=== PATIENT | female | born 1970 | race Caucasian/White ===

== ENCOUNTER → 2017-01-12 | Outpatient (CLI) | payer BC ==
--- NOTE | 2017-01-12 16:53 | US ---
EXAMINATION TYPE: US kidneys/renal and bladder DATE OF EXAM: 01/12/2017 4:23 PM COMPARISON: NONE CLINICAL HISTORY: R31.9 Hematuria. Hematuria EXAM MEASUREMENTS: Right Kidney: 10.4 x 4.3 x 4.9 cm Left Kidney: 9.3 x 4.4 x 4.4 cm Right Kidney: fullness of renal pelvis, 0.5cm echogenic shadowing focus inferior pole, inferior pole partially obscured by overlying bowel gas Left Kidney: 0.7cm echogenic focus superior pole, inferior pole partially obscured by overlying bowel gas Bladder: wnl Bilateral Jets seen: yes There is no evidence for hydronephrosis at this point in time. No nephrolithiasis is seen. No zayda s are identified. The urinary bladder is anechoic. Bilateral ureteral jets are seen. IMPRESSION: There is evidence for nonobstructing bilateral renal calculi. No evidence of a renal mass. No renal a trophy seen.
== END | disposition home or self-care (01) ==
LOC: RADUSMAIN 15:58
PROVIDERS: ATTEND Pediatrics
DX: R31.9 Hematuria, unspecified (principal)
CPT/HCPCS: 76770

== ENCOUNTER → 2017-05-01 | Outpatient (CLI) | payer BC ==
--- NOTE | 2017-05-03 09:42 | MM ---
Reason for exam: screening (asymptomatic). Last mammogram was performed 4 years and 4 months ago. History: Patient is postmenopausal and is nulliparous. Took progesterone for 3 years 6 months beginning at age 34. Taking other hormone for 3 months beginning at age 42. Physical Findings: A clinical breast exam by your physician is recommended on an annual basis and results should be correlated with mammographic findings. MG 3D Screening Mammo W/Cad Bilateral CC and MLO view(s) were taken. Prior study comparison: January 09, 2013, bilateral digital screening mammo w/CAD. September 05, 2011, bilateral digital screening mammo w/CAD. November 22, 2007, bilateral diagnostic digital mammog. The breast tissue is extremely dense which could obscure a lesion on mammography. Finding: There are typically benign round, diffuse/scattered, regional calcifications in both breasts. There is no discrete abnormality. ASSESSMENT: Benign, BI-RAD 2 RECOMMENDATION: Routine screening mammogram of both breasts in 1 year.
== END | disposition home or self-care (01) ==
LOC: RADMAMWWP 15:49
PROVIDERS: ATTEND Pediatrics
DX: Z12.31 Encounter for screening mammogram for malignant neoplasm of breast (principal)
CPT/HCPCS: 77063; G0202

== ENCOUNTER → 2017-06-18 | Outpatient (CLI) | payer BC ==
[2017-06-18 16:17] LABS: Non-African American GFR(MDRD) >60 (>60 ml/min/1.73 sqM)
--- NOTE | 2017-06-18 23:12 | MR ---
EXAMINATION TYPE: MR brain/cspine wo/w DATE OF EXAM: 06/18/2017 COMPARISON: MRI brain and cervical spine April 25, 2016 HISTORY: MS follow up. Symptoms of dizziness and bilateral extremity numbness with headaches per bryson ent. TECHNIQUE: Multiplanar, multisequence images of the cervical spine, brain and brainstem are all performed withou t and with IV contrast, utilizing 5 mL intravenous Gadavist gadolinium contrast is administered intra venously. Demyelinating disease protocol with additional Sagittal Flair sequence performed. FINDINGS: T2 Lesions Present : Yes Approximate Number of Lesions: Approximately 10 large lesions redemonstrated Locations Identified : Scattered deep and periventricular Size of Reference Lesion(s): 1. 1.3 cm x 1.0 cm x 0.9 cm on axial image 18 and sagittal image 7 left frontal periventricular lesi on stable 2 1.1 cm x 0.6 cm x 1 cm on axial image 20 and sagittal image 19 right frontal lesion stable Enhancing Lesion(s) Present: No T1 Hypointense Lesion(s) Present: Yes Change from Prior: Stable Diffusion weighted images demonstrate no evidence of a recent infarct or other diffusion abnormality. There is no worrisome extra-axial fluid collection. The ventricular system and cisternal spaces ar e normal in size and appearance. The brain volume is age appropriate. Midline structures demonstrate normal morphology. The craniocervical junction appears within normal limits. There is dominant left vertebral artery redemonstrated. Post contrast images demonstrate no a bnormal enhancement. The dural venous sinuses appear patent. The visualized sinuses are clear and th e globes are intact. IMPRESSION: Fairly moderate stable nonspecific white matter changes likely on basis of patient's know n multiple sclerosis redemonstrated. No new or enhancing lesions are seen. C-SPINE: FINDINGS: Coronal images redemonstrates slight dextroconvex scoliotic curvature centered in the lower cervical spine. Sagittal images of the cervical spine show the craniocervical junction to appear wit hin normal limits. The cervical and upper thoracic spinal cord remains normal in course, caliber, an d signal. Vertebral alignment is anatomic on sagittal images. The vertebral body and intravertebral disk heights are normal. Posterior disc herniations are redemonstrated C4-C5 through C6-C7 levels on sagittal images. The bone marrow signal intensity is within normal limits. No abnormal postcontrast enhancement is seen. No significant spurring is noted. Axial images show the C2-C3 level to show tiny left paracentral disc protrusion minimally effacing an terolateral thecal sac, bilateral neural foramina are patent on axial image 45. Axial images at C3-C4 level show more prominent left paracentral/foraminal disc protrusion effacing a nterolateral thecal sac and causing asymmetric mild to moderate left-sided neural foraminal narrowing . Right-sided neural foramen is patent. Axial images at C4-C5 level show broad-based posterior disc protrusion effacing anterior thecal sac a nd causing mild bilateral neural foraminal narrowing. Axial images at C5-C6 level show most prominent broad-based posterior disc protrusion effacing anteri or thecal sac and causing mild bilateral neural foraminal narrowing. Axial images at C6-C7 level shows central disc protrusion mildly effacing anterior thecal sac, bilate ral neural foramina are patent. Axial images at C7-T1 level are felt within normal limits. IMPRESSION: No MRI evidence for demyelinating disease involvement in cervical spinal cord. Multilevel degenerative changes are redemonstrated C3-C4 through C6-C7 level as detailed above. Slight progress ion may be present from prior.
== END | disposition home or self-care (01) ==
LOC: RADMRIMAIN 15:40
PROVIDERS: ATTEND Psychiatry & Neurology Neurology
DX: M47.812 Spondylosis without myelopathy or radiculopathy, cervical region (principal); G35 Multiple sclerosis
CPT/HCPCS: 82565; 70553; 72156; 36415; A9581

== ENCOUNTER → 2017-06-19 | Outpatient (CLI) | payer BC ==
--- NOTE | 2017-06-19 19:00 | MR ---
Thoracic spine MRI HISTORY: Multiple sclerosis Multiplanar multisequence imaging through the thoracic spine following 5.5 cc Gadavist IV and correla susie to previous exam 04/26/2016 Thoracic vertebral bodies show stable height, alignment, and bone marrow signal. Disc spaces are stab le. Thoracic cord signal is stable. No significant spinal stenosis, foraminal encroachment, or disc h erniation. Thoracic cord signal is stable. Facet arthropathy change present at the lower thoracic spi ne. No abnormal enhancement following contrast administration. IMPRESSION: Stable exam. No significant abnormalities evident within the thoracic cord. Facet arthrop athy as described.
== END | disposition home or self-care (01) ==
LOC: RADMRIMAIN 16:26
PROVIDERS: ATTEND Psychiatry & Neurology Neurology
DX: M53.84 Other specified dorsopathies, thoracic region (principal); G35 Multiple sclerosis
CPT/HCPCS: 72157; A9581

== ENCOUNTER → 2017-10-18 | Outpatient (CLI) | payer BC ==
--- NOTE | 2017-10-18 22:50 | BD ---
EXAMINATION TYPE: MG DEXA axial skeleton. DATE OF EXAM: 10/18/2017 COMPARISON: NONE CLINICAL HISTORY: 47-year-old female screening for osteoporosis Height: 5 FT 5 1/2 IN Weight: 115 FRAX RISK QUESTIONS: Alcohol (3 or more units per day): NO Family History (Parent hip fracture): NO Glucocorticoids (More than 3mos): NO (Ex: prednisone, prednisolone, methylprednisolone, dexamethasone, and hydrocortisone). History of Fracture in Adulthood: YES Secondary Osteoporosis: 1. Type 1 Diabetes: NO 2. Hyperthyroidism: NO 3. Menopause before 45: NO 4. Malnutrition: NO 5. Chronic liver disease: NO Rheumatoid Arthritis: NO Current Tobacco Use: NO RISK FACTORS HISTORY OF: Family History of Osteoporosis: YES Active: NO Postmenopausal woman: PART HYST AGE 41 Frequent falls: YES MEDICATIONS: Additional Medications: SYMATREL, NORVASC, KOZAAR, BACLIFEN, EFFEXOR, ALEVE, AMBIEN,DETROL, XANAX, T E, VIT B , FISH OIL, MULTI, BIOTIN, Additional History: PT HAS MS EXAM MEASUREMENTS: Bone mineral densitometry was performed using the Streak System. Bone mineral density as measured about the Lumbar spine is: ----- L1-L4(G/cm2): 1.369 T Score Values are as follows: ----- L2: 1.9 ----- L3: 1.5 ----- L4: 0.9 ----- L1-L4: 1.6 Bone mineral density has: DECREASED -2.1 % since study of: 2008 Bone mineral density about the R hip (g/cm2): 0.907 Bone mineral density about the L hip (g/cm2): 0.874 T Score values are as follows: -----R Neck: -0.9 -----L Neck: -1.2 -----R Total: -1.1 -----L Total: -1.2 Bone mineral density has: DECREASED -1.3 % since study of: 2008 IMPRESSION: Note that Z score values are utilized as the patient is less than 50 years of age. When utilizing Z s core values, there is normal bone mineral density. Consider rescreening when the patient is 50. NOTE: T-SCORE=SD OF THE YOUNG ADULT MEAN.
== END | disposition home or self-care (01) ==
LOC: RADBDWWP 16:08
PROVIDERS: ATTEND Pediatrics
DX: Z13.820 Encounter for screening for osteoporosis (principal)
CPT/HCPCS: 77080

== ENCOUNTER → 2018-02-12 | Outpatient (CLI) | payer BC ==
[2018-02-12 17:27] LABS: ALT 48 U/L (9-52); AST 31 U/L (14-36); Albumin 4.4 g/dL (3.5-5.0); Alkaline Phosphatase 74 U/L (38-126); Anion Gap 13 mmol/L; Blood Urea Nitrogen 24 mg/dL (7-17); Calcium 10.2 mg/dL (8.4-10.2); Carbon Dioxide 30 mmol/L (22-30); Chloride 100 mmol/L (98-107); Glucose 112 mg/dL (74-99); Sodium 143 mmol/L (137-145); Total Bilirubin 0.3 mg/dL (0.2-1.3)
[2018-02-12 17:43] LABS: T4, Free (Free Thyroxine) 1.32 ng/dL (0.78-2.19)
[2018-02-13 01:27] LABS: Vitamin D 25 Hydroxy 60.9 ng/mL (30.0-100.0)
[2018-02-13 04:54] LABS: Parathyroid Hormone Intact 26.7 pg/mL (14.0-72.0)
== END | disposition home or self-care (01) ==
LOC: LABWHC1 16:44
PROVIDERS: ATTEND Internal Medicine Endocrinology, Diabetes & Metabolism
DX: E20.8 Other hypoparathyroidism (principal)
CPT/HCPCS: 36415; 80053; 82306; 83970; 84439; 84443

== ENCOUNTER 2022-02-21 17:06 | Inpatient (IN) | payer BC, MEDICARE ==
[2022-02-21 20:34] LABS: HCT 37.5 % (34.0-46.0); HGB 12.5 gm/dL (11.4-16.0); MCH 31.8 pg (25.0-35.0); MCHC 33.3 g/dL (31.0-37.0); MCV 95.7 fL (80.0-100.0); Mean Platelet Volume 8.5; Platelet Count 205 k/uL (150-450); RBC 3.92 m/uL (3.80-5.40); RDW 13.5 % (11.5-15.5); WBC 2.9 k/uL (3.8-10.6)
[2022-02-21 20:48] LABS: ALT 59 U/L (4-34); AST 42 U/L (14-36); African American GFR (CKD) >90 (>60 ml/min/1.73 sqM); Albumin 4.2 g/dL (3.5-5.0); Alkaline Phosphatase 104 U/L (38-126); Anion Gap 7 mmol/L; Blood Urea Nitrogen 19 mg/dL (7-17); Calcium 9.1 mg/dL (8.4-10.2); Carbon Dioxide 28 mmol/L (22-30); Chloride 97 mmol/L (98-107); Glucose 127 mg/dL (74-99); Non-African American GFR(CKD) >90 (>60 ml/min/1.73 sqM); Potassium 3.8 mmol/L (3.5-5.1); Sodium 132 mmol/L (137-145); Total Bilirubin 0.7 mg/dL (0.2-1.3); Total Protein 6.8 g/dL (6.3-8.2)
[2022-02-21 20:59] LABS: Appearance,Urine Clear (Clear); Bilirubin,Urine Negative (Negative); Blood,Urine Trace (Negative); Color,Urine Yellow; Glucose,Urine (UA) Trace (Negative); Ketones,Urine 1+ (Negative); Leukocyte Esterase,Urine Negative (Negative); Mucus,Urine Rare /hpf; Nitrite,Urine Negative (Negative); PH, Urine 6.5 (5.0-8.0); Protein,Urine 1+ (Negative); RBC,Urine 10 /hpf (0-5); Specific Gravity,Urine 1.018 (1.001-1.035); Squamous Epithelial Cell,Urine <1 /hpf (0-4); Urobilinogen,Urine <2.0 mg/dL (<2.0); WBC,Urine 1 /hpf (0-5)
[2022-02-21] MEDS ORDERED: AMPICILLIN-SULBACTAM 3 GM in SODIUM CHLORIDE 0.9% 100 ML IVPB STA (22:01)
[2022-02-21] MEDS ORDERED: VANCOMYCIN IV PER PHARMACY 1 EACH MISC MISCELLANE PRN (22:02)
[2022-02-21] MEDS ORDERED: SODIUM CHLORIDE 0.9% 500 ML IV STA (22:03)
[2022-02-21] MEDS ORDERED: SODIUM CHLORIDE 0.9% 1,000 ML IV STA (22:03)
--- NOTE | 2022-02-21 22:13 | ED ---
General Adult HPI - General Chief complaint: Recheck/Abnormal Lab/Rx Stated complaint: Blood in Urine Time Seen by Provider: 02/21/22 21:11 Source: patient Mode of arrival: wheelchair Limitations: no limitations - History of Present Illness Initial comments: this 52-year-old female resents with mother with a complaint of weakness. She states that this started in the past several days. She describes having significant cramping type sensation in her upper back and neck region. Her mother took her temperature at one point and it was 101. She has had some chills as well. She has generalized weakness. She also relates that she has a significant history of severe multiple sclerosis. She takes Ocrivus infusions every 6 months. Her last one was approximately 6 weeks ago. She states that the skin significantly affect her white blood cell count. She states that she normally has significant weakness of her lower extremities but this is much worse in the last 1 week. She also relates having decubitus ulcers in her sacral region which have just recently became much worse. She has a small skin infection in her left axilla as well which is minimal but knew. She denies any cough or difficulty in breathing. She was seen at an urgent care center yesterday and had a chest x-ray which was negative. She also had a urinalysis completed which showed some hematuria. They recommended that she come to the emergency department for further evaluation. She states that she is visiting from [place] and her neurologist is down in [place]. She has not seen any providers in this region. She also relates that she has a history of kidney stones but she does not feel as though she is passing a kidney stone currently. There is no flank pain. No other modifying factors. - Related Data Home Medications Medication Instructions Recorded Confirmed ALPRAZolam [Xanax] 0.25 mg PO BID 12/19/16 04/19/18 Baclofen 10 mg PO TID 12/19/16 04/19/18 Ergocalciferol [Vitamin D2 50,000 units PO WEEKLY 12/19/16 04/19/18 (DRISDOL)] Losartan Potassium [Cozaar] 100 mg PO DAILY 12/19/16 04/19/18 Loteprednol Etabonate [Lotemax] 1 drop BOTH EYES HS 12/19/16 04/19/18 Tolterodine Tartrate [Detrol] 2 mg PO HS 12/19/16 04/19/18 Venlafaxine HCl [Effexor] 75 mg PO DAILY 12/19/16 04/19/18 Zolpidem Tartrate [Ambien Cr] 6.25 mg PO HS 12/19/16 04/19/18 amLODIPine BESYLATE [Norvasc] 5 mg PO DAILY 12/19/16 04/19/18 amantadine HCL [Symmetrel] 100 mg PO BID 12/19/16 04/19/18 Allergies Allergy/AdvReac Type Severity Reaction Status Date / Time gadobenate dimeglumine Allergy Mild Rash/Hives Unverified 04/19/18 14:12 [From AGLOGIC] Review of Systems ROS Statement: Those systems with pertinent positive or pertinent negative responses have been documented in the HPI. ROS Other: All systems not noted in ROS Statement are negative. Past Medical History Past Medical History: Eye Disorder, Hypertension, Neurologic Disorder Additional Past Medical History / Comment(s): MS. LESIONS ON CORNEA FROM MS. History of Any Multi-Drug Resistant Organisms: None Reported Past Surgical History: Hysterectomy Additional Past Surgical History / Comment(s): PARTIAL HYSTERECTOMY. Past Anesthesia/Blood Transfusion Reactions: No Reported Reaction Past Psychological History: Anxiety, Depression Past Alcohol Use History: None Reported Past Drug Use History: None Reported - Past Family History Mother Family Medical History: Osteoarthritis (OA) Father Family Medical History: Cancer, Hyperlipidemia Additional Family Medical History / Comment(s): PROSTATE CANCER. General Exam - General Exam Comments Initial Comments: GENERAL: The patient is well nourished and well hydrated. VITAL SIGNS: Heart rate, blood pressure, respiratory rate reviewed as recorded in nurse's notes. EYES: Pupils are round and reactive. Extraocular movements are intact. No conjunctival / lid redness or swelling. ENT: No external evidence of injury, swelling, or ecchymosis. Airway is patent. Throat is clear. NECK: Mild tenderness and and spasm to her bilateral paracervical musculature. No meningeal signs noted. No swelling or evidence of injury. No subcutaneous emphysema. Trachea is midline. No thyroid mass. HEART: Regular rate and rhythm. Good peripheral pulses. LUNGS/CHEST: Breath sounds clear and equal bilaterally. No rales, rhonchi, or wheezes. No ecchymosis, subcutaneous emphysema, or tenderness. ABDOMEN: Abdomen soft without tenderness. No palpable masses or organomegaly. No peritoneal signs. No abdominal wall swelling or ecchymosis. EXTREMITIES: No extremity tenderness. There is bilateral lower extremity weakness which is chronic for her. There is some mild tenderness and muscle spasm to her parathoracic musculature superiorly. NEUROLOGIC: Sensation is grossly intact. Cranial nerve exam reveals face is symmetrical, tongue is midline, speech is clear. Lower extremity weakness noted which is chronic. SKIN: No abrasions or ecchymosis is noted. No induration or masses noted. There is a small erythematous minimally raised nonfluctuant lesion noted in her left axilla measuring 1 cm x 1 cm. there is a moderately significant left buttock cellulitis noted. There is no associated fluctuance identified. There is a mild sacral decubitus ulceration which would be a grade 1. PSYCHIATRIC: Alert and oriented. Appropriate behavior and judgment. Limitations: no limitations Course Vital Signs 02/21/22 18:25 Temperature 97.3 F L Pulse Rate 101 H Respiratory 18 Rate Blood Pressure 163/84 O2 Sat by Pulse 99 Oximetry Medical Decision Making - Medical Decision Making The patient was seen and examined. All diagnostics are reviewed. A KUB x-ray was done and there is fluid was noted in multiple likely renal stones. Final radiologic review pending. The patient also had a low white blood cell count at 2.9. The laboratory calls me and relates that they are unable to see any neutrophils at all and there is increased monocytes as well as lymphocytes. The urinalysis shows evidence of some mild hematuria but no definite infection. IV is established and she is hydrated. Skin and vancomycin is started. It is felt as though the patient is significantly immune deficient. Her source of infection may potentially be her decubitus ulcer. She relates that her MS symptoms and generalized weakness are fairly severe. It is felt as though she would benefit from evaluation by neurology and hematology. Her neutropenia likely is due to her medication infusion for her MS. She is agreeable with admission. Case will be discussed with internal medicine in the near future. - Lab Data Result diagrams: 02/21/22 20:05 02/21/22 20:05 Lab Results 02/21/22 02/21/22 02/21/22 Range/Units 20:05 20:05 20:44 WBC 2.9 L (3.8-10.6) k/uL RBC 3.92 (3.80-5.40) m/uL Hgb 12.5 (11.4-16.0) gm/dL Hct 37.5 (34.0-46.0) % MCV 95.7 (80.0-100.0) fL MCH 31.8 (25.0-35.0) pg MCHC 33.3 (31.0-37.0) g/dL RDW 13.5 (11.5-15.5) % Plt Count 205 (150-450) k/uL MPV 8.5 Sodium 132 L (137-145) mmol/L Potassium 3.8 (3.5-5.1) mmol/L Chloride 97 L (98-107) mmol/L Carbon Dioxide 28 (22-30) mmol/L Anion Gap 7 mmol/L BUN 19 H (7-17) mg/dL Creatinine 0.59 (0.52-1.04) mg/dL Est GFR (CKD-EPI)AfAm >90 (>60 ml/min/1.73 sqM) Est GFR (CKD-EPI)NonAf >90 (>60 ml/min/1.73 sqM) Glucose 127 H (74-99) mg/dL Calcium 9.1 (8.4-10.2) mg/dL Total Bilirubin 0.7 (0.2-1.3) mg/dL AST 42 H (14-36) U/L ALT 59 H (4-34) U/L Alkaline Phosphatase 104 (38-126) U/L Total Protein 6.8 (6.3-8.2) g/dL Albumin 4.2 (3.5-5.0) g/dL Urine Color Yellow Urine Appearance Clear (Clear) Urine pH 6.5 (5.0-8.0) Ur Specific Hewitt 1.018 (1.001-1.035) Urine Protein 1+ H (Negative) Urine Glucose (UA) Trace H (Negative) Urine Ketones 1+ H (Negative) Urine Blood Trace H (Negative) Urine Nitrite Negative (Negative) Urine Bilirubin Negative (Negative) Urine Urobilinogen <2.0 (<2.0) mg/dL Ur Leukocyte Esterase Negative (Negative) Urine RBC 10 H (0-5) /hpf Urine WBC 1 (0-5) /hpf Ur Squamous Epith Cells <1 (0-4) /hpf Urine Mucus Rare H (None) /hpf Disposition Clinical Impression: Weakness, Exacerbation of multiple sclerosis, Neutropenia, Leukopenia, Hyponatremia, Hypochloremia, Hypertension, Decubitus ulcer, Immunocompromised, Cellulitis of buttock, left Disposition: ADMITTED IP TO THIS HOSP Condition: Fair Is patient prescribed a controlled substance at d/c from ED?: No Referrals: None,Stated [Primary Care Provider] - 1-2 days Time of Disposition: 22:15 Decision Date: 02/21/22 Decision Time: 22:59
[2022-02-21] MEDS ORDERED: VANCOMYCIN 1,000 MG in SODIUM CHLORIDE 0.9% 250 ML IVPB ONE (23:00)
[2022-02-22 00:01] LABS: Eosinophils # (M) 0.03 k/uL (0-0.7); Metamyelocytes # (M) 0.03 k/uL (0)
[2022-02-22] MEDS ORDERED: ACETAMINOPHEN TAB 325 MG TAB PO PRN (00:05)
[2022-02-22] MEDS ORDERED: NALOXONE 0.4 MG/ML 1 ML VIAL IV PRN (00:06)
[2022-02-22] MEDS ORDERED: ONDANSETRON 4 MG/2 ML VIAL IVP PRN (00:06)
--- NOTE | 2022-02-22 01:26 | XR ---
EXAM: XR Chest, 2 Views CLINICAL HISTORY: ITS.REASON XR Reason: possible infiltrate TECHNIQUE: Frontal and lateral views of the chest. COMPARISON: No relevant prior studies available. FINDINGS: Lungs: Unremarkable. No infiltration, atelectasis or mass density. Pleural space: Unremarkable. No pneumothorax. No pleural fluid. Heart: Unremarkable. No cardiomegaly. Mediastinum: Unremarkable. Bones/joints: Unremarkable. No acute abnormalities. IMPRESSION: Negative chest x-rays.
--- NOTE | 2022-02-22 02:22 | P.HPIM ---
History of Present Illness H&P Date: 02/22/22 The patient is a 52-year-old female with a PMH of multiple sclerosis and hypertension who presents to the emergency room with complaints of muscle spasms, weakness, and a rash. The patient reports a long-standing history of multiple sclerosis for which she has been taking Ocrevus, twice a year IV in fusion. She reports that over the years her mobility has gradually deteriorated where she now ambulates with a walker and a mobility scooter. She reports however that this past Sunday, she suddenly developed back spasms and worsening pain at the site of an ulcer on her left buttock. She also reports that her legs became increasingly weaker. She reports a long-standing history of intermittent urinary incontinence which has also worsened since the onset of her symptoms. She did have a temperature of 101 at home but denies subjective chills. She denied experiencing chest discomfort, shortness of breath, cough, nausea, vomiting, abdominal pain, diarrhea. Chest x-ray in the emergency room was unremarkable. Laboratory evaluation revealed a WBC count of 2.9 with 0 neutrophils. Sodium was 132, chloride 97, AST 42, ALT 59, unremarkable UA, negative coronavirus and influenza testing. The patient was given broad- spectrum IV antibiotics for neutropenic sepsis and was admitted for medical management. Review of systems: Pertinent positives and negatives as discussed in HPI, a complete review of systems was performed and all other systems are negative. Physical examination: General: non toxic, no distress, appears at stated age, normal weight Derm: 5 cm left sided buttock unstageable ulcer overlying ischial tuberosity with surrounding erythema and a black base, 2 cm right ischial tuberosity ulcer without surrounding erythema, 3 cm ulcer overlying the coccyx without surrounding erythema, warm Head: atraumatic, normocephalic, symmetric Eyes: EOMI, no lid lag, anicteric sclera, pupils equal round reactive to light ENT: Nose and ears atraumatic Neck: No cervical lymphadenopathy, trachea midline, supple Mouth: no lip lesion, mucus membranes moist Cardiovascular: S1S2 reg, no murmur, positive dorsalis pedis pulse bilateral, no edema Lungs: CTA bilateral, no rhonchi, no rales, no accessory muscle use Abdominal: soft, nontender to palpation, no guarding Ext: Strength 4 out of 5 in bilateral upper extremities with strength 1 out of 5 in bilateral lower extremities, no gross muscle atrophy, no contractures, Neuro: CN II-XI grossly intact, no gross focal neuro deficits Psych: Alert, oriented, appropriate affect Assessment/plan Neutropenic sepsis in setting of immunosuppressant use -Neutropenia is a common side effect of Ocrevus -Hematology consulted for severe neutropenia -Continue with broad-spectrum IV antibiotics with Unasyn and vancomycin -Follow up blood cultures -Wound care for buttock and coccyx ulcers Hypochloremic hyponatremia -Continue gentle IV fluids and monitor for now Abnormal LFTs -May be due to ongoing sepsis -Monitor for now DVT prophylaxis -Lovenox The patient is admitted with an anticipated greater than 2 midnight stay for evaluation of neutropenic sepsis. CODE STATUS: Full Code Discussed with: Patient Anticipated discharge date: 02/[address]: Home Past Medical History Past Medical History: Eye Disorder, Hypertension, Neurologic Disorder Additional Past Medical History / Comment(s): MS. LESIONS ON CORNEA FROM MS. History of Any Multi-Drug Resistant Organisms: None Reported Past Surgical History: Hysterectomy Additional Past Surgical History / Comment(s): PARTIAL HYSTERECTOMY. Past Anesthesia/Blood Transfusion Reactions: No Reported Reaction Past Psychological History: Anxiety, Depression Past Alcohol Use History: None Reported Past Drug Use History: None Reported - Past Family History Mother Family Medical History: Osteoarthritis (OA) Father Family Medical History: Cancer, Hyperlipidemia Additional Family Medical History / Comment(s): PROSTATE CANCER. Medications and Allergies Home Medications Medication Instructions Recorded Confirmed Type Losartan Potassium [Cozaar] 100 mg PO DAILY 12/19/16 02/21/22 History amLODIPine BESYLATE [Norvasc] 5 mg PO DAILY 12/19/16 02/21/22 History Acetaminophen [Tylenol 8 Hour] 650 mg PO Q8H PRN 02/21/22 02/21/22 History Cephalexin [Keflex] 500 mg PO Q8HR 02/21/22 02/21/22 History Dalfampridine [Dalfampridine ER] 10 mg PO BID 02/21/22 02/21/22 History Doxycycline Monohydrate 50 mg PO DAILY 02/21/22 02/21/22 History Escitalopram [Lexapro] 10 mg PO DAILY 02/21/22 02/21/22 History Meloxicam [Mobic] 15 mg PO DAILY PRN 02/21/22 02/21/22 History Ocrevus 1 dose IV Q180D 02/21/22 02/21/22 History Omeprazole [PriLOSEC] 20 mg PO DAILY 02/21/22 02/21/22 History amantadine HCL [Amantadine] 100 mg PO W/LUNCH 02/21/22 02/21/22 History amantadine HCL [Amantadine] 200 mg PO W/BRKFST 02/21/22 02/21/22 History Allergies Allergy/AdvReac Type Severity Reaction Status Date / Time gadobenate dimeglumine Allergy Mild Rash/Hives Verified 02/21/22 23:00 [From [facility]] Physical Exam Vitals: Vital Signs Temp Pulse Resp BP Pulse Ox 02/21/22 18:25 97.3 F L 101 H 18 163/84 99 Intake and Output 02/21/22 02/21/22 02/22/22 14:59 22:59 06:59 Other: Weight 56.245 kg Results CBC & Chem 7: 02/21/22 20:05 02/21/22 20:05 Labs: Abnormal Lab Results - Last 24 Hours (Table) 02/21/22 02/21/22 02/21/22 Range/Units 20:05 20:05 20:44 WBC 2.9 L (3.8-10.6) k/uL Sodium 132 L (137-145) mmol/L Chloride 97 L (98-107) mmol/L BUN 19 H (7-17) mg/dL Glucose 127 H (74-99) mg/dL AST 42 H (14-36) U/L ALT 59 H (4-34) U/L Urine Protein 1+ H (Negative) Urine Glucose (UA) Trace H (Negative) Urine Ketones 1+ H (Negative) Urine Blood Trace H (Negative) Urine RBC 10 H (0-5) /hpf Urine Mucus Rare H (None) /hpf
[2022-02-22 08:13] LABS: Basophils # (M) 0.03 k/uL (0-0.2); Lymphocytes # (M) 1.13 k/uL (1.0-4.8); Neutrophils # (M) 0.15 k/uL (1.3-7.7); Neutrophils % (M) 5 %; Nucleated Red Blood Cells 0 /100 WBC (0-0); Total Cells Counted 200
[2022-02-22] MEDS ORDERED: NON FORMULARY DRUG (Dalfampridine [Dalfampridine Er] 10 MG Tab.Er.12h) PO SCH (09:00)
[2022-02-22] MEDS: AMPICILLIN-SULBACTAM 3 GM in SODIUM CHLORIDE 0.9% 100 ML IVPB SCH ×2 (09:11→15:31)
[2022-02-22 10:03] LABS: African American GFR (CKD) 129.9 (60.0-200.0); Albumin 3.9 g/dL (3.8-4.9); Albumin/Globulin Ratio 1.95 (1.60-3.17); Anion Gap 13.2 mmol/L (10.00-18.00); BUN/Creat Ratio 21.4 Ratio (12.00-20.00); Blood Urea Nitrogen 10.7 mg/dL (9.0-27.0); Calcium 9.4 mg/dL (8.7-10.3); Carbon Dioxide 25.8 mmol/L (20.0-27.5); Non-African American GFR(CKD) 112.1 (60.0-200.0); Potassium 3.9 mmol/L (3.5-5.5); Total Bilirubin 0.4 mg/dL (0.30-1.20); Total Protein 5.9 g/dL (6.2-8.2)
[2022-02-22] MEDS: ESCITALOPRAM 10 MG TAB PO SCH (10:14)
[2022-02-22] MEDS: LOSARTAN 50 MG TAB PO SCH (10:14)
[2022-02-22] MEDS: PANTOPRAZOLE 40 MG TABLET PO SCH (10:14)
[2022-02-22] MEDS: ENOXAPARIN 40 MG/0.4 ML SYRINGE SQ SCH (10:16)
[2022-02-22] MEDS: amLODIPine 5 MG TAB PO SCH (10:16)
--- NOTE | 2022-02-22 10:24 | P.CONS ---
History of Present Illness - Reason for Consult Consult date: 02/22/22 Wound care - History of Present Illness This is a 52-year-old patient with past medical history significant for multiple sclerosis and hypertension. Presenting to the emergency room for weakness, incontinence. Patient does have ulcerations to the left buttocks right buttocks and midline sacrum. Patient states that the ulceration has been there for at least a week. She does have tenderness to the left buttocks ulceration. Ulceration has minimal granulation seen within the wound beds and significant amount of slough. No tunneling or undermining noted. Wound edges are attached to the wound base. The wound does not show any excoriation or maceration at this time. However the patient is incontinent. Review Of Systems: Constitutional: No fever, no chills, no night sweats. No weight change. No weakness, fatigue or lethargy. No daytime sleepiness. Integumentary:reports wounds, no lesions. No rash or pruritus. No unusual bruising. No change in hair or nails. Physical exam: General Appearance: Alert, cooperative, no distress, appears stated age. Skin: See HPI all other Skin color, texture, tugor normal, no rashes or lesions. Neurologic: Alert oriented x3 Assessment: 1. Stage II pressure ulcer right buttocks 2. Stage II pressure ulcer left buttocks 3. Stage II pressure ulcer sacrum Plan: 1. Apply Santyl, saline moistened gauze, and border foam. Change daily. Utilize zinc barrier cream to the periwound to protect due to the incontinence. Turn patient every 2 hours. Utilize the surface algorithm for appropriate surface. Utilize a air-filled cushion while sitting. Patient would benefit from outpatient wound care. Patient states that she does not think she would be able to come to wound care requesting something that is home base. Thank you for the consultation any questions to contact the wound care center DNP note has been reviewed and discussed with Dr. Downing and the impression and plan of care has been directed as dictated. Past Medical History Past Medical History: Eye Disorder, Hypertension, Neurologic Disorder Additional Past Medical History / Comment(s): MS. LESIONS ON CORNEA FROM MS. History of Any Multi-Drug Resistant Organisms: None Reported Past Surgical History: Hysterectomy Additional Past Surgical History / Comment(s): PARTIAL HYSTERECTOMY. Past Anesthesia/Blood Transfusion Reactions: No Reported Reaction Past Psychological History: Anxiety, Depression Past Alcohol Use History: None Reported Past Drug Use History: None Reported - Past Family History Mother Family Medical History: Osteoarthritis (OA) Father Family Medical History: Cancer, Hyperlipidemia Additional Family Medical History / Comment(s): PROSTATE CANCER. Medications and Allergies Home Medications Medication Instructions Recorded Confirmed Type Losartan Potassium [Cozaar] 100 mg PO DAILY 12/19/16 02/21/22 History amLODIPine BESYLATE [Norvasc] 5 mg PO DAILY 12/19/16 02/21/22 History Acetaminophen [Tylenol 8 Hour] 650 mg PO Q8H PRN 02/21/22 02/21/22 History Cephalexin [Keflex] 500 mg PO Q8HR 02/21/22 02/21/22 History Dalfampridine [Dalfampridine ER] 10 mg PO BID 02/21/22 02/21/22 History Doxycycline Monohydrate 50 mg PO DAILY 02/21/22 02/21/22 History Escitalopram [Lexapro] 10 mg PO DAILY 02/21/22 02/21/22 History Meloxicam [Mobic] 15 mg PO DAILY PRN 02/21/22 02/21/22 History Ocrevus 1 dose IV Q180D 02/21/22 02/21/22 History Omeprazole [PriLOSEC] 20 mg PO DAILY 02/21/22 02/21/22 History amantadine HCL [Amantadine] 100 mg PO W/LUNCH 02/21/22 02/21/22 History amantadine HCL [Amantadine] 200 mg PO W/BRKFST 02/21/22 02/21/22 History Allergies Allergy/AdvReac Type Severity Reaction Status Date / Time gadobenate dimeglumine Allergy Mild Rash/Hives Verified 02/21/22 23:00 [[facility] Physical Exam Vitals: Vital Signs Temp Pulse Resp BP Pulse Ox 02/22/22 07:47 99.6 F 109 H 19 157/94 98 02/21/22 18:25 97.3 F L 101 H 18 163/84 99 Intake and Output 02/21/22 02/22/22 02/22/22 22:59 06:59 14:59 Other: Weight 56.245 kg Results CBC & Chem 7: 02/21/22 20:05 02/22/22 06:01 Labs: Abnormal Lab Results - Last 24 Hours (Table) 02/21/22 02/21/22 02/21/22 Range/Units 20:05 20:05 20:44 WBC 2.9 L (3.8-10.6) k/uL Neutrophils # (Manual) 0.15 L* (1.3-7.7) k/uL Monocytes # (Manual) 1.60 H (0-1.0) k/uL Metamyelocytes # (Man) 0.03 H (0) k/uL Sodium 132 L (137-145) mmol/L Chloride 97 L (98-107) mmol/L BUN 19 H (7-17) mg/dL Creatinine (0.6-1.5) mg/dL BUN/Creatinine Ratio (12.00-20.00) Ratio Glucose 127 H (74-99) mg/dL AST 42 H (14-36) U/L ALT 59 H (4-34) U/L Total Protein (6.2-8.2) g/dL Urine Protein 1+ H (Negative) Urine Glucose (UA) Trace H (Negative) Urine Ketones 1+ H (Negative) Urine Blood Trace H (Negative) Urine RBC 10 H (0-5) /hpf Urine Mucus Rare H (None) /hpf 02/22/22 Range/Units 06:01 WBC (3.8-10.6) k/uL Neutrophils # (Manual) (1.3-7.7) k/uL Monocytes # (Manual) (0-1.0) k/uL Metamyelocytes # (Man) (0) k/uL Sodium (137-145) mmol/L Chloride (98-107) mmol/L BUN (7-17) mg/dL Creatinine 0.5 L (0.6-1.5) mg/dL BUN/Creatinine Ratio 21.40 H (12.00-20.00) Ratio Glucose (74-99) mg/dL AST (14-36) U/L ALT 52 H (4-34) U/L Total Protein 5.9 L (6.2-8.2) g/dL Urine Protein (Negative) Urine Glucose (UA) (Negative) Urine Ketones (Negative) Urine Blood (Negative) Urine RBC (0-5) /hpf Urine Mucus (None) /hpf Assessment and Plan (1) Stage II pressure ulcer of left buttock Current Visit: Yes Status: Acute Code(s): L89.322 - PRESSURE ULCER OF LEFT BUTTOCK, STAGE 2 SNOMED Code(s): 97389278668797008 (2) Stage II pressure ulcer of sacral region Current Visit: Yes Status: Acute Code(s): L89.152 - PRESSURE ULCER OF SACRAL REGION, STAGE 2 SNOMED Code(s): 72261081021671041
[2022-02-22] MEDS: MELOXICAM 7.5 MG TAB PO PRN (10:42)
--- NOTE | 2022-02-22 13:21 | XR ---
EXAMINATION TYPE: XR KUB DATE OF EXAM: 02/21/2022 COMPARISON: NONE HISTORY: Pain TECHNIQUE: Single supine KUB image of the abdomen is obtained FINDINGS: Small bowel demonstrates no evidence for dilatation or air fluid levels. Gas and fecal material is seen in non-distended colon. No convincing evidence for pneumoperitoneum. bilateral renal calculi seen measuring up to 4.5 mm on the right and 4.2 mm on the left. Multiple ph leboliths are seen within the pelvic basin. Distal ureteral calculus is not excluded in the appropria te clinical setting. The lung bases are clear. The osseous structures are intact. IMPRESSION: 1. bilateral renal calculi seen measuring up to 4.5 mm on the right and 4.2 mm on the left. Multipl e phleboliths are seen within the pelvic basin. Distal ureteral calculus is not excluded in the appro priate clinical setting.
[2022-02-22] MEDS: DALFAMPRIDINE 10 MG PO SCH ×2 (15:36→20:31)
--- NOTE | 2022-02-22 16:06 | P.CNNES ---
History of Present Illness Consult date: 02/22/22 Requesting physician: Siena Narayanan Reason for Consult: MS flair History of Present Illness: This is a 52-year-old woman with history of multiple sclerosis since age of 19 years-old, hypertension who presented to the emergency department on 02/21/2022 for complaint of muscle spasm, weakness. Neurology is consulted for MS flare. Patient stated that she has history of multiple sclerosis since the age of 19 recently she has noticed that she's having difficulty getting into and out of her scooter, she's having posterior neck pain and has sharp waves that goes down her neck when she turns her neck to the right or left but mostly right as well as shoulder pain. Also noticed that she's having got double vision as well blurry vision recently. She said prior to that she's able to use her scooter and able to get in and out of it and was using a cane to walk a few steps. She said her multiple sclerosis condition is progressively getting worse and which led her to use a scooter. She she has ulcers in her buttock region but has progressively worsened and had them for 9 month. Patient is on or Ocrevus IV infusion every 6 month and last infusion was in 12/20/2021. Patient resides in [place] but during the summertime her and her sister and family come to [place]. She follows up with a neurologist over in [place], [place]. She was tried on different disease modifying therapy in the past but has been on Ocrevus for the past 6 years. She has been using the scooter for the last 15-20 years. She got her initial diagnosis of multiple sclerosis from [facility] team. She has worsening pain in the left buttock region and noticed her legs are weaker than normal. Looks like she has an ulcer in the left buttocks region and felt she had a fever at home but denies any chills. Patient is on also amantadine 200 mg daily, as well as as another 100 mg at lunch. Is on Dalfampridine 10mg bid. In the past was on vitamin D but was stopped because it seems that she was on a very high dose of vitamin D. Some of the workup during this hospitalization consisted of: Patient is afebrile so far. But she slightly tachycardic. White blood cell is 2.9 thousand and the neutrophils is low Sodium is 132, AST of 42 ALT of 59. Urinalysis is negative for urinary tract infection. Eddy virus PCR was not detected. Influenza A and B are not detected. Review of Systems Review of system: The 12 point system was reviewed and apparent positive and negative per HPI. Past Medical History Past Medical History: Eye Disorder, Hypertension, Neurologic Disorder Additional Past Medical History / Comment(s): MS. LESIONS ON CORNEA FROM MS. History of Any Multi-Drug Resistant Organisms: None Reported Past Surgical History: Hysterectomy Additional Past Surgical History / Comment(s): PARTIAL HYSTERECTOMY. Past Anesthesia/Blood Transfusion Reactions: No Reported Reaction Past Psychological History: Anxiety, Depression Past Alcohol Use History: None Reported Past Drug Use History: None Reported - Past Family History Mother Family Medical History: Osteoarthritis (OA) Father Family Medical History: Cancer, Hyperlipidemia Additional Family Medical History / Comment(s): PROSTATE CANCER. Medications and Allergies Home Medications Medication Instructions Recorded Confirmed Type Losartan Potassium [Cozaar] 100 mg PO DAILY 12/19/16 02/21/22 History amLODIPine BESYLATE [Norvasc] 5 mg PO DAILY 12/19/16 02/21/22 History Acetaminophen [Tylenol 8 Hour] 650 mg PO Q8H PRN 02/21/22 02/21/22 History Cephalexin [Keflex] 500 mg PO Q8HR 02/21/22 02/21/22 History Dalfampridine [Dalfampridine ER] 10 mg PO BID 02/21/22 02/21/22 History Doxycycline Monohydrate 50 mg PO DAILY 02/21/22 02/21/22 History Escitalopram [Lexapro] 10 mg PO DAILY 02/21/22 02/21/22 History Meloxicam [Mobic] 15 mg PO DAILY PRN 02/21/22 02/21/22 History Ocrevus 1 dose IV Q180D 02/21/22 02/21/22 History Omeprazole [PriLOSEC] 20 mg PO DAILY 02/21/22 02/21/22 History amantadine HCL [Amantadine] 100 mg PO W/LUNCH 02/21/22 02/21/22 History amantadine HCL [Amantadine] 200 mg PO W/BRKFST 02/21/22 02/21/22 History Allergies Allergy/AdvReac Type Severity Reaction Status Date / Time gadobenate dimeglumine Allergy Mild Rash/Hives Verified 02/21/22 23:00 [From [facility]] Physical Examination - Vital Signs Vital Signs: Vital Signs Temp Pulse Resp BP Pulse Ox 02/22/22 07:47 99.6 F 109 H 19 157/94 98 02/21/22 18:25 97.3 F L 101 H 18 163/84 99 Intake and Output 02/21/22 02/22/22 02/22/22 22:59 06:59 14:59 Output Total 1200 Balance -1200 Output: Urine 1200 Other: Weight 56.245 kg GENERAL: The patient is lying in bed and is not in acute distress. CHEST: The heart rate is regular rate rhythm. No murmurs to auscultation. LUNG: Clear to auscultation bilaterally no wheezing noted throughout. Not labored breathing. ABDOMEN/GI: Bowel sounds present in all 4 quadrants. No tenderness to palpation throughout. NEUROLOGICAL: Higher mental function: The patient is awake, alert, oriented to self, place and time. Patient is following commands. No aphasia and no neglect. Cranial nerves: The pupils are round, equal and reactive to light and accommodation. Visual jones are full to confrontation throughout. Extraocular movement is intact no nystagmus is noted. Facial sensation is normal to touch throughout. The facial strength is normal throughout. Hearing is normal bilaterally to hand rub. Tongue is midline and moved [id number] without any difficulty. No dysarthria is noted. Shoulder shrug is normal bilaterally. Motor: The strength is 5 over 5 throughout uppers. While lowers: Proximal is 2 bilaterally. Right ankle is 3 while left is 4-. Decrease tone in lowers. Decrease bulk in bilateral lowers and right proximal upper. Cerebellum: Normal finger to nose bilaterally. Sensation: Sensation is normal to touch throughout. Reflexes (right/left): 3+ over left cerebellar otherwise 2+ in uppers. Lowers are 0-1 throughout. Plantars are mute bilaterally. Clonus of bilateral ankles. Results - Laboratory Findings CBC and BMP: 02/21/22 20:05 02/22/22 06:01 Abnormal Lab Findings: Abnormal Labs 02/21/22 02/21/22 02/21/22 20:05 20:05 20:44 WBC 2.9 L Neutrophils # (Manual) 0.15 L* Monocytes # (Manual) 1.60 H Metamyelocytes # (Man) 0.03 H Sodium 132 L Chloride 97 L BUN 19 H Creatinine BUN/Creatinine Ratio Glucose 127 H AST 42 H ALT 59 H Total Protein Urine Protein 1+ H Urine Glucose (UA) Trace H Urine Ketones 1+ H Urine Blood Trace H Urine RBC 10 H Urine Mucus Rare H 02/22/22 06:01 WBC Neutrophils # (Manual) Monocytes # (Manual) Metamyelocytes # (Man) Sodium Chloride BUN Creatinine 0.5 L BUN/Creatinine Ratio 21.40 H Glucose AST ALT 52 H Total Protein 5.9 L Urine Protein Urine Glucose (UA) Urine Ketones Urine Blood Urine RBC Urine Mucus Assessment and Plan Assessment: Likely MS exacerbation History of Multiple Sclerosis on Ocrevus Buttock and coccyx ulcers Hypertension Plan: I spoke with the primary team and I recommend MRI of the brain cervical spine as well as thoracic with and without. Also recommend starting IV steroids 500 mg every 12 hours for 3-5 days Ordered vitamin B12, folate, hemoglobin A1c We'll defer that sugar control to the primary team Every 4 hours neuro checks Consulted physical therapy and occupation therapy for gait training We'll defer the rest of the medical management to primary team Hematology is consulted by primary team because her neutropenic sepsis Wound care is consulted. Upon discharge the patient needs to follow-up with her neurologist as an outpatient within 1-2 weeks Thank you for the consultation. Alex Frazier M.D. Neuro-hospitalist Time with Patient: Greater than 30
--- NOTE | 2022-02-22 16:24 | P.PN ---
Subjective Progress Note Date: 02/22/22 (delayed charting seen at 1430) Principal diagnosis: weakness Patient is a 52-year-old female with a history of multiple sclerosis maintained on Octrevus, hypertension, and vision difficulties from prior MS who presented to the hospital secondary to wounds on her buttock and progressive weakness. On arrival to the ER she was tachycardic with a pulse of 101. Initial laboratory analysis showed white blood cell count of 2.9, neutrophils 0.15, sodium 132, AST 42, ALT 59, urinalysis is negative, COVID-19 testing negative, influenza A/B-. Chest x-ray was negative. KUB showed bilateral renal calculi and multiple phleboliths. Patient seen and examined in the emergency department. She denies any nausea, vomiting. She tells me that over the last 2 weeks she has had progressive lower extremity weakness. She then developed headaches with radiation down her neck and into her upper shoulders facility did tightness or squeeze. She also reports that when she is moving her neck she is getting some kind of scotoma type feelings. She also notes, worsening lower extremity tingling. She reports that she developed these pressure ulcers and was seen by a physician who is not very concerned about him. She hasn't taking antibiotics and offloading. She came here due to her significant weakness. General: non toxic, no distress, appears at stated age, thin Derm: warm, dry Head: atraumatic, normocephalic, symmetric Eyes: EOMI, no lid lag, anicteric sclera Mouth: no lip lesion, mucus membranes moist Cardiovascular: S1S2 reg, no murmur, positive posterior tibial pulse bilateral, Lungs: CTA bilateral, no rhonchi, no rales , no accessory muscle use Abdominal: soft, nontender to palpation, no guarding, no appreciable organomegaly Ext: no gross muscle atrophy, no edema, no contractures Neuro: CN II-XI grossly intact, muscle stregth 2/4 b/l LE, + clonous b/l LE, moving uppeer extremities against gravitiy independently. Psych: Alert, oriented, appropriate affect Assessment/plan: Acute MS flare with history of relapsing remitting multiple sclerosis -Consult neuro -Case discussed with Dr. Frazier. Stat MRI brain and cervical spine ordered with urgent thoracic spine -He will order steroids -PT/OT - amantadine Stage II pressure ulcer right buttocks Stage II presure ulcer left buttocks Stage II pressure ulcre scarum - on unasyn and vanco, await ID recs to determine if appears infected. - wound care bed - wound care recs - off load wound - will need urine collection system to keep wound clean and dry. HTN - controlled - norvasc, cozaar - follow BP Neutropenia without sepsis - await oncology recs - likely due to ocrevus - follow CBC Transaminitis, imrpoved - outpatient follow-up Social stressors - from [facility] does not have neruology here. DVT prophylaxis: Lovenox Discussed with: patient, nursing, Dr. Frazier Anticipated discharge: pending clinical course Anticipated discharge place: home A total of 35 minutes was spent on the care of this complex patient more than 50% of the time was spent in counseling and care coordination. Objective - Vital Signs Vital signs: Vital Signs Temp 99.6 F 02/22/22 07:47 Pulse 109 H 02/22/22 07:47 Resp 19 02/22/22 07:47 BP 157/94 02/22/22 07:47 Pulse Ox 98 02/22/22 07:47 FiO2 Intake & Output 02/21/22 02/22/22 02/22/22 18:59 06:59 18:59 Output Total 1200 Balance -1200 Weight 56.245 kg Output: Urine 1200 - Labs CBC & Chem 7: 02/21/22 20:05 02/22/22 06:01 Labs: Abnormal Lab Results - Last 24 Hours (Table) 02/21/22 02/21/22 02/21/22 Range/Units 20:05 20:05 20:44 WBC 2.9 L (3.8-10.6) k/uL Neutrophils # (Manual) 0.15 L* (1.3-7.7) k/uL Monocytes # (Manual) 1.60 H (0-1.0) k/uL Metamyelocytes # (Man) 0.03 H (0) k/uL Sodium 132 L (137-145) mmol/L Chloride 97 L (98-107) mmol/L BUN 19 H (7-17) mg/dL Creatinine (0.6-1.5) mg/dL BUN/Creatinine Ratio (12.00-20.00) Ratio Glucose 127 H (74-99) mg/dL AST 42 H (14-36) U/L ALT 59 H (4-34) U/L Total Protein (6.2-8.2) g/dL Urine Protein 1+ H (Negative) Urine Glucose (UA) Trace H (Negative) Urine Ketones 1+ H (Negative) Urine Blood Trace H (Negative) Urine RBC 10 H (0-5) /hpf Urine Mucus Rare H (None) /hpf 02/22/22 Range/Units 06:01 WBC (3.8-10.6) k/uL Neutrophils # (Manual) (1.3-7.7) k/uL Monocytes # (Manual) (0-1.0) k/uL Metamyelocytes # (Man) (0) k/uL Sodium (137-145) mmol/L Chloride (98-107) mmol/L BUN (7-17) mg/dL Creatinine 0.5 L (0.6-1.5) mg/dL BUN/Creatinine Ratio 21.40 H (12.00-20.00) Ratio Glucose (74-99) mg/dL AST (14-36) U/L ALT 52 H (4-34) U/L Total Protein 5.9 L (6.2-8.2) g/dL Urine Protein (Negative) Urine Glucose (UA) (Negative) Urine Ketones (Negative) Urine Blood (Negative) Urine RBC (0-5) /hpf Urine Mucus (None) /hpf
--- NOTE | 2022-02-22 19:18 | P.CONS ---
History of Present Illness - Reason for Consult Consult date: 02/22/22 Neutropenia Sepsis Requesting physician: Lexii Vazquez - History of Present Illness Patient has been admitted with neutropenia fever. She has a known history of MS and reveing Octreva. We have been asked to further evaluate secondary to neutropenia with infectious picture. She was seen in ER, she did recently have COVID infection and now presented with neutropenia and fever. Treatment for cellulitis and ID following. As well as Neurology Review of Systems All systems: negative Constitutional: Reports as per HPI Past Medical History Past Medical History: Eye Disorder, Hypertension, Neurologic Disorder Additional Past Medical History / Comment(s): MS. LESIONS ON CORNEA FROM MS. History of Any Multi-Drug Resistant Organisms: None Reported Past Surgical History: Hysterectomy Additional Past Surgical History / Comment(s): PARTIAL HYSTERECTOMY. Past Anesthesia/Blood Transfusion Reactions: No Reported Reaction Past Psychological History: Anxiety, Depression Past Alcohol Use History: None Reported Past Drug Use History: None Reported - Past Family History Mother Family Medical History: Osteoarthritis (OA) Father Family Medical History: Cancer, Hyperlipidemia Additional Family Medical History / Comment(s): PROSTATE CANCER. Medications and Allergies Home Medications Medication Instructions Recorded Confirmed Type Losartan Potassium [Cozaar] 100 mg PO DAILY 12/19/16 02/21/22 History amLODIPine BESYLATE [Norvasc] 5 mg PO DAILY 12/19/16 02/21/22 History Acetaminophen [Tylenol 8 Hour] 650 mg PO Q8H PRN 02/21/22 02/21/22 History Cephalexin [Keflex] 500 mg PO Q8HR 02/21/22 02/21/22 History Dalfampridine [Dalfampridine ER] 10 mg PO BID 02/21/22 02/21/22 History Doxycycline Monohydrate 50 mg PO DAILY 02/21/22 02/21/22 History Escitalopram [Lexapro] 10 mg PO DAILY 02/21/22 02/21/22 History Meloxicam [Mobic] 15 mg PO DAILY PRN 02/21/22 02/21/22 History Ocrevus 1 dose IV Q180D 02/21/22 02/21/22 History Omeprazole [PriLOSEC] 20 mg PO DAILY 02/21/22 02/21/22 History amantadine HCL [Amantadine] 100 mg PO W/LUNCH 02/21/22 02/21/22 History amantadine HCL [Amantadine] 200 mg PO W/BRKFST 02/21/22 02/21/22 History Allergies Allergy/AdvReac Type Severity Reaction Status Date / Time gadobenate dimeglumine Allergy Mild Rash/Hives Verified 02/21/22 23:00 [From Multihance] Physical Exam Vitals: Vital Signs Temp Pulse Resp BP Pulse Ox 02/22/22 07:47 99.6 F 109 H 19 157/94 98 02/21/22 18:25 97.3 F L 101 H 18 163/84 99 Intake and Output 02/21/22 02/22/22 02/22/22 22:59 06:59 14:59 Other: Weight 56.245 kg - Constitutional General appearance: cooperative, no acute distress - EENT Eyes: EOMI ENT: NA/AT - Neck Neck: normal ROM - Respiratory Respiratory: bilateral: CTA - Cardiovascular Rhythm: regularly irregular - Gastrointestinal General gastrointestinal: soft - Integumentary Integumentary: pale - Musculoskeletal Musculoskeletal: generalized weakness - Psychiatric Psychiatric: A&O x's 3 Results CBC & Chem 7: 02/21/22 20:05 02/22/22 06:01 Labs: Abnormal Lab Results - Last 24 Hours (Table) 02/21/22 02/21/22 02/21/22 Range/Units 20:05 20:05 20:44 WBC 2.9 L (3.8-10.6) k/uL Neutrophils # (Manual) 0.15 L* (1.3-7.7) k/uL Monocytes # (Manual) 1.60 H (0-1.0) k/uL Metamyelocytes # (Man) 0.03 H (0) k/uL Sodium 132 L (137-145) mmol/L Chloride 97 L (98-107) mmol/L BUN 19 H (7-17) mg/dL Creatinine (0.6-1.5) mg/dL BUN/Creatinine Ratio (12.00-20.00) Ratio Glucose 127 H (74-99) mg/dL AST 42 H (14-36) U/L ALT 59 H (4-34) U/L Total Protein (6.2-8.2) g/dL Urine Protein 1+ H (Negative) Urine Glucose (UA) Trace H (Negative) Urine Ketones 1+ H (Negative) Urine Blood Trace H (Negative) Urine RBC 10 H (0-5) /hpf Urine Mucus Rare H (None) /hpf 02/22/22 Range/Units 06:01 WBC (3.8-10.6) k/uL Neutrophils # (Manual) (1.3-7.7) k/uL Monocytes # (Manual) (0-1.0) k/uL Metamyelocytes # (Man) (0) k/uL Sodium (137-145) mmol/L Chloride (98-107) mmol/L BUN (7-17) mg/dL Creatinine 0.5 L (0.6-1.5) mg/dL BUN/Creatinine Ratio 21.40 H (12.00-20.00) Ratio Glucose (74-99) mg/dL AST (14-36) U/L ALT 52 H (4-34) U/L Total Protein 5.9 L (6.2-8.2) g/dL Urine Protein (Negative) Urine Glucose (UA) (Negative) Urine Ketones (Negative) Urine Blood (Negative) Urine RBC (0-5) /hpf Urine Mucus (None) /hpf Assessment and Plan (1) Cellulitis of buttock, left Current Visit: Yes Status: Acute Code(s): L03.317 - CELLULITIS OF BUTTOCK SNOMED Code(s): 41284049 (2) Immunocompromised Current Visit: Yes Status: Acute Code(s): D84.9 - IMMUNODEFICIENCY, UNSPECIFIED SNOMED Code(s): 076658102 (3) Leukopenia Current Visit: Yes Status: Acute Code(s): D72.819 - DECREASED WHITE BLOOD CELL COUNT, UNSPECIFIED SNOMED Code(s): 20663913 Plan: With known immunosuppressant medications and Multiple Sclerosis aggressive supportive care required. IV abx initiated WIll check IgG and if less 500 order IVIG for immune support Will await CBC in am, WBC is 2.9, if continues to fall and neutropenia prolonged may consider additional support with growth factor DIscussed in detail with patient
[2022-02-22] MEDS: INSULIN ASPART (NovoLOG) 100 UNIT/ML VIAL SQ SCH ×2 (19:24→22:05)
--- NOTE | 2022-02-22 19:29 | MR ---
EXAMINATION TYPE: MR brain/cspine wo/w DATE OF EXAM: 02/22/2022 COMPARISON: 06/18/2017 HISTORY: Weakness, MS flare-up. CONTRAST: Standard multiplanar, multisequence MRI departmental protocol images were obtained without contrast a nd with 5.5 mL intravenous Gadavist gadolinium contrast. Brain Diffusion images show no definite acute cortical infarct. There are coalescent areas of increased sig nal in the periventricular white matter. Approximately 20 Total number. The largest lesions have tota l lumbar proximally 10. These measure up to 1.5 cm. Largest lesions are in the white matter around t he frontal horns of the lateral ventricles. The brainstem is intact. The cerebellum is intact. Sella turcica appears normal. No evidence of orbital mass. Contrast images show no pathologic enhancement. There is normal enhancement of the venous sinuses. IMPRESSION: Periventricular white matter irregular foci of increased signal consistent with demyelinating disease and not significantly different than old exam. No evidence of any significant new lesion. There is s paring of the brainstem and the cerebellum. Cervical spine. The cervical vertebrae have normal alignment. There is mild disc space narrowing at C4-5 and C5-6. Th ere are small posterior disc herniations at C4-5 and C5-6. Spinal canal measures 8 mm at the narrowes t point. No significant spinal stenosis. Contrast images show no pathologic enhancement. No evidence of any significant focal increased signal on the T2 images in the cervical spinal cord. There is no p athologic enhancement. IMPRESSION: Degenerative disc changes in the cervical spine. Small posterior disc herniations and disc bulging at C4-5 and C5-6. No significant stenosis. No adverse change compared to old exam. No evidence of demye linating disease of the cervical spinal cord.
[2022-02-22] MEDS: HYDROcodone/APAP 5-325MG 1 EACH TAB PO PRN (19:51)
[2022-02-22] MEDS: methylPREDNISolone SOD SUCCIN 500 MG in SODIUM CHLORIDE 0.9% 100 ML IVPB SCH (20:30)
[2022-02-22 21:51] LABS: Glucose,Whole Blood 130 mg/dL (70-110)
[2022-02-22] MEDS: VANCOMYCIN 1,000 MG in SODIUM CHLORIDE 0.9% 250 ML IVPB SCH (22:07)
[2022-02-23] MEDS: AMPICILLIN-SULBACTAM 3 GM in SODIUM CHLORIDE 0.9% 100 ML IVPB SCH ×6 (00:37→23:11)
[2022-02-23] MEDS: methylPREDNISolone SOD SUCCIN 500 MG in SODIUM CHLORIDE 0.9% 100 ML IVPB SCH ×2 (07:44→20:49)
[2022-02-23 07:49] LABS: Glucose,Whole Blood 176 mg/dL (70-110)
[2022-02-23] MEDS: VANCOMYCIN 1,000 MG in SODIUM CHLORIDE 0.9% 250 ML IVPB SCH (08:37)
[2022-02-23] MEDS: ENOXAPARIN 40 MG/0.4 ML SYRINGE SQ SCH (08:51)
[2022-02-23] MEDS: INSULIN ASPART (NovoLOG) 100 UNIT/ML VIAL SQ SCH ×4 (08:52→21:00)
[2022-02-23] MEDS: amLODIPine 5 MG TAB PO SCH (08:53)
[2022-02-23] MEDS: DALFAMPRIDINE 10 MG PO SCH ×2 (08:53→20:49)
[2022-02-23] MEDS: PANTOPRAZOLE 40 MG TABLET PO SCH (08:54)
[2022-02-23] MEDS: LOSARTAN 50 MG TAB PO SCH (08:54)
[2022-02-23] MEDS: ESCITALOPRAM 10 MG TAB PO SCH (08:54)
[2022-02-23] MEDS ORDERED: VANCOMYCIN 1,000 MG in SODIUM CHLORIDE 0.9% 250 ML IVPB SCH (09:00)
[2022-02-23 10:54] LABS: HGB 11.8 g/dL (12.0-15.0); MCH 30.5 pg (27.0-32.0); MCHC 32.8 g/dL (32.0-37.0); Mean Platelet Volume 9.9 fL (9.5-12.2); NRBC Per 100 WBC 0 /100 WBCS (0.0-0.0); Platelet Count 252 X 10*3/uL (140-440); RBC 3.87 X 10*6/uL (4.10-5.20); RDW 13.1 % (11.5-14.5); WBC 0.74 X 10*3/uL (4.50-10.00)
[2022-02-23 10:55] LABS: Basophils # (M) 0.01 X 10*3/uL (0.00-0.10); Eosinophils # (M) 0 X 10*3/uL (0.04-0.35); Lymphocytes # (M) 0.29 X 10*3/uL (0.90-5.00); Monocytes # (M) 0.23 X 10*3/uL (0.20-1.00); Myelocytes % 9 % (0-0); Neutrophils # (M) 0.12 X 10*3/uL (2.00-8.90); Neutrophils % (M) 16 %; Promyelocytes % 3 % (0-0)
[2022-02-23] MEDS: COLLAGENASE 250 UNIT/GM OINTMENT 30 GM TUBE TOPICAL SCH (11:19)
[2022-02-23 11:47] LABS: Glucose,Whole Blood 179 mg/dL (70-110)
--- NOTE | 2022-02-23 12:06 | P.PN ---
Subjective Progress Note Date: 02/23/22 WBC decreased growth factor added Objective - Vital Signs Vital signs: Vital Signs Temp 98.4 F 02/23/22 08:29 Pulse 99 02/23/22 08:29 Resp 18 02/23/22 08:29 BP 135/80 02/23/22 08:29 Pulse Ox 96 02/23/22 08:29 FiO2 Intake & Output 02/22/22 02/23/22 02/23/22 18:59 06:59 18:59 Output Total 1200 1200 Balance -1200 -1200 Weight 56.245 kg Output: Urine 1200 1200 Other: Voiding Method External Catheter # Voids 4 - Exam - Constitutional General appearance: cooperative, no acute distress - EENT Eyes: EOMI ENT: NA/AT - Neck Neck: normal ROM - Respiratory Respiratory: bilateral: CTA - Cardiovascular Rhythm: regularly irregular - Gastrointestinal General gastrointestinal: soft - Integumentary Integumentary: pale - Musculoskeletal Musculoskeletal: generalized weakness - Psychiatric Psychiatric: A&O x's - Labs CBC & Chem 7: 02/23/22 05:34 02/22/22 06:01 Labs: Abnormal Lab Results - Last 24 Hours (Table) 02/22/22 02/22/22 02/22/22 Range/Units 15:01 15:01 21:48 WBC (4.50-10.00) X 10*3/uL RBC (4.10-5.20) X 10*6/uL Hgb (12.0-15.0) g/dL Hct (37.2-46.3) % Myelocytes % (0-0) % Promyelocytes % (0-0) % Neutrophils # (Manual) (2.00-8.90) X 10*3/uL Lymphocytes # (Manual) (0.90-5.00) X 10*3/uL Eosinophils # (Manual) (0.04-0.35) X 10*3/uL POC Glucose (mg/dL) 130 H (70-110) mg/dL Vitamin B12 1913.0 H (200.0-944.0) pg/mL IgG 625.0 L (700.0-1600.0) mg/dL 02/23/22 02/23/22 02/23/22 Range/Units 05:34 07:47 11:46 WBC 0.74 L* (4.50-10.00) X 10*3/uL RBC 3.87 L (4.10-5.20) X 10*6/uL Hgb 11.8 L (12.0-15.0) g/dL Hct 36.0 L (37.2-46.3) % Myelocytes % 9 H (0-0) % Promyelocytes % 3 H (0-0) % Neutrophils # (Manual) 0.12 L* (2.00-8.90) X 10*3/uL Lymphocytes # (Manual) 0.29 L (0.90-5.00) X 10*3/uL Eosinophils # (Manual) 0 L (0.04-0.35) X 10*3/uL POC Glucose (mg/dL) 176 H 179 H (70-110) mg/dL Vitamin B12 (200.0-944.0) pg/mL IgG (700.0-1600.0) mg/dL Microbiology - Last 24 Hours (Table) 02/22/22 00:25 Blood Culture - Preliminary Blood No Growth after 24 hours Assessment and Plan (1) Cellulitis of buttock, left Current Visit: Yes Status: Acute Code(s): L03.317 - CELLULITIS OF BUTTOCK SNOMED Code(s): 93209562 (2) Immunocompromised Current Visit: Yes Status: Acute Code(s): D84.9 - IMMUNODEFICIENCY, UNSPECIFIED SNOMED Code(s): 321377522 (3) Leukopenia Narrative/Plan: neutropenia, granix added Current Visit: Yes Status: Acute Code(s): D72.819 - DECREASED WHITE BLOOD CELL COUNT, UNSPECIFIED SNOMED Code(s): 42007811 Plan: With known immunosuppressant medications and Multiple Sclerosis aggressive supportive care required. IV abx initiated IgG is over 600, no definitive benfit from addeing IVIG at this time, although with decrease WBC and neutrophils with active infection will add growth factor and antihistamine and check Vitamin D DIscussed in detail with patient
--- NOTE | 2022-02-23 15:16 | P.PN ---
Subjective Progress Note Date: 02/23/22 (delayed charting seen at 1015) Principal diagnosis: weakness Patient is a 52-year-old female with a history of multiple sclerosis maintained on Octrevus, hypertension, and vision difficulties from prior MS who presented to the hospital secondary to wounds on her buttock and progressive weakness. On arrival to the ER she was tachycardic with a pulse of 101. Initial laboratory analysis showed white blood cell count of 2.9, neutrophils 0.15, sodium 132, AST 42, ALT 59, urinalysis is negative, COVID-19 testing negative, influenza A/B-. Chest x-ray was negative. KUB showed bilateral renal calculi and multiple phleboliths. She was fund to have decubitus ulcers with infection and was started on unasyn and vanco. She was seen by neurology and was found to have cl inical exacerbation of MS. She was started on high dose steroids. MRI Brain and cervical spine did not demonstrate any new white matter lesions. Patient seen and examined in the emergency department. She complains of constipation. She states she is moving her legs and feels as though her energy has returned with steroids. We discussed the results of her MRI. General: non toxic, no distress, appears at stated age, thin Derm: warm, dry Head: atraumatic, normocephalic, symmetric Eyes: EOMI, no lid lag, anicteric sclera Mouth: no lip lesion, mucus membranes moist Cardiovascular: S1S2 reg, no murmur, positive posterior tibial pulse bilateral, Lungs: Decreased bs bilateral, no rhonchi, no rales , no accessory muscle use Abdominal: soft, nontender to palpation, no guarding, no appreciable organomegaly Ext: no gross muscle atrophy, no edema, no contractures Neuro: CN II-XI grossly intact, muscle strength 2/4 b/l LE, + clonous b/l LE, moving upper extremities against gravity independently. Psych: Alert, oriented, appropriate affect Assessment/plan: Acute MS flare with history of relapsing remitting multiple sclerosis - neurology recs - Solumedrol - MRI Brain and cervical spine without new white matter lesions. - He will order steroids - PT/OT - amantadine Stage II pressure ulcer right buttocks Stage II presure ulcer left buttocks Stage II pressure ulcre scarum - on unasyn and vanco, await ID recs to determine if appears infected. - wound care bed - wound care recs - off load wound - urine collection system to keep wound clean and dry. HTN - controlled - norvasc, cozaar - follow BP Neutropenia without sepsis -oncology recs - likely due to ocrevus - follow CBC Transaminitis, improved - outpatient follow-up Social stressors - from [facility] does not have neruology here. DVT prophylaxis: Lovenox Discussed with: patient, nursing Anticipated discharge: pending clinical course Anticipated discharge place: home A total of 35 minutes was spent on the care of this complex patient more than 50% of the time was spent in counseling and care coordination. Objective - Vital Signs Vital signs: Vital Signs Temp 98.4 F 02/23/22 08:29 Pulse 99 02/23/22 08:29 Resp 18 02/23/22 08:29 BP 135/80 02/23/22 08:29 Pulse Ox 96 02/23/22 08:29 FiO2 Intake & Output 02/22/22 02/23/22 02/23/22 18:59 06:59 18:59 Intake Total 450 Output Total 1200 1200 Balance -1200 -1200 450 Weight 56.245 kg Intake: Intake, IV Titration 450 Amount Ampicillin-Sulbactam 3 gm 100 In Sodium Chloride 0.9% 100 ml @ 200 mls/hr IVPB Q6H FLIP Rx#:[id number] Vancomycin 1,000 mg In 250 Sodium Chloride 0.9% 250 ml @ 125 mls/hr IVPB Q8H FLIP Rx#:[id number] methylPREDNISolone SOD 100 SUCCIN 500 mg In Sodium Chloride 0.9% 100 ml @ 100 mls/hr IVPB Q12HR FLIP Rx#:[id number] Output: Urine 1200 1200 Other: Voiding Method External Catheter # Voids 4 - Labs CBC & Chem 7: 02/23/22 05:34 02/22/22 06:01 Labs: Abnormal Lab Results - Last 24 Hours (Table) 02/22/22 02/22/22 02/22/22 Range/Units 15:01 15:01 21:48 WBC (4.50-10.00) X 10*3/uL RBC (4.10-5.20) X 10*6/uL Hgb (12.0-15.0) g/dL Hct (37.2-46.3) % Myelocytes % (0-0) % Promyelocytes % (0-0) % Neutrophils # (Manual) (2.00-8.90) X 10*3/uL Lymphocytes # (Manual) (0.90-5.00) X 10*3/uL Eosinophils # (Manual) (0.04-0.35) X 10*3/uL POC Glucose (mg/dL) 130 H (70-110) mg/dL Vitamin B12 1913.0 H (200.0-944.0) pg/mL IgG 625.0 L (700.0-1600.0) mg/dL 02/23/22 02/23/22 02/23/22 Range/Units 05:34 07:47 11:46 WBC 0.74 L* (4.50-10.00) X 10*3/uL RBC 3.87 L (4.10-5.20) X 10*6/uL Hgb 11.8 L (12.0-15.0) g/dL Hct 36.0 L (37.2-46.3) % Myelocytes % 9 H (0-0) % Promyelocytes % 3 H (0-0) % Neutrophils # (Manual) 0.12 L* (2.00-8.90) X 10*3/uL Lymphocytes # (Manual) 0.29 L (0.90-5.00) X 10*3/uL Eosinophils # (Manual) 0 L (0.04-0.35) X 10*3/uL POC Glucose (mg/dL) 176 H 179 H (70-110) mg/dL Vitamin B12 (200.0-944.0) pg/mL IgG (700.0-1600.0) mg/dL Microbiology - Last 24 Hours (Table) 02/22/22 00:25 Blood Culture - Preliminary Blood No Growth after 24 hours
--- NOTE | 2022-02-23 15:23 | P.PN ---
Subjective Progress Note Date: 02/23/22 The patient received her first dose of IV steroids 500mg bid yesterday at 2100 on 02/22/2022 and feels better compared to her initial presentation. She denies of any new neurological deficits. Objective - Vital Signs Vital signs: Vital Signs Temp 98.4 F 02/23/22 08:29 Pulse 99 02/23/22 08:29 Resp 18 02/23/22 08:29 BP 135/80 02/23/22 08:29 Pulse Ox 96 02/23/22 08:29 FiO2 Intake & Output 02/22/22 02/23/22 02/23/22 18:59 06:59 18:59 Intake Total 450 Output Total 1200 1200 Balance -1200 -1200 450 Weight 56.245 kg Intake: Intake, IV Titration 450 Amount Ampicillin-Sulbactam 3 gm 100 In Sodium Chloride 0.9% 100 ml @ 200 mls/hr IVPB Q6H FLIP Rx#:[id number] Vancomycin 1,000 mg In 250 Sodium Chloride 0.9% 250 ml @ 125 mls/hr IVPB Q8H FLIP Rx#:[id number] methylPREDNISolone SOD 100 SUCCIN 500 mg In Sodium Chloride 0.9% 100 ml @ 100 mls/hr IVPB Q12HR FLIP Rx#:[id number] Output: Urine 1200 1200 Other: Voiding Method External Catheter # Voids 4 - Exam GENERAL: The patient is lying in bed and is not in acute distress. NEUROLOGICAL: Higher mental function: The patient is awake, alert, oriented to self, place and time. Patient is following commands. No aphasia and no neglect. Cranial nerves: The pupils are round, equal and reactive to light and accommodation. Visual jones are full to confrontation throughout. Extraocular movement is intact no nystagmus is noted. Facial sensation is normal to touch throughout. The facial strength is normal throughout. Hearing is normal bilaterally to hand rub. Tongue is midline and moved [id number] without any difficulty. No dysarthria is noted. Shoulder shrug is normal bilaterally. Motor: The strength is 5 over 5 throughout uppers. While lowers: Proximal is 2 bilaterally has slight improvement in hips regions compared to yesterday. Right ankle is 3 while left is 4-. Decrease tone in lowers. Decrease bulk in bilateral lowers and right proximal upper. Cerebellum: Normal finger to nose bilaterally. Sensation: Sensation is normal to touch throughout. Reflexes (right/left): 3+ over left cerebellar otherwise 2+ in uppers. Lowers are 0-1 throughout. Plantars are mute bilaterally. Clonus of bilateral ankles. Some of the workup during this hospitalization consisted of: White blood cell is 2.9 thousand and the neutrophils is low Sodium is 132, AST of 42 ALT of 59. Vitamin B12 is 1913 Serum folate is more than 20 Vitamin D 25-hydroxy is 43.2 Hemoglobin A1c is 5.4. Urinalysis is negative for urinary tract infection. Eddy virus PCR was not detected. Influenza A and B are not detected. MRI of the brain is reported as periventricular white matter irregular foci of increased signal consistent with demyelinating disease and not significantly different than old exam. There is sparing of the brainstem and cerebellum. 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 MRI of the cervical spine is reported as degenerative disc disease in the cervical spine. Small posterior disc herniation and disc bulging at C4-C5 and C5-C6. No significant stenosis. No adverse changes compared to old exam. No evidence demyelinating disease of the cervical spinal cord. I personally reviewed and agree there is no enhancing lesion. - Labs CBC & Chem 7: 02/23/22 05:34 02/22/22 06:01 Labs: Abnormal Lab Results - Last 24 Hours (Table) 02/22/22 02/22/22 02/22/22 Range/Units 15:01 15:01 21:48 WBC (4.50-10.00) X 10*3/uL RBC (4.10-5.20) X 10*6/uL Hgb (12.0-15.0) g/dL Hct (37.2-46.3) % Myelocytes % (0-0) % Promyelocytes % (0-0) % Neutrophils # (Manual) (2.00-8.90) X 10*3/uL Lymphocytes # (Manual) (0.90-5.00) X 10*3/uL Eosinophils # (Manual) (0.04-0.35) X 10*3/uL POC Glucose (mg/dL) 130 H (70-110) mg/dL Vitamin B12 1913.0 H (200.0-944.0) pg/mL IgG 625.0 L (700.0-1600.0) mg/dL 02/23/22 02/23/22 02/23/22 Range/Units 05:34 07:47 11:46 WBC 0.74 L* (4.50-10.00) X 10*3/uL RBC 3.87 L (4.10-5.20) X 10*6/uL Hgb 11.8 L (12.0-15.0) g/dL Hct 36.0 L (37.2-46.3) % Myelocytes % 9 H (0-0) % Promyelocytes % 3 H (0-0) % Neutrophils # (Manual) 0.12 L* (2.00-8.90) X 10*3/uL Lymphocytes # (Manual) 0.29 L (0.90-5.00) X 10*3/uL Eosinophils # (Manual) 0 L (0.04-0.35) X 10*3/uL POC Glucose (mg/dL) 176 H 179 H (70-110) mg/dL Vitamin B12 (200.0-944.0) pg/mL IgG (700.0-1600.0) mg/dL Microbiology - Last 24 Hours (Table) 02/22/22 00:25 Blood Culture - Preliminary Blood No Growth after 24 hours Assessment and Plan Assessment: Likely MS exacerbation History of Multiple Sclerosis on Ocrevus Buttock and coccyx ulcers Hypertension Plan: Pending MRI thoracic with and without. Also recommend starting IV Solu-Medrol 500 mg every 12 hours for 3-5 days (received first dose at 2100 on 02/22/2022). We'll defer that sugar control to the primary team Every 4 hours neuro checks Physical therapy and occupation therapy are consulted for gait training We'll defer the rest of the medical management to primary team Hematology is consulted by primary team because her neutropenic sepsis Wound care is consulted. Upon discharge the patient needs to follow-up with her neurologist as an outpati ent within 1-2 weeks The plan is discussed with patient and primary team. Alex Frazier M.D. Neuro-hospitalist Time with Patient: Less than 30
--- NOTE | 2022-02-23 16:37 | P.CONS ---
History of Present Illness - Reason for Consult Consult date: 02/22/22 neutropenic sepsis Requesting physician: Lexii Vazquez - Chief Complaint weakness and painful gluteal ulcers x few days - History of Present Illness History of Present Illness : Patient is a 52-year female with a past medical history significant for multiple sclerosis hypertension presenting to the ER last evening for evaluation of muscle spasms weakness and the patient did have a pressure ulcer to the gluteal area apparently started having a problem with the ulcer about 2 weeks ago patient been developing worsening pain especially to the left gluteal area more of a sharp and hurts with any movement or irritation about 5-6 or 10 no radiation patient also complaining of feeling weak no energy and unable to move her extremities patient on presentation to the hospital was afebrile he did have low-grade fever subsequently of 99.6 F patient was noticed to be leukopenic patient kidney function was normal liver enzymes mildly elevated urine has been negative roman and influenza PCR was negative patient did have a chest x-ray that was negative patient was started on Unasyn and vancomycin infectious he was consulted for possible infected pressure ulcer and antibiotic therapy Review of system: CONSTITUTIONAL: Positive for weakness, denies high-grade fever. EYES: No complaint. ENT: No complaint. RESPIRATORY: No complaint. CARDIOVASCULAR: No complaint. GENITOURINARY: No complaint. GASTROINTESTINAL: No complaint. MUSCULOSKELETAL: No complaint. INTEGUMENTARY : As per history of present illness. PSYCHOLOGIC: No complaint. ENDOCRINE: No complaint. NEUROLOGIC: As per history of present illness. Past medical history : Reviewed, documented below Past surgical history : Reviewed, documented below Social history: Reviewed, documented below Medications: Reviewed, as documented below EXAMINATION: Vital sigans= Reviewed and documented below GENERAL DESCRIPTION: Middle-aged female lying in bed, no distress. No tachypnea or accessory muscle of respiration use. HEENT: Shows Pallor , no scleral icterus. Oral mucous membrane is dry. NECK: Trachea central, no thyromegaly. LUNGS: Unlabored breathing. Clear to auscultation anteriorly. No wheeze or crackle. HEART: S1, S2, regular rate and rhythm. ABDOMEN: Soft, no tenderness , guarding or rigidity EXTREMITIES: No edema feet SKIN: No rash, no masses palpable. Patient did have a bilateral gluteal stage II pressure ulcer with minimal slough tissue no significant surrounding redness or any foul-smelling drainage NEUROLOGICAL: The patient is awake, alert, oriented x3, mood and affect normal. LABS AND RADIOLOGY: Reviewed results see below Assessment : Patient presented to hospital with generalized weakness in this patient with underlying MS possible MS exacerbation patient, did have a low- grade fever patient did have a stage II pressure ulcer to bilateral gluteal area in the sacrum with some slough tissue however no evidence of any induration or abscess formation and currently no other obvious focus of infection and urine was negative chest x-ray reported negative abdominal soft ankle examination Plan: 1-local wound care with Santyl followed by moist dressing discussed with the wound care nurse 2-continue the current empiric antibiotic form of Unasyn and vancomycin while waiting for the culture to finalize We will follow on clinical condition and cultures to further adjust medication if needed Thank you for this consultation we will follow the patient along with you Past Medical History Past Medical History: Eye Disorder, Hypertension, Neurologic Disorder Additional Past Medical History / Comment(s): MS. LESIONS ON CORNEA FROM MS. History of Any Multi-Drug Resistant Organisms: None Reported Past Surgical History: Hysterectomy Additional Past Surgical History / Comment(s): PARTIAL HYSTERECTOMY. Past Anesthesia/Blood Transfusion Reactions: No Reported Reaction Past Psychological History: Anxiety, Depression Past Alcohol Use History: None Reported Past Drug Use History: None Reported - Past Family History Mother Family Medical History: Osteoarthritis (OA) Father Family Medical History: Cancer, Hyperlipidemia Additional Family Medical History / Comment(s): PROSTATE CANCER. Medications and Allergies Home Medications Medication Instructions Recorded Confirmed Type Losartan Potassium [Cozaar] 100 mg PO DAILY 12/19/16 02/21/22 History amLODIPine BESYLATE [Norvasc] 5 mg PO DAILY 12/19/16 02/21/22 History Acetaminophen [Tylenol 8 Hour] 650 mg PO Q8H PRN 02/21/22 02/21/22 History Cephalexin [Keflex] 500 mg PO Q8HR 02/21/22 02/21/22 History Dalfampridine [Dalfampridine ER] 10 mg PO BID 02/21/22 02/21/22 History Doxycycline Monohydrate 50 mg PO DAILY 02/21/22 02/21/22 History Escitalopram [Lexapro] 10 mg PO DAILY 02/21/22 02/21/22 History Meloxicam [Mobic] 15 mg PO DAILY PRN 02/21/22 02/21/22 History Ocrevus 1 dose IV Q180D 02/21/22 02/21/22 History Omeprazole [PriLOSEC] 20 mg PO DAILY 02/21/22 02/21/22 History amantadine HCL [Amantadine] 100 mg PO W/LUNCH 02/21/22 02/21/22 History amantadine HCL [Amantadine] 200 mg PO W/BRKFST 02/21/22 02/21/22 History Allergies Allergy/AdvReac Type Severity Reaction Status Date / Time gadobenate dimeglumine Allergy Mild Rash/Hives Verified 02/21/22 23:00 [[facility] Physical Exam Vitals: Vital Signs Temp Pulse Resp BP Pulse Ox 02/22/22 07:47 99.6 F 109 H 19 157/94 98 02/21/22 18:25 97.3 F L 101 H 18 163/84 99 Intake and Output 02/21/22 02/22/22 02/22/22 22:59 06:59 14:59 Other: Weight 56.245 kg Results CBC & Chem 7: 02/23/22 05:34 02/22/22 06:01 Labs: Abnormal Lab Results - Last 24 Hours (Table) 02/21/22 02/21/22 02/21/22 Range/Units 20:05 20:05 20:44 WBC 2.9 L (3.8-10.6) k/uL Sodium 132 L (137-145) mmol/L Chloride 97 L (98-107) mmol/L BUN 19 H (7-17) mg/dL Glucose 127 H (74-99) mg/dL AST 42 H (14-36) U/L ALT 59 H (4-34) U/L Urine Protein 1+ H (Negative) Urine Glucose (UA) Trace H (Negative) Urine Ketones 1+ H (Negative) Urine Blood Trace H (Negative) Urine RBC 10 H (0-5) /hpf Urine Mucus Rare H (None) /hpf
[2022-02-23 17:28] LABS: Glucose,Whole Blood 174 mg/dL (70-110)
[2022-02-23] MEDS ORDERED: FILGRASTIM-SNDZ 300 MCG/0.5 ML SYRINGE SQ SCH (18:00)
[2022-02-23] MEDS: polyethylene glycoL 3350 17 GM POWD.PACK PO PRN (18:02)
[2022-02-23 21:18] LABS: Glucose,Whole Blood 172 mg/dL (70-110)
[2022-02-23] MEDS: HYDROcodone/APAP 5-325MG 1 EACH TAB PO PRN (22:29)
--- NOTE | 2022-02-23 23:24 | P.PN ---
Subjective Progress Note Date: 02/23/22 Principal diagnosis: Bilateral gluteal pressure ulcer and cellulitis Patient is a 52-year-old female with a past medical history significant for MS hypertension presented to hospital with weakness and painful also to the gluteal area and there was concern for possible secondary cellulitis. On today's evaluation that is 02/23/2022, the patient denies having any fever or any chills, patient is feeling better she is able to move her extremities better than yesterday accompanying of pain to the gluteal area but no worsening Objective - Vital Signs Vital signs: Vital Signs Temp 98.4 F 02/23/22 14:00 Pulse 106 H 02/23/22 14:00 Resp 16 02/23/22 14:00 BP 146/78 02/23/22 14:00 Pulse Ox 97 02/23/22 14:00 FiO2 Intake & Output 02/22/22 02/23/22 02/23/22 18:59 06:59 18:59 Intake Total 450 Output Total 1200 1200 500 Balance -1200 -1200 -50 Weight 56.245 kg Intake: Intake, IV Titration 450 Amount Ampicillin-Sulbactam 3 gm 100 In Sodium Chloride 0.9% 100 ml @ 200 mls/hr IVPB Q6H FLIP Rx#:[id number] Vancomycin 1,000 mg In 250 Sodium Chloride 0.9% 250 ml @ 125 mls/hr IVPB Q8H FLIP Rx#:[id number] methylPREDNISolone SOD 100 SUCCIN 500 mg In Sodium Chloride 0.9% 100 ml @ 100 mls/hr IVPB Q12HR FLIP Rx#:[id number] Output: Urine 1200 1200 500 Other: Voiding Method External Catheter # Voids 4 - Exam GENERAL DESCRIPTION: Middle-aged female lying in bed in no distress RESPIRATORY SYSTEM: Unlabored breathing , decreased breath sounds at bases HEART: S1 S2 regular rate and rhythm , ABDOMEN: Soft , no tenderness EXTREMITIES: No edema feet - Labs CBC & Chem 7: 02/23/22 05:34 02/22/22 06:01 Labs: Abnormal Lab Results - Last 24 Hours (Table) 02/22/22 02/22/22 02/22/22 Range/Units 15:01 15:01 21:48 WBC (4.50-10.00) X 10*3/uL RBC (4.10-5.20) X 10*6/uL Hgb (12.0-15.0) g/dL Hct (37.2-46.3) % Myelocytes % (0-0) % Promyelocytes % (0-0) % Neutrophils # (Manual) (2.00-8.90) X 10*3/uL Lymphocytes # (Manual) (0.90-5.00) X 10*3/uL Eosinophils # (Manual) (0.04-0.35) X 10*3/uL POC Glucose (mg/dL) 130 H (70-110) mg/dL Vitamin B12 1913.0 H (200.0-944.0) pg/mL IgG 625.0 L (700.0-1600.0) mg/dL 02/23/22 02/23/22 02/23/22 Range/Units 05:34 07:47 11:46 WBC 0.74 L* (4.50-10.00) X 10*3/uL RBC 3.87 L (4.10-5.20) X 10*6/uL Hgb 11.8 L (12.0-15.0) g/dL Hct 36.0 L (37.2-46.3) % Myelocytes % 9 H (0-0) % Promyelocytes % 3 H (0-0) % Neutrophils # (Manual) 0.12 L* (2.00-8.90) X 10*3/uL Lymphocytes # (Manual) 0.29 L (0.90-5.00) X 10*3/uL Eosinophils # (Manual) 0 L (0.04-0.35) X 10*3/uL POC Glucose (mg/dL) 176 H 179 H (70-110) mg/dL Vitamin B12 (200.0-944.0) pg/mL IgG (700.0-1600.0) mg/dL Microbiology - Last 24 Hours (Table) 02/22/22 00:25 Blood Culture - Preliminary Blood No Growth after 24 hours Assessment and Plan (1) Cellulitis of buttock, left Current Visit: Yes Status: Acute Code(s): L03.317 - CELLULITIS OF BUTTOCK SNOMED Code(s): 25580631 (2) Decubitus ulcer Current Visit: Yes Status: Acute Code(s): L89.90 - PRESSURE ULCER OF UNSPECIFIED SITE, UNSPECIFIED STAGE SNOMED Code(s): 2089384561 Plan: 1patient with bilateral gluteal stage II pressure ulcer and concern for possible cellulitis clinic suspicious low for MRSA infection hence we'll discontinue the vancomycin continue with Unasyn for now local wound care with the Santyl and keep the area off the pressure Time with Patient: Less than 30
[2022-02-24] MEDS: AMPICILLIN-SULBACTAM 3 GM in SODIUM CHLORIDE 0.9% 100 ML IVPB SCH ×4 (05:42→23:49)
[2022-02-24 07:36] LABS: Glucose,Whole Blood 155 mg/dL (70-110)
[2022-02-24] MEDS: ENOXAPARIN 40 MG/0.4 ML SYRINGE SQ SCH (07:55)
[2022-02-24] MEDS: DALFAMPRIDINE 10 MG PO SCH ×2 (07:56→21:22)
[2022-02-24] MEDS: INSULIN ASPART (NovoLOG) 100 UNIT/ML VIAL SQ SCH ×4 (07:56→21:22)
[2022-02-24] MEDS: methylPREDNISolone SOD SUCCIN 500 MG in SODIUM CHLORIDE 0.9% 100 ML IVPB SCH ×2 (07:56→21:47)
[2022-02-24] MEDS: LOSARTAN 50 MG TAB PO SCH (07:57)
[2022-02-24] MEDS: PANTOPRAZOLE 40 MG TABLET PO SCH (07:57)
[2022-02-24] MEDS: ESCITALOPRAM 10 MG TAB PO SCH (07:57)
[2022-02-24] MEDS: amLODIPine 5 MG TAB PO SCH (07:57)
[2022-02-24] MEDS: LORATADINE 10 MG TAB PO SCH (07:58)
[2022-02-24] MEDS ORDERED: VANCOMYCIN TROUGH DUE 1 EACH MISC MISCELLANE ONE (08:00)
[2022-02-24] MEDS: polyethylene glycoL 3350 17 GM POWD.PACK PO PRN (08:03)
[2022-02-24] MEDS: MELOXICAM 7.5 MG TAB PO PRN (08:03)
--- NOTE | 2022-02-24 09:45 | MR ---
EXAMINATION TYPE: MR thoracic spine wo/w con DATE OF EXAM: 02/23/2022 COMPARISON: MRI thoracic spine June 19, 2017 HISTORY: MS FLAIR TECHNIQUE: Multiplanar, multisequence imaging of thoracic spine is performed without and with IV cont rast. Patient injected with 5.5 cc of gadolinium for the study. Demyelinating disease protocol. FINDINGS: Spinal cord shows normal course, caliber, and signal as it courses the thoracic spine. Tru tebral body heights and alignment are stable and satisfactory. Small posterior disc herniation redemo nstrated at T7-T8 level sagittal image 8 mildly effaces the anterior thecal sac. Bone marrow signal i ntensity is maintained. No abnormal enhancement is seen. Review of the axial images shows no significant spinal canal stenosis or neural foraminal narrowing at any thoracic level. Visualized thorax and upper abdomen are unremarkable. IMPRESSION: No MRI evidence for demyelinating disease involvement in the thoracic spinal cord. No si gnificant change from 2017 MRI.
[2022-02-24 10:05] LABS: ALT 32 U/L (4-34); AST 22 U/L (14-36); African American GFR (CKD) >90 (>60 ml/min/1.73 sqM); Albumin 3.5 g/dL (3.5-5.0); Albumin/Globulin Ratio 1.4; Alkaline Phosphatase 92 U/L (38-126); Anion Gap 8 mmol/L; Blood Urea Nitrogen 26 mg/dL (7-17); Calcium 9.2 mg/dL (8.4-10.2); Carbon Dioxide 30 mmol/L (22-30); Chloride 100 mmol/L (98-107); Globulin 2.5 g/dL; Glucose 210 mg/dL (74-99); Non-African American GFR(CKD) >90 (>60 ml/min/1.73 sqM); Potassium 3.9 mmol/L (3.5-5.1); Sodium 138 mmol/L (137-145); Total Bilirubin 0.3 mg/dL (0.2-1.3)
[2022-02-24 10:21] LABS: HCT 37.2 % (34.0-46.0); HGB 12.1 gm/dL (11.4-16.0); MCH 31.2 pg (25.0-35.0); MCHC 32.6 g/dL (31.0-37.0); MCV 95.8 fL (80.0-100.0); Mean Platelet Volume 7.7; Platelet Count 304 k/uL (150-450); RBC 3.88 m/uL (3.80-5.40); RDW 13.3 % (11.5-15.5); WBC 25.1 k/uL (3.8-10.6)
[2022-02-24 11:21] LABS: Glucose,Whole Blood 180 mg/dL (70-110)
--- NOTE | 2022-02-24 11:53 | P.PN ---
Subjective Progress Note Date: 02/24/22 The patient stated she feel much better compared to her initial presentation after steroids. Objective - Vital Signs Vital signs: Vital Signs Temp 98.5 F 02/24/22 08:00 Pulse 92 02/24/22 08:00 Resp 18 02/24/22 08:00 BP 143/83 02/24/22 08:00 Pulse Ox 97 02/24/22 08:00 FiO2 Intake & Output 02/23/22 02/24/22 02/24/22 18:59 06:59 18:59 Intake Total 450 200 Output Total 500 Balance -50 200 Intake: Intake, IV Titration 450 200 Amount Ampicillin-Sulbactam 3 gm 100 200 In Sodium Chloride 0.9% 100 ml @ 200 mls/hr IVPB Q6H FLIP Rx#:[id number] Vancomycin 1,000 mg In 250 Sodium Chloride 0.9% 250 ml @ 125 mls/hr IVPB Q8H FLIP Rx#:[id number] methylPREDNISolone SOD 100 SUCCIN 500 mg In Sodium Chloride 0.9% 100 ml @ 100 mls/hr IVPB Q12HR FLIP Rx#:[id number] Output: Urine 500 Other: Voiding Method External Catheter External Catheter # Voids 3 - Exam GENERAL: The patient is lying in bed and is not in acute distress. NEUROLOGICAL: Higher mental function: The patient is awake, alert, oriented to self, place and time. Patient is following commands. No aphasia and no neglect. Cranial nerves: The pupils are round, equal and reactive to light and accommodation. Visual jones are full to confrontation throughout. Extraocular movement is intact no nystagmus is noted. Facial sensation is normal to touch throughout. The facial strength is normal throughout. Hearing is normal bilaterally to hand rub. Tongue is midline and moved [id number] without any difficulty. No dysarthria is noted. Shoulder shrug is normal bilaterally. Motor: The strength is 5 over 5 throughout uppers. While lowers: Proximal is 2- 3 on right while left is 3. slight improvement in hips regions compared to yesterday (. Right ankle is 3 while left is 4-. Decrease tone in lowers. Decrease bulk in bilateral lowers and right proximal upper. Cerebellum: Normal finger to nose bilaterally. Sensation: Sensation is normal to touch throughout. Reflexes (right/left): 3+ over left cerebellar otherwise 2+ in uppers. Lowers are 0-1 throughout. Plantars are mute bilaterally. Clonus of bilateral ankles. Some of the workup during this hospitalization consisted of: White blood cell is 2.9 thousand and the neutrophils is low Sodium is 132, AST of 42 ALT of 59. Vitamin B12 is 1913 Serum folate is more than 20 Vitamin D 25-hydroxy is 43.2 Hemoglobin A1c is 5.4. Urinalysis is negative for urinary tract infection. Eddy virus PCR was not detected. Influenza A and B are not detected. MRI of the brain is reported as periventricular white matter irregular foci of increased signal consistent with demyelinating disease and not significantly different than old exam. There is sparing of the brainstem and cerebellum. 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 MRI of the cervical spine is reported as degenerative disc disease in the cervical spine. Small posterior disc herniation and disc bulging at C4-C5 and C5-C6. No significant stenosis. No adverse changes compared to old exam. No evidence demyelinating disease of the cervical spinal cord. I personally reviewed and agree there is no enhancing lesion. MRI Thoracic w/ and w/o: It is reported as no MRI evidence for demyelinating disease involvement in the thoracic spinal cord. No significant change from 2017 MRI. - Labs CBC & Chem 7: 02/24/22 08:43 02/24/22 08:43 Labs: Abnormal Lab Results - Last 24 Hours (Table) 02/23/22 02/23/22 02/23/22 Range/Units 11:46 17:27 20:57 WBC (3.8-10.6) k/uL BUN (7-17) mg/dL Glucose (74-99) mg/dL POC Glucose (mg/dL) 179 H 174 H 172 H (70-110) mg/dL Total Protein (6.3-8.2) g/dL 02/24/22 02/24/22 02/24/22 Range/Units 07:35 08:43 08:43 WBC 25.1 H (3.8-10.6) k/uL BUN 26 H (7-17) mg/dL Glucose 210 H (74-99) mg/dL POC Glucose (mg/dL) 155 H (70-110) mg/dL Total Protein 6.0 L (6.3-8.2) g/dL 02/24/22 Range/Units 11:19 WBC (3.8-10.6) k/uL BUN (7-17) mg/dL Glucose (74-99) mg/dL POC Glucose (mg/dL) 180 H (70-110) mg/dL Total Protein (6.3-8.2) g/dL Microbiology - Last 24 Hours (Table) 02/22/22 00:25 Blood Culture - Preliminary Blood No Growth after 48 hours Assessment and Plan Assessment: Likely MS exacerbation History of Multiple Sclerosis on Ocrevus Buttock and coccyx ulcers Hypertension Plan: Continue IV Solu-Medrol 500 mg every 12 hours for total of 5 days (received first dose at 2100 on 02/22/2022). We'll defer that sugar control to the primary team Every 4 hours neuro checks Physical therapy and occupation therapy are consulted for gait training We'll defer the rest of the medical management to primary team Hematology is consulted by primary team because her neutropenic sepsis Wound care is consulted. Upon discharge the patient needs to follow-up with her neurologist as an outpatient within 1-2 weeks The plan is discussed with patient. Alex Frazier M.D. Neuro-hospitalist Time with Patient: Less than 30
[2022-02-24] MEDS: INSULIN DETEMIR (LEVEMIR) 100 UNIT/ML SYR SQ SCH (13:42)
[2022-02-24 13:54] VITALS: BMI 20.6
--- NOTE | 2022-02-24 15:51 | P.PN ---
Subjective Progress Note Date: 02/24/22 (delayed charting seen at 1215) Principal diagnosis: weakness Patient is a 52-year-old female with a history of multiple sclerosis maintained on Octrevus, hypertension, and vision difficulties from prior MS who presented to the hospital secondary to wounds on her buttock and progressive weakness. On arrival to the ER she was tachycardic with a pulse of 101. Initial laboratory analysis showed white blood cell count of 2.9, neutrophils 0.15, sodium 132, AST 42, ALT 59, urinalysis is negative, COVID-19 testing negative, influenza A/B-. Chest x-ray was negative. KUB showed bilateral renal calculi and multiple phleboliths. She was fund to have decubitus ulcers with infection and was started on unasyn and vanco. She was seen by neurology and was found to have cl inical exacerbation of MS. She was started on high dose steroids. MRI Brain and cervical spine did not demonstrate any new white matter lesions. Patient seen and examined in the emergency department. She complains of constipation. She states she is moving her legs and feels as though her energy has returned with steroids. We discussed the results of her MRI. General: non toxic, no distress, appears at stated age, thin Derm: warm, dry Head: atraumatic, normocephalic, symmetric Eyes: EOMI, no lid lag, anicteric sclera Mouth: no lip lesion, mucus membranes moist Cardiovascular: S1S2 reg, no murmur, positive posterior tibial pulse bilateral, Lungs: Decreased bs bilateral, no rhonchi, no rales , no accessory muscle use Abdominal: soft, nontender to palpation, no guarding, no appreciable organomegaly Ext: no gross muscle atrophy, no edema, no contractures Neuro: CN II-XI grossly intact, muscle strength3/4 b/l LE, + clonous b/l LE, moving upper extremities against gravity independently. Psych: Alert, oriented, appropriate affect Assessment/plan: Acute MS flare with history of relapsing remitting multiple sclerosis - neurology recs - Solumedrol - MRI Brain and cervical spine without new white matter lesions. - Continue with steroids - PT/OT - amantadine Hyperglycemia - due to steroids. - SSI - A1C normal Stage II pressure ulcer right buttocks Stage II presure ulcer left buttocks Stage II pressure ulcer scarum - on unasyn and vanco - ID recs appreciated - wound care bed - wound care recs - off load wound - urine collection system to keep wound clean and dry. 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 DVT prophylaxis: Lovenox Discussed with: patient, nursing Anticipated discharge: pending clinical course Anticipated discharge place: home A total of 35 minutes was spent on the care of this complex patient more than 50% of the time was spent in counseling and care coordination. Objective - Vital Signs Vital signs: Vital Signs Temp 98.5 F 02/24/22 08:00 Pulse 92 02/24/22 08:00 Resp 18 02/24/22 08:00 BP 143/83 02/24/22 08:00 Pulse Ox 97 02/24/22 08:00 FiO2 Intake & Output 02/23/22 02/24/22 02/24/22 18:59 06:59 18:59 Intake Total 450 200 Output Total 500 Balance -50 200 Weight 56.245 kg Intake: Intake, IV Titration 450 200 Amount Ampicillin-Sulbactam 3 gm 100 200 In Sodium Chloride 0.9% 100 ml @ 200 mls/hr IVPB Q6H FLIP Rx#:[id number] Vancomycin 1,000 mg In 250 Sodium Chloride 0.9% 250 ml @ 125 mls/hr IVPB Q8H FLIP Rx#:[id number] methylPREDNISolone SOD 100 SUCCIN 500 mg In Sodium Chloride 0.9% 100 ml @ 100 mls/hr IVPB Q12HR FLIP Rx#:[id number] Output: Urine 500 Other: Voiding Method External Catheter External Catheter # Voids 3 - Labs CBC & Chem 7: 02/24/22 08:43 02/24/22 08:43 Labs: Abnormal Lab Results - Last 24 Hours (Table) 02/23/22 02/23/22 02/24/22 Range/Units 17:27 20:57 07:35 WBC (3.8-10.6) k/uL BUN (7-17) mg/dL Glucose (74-99) mg/dL POC Glucose (mg/dL) 174 H 172 H 155 H (70-110) mg/dL Total Protein (6.3-8.2) g/dL 02/24/22 02/24/22 02/24/22 Range/Units 08:43 08:43 11:19 WBC 25.1 H (3.8-10.6) k/uL BUN 26 H (7-17) mg/dL Glucose 210 H (74-99) mg/dL POC Glucose (mg/dL) 180 H (70-110) mg/dL Total Protein 6.0 L (6.3-8.2) g/dL Microbiology - Last 24 Hours (Table) 02/22/22 00:25 Blood Culture - Preliminary Blood No Growth after 48 hours
[2022-02-24] MEDS: COLLAGENASE 250 UNIT/GM OINTMENT 30 GM TUBE TOPICAL SCH (16:00)
--- NOTE | 2022-02-24 20:51 | P.PN ---
Subjective Progress Note Date: 02/24/22 WBC recovered and now increased higher, therefore GCSF stopped per primary agree MRI thorax is without worsening demyelination from 2017, she feels better on steroids at this time Objective - Vital Signs Vital signs: Vital Signs Temp 98.5 F 02/24/22 08:00 Pulse 92 02/24/22 08:00 Resp 18 02/24/22 08:00 BP 143/83 02/24/22 08:00 Pulse Ox 97 02/24/22 08:00 FiO2 Intake & Output 02/23/22 02/24/22 02/24/22 18:59 06:59 18:59 Intake Total 450 200 Output Total 500 Balance -50 200 Intake: Intake, IV Titration 450 200 Amount Ampicillin-Sulbactam 3 gm 100 200 In Sodium Chloride 0.9% 100 ml @ 200 mls/hr IVPB Q6H FLIP Rx#:[id number] Vancomycin 1,000 mg In 250 Sodium Chloride 0.9% 250 ml @ 125 mls/hr IVPB Q8H FLIP Rx#:[id number] methylPREDNISolone SOD 100 SUCCIN 500 mg In Sodium Chloride 0.9% 100 ml @ 100 mls/hr IVPB Q12HR FLIP Rx#:[id number] Output: Urine 500 Other: Voiding Method External Catheter External Catheter # Voids 3 - Exam - Constitutional General appearance: cooperative, no acute distress - EENT Eyes: EOMI ENT: NA/AT - Neck Neck: normal ROM - Respiratory Respiratory: bilateral: CTA - Cardiovascular Rhythm: regularly irregular - Gastrointestinal General gastrointestinal: soft - Integumentary Integumentary: pale - Musculoskeletal Musculoskeletal: generalized weakness - Psychiatric Psychiatric: A&O x's - Labs CBC & Chem 7: 02/24/22 08:43 02/24/22 08:43 Labs: Abnormal Lab Results - Last 24 Hours (Table) 02/23/22 02/23/22 02/24/22 Range/Units 17:27 20:57 07:35 WBC (3.8-10.6) k/uL BUN (7-17) mg/dL Glucose (74-99) mg/dL POC Glucose (mg/dL) 174 H 172 H 155 H (70-110) mg/dL Total Protein (6.3-8.2) g/dL 02/24/22 02/24/22 02/24/22 Range/Units 08:43 08:43 11:19 WBC 25.1 H (3.8-10.6) k/uL BUN 26 H (7-17) mg/dL Glucose 210 H (74-99) mg/dL POC Glucose (mg/dL) 180 H (70-110) mg/dL Total Protein 6.0 L (6.3-8.2) g/dL Microbiology - Last 24 Hours (Table) 02/22/22 00:25 Blood Culture - Preliminary Blood No Growth after 48 hours Assessment and Plan (1) Cellulitis of buttock, left Current Visit: Yes Status: Acute Code(s): L03.317 - CELLULITIS OF BUTTOCK SNOMED Code(s): 66779181 (2) Immunocompromised Current Visit: Yes Status: Acute Code(s): D84.9 - IMMUNODEFICIENCY, UNSPECIFIED SNOMED Code(s): 498549548 (3) Leukopenia Narrative/Plan: Recovered Discontinue Granix Discussed with primary team Current Visit: Yes Status: Acute Code(s): D72.819 - DECREASED WHITE BLOOD CELL COUNT, UNSPECIFIED SNOMED Code(s): 03728696 Plan: With known immunosuppressant medications and Multiple Sclerosis aggressive supportive care required. IV abx and hospital acute issues per primary team DIscussed in detail with primary team and lyle [id number]
[2022-02-24 21:08] LABS: Glucose,Whole Blood 191 mg/dL (70-110)
[2022-02-24] MEDS: HYDROcodone/APAP 5-325MG 1 EACH TAB PO PRN (21:28)
[2022-02-25] MEDS: AMPICILLIN-SULBACTAM 3 GM in SODIUM CHLORIDE 0.9% 100 ML IVPB SCH ×4 (05:40→23:43)
[2022-02-25 06:22] LABS: HCT 35.6 % (34.0-46.0); HGB 11.6 gm/dL (11.4-16.0); MCH 31.3 pg (25.0-35.0); MCHC 32.6 g/dL (31.0-37.0); MCV 95.8 fL (80.0-100.0); Mean Platelet Volume 7.8; Platelet Count 303 k/uL (150-450); RBC 3.72 m/uL (3.80-5.40); RDW 13.5 % (11.5-15.5); WBC 30.9 k/uL (3.8-10.6)
[2022-02-25 06:34] LABS: African American GFR (CKD) >90 (>60 ml/min/1.73 sqM); Anion Gap 6 mmol/L; Blood Urea Nitrogen 38 mg/dL (7-17); Carbon Dioxide 27 mmol/L (22-30); Chloride 103 mmol/L (98-107); Glucose 188 mg/dL (74-99); Non-African American GFR(CKD) 85 (>60 ml/min/1.73 sqM); Potassium 3.9 mmol/L (3.5-5.1); Sodium 136 mmol/L (137-145)
[2022-02-25 07:24] LABS: Glucose,Whole Blood 179 mg/dL (70-110)
[2022-02-25] MEDS: DALFAMPRIDINE 10 MG PO SCH ×2 (08:42→21:06)
[2022-02-25] MEDS: ENOXAPARIN 40 MG/0.4 ML SYRINGE SQ SCH (08:43)
[2022-02-25] MEDS: INSULIN DETEMIR (LEVEMIR) 100 UNIT/ML SYR SQ SCH (08:43)
[2022-02-25] MEDS: INSULIN ASPART (NovoLOG) 100 UNIT/ML VIAL SQ SCH ×4 (08:43→21:07)
[2022-02-25] MEDS: PANTOPRAZOLE 40 MG TABLET PO SCH (08:44)
[2022-02-25] MEDS: LORATADINE 10 MG TAB PO SCH (08:44)
[2022-02-25] MEDS: LOSARTAN 50 MG TAB PO SCH (08:44)
[2022-02-25] MEDS: amLODIPine 5 MG TAB PO SCH (08:44)
[2022-02-25] MEDS: polyethylene glycoL 3350 17 GM POWD.PACK PO PRN (08:45)
[2022-02-25] MEDS: MELOXICAM 7.5 MG TAB PO PRN (08:45)
[2022-02-25] MEDS: ESCITALOPRAM 10 MG TAB PO SCH (08:52)
[2022-02-25] MEDS: methylPREDNISolone SOD SUCCIN 500 MG in SODIUM CHLORIDE 0.9% 100 ML IVPB SCH ×2 (09:19→21:06)
[2022-02-25 09:23] LABS: African American GFR (CKD) 98.9 (60.0-200.0); Non-African American GFR(CKD) 85.4 (60.0-200.0)
[2022-02-25 11:17] LABS: Glucose,Whole Blood 245 mg/dL (70-110)
[2022-02-25] MEDS: COLLAGENASE 250 UNIT/GM OINTMENT 30 GM TUBE TOPICAL SCH (12:10)
--- NOTE | 2022-02-25 12:35 | P.PN ---
Subjective Progress Note Date: 02/25/22 The patient continues to be feeling and doing better since on IV steroids. She completed so far 3 days out of 5 days of IV steroids. Denies of any new neurological issues. Objective - Vital Signs Vital signs: Vital Signs Temp 98.1 F 02/25/22 08:10 Pulse 89 02/25/22 08:10 Resp 18 02/25/22 08:10 BP 152/87 02/25/22 08:10 Pulse Ox 98 02/25/22 08:10 FiO2 Intake & Output 02/24/22 02/25/22 02/25/22 18:59 06:59 18:59 Intake Total 590 Output Total 500 500 Balance 90 -500 Weight 56.245 kg Intake: Oral 590 Output: Urine 500 500 Other: Voiding Method External Catheter External Catheter # Voids 3 1 # Bowel Movements 1 - Exam GENERAL: The patient is lying in bed and is not in acute distress. NEUROLOGICAL: Higher mental function: The patient is awake, alert, oriented to self, place and time. Patient is following commands. No aphasia and no neglect. Cranial nerves: The pupils are round, equal and reactive to light and accommodation. Visual jones are full to confrontation throughout. Extraocular movement is intact no nystagmus is noted. Facial sensation is normal to touch throughout. The facial strength is normal throughout. Hearing is normal bilaterally to hand rub. Tongue is midline and moved [id number] without any difficulty. No dysarthria is noted. Shoulder shrug is normal bilaterally. Motor: The strength is 5 over 5 throughout uppers. While lowers: Proximal is 2-3 on right while left is 3. slight improvement in hips regions compared to yesterday. Knee extension are 4- (better on left compared to right). Ankles are 4+ on left while right is 4-. Decrease tone in lowers. Decrease bulk in bilateral lowers and right proximal upper. Cerebellum: Normal finger to nose bilaterally. Sensation: Sensation is normal to touch throughout. Reflexes (right/left): 3+ over left cerebellar otherwise 2+ in uppers. Lowers are 0-1 throughout. Plantars are mute bilaterally. Clonus of bilateral ankles. Some of the workup during this hospitalization consisted of: White blood cell is 2.9 thousand and the neutrophils is low Sodium is 132, AST of 42 ALT of 59. Vitamin B12 is 1913 Serum folate is more than 20 Vitamin D 25-hydroxy is 43.2 Hemoglobin A1c is 5.4. Urinalysis is negative for urinary tract infection. Eddy virus PCR was not detected. Influenza A and B are not detected. MRI of the brain is reported as periventricular white matter irregular foci of increased signal consistent with demyelinating disease and not significantly different than old exam. There is sparing of the brainstem and cerebellum. 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 MRI of the cervical spine is reported as degenerative disc disease in the cervical spine. Small posterior disc herniation and disc bulging at C4-C5 and C5-C6. No significant stenosis. No adverse changes compared to old exam. No evidence demyelinating disease of the cervical spinal cord. I personally reviewed and agree there is no enhancing lesion. MRI Thoracic w/ and w/o: It is reported as no MRI evidence for demyelinating disease involvement in the thoracic spinal cord. No significant change from 2017 MRI. - Labs CBC & Chem 7: 02/25/22 05:38 02/25/22 05:38 Labs: Abnormal Lab Results - Last 24 Hours (Table) 02/24/22 02/25/22 02/25/22 Range/Units 21:07 05:38 05:38 WBC 30.9 H (3.8-10.6) k/uL RBC 3.72 L (3.80-5.40) m/uL Sodium 136 L (137-145) mmol/L BUN 38 H (7-17) mg/dL Glucose 188 H (74-99) mg/dL POC Glucose (mg/dL) 191 H (70-110) mg/dL 02/25/22 02/25/22 Range/Units 07:22 11:13 WBC (3.8-10.6) k/uL RBC (3.80-5.40) m/uL Sodium (137-145) mmol/L BUN (7-17) mg/dL Glucose (74-99) mg/dL POC Glucose (mg/dL) 179 H 245 H (70-110) mg/dL Microbiology - Last 24 Hours (Table) 02/22/22 00:25 Blood Culture - Preliminary Blood No Growth after 72 hours Assessment and Plan Assessment: Likely MS exacerbation ---improving in her lower strength with IV steroids History of Multiple Sclerosis on Ocrevus Buttock and coccyx ulcers Hypertension Plan: Continue IV Solu-Medrol 500 mg every 12 hours for total of 5 days (received first dose at 2100 on 02/22/2022). We'll defer that sugar control to the primary team Every 4 hours neuro checks Physical therapy and occupation therapy are consulted for gait training We'll defer the rest of the medical management to primary team Hematology is consulted by primary team because her neutropenic sepsis Wound care is consulted. Upon discharge the patient needs to follow-up with her neurologist as an outpatient within 1-2 weeks The plan is discussed with patient and primary team. Alex Frazier M.D. Neuro-hospitalist Time with Patient: Less than 30
--- NOTE | 2022-02-25 15:31 | P.PN ---
Subjective Progress Note Date: 02/25/22 (delayed charting seen at 1030) Principal diagnosis: weakness Patient is a 52-year-old female with a history of multiple sclerosis maintained on Octrevus, hypertension, and vision difficulties from prior MS who presented to the hospital secondary to wounds on her buttock and progressive weakness. On arrival to the ER she was tachycardic with a pulse of 101. Initial laboratory analysis showed white blood cell count of 2.9, neutrophils 0.15, sodium 132, AST 42, ALT 59, urinalysis is negative, COVID-19 testing negative, influenza A/B-. Chest x-ray was negative. KUB showed bilateral renal calculi and multiple phleboliths. She was fund to have decubitus ulcers with infection and was started on unasyn and vanco. She was seen by neurology and was found to have cl inical exacerbation of MS. She was started on high dose steroids. MRI Brain and cervical spine did not demonstrate any new white matter lesions. She improved quickly on high dose steroids. Patient seen and examined in the emergency department. Constipation resolved. Still with some difficulty sleeping, strengths better than at admission but on continued improvement in 24 hours. General: non toxic, no distress, appears at stated age, thin Derm: warm, dry Head: atraumatic, normocephalic, symmetric Eyes: EOMI, no lid lag, anicteric sclera Mouth: no lip lesion, mucus membranes moist Cardiovascular: S1S2 reg, no murmur, positive posterior tibial pulse bilateral, Lungs: Decreased bs bilateral, no rhonchi, no rales , no accessory muscle use Abdominal: soft, nontender to palpation, no guarding, no appreciable organomegaly Ext: no gross muscle atrophy, no edema, no contractures Neuro: CN II-XI grossly intact, able to lift b/l LE off the bed, moving upper extremities against gravity independently. Psych: Alert, oriented, appropriate affect Assessment/plan: Acute MS flare with history of relapsing remitting multiple sclerosis - neurology recs - Solumedrol-- will complete 5 days with PM dose on 02/26 anticipate d/c AM on 02/27. - MRI Brain and cervical spine without new white matter lesions. MRI thorasic spine without any lesions. - Continue with steroids - PT/OT - amantadine Hyperglycemia - due to steroids. - SSI - A1C normal Insomnia - melatonin Stage II pressure ulcer right buttocks Stage II presure ulcer left buttocks Stage II pressure ulcer scarum - on unasyn - ID recs appreciated - wound care bed - wound care recs - off load wound - urine collection system to keep wound clean and dry. HTN - controlled - norvasc, cozaar - follow BP Neutropenia without sepsis, resolved - oncology recs - likely due to ocrevus - follow CBC - hematology recs - stop GMCSF Transaminitis, improved - outpatient follow-up Social stressors - from [place] does not have neruology here. DVT prophylaxis: Lovenox Discussed with: patient, nursing Anticipated discharge: pending clinical course Anticipated discharge place: home A total of 35 minutes was spent on the care of this complex patient more than 50% of the time was spent in counseling and care coordination. Objective - Vital Signs Vital signs: Vital Signs Temp 97.5 F L 02/25/22 14:00 Pulse 101 H 02/25/22 14:00 Resp 17 02/25/22 14:00 BP 150/83 02/25/22 14:00 Pulse Ox 96 02/25/22 14:00 FiO2 Intake & Output 02/24/22 02/25/22 02/25/22 18:59 06:59 18:59 Intake Total 590 Output Total 500 500 Balance 90 -500 Weight 56.245 kg Intake: Oral 590 Output: Urine 500 500 Other: Voiding Method External Catheter External Catheter # Voids 3 1 # Bowel Movements 1 - Labs CBC & Chem 7: 02/25/22 05:38 02/25/22 05:38 Labs: Abnormal Lab Results - Last 24 Hours (Table) 02/24/22 02/25/22 02/25/22 Range/Units 21:07 05:38 05:38 WBC 30.9 H (3.8-10.6) k/uL RBC 3.72 L (3.80-5.40) m/uL Sodium 136 L (137-145) mmol/L BUN 38 H (7-17) mg/dL Glucose 188 H (74-99) mg/dL POC Glucose (mg/dL) 191 H (70-110) mg/dL 02/25/22 02/25/22 Range/Units 07:22 11:13 WBC (3.8-10.6) k/uL RBC (3.80-5.40) m/uL Sodium (137-145) mmol/L BUN (7-17) mg/dL Glucose (74-99) mg/dL POC Glucose (mg/dL) 179 H 245 H (70-110) mg/dL Microbiology - Last 24 Hours (Table) 02/22/22 00:25 Blood Culture - Preliminary Blood No Growth after 72 hours
[2022-02-25 16:39] LABS: Glucose,Whole Blood 297 mg/dL (70-110)
[2022-02-25 20:45] LABS: Glucose,Whole Blood 287 mg/dL (70-110)
[2022-02-25] MEDS: MELATONIN 5 MG TABLET PO SCH (21:06)
--- NOTE | 2022-02-26 00:07 | P.PN ---
Subjective Progress Note Date: 02/24/22 Principal diagnosis: Bilateral gluteal pressure ulcer and cellulitis Patient is a 52-year-old female with a past medical history significant for MS hypertension presented to hospital with weakness and painful also to the gluteal area and there was concern for possible secondary cellulitis. On today's evaluation that is 02/24/2022, the patient remains to be afebrile, p atient is feeling better and is is able to move her extremities: The patient denies pain to the gluteal area, no chest pain shortness of breath or cough no abdominal Objective - Vital Signs Vital signs: Vital Signs Temp 98.5 F 02/24/22 08:00 Pulse 92 02/24/22 08:00 Resp 18 02/24/22 08:00 BP 143/83 02/24/22 08:00 Pulse Ox 97 02/24/22 08:00 FiO2 Intake & Output 02/23/22 02/24/22 02/24/22 18:59 06:59 18:59 Intake Total 450 200 Output Total 500 Balance -50 200 Intake: Intake, IV Titration 450 200 Amount Ampicillin-Sulbactam 3 gm 100 200 In Sodium Chloride 0.9% 100 ml @ 200 mls/hr IVPB Q6H FLIP Rx#:[id number] Vancomycin 1,000 mg In 250 Sodium Chloride 0.9% 250 ml @ 125 mls/hr IVPB Q8H FLIP Rx#:[id number] methylPREDNISolone SOD 100 SUCCIN 500 mg In Sodium Chloride 0.9% 100 ml @ 100 mls/hr IVPB Q12HR FLIP Rx#:[id number] Output: Urine 500 Other: Voiding Method External Catheter External Catheter # Voids 3 - Exam GENERAL DESCRIPTION: Middle-aged female lying in bed in no distress RESPIRATORY SYSTEM: Unlabored breathing , decreased breath sounds at bases HEART: S1 S2 regular rate and rhythm , ABDOMEN: Soft , no tenderness EXTREMITIES: No edema feet - Labs CBC & Chem 7: 02/25/22 05:38 02/25/22 05:38 Labs: Abnormal Lab Results - Last 24 Hours (Table) 02/23/22 02/23/22 02/24/22 Range/Units 17:27 20:57 07:35 WBC (3.8-10.6) k/uL BUN (7-17) mg/dL Glucose (74-99) mg/dL POC Glucose (mg/dL) 174 H 172 H 155 H (70-110) mg/dL Total Protein (6.3-8.2) g/dL 02/24/22 02/24/22 02/24/22 Range/Units 08:43 08:43 11:19 WBC 25.1 H (3.8-10.6) k/uL BUN 26 H (7-17) mg/dL Glucose 210 H (74-99) mg/dL POC Glucose (mg/dL) 180 H (70-110) mg/dL Total Protein 6.0 L (6.3-8.2) g/dL Microbiology - Last 24 Hours (Table) 02/22/22 00:25 Blood Culture - Preliminary Blood No Growth after 48 hours Assessment and Plan (1) Cellulitis of buttock, left Current Visit: Yes Status: Acute Code(s): L03.317 - CELLULITIS OF BUTTOCK SNOMED Code(s): 71936874 (2) Decubitus ulcer Current Visit: Yes Status: Acute Code(s): L89.90 - PRESSURE ULCER OF UNSPECIFIED SITE, UNSPECIFIED STAGE SNOMED Code(s): 3126630931 Plan: 1patient with bilateral gluteal stage II pressure ulcer and concern for possible cellulitis clinic suspicious low for MRSA infection, patient to continue with Unasyn for now local wound care with the Santyl and keep the area off the pressure Time with Patient: Less than 30
--- NOTE | 2022-02-26 00:08 | P.PN ---
Subjective Progress Note Date: 02/25/22 Principal diagnosis: Bilateral gluteal pressure ulcer and cellulitis Patient is a 52-year-old female with a past medical history significant for MS hypertension presented to hospital with weakness and painful also to the gluteal area and there was concern for possible secondary cellulitis. On today's evaluation that is 02/25/2022, the patient denies any fever or chill s, patient is breathing comfortably on room air and the patient denies chest pain, denies pain to the gluteal area, no abdominal pain and no diarrhea Objective - Vital Signs Vital signs: Vital Signs Temp 98.6 F 02/25/22 19:54 Pulse 98 02/25/22 19:54 Resp 20 02/25/22 19:54 BP 149/87 02/25/22 19:54 Pulse Ox 95 02/25/22 19:54 FiO2 Intake & Output 02/25/22 02/25/22 02/26/22 06:59 18:59 06:59 Intake Total 590 650 Output Total 500 1250 Balance 90 -600 Intake: Intake, IV Titration 200 Amount Ampicillin-Sulbactam 3 gm 100 In Sodium Chloride 0.9% 100 ml @ 200 mls/hr IVPB Q6H FLIP Rx#:[id number] methylPREDNISolone SOD 100 SUCCIN 500 mg In Sodium Chloride 0.9% 100 ml @ 100 mls/hr IVPB Q12HR FLIP Rx#:[id number] Oral 590 450 Output: Urine 500 1250 Other: Voiding Method External Catheter # Voids 2 # Bowel Movements 1 - Exam GENERAL DESCRIPTION: Middle-aged female lying in bed in no distress RESPIRATORY SYSTEM: Unlabored breathing , decreased breath sounds at bases HEART: S1 S2 regular rate and rhythm , ABDOMEN: Soft , no tenderness EXTREMITIES: No edema feet - Labs CBC & Chem 7: 02/25/22 05:38 02/25/22 05:38 Labs: Abnormal Lab Results - Last 24 Hours (Table) 02/25/22 02/25/22 02/25/22 Range/Units 05:38 05:38 07:22 WBC 30.9 H (3.8-10.6) k/uL RBC 3.72 L (3.80-5.40) m/uL Sodium 136 L (137-145) mmol/L BUN 38 H (7-17) mg/dL Glucose 188 H (74-99) mg/dL POC Glucose (mg/dL) 179 H (70-110) mg/dL 02/25/22 02/25/22 02/25/22 Range/Units 11:13 16:37 20:43 WBC (3.8-10.6) k/uL RBC (3.80-5.40) m/uL Sodium (137-145) mmol/L BUN (7-17) mg/dL Glucose (74-99) mg/dL POC Glucose (mg/dL) 245 H 297 H 287 H (70-110) mg/dL Microbiology - Last 24 Hours (Table) 02/22/22 00:25 Blood Culture - Preliminary Blood No Growth after 72 hours Assessment and Plan (1) Cellulitis of buttock, left Current Visit: Yes Status: Acute Code(s): L03.317 - CELLULITIS OF BUTTOCK SNOMED Code(s): 14156765 (2) Decubitus ulcer Current Visit: Yes Status: Acute Code(s): L89.90 - PRESSURE ULCER OF UNSPECIFIED SITE, UNSPECIFIED STAGE SNOMED Code(s): 0945158150 Plan: 1patient with bilateral gluteal stage II pressure ulcer and concern for possible cellulitis clinic suspicious low for MRSA infection, patient to continue with Unasyn for now local wound care with the Santyl and keep the area off the pressure was some 2leukocytosis more likely steroid effect and will be monitored closely Time with Patient: Less than 30
[2022-02-26 05:53] LABS: African American GFR (CKD) >90 (>60 ml/min/1.73 sqM); Anion Gap 6 mmol/L; Blood Urea Nitrogen 43 mg/dL (7-17); Calcium 8.4 mg/dL (8.4-10.2); Carbon Dioxide 29 mmol/L (22-30); Chloride 101 mmol/L (98-107); Glucose 153 mg/dL (74-99); Non-African American GFR(CKD) >90 (>60 ml/min/1.73 sqM); Potassium 3.9 mmol/L (3.5-5.1); Sodium 136 mmol/L (137-145)
[2022-02-26 05:59] LABS: HCT 34.5 % (34.0-46.0); HGB 11.3 gm/dL (11.4-16.0); MCH 30.8 pg (25.0-35.0); MCHC 32.9 g/dL (31.0-37.0); MCV 93.7 fL (80.0-100.0); Mean Platelet Volume 7.7; Platelet Count 310 k/uL (150-450); RBC 3.68 m/uL (3.80-5.40); RDW 13.6 % (11.5-15.5)
[2022-02-26] MEDS: AMPICILLIN-SULBACTAM 3 GM in SODIUM CHLORIDE 0.9% 100 ML IVPB SCH ×4 (06:09→23:36)
[2022-02-26 06:54] LABS: Band Neutrophils % 23 %; Lymphocytes # (M) 1.76 k/uL (1.0-4.8); Metamyelocytes % 2 %; Monocytes # (M) 1.05 k/uL (0-1.0); Neutrophils % (M) 68 %; Nucleated Red Blood Cells 1 /100 WBC (0-0); Total Cells Counted 200; WBC 35.1 k/uL (3.8-10.6)
[2022-02-26 06:58] LABS: Glucose,Whole Blood 158 mg/dL (70-110)
[2022-02-26 06:59] LABS: Anisocytosis (M) Present; Large Platelets Present; Poikilocytosis (M) Present
[2022-02-26] MEDS: ENOXAPARIN 40 MG/0.4 ML SYRINGE SQ SCH (07:43)
[2022-02-26] MEDS: polyethylene glycoL 3350 17 GM POWD.PACK PO PRN (07:43)
[2022-02-26] MEDS: INSULIN ASPART (NovoLOG) 100 UNIT/ML VIAL SQ SCH ×4 (07:43→21:28)
[2022-02-26] MEDS: LORATADINE 10 MG TAB PO SCH (07:44)
[2022-02-26] MEDS: amLODIPine 5 MG TAB PO SCH (07:44)
[2022-02-26] MEDS: MELOXICAM 7.5 MG TAB PO PRN (07:44)
[2022-02-26] MEDS: ESCITALOPRAM 10 MG TAB PO SCH (07:44)
[2022-02-26] MEDS: PANTOPRAZOLE 40 MG TABLET PO SCH (07:44)
[2022-02-26] MEDS: DALFAMPRIDINE 10 MG PO SCH ×2 (07:44→20:47)
[2022-02-26] MEDS: LOSARTAN 50 MG TAB PO SCH (07:44)
[2022-02-26] MEDS: INSULIN DETEMIR (LEVEMIR) 100 UNIT/ML SYR SQ SCH (07:44)
[2022-02-26] MEDS: methylPREDNISolone SOD SUCCIN 500 MG in SODIUM CHLORIDE 0.9% 100 ML IVPB SCH ×2 (08:18→20:57)
[2022-02-26 11:49] LABS: Glucose,Whole Blood 143 mg/dL (70-110)
--- NOTE | 2022-02-26 11:49 | P.PN ---
Subjective Progress Note Date: 02/26/22 The patient is seen at bedside and feels she is having edema in lowers. Today is day #4 for IV steroids. She does feel better compared to initial presentation but feels from yesterday to today no drastic improvement. Denies of any new neurological issues. Objective - Vital Signs Vital signs: Vital Signs Temp 98.3 F 02/26/22 07:18 Pulse 88 02/26/22 07:18 Resp 18 02/26/22 07:18 BP 151/85 02/26/22 07:18 Pulse Ox 94 L 02/26/22 07:18 FiO2 Intake & Output 02/25/22 02/26/22 02/26/22 18:59 06:59 18:59 Intake Total 650 Output Total 1250 700 Balance -600 -700 Intake: Intake, IV Titration 200 Amount Ampicillin-Sulbactam 3 gm 100 In Sodium Chloride 0.9% 100 ml @ 200 mls/hr IVPB Q6H FLIP Rx#:[id number] methylPREDNISolone SOD 100 SUCCIN 500 mg In Sodium Chloride 0.9% 100 ml @ 100 mls/hr IVPB Q12HR FLIP Rx#:[id number] Oral 450 Output: Urine 1250 700 Other: Voiding Method External Catheter # Voids 2 1 # Bowel Movements 1 1 - Exam GENERAL: The patient is lying in bed and is not in acute distress. NEUROLOGICAL: Higher mental function: The patient is awake, alert, oriented to self, place and time. Patient is following commands. No aphasia and no neglect. Cranial nerves: The pupils are round, equal and reactive to light and accommodation. Visual jones are full to confrontation throughout. Extraocular movement is intact no nystagmus is noted. Facial sensation is normal to touch throughout. The facial strength is normal throughout. Hearing is normal bilaterally to hand rub. Tongue is midline and moved [id number] without any difficulty. No dysarthria is noted. Shoulder shrug is normal bilaterally. Motor: The strength is 5 over 5 throughout uppers. While lowers: Proximal is 2 on right while left is 2- 3. Knee extension are 3-4- (better on left compared to right). Ankles are 4+ on left while right is 4-. Decrease tone in lowers. Decrease bulk in bilateral lowers and right proximal upper. Cerebellum: Normal finger to nose bilaterally. Sensation: Sensation is normal to touch throughout. Reflexes (right/left): 3+ over left cerebellar otherwise 2+ in uppers. Lowers are 0-1 throughout. Plantars are mute bilaterally. Clonus of bilateral ankles. Some of the workup during this hospitalization consisted of: White blood cell is 2.9 thousand and the neutrophils is low Sodium is 132, AST of 42 ALT of 59. Vitamin B12 is 1913 Serum folate is more than 20 Vitamin D 25-hydroxy is 43.2 Hemoglobin A1c is 5.4. Urinalysis is negative for urinary tract infection. Eddy virus PCR was not detected. Influenza A and B are not detected. MRI of the brain is reported as periventricular white matter irregular foci of increased signal consistent with demyelinating disease and not significantly different than old exam. There is sparing of the brainstem and cerebellum. 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 MRI of the cervical spine is reported as degenerative disc disease in the cervi yeuhda spine. Small posterior disc herniation and disc bulging at C4-C5 and C5-C6. No significant stenosis. No adverse changes compared to old exam. No evidence demyelinating disease of the cervical spinal cord. I personally reviewed and agree there is no enhancing lesion. MRI Thoracic w/ and w/o: It is reported as no MRI evidence for demyelinating disease involvement in the thoracic spinal cord. No significant change from 2017 MRI. - Labs CBC & Chem 7: 02/26/22 04:19 02/26/22 04:19 Labs: Abnormal Lab Results - Last 24 Hours (Table) 02/25/22 02/25/22 02/26/22 Range/Units 16:37 20:43 04:19 WBC 35.1 H (3.8-10.6) k/uL RBC 3.68 L (3.80-5.40) m/uL Hgb 11.3 L (11.4-16.0) gm/dL Neutrophils # (Manual) 31.90 H (1.3-7.7) k/uL Monocytes # (Manual) 1.05 H (0-1.0) k/uL Metamyelocytes # (Man) 0.70 H (0) k/uL Nucleated RBCs 1 H (0-0) /100 WBC Sodium (137-145) mmol/L BUN (7-17) mg/dL Glucose (74-99) mg/dL POC Glucose (mg/dL) 297 H 287 H (70-110) mg/dL 02/26/22 02/26/22 Range/Units 04:19 06:57 WBC (3.8-10.6) k/uL RBC (3.80-5.40) m/uL Hgb (11.4-16.0) gm/dL Neutrophils # (Manual) (1.3-7.7) k/uL Monocytes # (Manual) (0-1.0) k/uL Metamyelocytes # (Man) (0) k/uL Nucleated RBCs (0-0) /100 WBC Sodium 136 L (137-145) mmol/L BUN 43 H (7-17) mg/dL Glucose 153 H (74-99) mg/dL POC Glucose (mg/dL) 158 H (70-110) mg/dL Microbiology - Last 24 Hours (Table) 02/22/22 00:25 Blood Culture - Preliminary Blood No Growth after 96 hours Assessment and Plan Assessment: Likely MS exacerbation ---improving in her lower strength with IV steroids History of Multiple Sclerosis on Ocrevus Buttock and coccyx ulcers Hypertension Plan: Continue IV Solu-Medrol 500 mg every 12 hours for total of 5 days (received first dose at 2100 on 02/22/2022). Tomorrow AM is last dose We'll defer that sugar control to the primary team Every 4 hours neuro checks Physical therapy and occupation therapy are consulted for gait training We'll defer the rest of the medical management to primary team Hematology is consulted by primary team because her neutropenic sepsis Wound care is consulted. Upon discharge the patient needs to follow-up with her neurologist as an outpatient within 1-2 weeks Upon completion of steroids patient can be discharge to rehab (if possible inpatient rehab. I consulted Dr. Mauro). The plan is discussed with patient. Dr. Encarnacion will start neurology service tomorrow AM. Alex Frazier M.D. Neuro-hospitalist Time with Patient: Less than 30
[2022-02-26] MEDS: COLLAGENASE 250 UNIT/GM OINTMENT 30 GM TUBE TOPICAL SCH (16:00)
--- NOTE | 2022-02-26 16:28 | P.PN ---
Subjective Progress Note Date: 02/26/22 Principal diagnosis: Multiple sclerosis The patient is a 52-year-old female with history of multiple sclerosis maintained in [place], hypertension, presented with tachycardia secondary to wounds on her bottom talks and increasing weakness. The patient had a workup that showed a white count of 2.9, sodium 132, AST 42, pO2 59. Patient was started on Unasyn and vancomycin for her decubitus ulcers on high-dose steroids or clinical exacerbation of her multiple sclerosis. Objective - Vital Signs Vital signs: Vital Signs Temp 98.5 F 02/26/22 14:00 Pulse 94 02/26/22 14:00 Resp 17 02/26/22 14:00 BP 155/83 02/26/22 14:00 Pulse Ox 98 02/26/22 14:00 FiO2 Intake & Output 02/25/22 02/26/22 02/26/22 18:59 06:59 18:59 Intake Total 650 Output Total 1250 700 Balance -600 -700 Intake: Intake, IV Titration 200 Amount Ampicillin-Sulbactam 3 gm 100 In Sodium Chloride 0.9% 100 ml @ 200 mls/hr IVPB Q6H [facility] Rx#:[id number] methylPREDNISolone SOD 100 SUCCIN 500 mg In Sodium Chloride 0.9% 100 ml @ 100 mls/hr IVPB Q12HR [facility] Rx#:[id number] Oral 450 Output: Urine 1250 700 Other: Voiding Method External Catheter # Voids 2 3 # Bowel Movements 1 1 - Constitutional General appearance: Present: thin - Respiratory Respiratory: bilateral: CTA - Cardiovascular Rhythm: regular - Gastrointestinal General gastrointestinal: Present: normal bowel sounds - Musculoskeletal Musculoskeletal Comment(s): Generalized edema Musculoskeletal: Present: generalized weakness - Psychiatric Psychiatric: Present: appropriate affect - Labs CBC & Chem 7: 02/26/22 04:19 02/26/22 04:19 Labs: Abnormal Lab Results - Last 24 Hours (Table) 02/25/22 02/25/22 02/26/22 Range/Units 16:37 20:43 04:19 WBC 35.1 H (3.8-10.6) k/uL RBC 3.68 L (3.80-5.40) m/uL Hgb 11.3 L (11.4-16.0) gm/dL Neutrophils # (Manual) 31.90 H (1.3-7.7) k/uL Monocytes # (Manual) 1.05 H (0-1.0) k/uL Metamyelocytes # (Man) 0.70 H (0) k/uL Nucleated RBCs 1 H (0-0) /100 WBC Sodium (137-145) mmol/L BUN (7-17) mg/dL Glucose (74-99) mg/dL POC Glucose (mg/dL) 297 H 287 H (70-110) mg/dL 02/26/22 02/26/22 02/26/22 Range/Units 04:19 06:57 11:48 WBC (3.8-10.6) k/uL RBC (3.80-5.40) m/uL Hgb (11.4-16.0) gm/dL Neutrophils # (Manual) (1.3-7.7) k/uL Monocytes # (Manual) (0-1.0) k/uL Metamyelocytes # (Man) (0) k/uL Nucleated RBCs (0-0) /100 WBC Sodium 136 L (137-145) mmol/L BUN 43 H (7-17) mg/dL Glucose 153 H (74-99) mg/dL POC Glucose (mg/dL) 158 H 143 H (70-110) mg/dL Microbiology - Last 24 Hours (Table) 02/22/22 00:25 Blood Culture - Preliminary Blood No Growth after 96 hours Assessment and Plan (1) Exacerbation of multiple sclerosis Narrative/Plan: Appreciate neurology's input, patient completed 5 days of IV steroids, tomorrow morning as her last dose. She is improving but still continues to be weak. Continue PT OT, plan for possible inpatient rehab if patient meets criteria. Follow-up outpatient post discharge Current Visit: Yes Status: Acute Code(s): G35 - MULTIPLE SCLEROSIS SNOMED Code(s): 899964623 (2) Decubitus ulcer Narrative/Plan: Patient stable to pressure ulcers right buttocks, stage III pressure ulcer left buttocks, station pressure ulcers sacrum continue Unasyn wound care recommendations,, continue to offload wounds Current Visit: Yes Status: Acute Code(s): L89.90 - PRESSURE ULCER OF UNSPECIFIED SITE, UNSPECIFIED STAGE SNOMED Code(s): 4766338501 (3) Hyperglycemia Narrative/Plan: Secondary to steroids, continue sliding scale patient has a normal A1c Current Visit: Yes Status: Acute Code(s): R73.9 - HYPERGLYCEMIA, UNSPECIFIED SNOMED Code(s): 65784505 (4) Hypertension Narrative/Plan: Continue outpatient regimen and titrate as needed Current Visit: Yes Status: Acute Code(s): I10 - ESSENTIAL (PRIMARY) HYPERTENSION SNOMED Code(s): 39863507 Plan: Continue IV steroids until tomorrow a.m., continue IV antibiotics continue physical and occupational therapy may need inpatient rehab
[2022-02-26 16:29] LABS: Glucose,Whole Blood 199 mg/dL (70-110)
[2022-02-26] MEDS: MELATONIN 5 MG TABLET PO SCH (20:47)
[2022-02-26 21:24] LABS: Glucose,Whole Blood 209 mg/dL (70-110)
--- NOTE | 2022-02-27 05:44 | P.CONS ---
History of Present Illness - Chief Complaint Gait disturbance, MS exacerbation - History of Present Illness I had the opportunity to see patient for inpatient rehab consultation with regard to gait disturbance. Patient admitted to Dr. Zaragoza February 21 with history of weakness, cramping, fever, of several days' duration. Found to have neutropenia and cellulitis on her butt. Seen by Dr. Bruno and Dr. Ayala.for sacral decubitus. Seen by Dr. Holloway for hematology/oncology. Symmetric neurology, Dr. Jan Frazier who notes MS treatment. Laboratories chest x-ray negative. Brain MRI with periventricular white matter change. C-spine MRI with herniations C4, 5. Thoracic spine MRI negative. Dr. Frazier reports no signs of demyelination but note the brain MRI report. His started therapy. PT reports m inimal assistance for bed mobility, moderate assistance for transfer. Two- person assistance for gait 4 feet. Fatigues. OT reports independent with feeding, grooming, but dressing and minimal assist for lower dressing, bathing, toileting and functional mobility and transfers. Previous functional history as elicited from patient: 52-year-old right-handed white female who is . Patient on disability related MS. She liang in [place] and a 2 floor home with her sister. Sr. generally does the cooking and laundry. She guzman in [place] with her parents who do the cooking and laun dry. Patient dependent with mobility using scooter which has a ramp into her van. He is waiting electric wheelchair but will be unable to get it until July, 5 years. Reports independent with sitdown shower or sponge bath depending on energy level. She has appointment for Dr. Cesar Taylor. Denies tobacco or alcohol. Review of Systems Review of systems: ENT: Denies sneezes or discharge. Eyes: Denies discharge or photophobia. Cardiac: Denies chest pain or palpitation. Pulmonary: Denies cough or shortness of breath. Breast: Denies discharge or lumps. Gastrointestinal: Denies nausea, emesis, constipation, diarrhea. Genitourinary: Denies discharge or frequency. Musculoskeletal: Denies muscle or bone aches. Neurologic: General weakness, severe and legs. Decreased sensation, more so in legs. Endocrine: Denies shakes or sweats. Oncology: Denies cancers. Dermatologic: Denies rash, itching, pruritus. ALLERGY/immunology: Denies sneezes, rashes. Past Medical History Past Medical History: Eye Disorder, Hypertension, Neurologic Disorder Additional Past Medical History / Comment(s): MS. LESIONS ON CORNEA FROM MS. History of Any Multi-Drug Resistant Organisms: None Reported Past Surgical History: Hysterectomy Additional Past Surgical History / Comment(s): PARTIAL HYSTERECTOMY. Past Anesthesia/Blood Transfusion Reactions: No Reported Reaction Past Psychological History: Anxiety, Depression Past Alcohol Use History: None Reported Past Drug Use History: None Reported - Past Family History Mother Family Medical History: Osteoarthritis (OA) Father Family Medical History: Cancer, Hyperlipidemia Additional Family Medical History / Comment(s): PROSTATE CANCER. Medications and Allergies Home Medications Medication Instructions Recorded Confirmed Type Losartan Potassium [Cozaar] 100 mg PO DAILY 12/19/16 02/21/22 History amLODIPine BESYLATE [Norvasc] 5 mg PO DAILY 12/19/16 02/21/22 History Acetaminophen [Tylenol 8 Hour] 650 mg PO Q8H PRN 02/21/22 02/21/22 History Cephalexin [Keflex] 500 mg PO Q8HR 02/21/22 02/21/22 History Dalfampridine [Dalfampridine ER] 10 mg PO BID 02/21/22 02/21/22 History Doxycycline Monohydrate 50 mg PO DAILY 02/21/22 02/21/22 History Escitalopram [Lexapro] 10 mg PO DAILY 02/21/22 02/21/22 History Meloxicam [Mobic] 15 mg PO DAILY PRN 02/21/22 02/21/22 History Ocrevus 1 dose IV Q180D 02/21/22 02/21/22 History Omeprazole [PriLOSEC] 20 mg PO DAILY 02/21/22 02/21/22 History amantadine HCL [Amantadine] 100 mg PO W/LUNCH 02/21/22 02/21/22 History amantadine HCL [Amantadine] 200 mg PO W/BRKFST 02/21/22 02/21/22 History Allergies Allergy/AdvReac Type Severity Reaction Status Date / Time gadobenate dimeglumine Allergy Mild Rash/Hives Verified 02/21/22 23:00 [From Multihance] Physical Exam Vitals: Vital Signs Temp Pulse Resp BP Pulse Ox 02/27/22 02:24 98.4 F 85 20 150/83 97 02/26/22 20:00 98.7 F 91 14 167/55 94 L 02/26/22 14:00 98.5 F 94 17 155/83 98 02/26/22 07:18 98.3 F 88 18 151/85 94 L Intake and Output 02/26/22 02/26/22 02/27/22 14:59 22:59 06:59 Other: Voiding Method External Catheter # Voids 1 775 # Bowel Movements 1 Skin: Good color, texture, turgor. General: Medium build and comfortable appearance. Head: Normocephalic, atraumatic. Eyes: Symmetric. Pupils equal round. Ears: Symmetric. Hearing within normal limits. Mouth: Clear. Neck: Supple. Carotid without bruit. Cardiac: Regular rate and rhythm. Lungs: Clear anteriorly and posteriorly. Abdomen: Soft active nontender. Extremities: Normal tone. Neurological: Mental status: Alert, cooperative, pleasant. Cranial nerves: Symmetric facial tone and trapezius. Motor: Active movement both arms. Legs poor. Sensation: Intact but diminished in legs. DTRs: Symmetric and equal throughout. Mobility: Requires physical assist for bed mobility. Results CBC & Chem 7: 02/26/22 04:19 02/26/22 04:19 Labs: Abnormal Lab Results - Last 24 Hours (Table) 02/26/22 02/26/22 02/26/22 Range/Units 04:19 04:19 06:57 WBC 35.1 H (3.8-10.6) k/uL RBC 3.68 L (3.80-5.40) m/uL Hgb 11.3 L (11.4-16.0) gm/dL Neutrophils # (Manual) 31.90 H (1.3-7.7) k/uL Monocytes # (Manual) 1.05 H (0-1.0) k/uL Metamyelocytes # (Man) 0.70 H (0) k/uL Nucleated RBCs 1 H (0-0) /100 WBC Sodium 136 L (137-145) mmol/L BUN 43 H (7-17) mg/dL Glucose 153 H (74-99) mg/dL POC Glucose (mg/dL) 158 H (70-110) mg/dL 02/26/22 02/26/22 02/26/22 Range/Units 11:48 16:27 21:23 WBC (3.8-10.6) k/uL RBC (3.80-5.40) m/uL Hgb (11.4-16.0) gm/dL Neutrophils # (Manual) (1.3-7.7) k/uL Monocytes # (Manual) (0-1.0) k/uL Metamyelocytes # (Man) (0) k/uL Nucleated RBCs (0-0) /100 WBC Sodium (137-145) mmol/L BUN (7-17) mg/dL Glucose (74-99) mg/dL POC Glucose (mg/dL) 143 H 199 H 209 H (70-110) mg/dL Microbiology - Last 24 Hours (Table) 02/22/22 00:25 Blood Culture - Preliminary Blood No Growth after 120 hours Assessment and Plan (1) Cellulitis of buttock, left Current Visit: Yes Status: Acute Code(s): L03.317 - CELLULITIS OF BUTTOCK SNOMED Code(s): 91574319 (2) Exacerbation of multiple sclerosis Current Visit: Yes Status: Acute Code(s): G35 - MULTIPLE SCLEROSIS SNOMED Code(s): 965363487 (3) Hyperglycemia Current Visit: Yes Status: Acute Code(s): R73.9 - HYPERGLYCEMIA, UNSPECIFIED SNOMED Code(s): 39116603 (4) Hypertension Current Visit: Yes Status: Acute Code(s): I10 - ESSENTIAL (PRIMARY) HYPERTENSION SNOMED Code(s): 61032726 (5) Hyponatremia Current Visit: Yes Status: Acute Code(s): E87.1 - HYPO-OSMOLALITY AND HY PONATREMIA SNOMED Code(s): 80436178 (6) Immunocompromised Current Visit: Yes Status: Acute Code(s): D84.9 - IMMUNODEFICIENCY, UNSPECIFIED SNOMED Code(s): 436062076 Plan: Comments and plan: At this time safety concerns noted. Has demonstrated ability tolerate and benefit from therapies. Have discussed inpatient rehab with patient and she seems agreeable. Goal at this time would be return to parents home locally. She is looking for a little bit of help to which may be afforded to home health aide and services.
[2022-02-27] MEDS: AMPICILLIN-SULBACTAM 3 GM in SODIUM CHLORIDE 0.9% 100 ML IVPB SCH (05:51)
[2022-02-27 06:38] LABS: Glucose,Whole Blood 150 mg/dL (70-110)
[2022-02-27] MEDS: INSULIN ASPART (NovoLOG) 100 UNIT/ML VIAL SQ SCH ×4 (07:34→22:24)
[2022-02-27] MEDS: INSULIN DETEMIR (LEVEMIR) 100 UNIT/ML SYR SQ SCH (07:34)
[2022-02-27] MEDS: amLODIPine 5 MG TAB PO SCH (07:34)
[2022-02-27] MEDS: PANTOPRAZOLE 40 MG TABLET PO SCH (07:34)
[2022-02-27] MEDS: ESCITALOPRAM 10 MG TAB PO SCH (07:34)
[2022-02-27] MEDS: ENOXAPARIN 40 MG/0.4 ML SYRINGE SQ SCH (07:35)
[2022-02-27] MEDS: LORATADINE 10 MG TAB PO SCH (07:35)
[2022-02-27] MEDS: LOSARTAN 50 MG TAB PO SCH (07:35)
[2022-02-27] MEDS: DALFAMPRIDINE 10 MG PO SCH ×2 (07:36→22:24)
[2022-02-27 08:05] LABS: HCT 34.4 % (34.0-46.0); HGB 11.6 gm/dL (11.4-16.0); MCH 31.9 pg (25.0-35.0); MCHC 33.8 g/dL (31.0-37.0); MCV 94.3 fL (80.0-100.0); Platelet Count 274 k/uL (150-450); RBC 3.65 m/uL (3.80-5.40); RDW 13.2 % (11.5-15.5); WBC 21.7 k/uL (3.8-10.6)
[2022-02-27] MEDS: COLLAGENASE 250 UNIT/GM OINTMENT 30 GM TUBE TOPICAL SCH (08:41)
[2022-02-27] MEDS: methylPREDNISolone SOD SUCCIN 500 MG in SODIUM CHLORIDE 0.9% 100 ML IVPB SCH (08:41)
[2022-02-27] MEDS: polyethylene glycoL 3350 17 GM POWD.PACK PO PRN (08:51)
[2022-02-27 09:28] LABS: African American GFR (CKD) 116.3 (60.0-200.0); Non-African American GFR(CKD) 100.3 (60.0-200.0)
[2022-02-27 11:24] LABS: Glucose,Whole Blood 300 mg/dL (70-110)
--- NOTE | 2022-02-27 12:00 | P.PN ---
Subjective Progress Note Date: 02/27/22 (delayed charting seen at 1015) Principal diagnosis: weakness Patient is a 52-year-old female with a history of multiple sclerosis maintained on [place], hypertension, and vision difficulties from prior MS who presented to the hospital secondary to wounds on her buttock and progressive weakness. On arrival to the ER she was tachycardic with a pulse of 101. Initial laboratory analysis showed white blood cell count of 2.9, neutrophils 0.15, sodium 132, AST 42, ALT 59, urinalysis is negative, COVID-19 testing negative, influenza A/B-. Chest x-ray was negative. KUB showed bilateral renal calculi and multiple phleboliths. She was fund to have decubitus ulcers with infection and was started on unasyn and vanco. She was seen by neurology and was found to have cl inical exacerbation of MS. She was started on high dose steroids. MRI Brain and cervical spine did not demonstrate any new white matter lesions. She improved quickly on high dose steroids. She was seen by Dr Mauro who accepted the patient to inpatient rehab. Patient seen and examined. Feeling good wants to go to inpatient rehab, last BM yesterday, No chest pain, no shortness of breath, eating and drinking well. General: non toxic, no distress, appears at stated age, thin Derm: warm, dry Head: atraumatic, normocephalic, symmetric Eyes: EOMI, no lid lag, anicteric sclera Mouth: no lip lesion, mucus membranes moist Cardiovascular: S1S2 reg, no murmur, positive posterior tibial pulse bilateral, Lungs: Decreased bs bilateral, no rhonchi, no rales , no accessory muscle use Abdominal: soft, nontender to palpation, no guarding, no appreciable organomegaly Ext: no gross muscle atrophy, trace edema, no contractures Neuro: CN II-XI grossly intact, moving all 4 extremities Psych: Alert, oriented, appropriate affect Assessment/plan: Acute MS flare with history of relapsing remitting multiple sclerosis - neurology recs - Solumedrol completed - Per PMR patient would benefit from IPR - MRI Brain and cervical spine without new white matter lesions. MRI thorasic s pine without any lesions. - Continue with steroids - PT/OT - amantadine Hyperglycemia - due to steroids. - SSI - A1C normal Insomnia - melatonin Stage II pressure ulcer right buttocks Stage II presure ulcer left buttocks Stage II pressure ulcer scarum - on unasyn, completed 5 days of treatment and will stop - ID recs appreciated - wound care bed - wound care recs: ask to re-eval patient for continued need for santyl. - off load wound - urine collection system to keep wound clean and dry. HTN - controlled - norvasc, cozaar - follow BP Transaminitis, improved - outpatient follow-up Social stressors - from [place] does not have neurology here. Neutropenia without sepsis, resolved Accepted to [facility] inpatient rehab, awaiting auth. DVT prophylaxis: Lovenox Discussed with: patient, nursing Anticipated discharge in AM Anticipated discharge place: IPR A total of 35 minutes was spent on the care of this complex patient more than 50% of the time was spent in counseling and care coordination. Objective - Vital Signs Vital signs: Vital Signs Temp 97.3 F L 02/27/22 07:41 Pulse 81 02/27/22 07:41 Resp 16 02/27/22 07:41 BP 173/94 02/27/22 07:41 Pulse Ox 97 02/27/22 07:41 FiO2 Intake & Output 02/26/22 02/27/22 02/27/22 18:59 06:59 18:59 Output Total 600 Balance -600 Output: Urine 600 Other: Voiding Method External Catheter External Catheter # Voids 775 2 # Bowel Movements 1 - Labs CBC & Chem 7: 02/27/22 04:03 02/27/22 04:03 Labs: Abnormal Lab Results - Last 24 Hours (Table) 02/26/22 02/26/22 02/27/22 Range/Units 16:27 21:23 04:03 WBC 21.7 H (3.8-10.6) k/uL RBC 3.65 L (3.80-5.40) m/uL POC Glucose (mg/dL) 199 H 209 H (70-110) mg/dL 02/27/22 02/27/22 Range/Units 06:37 11:21 WBC (3.8-10.6) k/uL RBC (3.80-5.40) m/uL POC Glucose (mg/dL) 150 H 300 H (70-110) mg/dL Microbiology - Last 24 Hours (Table) 02/22/22 00:25 Blood Culture - Preliminary Blood No Growth after 120 hours
--- NOTE | 2022-02-27 16:08 | P.PN ---
Subjective Progress Note Date: 02/27/22 Principal diagnosis: Neutropenia In f/u today pt is feeling better, she denies recent fever, tolerating oral intake. Objective - Vital Signs Vital signs: Vital Signs Temp 97.3 F L 02/27/22 07:41 Pulse 81 02/27/22 07:41 Resp 16 02/27/22 07:41 BP 173/94 02/27/22 07:41 Pulse Ox 97 02/27/22 07:41 FiO2 Intake & Output 02/26/22 02/27/22 02/27/22 18:59 06:59 18:59 Output Total 600 Balance -600 Output: Urine 600 Other: Voiding Method External Catheter External Catheter # Voids 775 2 # Bowel Movements 1 - Constitutional General appearance: Present: cooperative, no acute distress, thin - EENT Eyes: Present: anicteric sclerae, EOMI ENT: Present: hearing grossly normal - Respiratory Details: resp even and unlabored - Integumentary Integumentary: Present: normal - Neurologic Neurologic Comment(s): BLE weakness - Psychiatric Psychiatric: Present: A&O x's 3, appropriate affect, intact judgment & insight - Labs CBC & Chem 7: 02/27/22 04:03 02/27/22 04:03 Labs: Abnormal Lab Results - Last 24 Hours (Table) 02/26/22 02/26/22 02/27/22 Range/Units 16:27 21:23 04:03 WBC 21.7 H (3.8-10.6) k/uL RBC 3.65 L (3.80-5.40) m/uL POC Glucose (mg/dL) 199 H 209 H (70-110) mg/dL 02/27/22 02/27/22 Range/Units 06:37 11:21 WBC (3.8-10.6) k/uL RBC (3.80-5.40) m/uL POC Glucose (mg/dL) 150 H 300 H (70-110) mg/dL Microbiology - Last 24 Hours (Table) 02/22/22 00:25 Blood Culture - Preliminary Blood No Growth after 120 hours Assessment and Plan (1) Neutropenia Current Visit: Yes Status: Acute Priority: High Code(s): D70.9 - NEUTROPENIA, UNSPECIFIED SNOMED Code(s): 556053930 Plan: Admitted with neutropenic fever. She receives CD20 mAb Q6mo for MS which has a 13% chance of causing neutropenia. With acute infections or additional stress the likelyhood of decreased ANC, as a result of stress on bone marrow, increases . She received GCSF with a significant increase in WBC/ANC, this has been stopped, her WBC will trend down with time (all neutrophiles). Pt needs to cont to follow with wound care for decubitus ulcer care. Nothing further from Hem/Onc at this time.
[2022-02-27 16:40] LABS: Glucose,Whole Blood 191 mg/dL (70-110)
[2022-02-27 20:14] LABS: Glucose,Whole Blood 238 mg/dL (70-110)
[2022-02-27] MEDS: MELATONIN 5 MG TABLET PO SCH (22:24)
--- NOTE | 2022-02-28 07:02 | P.PN ---
Subjective Progress Note Date: 02/26/22 Principal diagnosis: Bilateral gluteal pressure ulcer and cellulitis Patient is a 52-year-old female with a past medical history significant for MS hypertension presented to hospital with weakness and painful also to the gluteal area and there was concern for possible secondary cellulitis. On today's evaluation that is 02/26/2022, the patient remains to be afebrile, p atient is breathing comfortably on room air and the patient denies chest pain shortness of breath or cough, the patient pain to the gluteal area has decreased in intensity, no abdominal pain and no diarrhea Objective - Vital Signs Vital signs: Vital Signs Temp 98.5 F 02/26/22 14:00 Pulse 94 02/26/22 14:00 Resp 17 02/26/22 14:00 BP 155/83 02/26/22 14:00 Pulse Ox 98 02/26/22 14:00 FiO2 Intake & Output 02/25/22 02/26/22 02/26/22 18:59 06:59 18:59 Intake Total 650 Output Total 1250 700 Balance -600 -700 Intake: Intake, IV Titration 200 Amount Ampicillin-Sulbactam 3 gm 100 In Sodium Chloride 0.9% 100 ml @ 200 mls/hr IVPB Q6H [facility] Rx#:[id number] methylPREDNISolone SOD 100 SUCCIN 500 mg In Sodium Chloride 0.9% 100 ml @ 100 mls/hr IVPB Q12HR [facility] Rx#:[id number] Oral 450 Output: Urine 1250 700 Other: Voiding Method External Catheter # Voids 2 3 # Bowel Movements 1 1 - Exam GENERAL DESCRIPTION: Middle-aged female lying in bed in no distress RESPIRATORY SYSTEM: Unlabored breathing , decreased breath sounds at bases HEART: S1 S2 regular rate and rhythm , ABDOMEN: Soft , no tenderness EXTREMITIES: No edema feet - Labs CBC & Chem 7: 02/27/22 04:03 02/27/22 04:03 Labs: Abnormal Lab Results - Last 24 Hours (Table) 02/25/22 02/26/22 02/26/22 Range/Units 20:43 04:19 04:19 WBC 35.1 H (3.8-10.6) k/uL RBC 3.68 L (3.80-5.40) m/uL Hgb 11.3 L (11.4-16.0) gm/dL Neutrophils # (Manual) 31.90 H (1.3-7.7) k/uL Monocytes # (Manual) 1.05 H (0-1.0) k/uL Metamyelocytes # (Man) 0.70 H (0) k/uL Nucleated RBCs 1 H (0-0) /100 WBC Sodium 136 L (137-145) mmol/L BUN 43 H (7-17) mg/dL Glucose 153 H (74-99) mg/dL POC Glucose (mg/dL) 287 H (70-110) mg/dL 02/26/22 02/26/22 02/26/22 Range/Units 06:57 11:48 16:27 WBC (3.8-10.6) k/uL RBC (3.80-5.40) m/uL Hgb (11.4-16.0) gm/dL Neutrophils # (Manual) (1.3-7.7) k/uL Monocytes # (Manual) (0-1.0) k/uL Metamyelocytes # (Man) (0) k/uL Nucleated RBCs (0-0) /100 WBC Sodium (137-145) mmol/L BUN (7-17) mg/dL Glucose (74-99) mg/dL POC Glucose (mg/dL) 158 H 143 H 199 H (70-110) mg/dL Microbiology - Last 24 Hours (Table) 02/22/22 00:25 Blood Culture - Preliminary Blood No Growth after 96 hours Assessment and Plan (1) Cellulitis of buttock, left Current Visit: Yes Status: Acute Code(s): L03.317 - CELLULITIS OF BUTTOCK SNOMED Code(s): 67654460 (2) Decubitus ulcer Current Visit: Yes Status: Acute Code(s): L89.90 - PRESSURE ULCER OF UNSPECIFIED SITE, UNSPECIFIED STAGE SNOMED Code(s): 3573154603 Plan: 1patient with bilateral gluteal stage II pressure ulcer and concern for possible cellulitis clinic suspicious low for MRSA infection, patient currently being treated with Unasyn and local wound care with the Santyl and keep the area off the pressure was some 2leukocytosis more likely steroid effect and will be monitored closely Time with Patient: Less than 30
--- NOTE | 2022-02-28 07:04 | P.PN ---
Subjective Progress Note Date: 02/27/22 Principal diagnosis: Bilateral gluteal pressure ulcer and cellulitis Patient is a 52-year-old female with a past medical history significant for MS hypertension presented to hospital with weakness and painful also to the gluteal area and there was concern for possible secondary cellulitis. On today's evaluation that is 02/27/2022, the patient denies any fever or chill s, patient is breathing comfortably on room air and the patient denies chest pain shortness of breath or cough, the patient denies pain to the gluteal area and mentioned left-sided wound is healed up, the patient denies abdominal pain and no diarrhea Objective - Vital Signs Vital signs: Vital Signs Temp 98.4 F 02/27/22 14:00 Pulse 96 02/27/22 14:00 Resp 17 02/27/22 14:00 BP 163/91 02/27/22 14:00 Pulse Ox 98 02/27/22 14:00 FiO2 Intake & Output 02/26/22 02/27/22 02/27/22 18:59 06:59 18:59 Output Total 600 Balance -600 Weight 56.245 kg Output: Urine 600 Other: Voiding Method External Catheter External Catheter # Voids 775 2 # Bowel Movements 1 - Exam GENERAL DESCRIPTION: Middle-aged female lying in bed in no distress RESPIRATORY SYSTEM: Unlabored breathing , decreased breath sounds at bases HEART: S1 S2 regular rate and rhythm , ABDOMEN: Soft , no tenderness EXTREMITIES: No edema feet - Labs CBC & Chem 7: 02/27/22 04:03 02/27/22 04:03 Labs: Abnormal Lab Results - Last 24 Hours (Table) 02/26/22 02/26/22 02/27/22 Range/Units 16:27 21:23 04:03 WBC 21.7 H (3.8-10.6) k/uL RBC 3.65 L (3.80-5.40) m/uL POC Glucose (mg/dL) 199 H 209 H (70-110) mg/dL 02/27/22 02/27/22 Range/Units 06:37 11:21 WBC (3.8-10.6) k/uL RBC (3.80-5.40) m/uL POC Glucose (mg/dL) 150 H 300 H (70-110) mg/dL Microbiology - Last 24 Hours (Table) 02/22/22 00:25 Blood Culture - Preliminary Blood No Growth after 120 hours Assessment and Plan (1) Cellulitis of buttock, left Current Visit: Yes Status: Acute Code(s): L03.317 - CELLULITIS OF BUTTOCK SNOMED Code(s): 48055520 (2) Decubitus ulcer Current Visit: Yes Status: Acute Code(s): L89.90 - PRESSURE ULCER OF UNSPECIFIED SITE, UNSPECIFIED STAGE SNOMED Code(s): 5761121102 Plan: 1patient with bilateral gluteal stage II pressure ulcer and concern for possible cellulitis clinic suspicious low for MRSA infection, patient has co mpleted the course of Unasyn which has been discontinued this morning by medical team and local wound care with the Santyl and keep the area off the pressure was some 2leukocytosis more likely steroid effect and is trending down was down to 21,000 and continue supportive care Time with Patient: Less than 30
[2022-02-28 07:06] LABS: Glucose,Whole Blood 97 mg/dL (70-110)
[2022-02-28] MEDS: amLODIPine 5 MG TAB PO SCH (10:02)
[2022-02-28] MEDS: ENOXAPARIN 40 MG/0.4 ML SYRINGE SQ SCH (10:03)
[2022-02-28] MEDS: COLLAGENASE 250 UNIT/GM OINTMENT 30 GM TUBE TOPICAL SCH (10:03)
[2022-02-28] MEDS: DALFAMPRIDINE 10 MG PO SCH (10:03)
[2022-02-28] MEDS: PANTOPRAZOLE 40 MG TABLET PO SCH (10:04)
[2022-02-28] MEDS: ESCITALOPRAM 10 MG TAB PO SCH (10:04)
[2022-02-28] MEDS: LOSARTAN 50 MG TAB PO SCH (10:05)
[2022-02-28] MEDS: LORATADINE 10 MG TAB PO SCH (10:05)
[2022-02-28] MEDS: INSULIN ASPART (NovoLOG) 100 UNIT/ML VIAL SQ SCH ×2 (10:06→12:24)
[2022-02-28 11:02] LABS: Glucose,Whole Blood 94 mg/dL (70-110)
--- NOTE | 2022-02-28 12:32 | P.DS ---
Providers Date of admission: 02/22/22 00:06 Expected date of discharge: 02/28/22 Attending physician: Lexii Vazquez MD Consults: 02/22/22 02:17 Consult Physician Urgent Consulting Provider: Beto Bruce Consult Reason/Comments: Neutropenic sepsis Do you want consulting provider notified?: Yes Consult Physician Urgent Consulting Provider: Paul Bruno Consult Reason/Comments: Neutropenic sepsis Do you want consulting provider notified?: Yes 02/22/22 14:20 Consult Physician Urgent Consulting Provider: Alex Frazier Consult Reason/Comments: MS flair Do you want consulting provider notified?: Yes 02/26/22 11:54 Consult Physician Routine Consulting Provider: David Mauro Consult Reason/Comments: inpatient rehab. Muscle weakness with MS exacerbation Do you want consulting provider notified?: Yes Primary care physician: Stated None Hospital Course: Acute MS flare with history of relapsing remitting multiple sclerosis Hyperglycemia Insomnia Stage II pressure ulcer right buttocks Stage II presure ulcer left buttocks Stage II pressure ulcer scarum HTN Transaminitis, improved Social stressors Neutropenia without sepsis, resolved Patient is a 52-year-old female with a history of multiple sclerosis maintained on Octrevus, hypertension, and vision difficulties from prior MS who presented to the hospital secondary to wounds on her buttock and progressive weakness. On arrival to the ER she was tachycardic with a pulse of 101. Initial laboratory analysis showed white blood cell count of 2.9, neutrophils 0.15, sodium 132, AST 42, ALT 59, urinalysis is negative, COVID-19 testing negative, influenza A/B-. Chest x-ray was negative. KUB showed bilateral renal calculi and multiple phleboliths. She was fund to have decubitus ulcers with infection and was started on unasyn and vanco. She was seen by neurology and was found to have clinical exacerbation of MS. She was started on high dose steroids. MRI Brain and cervical spine did not demonstrate any new white matter lesions. She improved quickly on high dose steroids. She was seen by Dr Mauro who accepted the patient to inpatient rehab, pending insurance authorization which was obtained today 02/28. Pt discharged to rehab with no further need of steroids or abx. D/c'd on santyl for wound management. I spent 34 minutes coordinating this complex discharge Gen: awake, alert HEENT: normocephalic, atraumatic, good hearing acuity, moist mucous membranes Resp: good air exchange, breathing comfortably with no accessory muscle use CVS: good distal perfusion x 4, GI: soft, NTTP, ND : no SPT, no CVAT, avendano catheter not present MSK: no pitting edema, no clubbing Neuro: non-focal, moving all extremities Psych: cooperative, euthymic mood Patient Condition at Discharge: Good Plan - Discharge Summary New Discharge Prescriptions: New Loratadine [Claritin] 10 mg PO DAILY tab Melatonin 5 mg PO HS tab polyethylene glycoL 3350 [Miralax] 17 gm PO DAILY PRN packet PRN Reason: Constipation Collagenase [Santyl Ointment] 1 applic TOPICAL DAILY each Continue amLODIPine BESYLATE [Norvasc] 5 mg PO DAILY Losartan Potassium [Cozaar] 100 mg PO DAILY Ocrevus 1 dose IV Q180D Omeprazole [PriLOSEC] 20 mg PO DAILY Acetaminophen [Tylenol 8 Hour] 650 mg PO Q8H PRN PRN Reason: Pain Meloxicam [Mobic] 15 mg PO DAILY PRN PRN Reason: Pain amantadine HCL [Amantadine] 100 mg PO W/LUNCH Escitalopram [Lexapro] 10 mg PO DAILY Dalfampridine [Dalfampridine ER] 10 mg PO BID amantadine HCL [Amantadine] 200 mg PO W/BRKFST Discontinued Cephalexin [Keflex] 500 mg PO Q8HR Doxycycline Monohydrate 50 mg PO DAILY Discharge Medication List Losartan Potassium [Cozaar] 100 mg PO DAILY 12/19/16 [History] amLODIPine BESYLATE [Norvasc] 5 mg PO DAILY 12/19/16 [History] Acetaminophen [Tylenol 8 Hour] 650 mg PO Q8H PRN 02/21/22 [History] Dalfampridine [Dalfampridine ER] 10 mg PO BID 02/21/22 [History] Escitalopram [Lexapro] 10 mg PO DAILY 02/21/22 [History] Meloxicam [Mobic] 15 mg PO DAILY PRN 02/21/22 [History] Ocrevus 1 dose IV Q180D 02/21/22 [History] Omeprazole [PriLOSEC] 20 mg PO DAILY 02/21/22 [History] amantadine HCL [Amantadine] 100 mg PO W/LUNCH 02/21/22 [History] amantadine HCL [Amantadine] 200 mg PO W/BRKFST 02/21/22 [History] Collagenase [Santyl Ointment] 1 applic TOPICAL DAILY each 02/28/22 [Rx] Loratadine [Claritin] 10 mg PO DAILY tab 02/28/22 [Rx] Melatonin 5 mg PO HS tab 02/28/22 [Rx] polyethylene glycoL 3350 [Miralax] 17 gm PO DAILY PRN packet 02/28/22 [Rx] Follow up Appointment(s)/Referral(s): Francisco Taylor MD [STAFF PHYSICIAN] - 03/02/22 2:00 pm (you can parts picker paperwork at office after discharge. as long as before 4 pm. ) [facility] [NON-STAFF] - 1 Week (office Will with call with appointment time) Activity/Diet/Wound Care/Special Instructions: [facility] for inpatient rehab on d/c. Wound Center will arrange home care after first wound appointment. Discharge Disposition: TRANSFER TO SNF/ECF
[2022-02-28 14:23] VITALS: BP 137/79; PULSE 83; RESP 23; TEMP 98.3
== END 2022-02-28 15:25 | DRG 59 ==
LOC: EC 17:06 → 4SSUR 02-22 00:06
PROVIDERS: ADMIT Internal Medicine; ATTEND Internal Medicine
DX: G35 Multiple sclerosis (principal); D84.9 Immunodeficiency, unspecified; E87.1 Hypo-osmolality and hyponatremia; L03.317 Cellulitis of buttock; L89.152 Pressure ulcer of sacral region, stage 2; L89.312 Pressure ulcer of right buttock, stage 2; L89.322 Pressure ulcer of left buttock, stage 2; D70.9 Neutropenia, unspecified; E87.8 Other disorders of electrolyte and fluid balance, not elsewhere classified; Z20.822 Contact with and (suspected) exposure to COVID-19; Z28.310 Unvaccinated for COVID-19; M50.21 Other cervical disc displacement, high cervical region; M50.30 Other cervical disc degeneration, unspecified cervical region; N20.0 Calculus of kidney; I10 Essential (primary) hypertension; R73.9 Hyperglycemia, unspecified; T38.0X5A Adverse effect of glucocorticoids and synthetic analogues, initial encounter; F32.A Depression, unspecified; F41.9 Anxiety disorder, unspecified; G47.00 Insomnia, unspecified; K59.00 Constipation, unspecified; M62.81 Muscle weakness (generalized); M62.830 Muscle spasm of back; R32 Unspecified urinary incontinence; R21 Rash and other nonspecific skin eruption; R51.9 Headache, unspecified; H53.2 Diplopia; H53.459 Other localized visual field defect, unspecified eye; R74.01 Elevation of levels of liver transaminase levels; Z79.899 Other long term (current) drug therapy; Z86.16 Personal history of COVID-19; Z87.442 Personal history of urinary calculi; Z91.041 Radiographic dye allergy status
CPT/HCPCS: 36415; 70553; 71046; 72156; 72157; 74018; 80048; 80053; 81001; 82306; 82565; 82607; 82746; 82784; 83036; 83605; 85025; 85027; 87040; 87502; 87635; 96365; 96366; 96368; 96372; 99285

== ENCOUNTER 2025-02-07 10:14 | Inpatient (IN) | payer MEDICARE ==
--- NOTE | 2025-02-07 10:39 | ED ---
General Adult HPI - General Chief complaint: Nausea/Vomiting/Diarrhea Stated complaint: abd pain, L shoulder pain Time Seen by Provider: 02/07/25 10:16 Source: patient, family, EMS, RN notes reviewed Mode of arrival: EMS Limitations: no limitations - History of Present Illness Initial comments: Patient is a 54-year-old female presenting to the emergency department with concern for pain and nausea and vomiting. Patient does have history of severe MS and mother is child's nurse. Onset of symptoms was around 12 or 1 AM. Patient has discomfort in her chest and abdomen and left shoulder as well as upper back. Patient had nausea and vomited couple of times. Symptoms have improved with Zofran and fentanyl by EMS. - Related Data Home Medications Medication Instructions Recorded Confirmed Losartan Potassium [Cozaar] 100 mg PO DAILY 12/19/16 02/21/22 amLODIPine BESYLATE [Norvasc] 5 mg PO DAILY 12/19/16 02/21/22 Acetaminophen [Tylenol 8 Hour] 650 mg PO Q8H PRN 02/21/22 02/21/22 Dalfampridine [Dalfampridine ER] 10 mg PO BID 02/21/22 02/21/22 Escitalopram [Lexapro] 10 mg PO DAILY 02/21/22 02/21/22 Meloxicam [Mobic] 15 mg PO DAILY PRN 02/21/22 02/21/22 Ocrevus 1 dose IV Q180D 02/21/22 02/21/22 Omeprazole [PriLOSEC] 20 mg PO DAILY 02/21/22 02/21/22 amantadine HCL [Amantadine] 100 mg PO W/LUNCH 02/21/22 02/21/22 amantadine HCL [Amantadine] 200 mg PO W/BRKFST 02/21/22 02/21/22 Previous Rx's Medication Instructions Recorded Collagenase [Santyl Ointment] 1 applic TOPICAL DAILY each 02/28/22 Loratadine [Claritin] 10 mg PO DAILY tab 02/28/22 Melatonin 5 mg PO HS tab 02/28/22 polyethylene glycoL 3350 [Miralax] 17 gm PO DAILY PRN packet 02/28/22 Allergies Allergy/AdvReac Type Severity Reaction Status Date / Time gadobenate dimeglumine Allergy Mild Rash/Hives Verified 02/21/22 23:00 [From Multihance] diazepam [From Valium] Allergy Unknown Verified 02/07/25 10:30 Review of Systems ROS Statement: Those systems with pertinent positive or pertinent negative responses have been documented in the HPI. ROS Other: All systems not noted in ROS Statement are negative. Constitutional: Denies: fever Eyes: Denies: eye pain ENT: Denies: ear pain Respiratory: Denies: dyspnea Cardiovascular: Reports: as per HPI, chest pain Gastrointestinal: Reports: as per HPI, abdominal pain, nausea, vomiting Musculoskeletal: Reports: as per HPI, back pain Skin: Denies: lesions Neurological: Denies: headache Past Medical History Past Medical History: Eye Disorder, Hypertension, Neurologic Disorder Additional Past Medical History / Comment(s): MS. LESIONS ON CORNEA FROM MS. History of Any Multi-Drug Resistant Organisms: None Reported Past Surgical History: Hysterectomy Additional Past Surgical History / Comment(s): PARTIAL HYSTERECTOMY. Past Anesthesia/Blood Transfusion Reactions: No Reported Reaction Past Psychological History: Anxiety, Depression Past Alcohol Use History: None Reported Past Drug Use History: None Reported - Past Family History Mother Family Medical History: Osteoarthritis (OA) Father Family Medical History: Cancer, Hyperlipidemia Additional Family Medical History / Comment(s): PROSTATE CANCER. General Exam Limitations: no limitations General appearance: alert, in no apparent distress Head exam: Present: atraumatic Eye exam: Present: normal appearance ENT exam: Present: normal oropharynx Neck exam: Present: normal inspection Respiratory exam: Present: normal lung sounds bilaterally. Absent: chest wall tenderness Cardiovascular Exam: Present: regular rate, normal rhythm, normal heart sounds Expanded Peripheral pulses: 2+: Radial (R), Radial (L), Dorsalis Pedis (R), Dorsalis Pedis (L) GI/Abdominal exam: Present: soft, tenderness (Moderate diffuse tenderness, mostly epigastric), normal bowel sounds. Absent: distended, guarding, rebound, rigid, pulsatile mass Extremities exam: Present: pedal edema, other (Appearance of muscle wasting of the legs) Neurological exam: Present: alert Psychiatric exam: Present: normal affect, normal mood Skin exam: Present: normal color Course Vital Signs 02/07/25 02/07/25 10:21 11:00 Temperature 97.4 F L Pulse Rate 98 87 Respiratory 18 16 Rate Blood Pressure 142/75 139/74 O2 Sat by Pulse 99 98 Oximetry EKG Findings - EKG Results: EKG: interpreted by ERMD (Q V1 V2), sinus rhythm, normal axis, normal ST/T Medical Decision Making - Medical Decision Making Was pt. sent in by a medical professional or institution (PANCHITO Polanco, DISTRICT ADVISER, urgent care, hospital, or half-way...) When possible be specific @ -[No] Did you speak to anyone other than the patient for history (EMS, parent, family, police, friend...)? What history was obtained from this source @ -Family is present helps provide history as patient is somewhat a poor historian Did you review nursing and triage notes (agree or disagree)? Why? @ -[I reviewed and agree with nursing and triage notes] Were old charts reviewed (outside hosp., previous admission, EMS record, old EK G, old radiological studies, urgent care reports/EKG's, half-way records)? Report findings @ -[No old charts were reviewed] Differential Diagnosis (chest pain, altered mental status, abdominal pain women, abdominal pain men, vaginal bleeding, weakness, fever, dyspnea, syncope, headache, dizziness, GI bleed, back pain, seizure, CVA, palpatations, mental health, musculoskeletal)? @ -Differential Abdominal Pain Women: Appendicitis, Cholecystitis, diverticulosis, ischemic bowel, pancreatitis, hepatitis, UTI, gastroenteritis, AAA, incarcerated hernia, bowel obstruction, constipation, inflammatory bowel, hepatitis, peptic ulcer disease, splenic infarction, perforated viscus, vulvitis, ovarian torsion, PID, kidney stone, placenta abruption, this is not meant to be an all-inclusive list EKG interpreted by me (3pts min.). @ -[As above] X-rays interpreted by me (1pt min.). @ -[None done] CT interpreted by me (1pt min.). @ -CT abdomen pelvis does show some pneumoperitoneum U/S interpreted by me (1pt. min.). @ -[None done] What testing was considered but not performed or refused? (CT, X-rays, U/S, labs)? Why? @ -[None] What meds were considered but not given or refused? Why? @ -[None] Did you discuss the management of the patient with other professionals (professionals i.e. PANCHITO Polanco, DISTRICT ADVISER, lab, RT, psych nurse, social welfare research worker, landscape architect and planner, teacher, international first officer, director of casework)? Give summary @ -Case was discussed with Dr. Grove with plans to take patient to the operating room. He agrees with Ramses. Request lactic acid. Was smoking cessation discussed for >3mins.? @ -[No] Was critical care preformed (if so, how long)? @ -[No] Were there social determinants of health that impacted care today? How? (Homelessness, low income, unemployed, alcoholism, drug addiction, transport ation, low edu. Level, literacy, decrease access to med. care, [place] [facility], rehab)? @ -[No] Was there de-escalation of care discussed even if they declined (Discuss DNR or withdrawal of care, Hospice)? DNR status @ -[No] What co-morbidities impacted this encounter? (DM, HTN, Smoking, COPD, CAD, Cancer, CVA, ARF, Chemo, Hep., AIDS, mental health diagnosis, sleep apnea, morbid obesity)? @ -History of MS Was patient admitted / discharged? Hospital course, mention meds given and route, prescriptions, significant lab abnormalities, going to OR and other pertinent info. @ -Patient presents with abdominal discomfort and some chest discomfort. CT scan concerning for pneumoperitoneum. IV antibiotics ordered. Patient will be admitted with probable surgery today. Patient reevaluated. Patient and family updated. Undiagnosed new problem with uncertain prognosis? @ -[No] Drug Therapy requiring intensive monitoring for toxicity (Heparin, Nitro, Insulin, Cardizem)? @ -[No] Were any procedures done? @ -[No] Diagnosis/symptom? @ -Pneumoperitoneum Acute, or Chronic, or Acute on Chronic? @ -Acute Uncomplicated (without systemic symptoms) or Complicated (systemic symptoms)? @ -[default] Side effects of treatment? @ -[No] Exacerbation, Progression, or Severe Exacerbation? @ -[No] Poses a threat to life or bodily function? How? (Chest pain, [place], AL, pneumonia, PE, COPD, DKA, ARF, appy, cholecystitis, CVA, Diverticulitis, Homicidal, Suicidal, threat to staff... and all critical care pts) @ -Threat to severe illness through abdominal contamination and infection - Lab Data Result diagrams: 02/07/25 10:50 02/07/25 10:50 Lab Results 02/07/25 02/07/2525 Range/Units 10:50 10:50 10:50 WBC 10.03 H (4.50-10.00) 10*3/uL RBC 3.79 L (4.10-5.20) 10*6/uL Hgb 12.3 (12.0-15.0) g/dL Hct 35.7 L (37.2-46.3) % MCV 94.2 (80.0-97.0) fL MCH 32.5 H (27.0-32.0) pg MCHC 34.5 (32.0-37.0) g/dL Plt Count 193 (140-440) 10*3/uL MPV 9.2 L (9.5-12.2) fL Immature Gran % (Auto) 0.3 % Neutrophils % (Manual) 93 % Lymphocytes % (Manual) 3 % Monocytes % (Manual) 4 % Immature Gran # 0.03 (0.00-0.04) 10*3/uL Neutrophils # (Manual) 9.33 H (1.3-7.7) k/uL Lymphocytes # (Manual) 0.30 L (1.0-4.8) k/uL Monocytes # (Manual) 0.40 (0-1.0) k/uL Nucleated RBCs 0 (0-0) /100 WBC Manual Slide Review Performed Anisocytosis (manual) Present PT 10.4 (10.0-12.5) sec INR 0.9 (<1.2) APTT 25.9 (22.0-30.0) sec Sodium 142 (137-145) mmol/L Potassium 4.2 (3.5-5.1) mmol/L Chloride 108 H (98-107) mmol/L Carbon Dioxide 26 (22-30) mmol/L Anion Gap 8 mmol/L BUN 28 H (7-17) mg/dL Creatinine 0.69 (0.52-1.04) mg/dL Est GFR (CKD-EPI)AfAm >90 (>60 ml/min/1.73 sqM) Est GFR (CKD-EPI)NonAf >90 (>60 ml/min/1.73 sqM) Glucose 130 H (74-99) mg/dL Calcium 10.1 (8.4-10.2) mg/dL Total Bilirubin 0.4 (0.2-1.3) mg/dL AST 29 (14-36) U/L ALT 73 H (4-34) U/L Alkaline Phosphatase 162 H (38-126) U/L Total Protein 6.4 (6.3-8.2) g/dL Albumin 4.1 (3.5-5.0) g/dL Amylase 197 H (30-110) U/L Lipase 570 H (23-300) U/L Disposition Clinical Impression: Pneumoperitoneum Disposition: ADMITTED IP TO THIS HOSP Condition: Serious Is patient prescribed a controlled substance at d/c from ED?: No Referrals: Josesito Taylor MD [Primary Care Provider] - 1-2 days Time of Disposition: 13:21
[2025-02-07] MEDS: FAMOTIDINE 20 MG/2 ML VIAL IV STA (10:59)
[2025-02-07] MEDS: SODIUM CHLORIDE 0.9% 1,000 ML IV SCH ×2 (11:00→20:48)
[2025-02-07 11:06] LABS: HCT 35.7 % (37.2-46.3); HGB 12.3 g/dL (12.0-15.0); MCH 32.5 pg (27.0-32.0); MCHC 34.5 g/dL (32.0-37.0); MCV 94.2 fL (80.0-97.0); Mean Platelet Volume 9.2 fL (9.5-12.2); Platelet Count 193 10*3/uL (140-440); RBC 3.79 10*6/uL (4.10-5.20); RDW 13.6 % (11.5-14.5); WBC 10.03 10*3/uL (4.50-10.00)
[2025-02-07 11:12] LABS: ALT 73 U/L (4-34); AST 29 U/L (14-36); African American GFR (CKD) >90 (>60 ml/min/1.73 sqM); Albumin 4.1 g/dL (3.5-5.0); Alkaline Phosphatase 162 U/L (38-126); Amylase 197 U/L (30-110); Anion Gap 8 mmol/L; Blood Urea Nitrogen 28 mg/dL (7-17); Calcium 10.1 mg/dL (8.4-10.2); Carbon Dioxide 26 mmol/L (22-30); Chloride 108 mmol/L (98-107); Glucose 130 mg/dL (74-99); Lipase 570 U/L (23-300); Non-African American GFR(CKD) >90 (>60 ml/min/1.73 sqM); Potassium 4.2 mmol/L (3.5-5.1); Sodium 142 mmol/L (137-145); Total Bilirubin 0.4 mg/dL (0.2-1.3); Total Protein 6.4 g/dL (6.3-8.2)
[2025-02-07 11:17] LABS: INR 0.9 (<1.2); Partial Thromboplastin Time 25.9 sec (22.0-30.0); Prothrombin Time 10.4 sec (10.0-12.5)
[2025-02-07 11:22] LABS: Neutrophils # (M) 9.33 k/uL (1.3-7.7); Neutrophils % (M) 93 %; Nucleated Red Blood Cells 0 /100 WBC (0-0); Total Cells Counted 100
[2025-02-07 11:23] LABS: Anisocytosis (M) Present
[2025-02-07] MEDS: MORPHINE SULFATE 4 MG/ML SYRINGE IVP STA (12:09)
--- NOTE | 2025-02-07 12:21 | CT ---
EXAMINATION TYPE: CT angio chest DATE OF EXAM: 02/07/2025 11:43 AM COMPARISON: None. CLINICAL INDICATION: Female, 54 years old with history of cp, abp, Chest and abdominal pain, history of MS, TECHNIQUE: CT of the chest is performed on a spiral scan at 2 mm thick sections. Study is performed with intravenous contrast timed for evaluation for pulmonary embolism. This will limit additional po rtions of the evaluation. 10mm MIP images reconstructed by the technologist are reviewed on the comp uter in the coronal and sagittal planes. Contrast used:100 ml mL of Isovue 370 without and with IV Contrast, (none if empty) Oral contrast used: (none if empty) CT DLP: 738.9 mGycm, Automated exposure control for dose reduction was used. FINDINGS: No persistent filling defects are evident to suggest an acute pulmonary embolism. No suspicious dissection or aneurysm of the aorta. No mediastinal or hilar adenopathy enlarged by CT criteria is evident. The ascending aorta diameter at the level of the main pulmonary artery is 2.8 cm. The main pulmonary artery diameter at the bifurcation is 2.3 cm. No significant coronary artery calcification evident. Lung windows are clear. No significant coronary artery calcifications. Limited CT sections were through the upper abdomen. Pneumoperitoneum is evident. Please see CT abdom en and pelvis report of same date. IMPRESSION: 1. Pneumoperitoneum. 2. No acute pulmonary embolism. 3. No acute pulmonary process [facility], , 02/07/2025 12:18 PM
--- NOTE | 2025-02-07 12:27 | CT ---
EXAMINATION TYPE: CT abdomen pelvis w con DATE OF EXAM: 02/07/2025 11:41 AM COMPARISON: None. CLINICAL INDICATION: Female, 54 years old with history of cp, abp, Chest and abdominal pain, history of MS TECHNIQUE: Axial images were obtained from above the diaphragm to the pubic rami in the axial plane a t 5 mm thick sections. Reconstructed images are reviewed on the computer in the coronal plane. CONTRAST: 100 ml mL of Isovue 370. Study performed without Oral Contrast DLP: 738.9 mGycm, Automated exposure control for dose reduction was used. FINDINGS: Limited CT sections are obtained the lung bases. The lung bases are clear. CT ABDOMEN: There is no pneumoperitoneum. Free air is nondependent upper abdomen and scattered within the mid abdomen. Source is not identified. Liver: There is a small cyst in the lateral right lobe liver. Spleen: Normal Pancreas: Normal Adrenal glands: The adrenal glands are normal. Gallbladder: Normal Kidneys: No masses are evident. No hydronephrosis is present. No cysts are present. There is a 0.6 cm nonobstructing renal stone mid left kidney. Aorta: Vascular calcification is within the aorta. Inferior vena cava: Normal. CT PELVIS: There are multiple fluid-filled dilated small bowel loops within the pelvis. The liver is within the ascending colon region. Studies is without oral contrast limiting bowel evaluation Appendix: Not identified. No dilated tubular structure or inflammatory change is evident` Urinary bladder: Normal. Genitourinary structures: Uterus and ovaries are not identified Osseous structures: No suspicious lytic or sclerotic lesions. IMPRESSION: 1. Pneumoperitoneum. Report was called to the emergency room physician by Dr. Wesley by telephone 1 222 hours 02/07/2025. 2. Dilated small bowel loops may be ileus. No obstruction is identified. 3. Nonobstructing left renal stone [facility], , 02/07/2025 12:25 PM
[2025-02-07] MEDS ORDERED: LIDOCAINE 1% (10MG/ML) FOR IV START INTRADERMA PRN (13:02)
[2025-02-07] MEDS: PIPERACILLIN-TAZOBACTAM 3.375 GM in SODIUM CHLORIDE 0.9% 100 ML IVPB STA (13:10)
[2025-02-07] MEDS ORDERED: NALOXONE 0.4 MG/ML 1 ML VIAL IV PRN ×2 (13:22→15:01)
[2025-02-07] MEDS: IV FLUID CONTINUATION 1,000 ML IV ONE (13:48)
--- NOTE | 2025-02-07 14:12 | P.GSHP ---
History of Present Illness H&P Date: 02/07/25 54-year-old female presents to the emergency department with severe upper abdominal pain and pain to her shoulder and back and chest. She has severe MS and is not ambulatory. Her optometrist owner is her mother and family. She also complains of nausea and vomiting. On workup, she is found to have mild l eukocytosis and CT of the abdomen and pelvis is concerning for pneumoperitoneum. Site of bowel perforation is unknown based on imaging. Patient has also complained of recent constipation and history of meloxicam use. - Review of Systems All systems: negative Past Medical History Past Medical History: Eye Disorder, Hypertension, Neurologic Disorder Additional Past Medical History / Comment(s): MS. LESIONS ON CORNEA FROM MS. History of Any Multi-Drug Resistant Organisms: None Reported Past Surgical History: Hysterectomy Additional Past Surgical History / Comment(s): PARTIAL HYSTERECTOMY. Past Anesthesia/Blood Transfusion Reactions: No Reported Reaction Past Psychological History: Anxiety, Depression Past Alcohol Use History: None Reported Past Drug Use History: None Reported - Past Family History Mother Family Medical History: Osteoarthritis (OA) Father Family Medical History: Cancer, Hyperlipidemia Additional Family Medical History / Comment(s): PROSTATE CANCER. Medications and Allergies Home Medications Medication Instructions Recorded Confirmed Type Losartan Potassium [Cozaar] 100 mg PO DAILY 12/19/16 02/21/22 History amLODIPine BESYLATE [Norvasc] 5 mg PO DAILY 12/19/16 02/21/22 History Acetaminophen [Tylenol 8 Hour] 650 mg PO Q8H PRN 02/21/22 02/21/22 History Dalfampridine [Dalfampridine ER] 10 mg PO BID 02/21/22 02/21/22 History Escitalopram [Lexapro] 10 mg PO DAILY 02/21/22 02/21/22 History Meloxicam [Mobic] 15 mg PO DAILY PRN 02/21/22 02/21/22 History Ocrevus 1 dose IV Q180D 02/21/22 02/21/22 History Omeprazole [PriLOSEC] 20 mg PO DAILY 02/21/22 02/21/22 History amantadine HCL [Amantadine] 100 mg PO W/LUNCH 02/21/22 02/21/22 History amantadine HCL [Amantadine] 200 mg PO W/BRKFST 02/21/22 02/21/22 History Collagenase [Santyl Ointment] 1 applic TOPICAL DAILY each 02/28/22 Rx Loratadine [Claritin] 10 mg PO DAILY tab 02/28/22 Rx Melatonin 5 mg PO HS tab 02/28/22 Rx polyethylene glycoL 3350 [Miralax] 17 gm PO DAILY PRN packet 02/28/22 Rx Allergies Allergy/AdvReac Type Severity Reaction Status Date / Time gadobenate dimeglumine Allergy Mild Rash/Hives Verified 02/21/22 23:00 [From Multihance] diazepam [From Valium] Allergy Unknown Verified 02/07/25 10:30 Surgical - Exam Osteopathic Statement: *. No significant issues noted on an osteopathic structural exam other than those noted in the History and Physical/Consult. Vital Signs Temp Pulse Resp BP Pulse Ox 97.4 F L 98 18 142/75 99 02/07/25 10:21 02/07/25 10:21 02/07/25 10:21 02/07/25 10:21 02/07/25 10:21 - General no distress - Eyes normal ocular movement - ENT no hearing loss - Neck trachea midline - Abdomen Soft, tender to palpation, mild distention - Psychiatric oriented to time, oriented to person, oriented to place Results - Labs 02/07/25 10:50 02/07/25 10:50 Abnormal Lab Results - Last 24 Hours (Table) 02/07/25 02/07/25 Range/Units 10:50 10:50 WBC 10.03 H (4.50-10.00) 10*3/uL RBC 3.79 L (4.10-5.20) 10*6/uL Hct 35.7 L (37.2-46.3) % MCH 32.5 H (27.0-32.0) pg MPV 9.2 L (9.5-12.2) fL Neutrophils # (Manual) 9.33 H (1.3-7.7) k/uL Lymphocytes # (Manual) 0.30 L (1.0-4.8) k/uL Chloride 108 H (98-107) mmol/L BUN 28 H (7-17) mg/dL Glucose 130 H (74-99) mg/dL ALT 73 H (4-34) U/L Alkaline Phosphatase 162 H (38-126) U/L Amylase 197 H (30-110) U/L Lipase 570 H (23-300) U/L Diabetes panel 02/07/25 Range/Units 10:50 Sodium 142 (137-145) mmol/L Potassium 4.2 (3.5-5.1) mmol/L Chloride 108 H (98-107) mmol/L Carbon Dioxide 26 (22-30) mmol/L BUN 28 H (7-17) mg/dL Creatinine 0.69 (0.52-1.04) mg/dL Glucose 130 H (74-99) mg/dL Calcium 10.1 (8.4-10.2) mg/dL AST 29 (14-36) U/L ALT 73 H (4-34) U/L Alkaline Phosphatase 162 H (38-126) U/L Total Protein 6.4 (6.3-8.2) g/dL Albumin 4.1 (3.5-5.0) g/dL Calcium panel 02/07/25 Range/Units 10:50 Calcium 10.1 (8.4-10.2) mg/dL Albumin 4.1 (3.5-5.0) g/dL Pituitary panel 02/07/25 Range/Units 10:50 Sodium 142 (137-145) mmol/L Potassium 4.2 (3.5-5.1) mmol/L Chloride 108 H (98-107) mmol/L Carbon Dioxide 26 (22-30) mmol/L BUN 28 H (7-17) mg/dL Creatinine 0.69 (0.52-1.04) mg/dL Glucose 130 H (74-99) mg/dL Calcium 10.1 (8.4-10.2) mg/dL Adrenal panel 02/07/25 Range/Units 10:50 Sodium 142 (137-145) mmol/L Potassium 4.2 (3.5-5.1) mmol/L Chloride 108 H (98-107) mmol/L Carbon Dioxide 26 (22-30) mmol/L BUN 28 H (7-17) mg/dL Creatinine 0.69 (0.52-1.04) mg/dL Glucose 130 H (74-99) mg/dL Calcium 10.1 (8.4-10.2) mg/dL Total Bilirubin 0.4 (0.2-1.3) mg/dL AST 29 (14-36) U/L ALT 73 H (4-34) U/L Alkaline Phosphatase 162 H (38-126) U/L Total Protein 6.4 (6.3-8.2) g/dL Albumin 4.1 (3.5-5.0) g/dL Assessment and Plan Plan: 54-year-old female with pneumoperitoneum. Case discussed in depth with patient and patient's family at bedside. Based on finding of pneumoperitoneum, will recommend exploratory laparotomy. Based on symptomatology and CT findings, I am suspicious of upper GI perforation, however site is unclear. Patient started on IV antibiotics. Further recommendations after surgery is completed.
[2025-02-07] MEDS ORDERED: MIDAZOLAM 2 MG/2 ML VIAL ONE (14:38)
[2025-02-07] MEDS ORDERED: fentaNYL (PF) 50 MCG/ML 2 ML AMP ONE (14:38)
[2025-02-07] MEDS ORDERED: PROPOFOL 10 MG/ML 20 ML VIAL IV ONE (14:38)
[2025-02-07] MEDS ORDERED: PHENYLEPHRINE 10 MG/ML VIAL ONE (14:38)
[2025-02-07] MEDS ORDERED: ROCURONIUM 10 MG/ML (5 ML VIAL) IV ONE (14:38)
[2025-02-07] MEDS ORDERED: SUGAMMADEX SODIUM 100 MG/ML SYR IV ONE (14:38)
[2025-02-07] MEDS ORDERED: ONDANSETRON 4 MG/2 ML VIAL ONE (14:38)
[2025-02-07] MEDS ORDERED: ACETAMINOPHEN IV (For NPO) 1,000 MG/100 ML VIAL ONE (14:38)
[2025-02-07] MEDS ORDERED: DEXAMETHASONE SOD PHOSPHATE 4 MG/ML 1 ML VIAL ONE (14:38)
[2025-02-07] MEDS: LACTATED RINGERS 1,000 ML IV ONE (15:58)
[2025-02-07] MEDS: droPERidol 2.5 MG/ML VIAL IVP ONE (17:59)
[2025-02-07] MEDS: DEXAMETHASONE SOD PHOSPHATE 4 MG/ML 1 ML VIAL IV ONE (17:59)
[2025-02-07] MEDS: PANTOPRAZOLE 40 MG/10 ML VIAL IV SCH (17:59)
[2025-02-07] MEDS: ACETAMINOPHEN IV (For NPO) 1,000 MG in EMPTY BAG 1 BAG IVPB ONE (18:55)
[2025-02-07] MEDS: PIPERACILLIN-TAZOBACTAM 3.375 GM in SODIUM CHLORIDE 0.9% 100 ML IVPB SCH (18:55)
[2025-02-07] MEDS: metroNIDAZOLE-NS PMX 500 MG in SALINE 1 100ML.BAG IVPB ONE (19:01)
[2025-02-07] MEDS: FLUCONAZOLE IN NACL,ISO-OSM 200 MG in SALINE 1 100ML.BAG IVPB SCH ×2 (20:46→22:21)
[2025-02-08] MEDS ORDERED: HYDROmorphone 0.5 MG/0.5 ML SYRINGE IVP PRN (07:00)
--- NOTE | 2025-02-08 07:45 | P.PN ---
Progress Note - Text Progress Note Date: 02/08/25 Patient doing well. BP stable. Pain /. Epidural @ 6 ml/hr. Nonambulatory at baseline. Epidural site clean and dry A/P POD#1 s/p Exlap, Bilroth - Epidural bolus of 4 ml - Increase epidural to 8 ml/hr - continue multimodal analgesia - avoid elevated temperature -> exacerbation MS utilize acetaminophen and NSAIDS as able
[2025-02-08] MEDS: ROPIVACAINE 400 MG, HYDROMORPHONE (PF) 5 MG in SODIUM CHLORIDE 0.9% 170 ML EPIDURAL PRN (08:26)
[2025-02-08 08:58] LABS: Basophils # (A) 0.02 10*3/uL (0.00-0.10); Basophils % (A) 0.2 %; HCT 29.8 % (37.2-46.3); Lymphocytes # (A) 0.38 10*3/uL (0.90-5.00); Lymphocytes % (A) 4.3 %; MCH 32.4 pg (27.0-32.0); MCHC 33.6 g/dL (32.0-37.0); MCV 96.4 fL (80.0-97.0); Mean Platelet Volume 9.4 fL (9.5-12.2); Monocytes # (A) 0.48 10*3/uL (0.20-1.00); Monocytes % (A) 5.4 %; Neutrophils # (A) 8.01 10*3/uL (1.80-7.70); Platelet Count 150 10*3/uL (140-440); RBC 3.09 10*6/uL (4.10-5.20)
[2025-02-08 09:06] LABS: ALT 59 U/L (4-34); AST 37 U/L (14-36); African American GFR (CKD) 87 (>60 ml/min/1.73 sqM); Albumin/Globulin Ratio 1.4; Alkaline Phosphatase 119 U/L (38-126); Amylase 237 U/L (30-110); Anion Gap 6 mmol/L; Blood Urea Nitrogen 25 mg/dL (7-17); Calcium 9.2 mg/dL (8.4-10.2); Carbon Dioxide 26 mmol/L (22-30); Chloride 111 mmol/L (98-107); Globulin 2.1 g/dL; Glucose 60 mg/dL (74-99); Lipase 146 U/L (23-300); Non-African American GFR(CKD) 75 (>60 ml/min/1.73 sqM); Potassium 4.1 mmol/L (3.5-5.1); Sodium 143 mmol/L (137-145); Total Bilirubin 0.5 mg/dL (0.2-1.3); Total Protein 5.1 g/dL (6.3-8.2)
--- NOTE | 2025-02-08 11:07 | P.PN ---
Subjective Progress Note Date: 02/08/25 Patient seen and examined at bedside. States abdominal pain is well-controlled. Nasogastric tube in place. Objective - Vital Signs Vital signs: Vital Signs Temp 100.2 F H 02/08/25 10:05 Pulse 120 H 02/08/25 08:35 Resp 18 02/08/25 08:35 BP 141/70 02/08/25 08:35 Pulse Ox 98 02/08/25 08:35 FiO2 Intake & Output 02/07/25 02/08/25 02/08/25 18:59 06:59 18:59 Intake Total 1200 Output Total 1571 1270 110 Balance -371 -1270 -110 Weight 56.699 kg Intake: IV 1200 Output: Drainage 70 110 Abdomen 70 110 Urine 1550 1200 Estimated Blood Loss 21 Other: Voiding Method Indwelling Catheter # Voids 0 - Constitutional General appearance: Present: cooperative - Respiratory Details: No difficulty with respiration - Gastrointestinal Gastrointestinal Comment(s): Soft, appropriate tenderness, surgical dressing in place - Psychiatric Psychiatric: Present: A&O x's 3 - Labs CBC & Chem 7: 02/08/25 08:29 02/08/25 08:29 Labs: Abnormal Lab Results - Last 24 Hours (Table) 02/07/25 02/07/25 02/08/25 Range/Units 10:50 10:50 08:29 WBC 10.03 H (4.50-10.00) 10*3/uL RBC 3.79 L 3.09 L (4.10-5.20) 10*6/uL Hgb 10.0 L D (12.0-15.0) g/dL Hct 35.7 L 29.8 L (37.2-46.3) % MCH 32.5 H 32.4 H (27.0-32.0) pg MPV 9.2 L 9.4 L (9.5-12.2) fL Neutrophils # 8.01 H (1.80-7.70) 10*3/uL Neutrophils # (Manual) 9.33 H (1.3-7.7) k/uL Lymphocytes # 0.38 L (0.90-5.00) 10*3/uL Lymphocytes # (Manual) 0.30 L (1.0-4.8) k/uL Eosinophils # 0.00 L (0.04-0.35) 10*3/uL Chloride 108 H (98-107) mmol/L BUN 28 H (7-17) mg/dL Glucose 130 H (74-99) mg/dL AST (14-36) U/L ALT 73 H (4-34) U/L Alkaline Phosphatase 162 H (38-126) U/L Total Protein (6.3-8.2) g/dL Albumin (3.5-5.0) g/dL Amylase 197 H (30-110) U/L Lipase 570 H (23-300) U/L 02/08/25 Range/Units 08:29 WBC (4.50-10.00) 10*3/uL RBC (4.10-5.20) 10*6/uL Hgb (12.0-15.0) g/dL Hct (37.2-46.3) % MCH (27.0-32.0) pg MPV (9.5-12.2) fL Neutrophils # (1.80-7.70) 10*3/uL Neutrophils # (Manual) (1.3-7.7) k/uL Lymphocytes # (0.90-5.00) 10*3/uL Lymphocytes # (Manual) (1.0-4.8) k/uL Eosinophils # (0.04-0.35) 10*3/uL Chloride 111 H (98-107) mmol/L BUN 25 H (7-17) mg/dL Glucose 60 L (74-99) mg/dL AST 37 H (14-36) U/L ALT 59 H (4-34) U/L Alkaline Phosphatase (38-126) U/L Total Protein 5.1 L (6.3-8.2) g/dL Albumin 3.0 L (3.5-5.0) g/dL Amylase 237 H (30-110) U/L Lipase (23-300) U/L Microbiology - Last 24 Hours (Table) 02/07/25 16:16 Gram Stain - Preliminary Abdomen Assessment and Plan Plan: Postoperative day #1, exploratory laparotomy secondary to gastric perforation with Billroth II reconstruction. Patient is doing well. Continue nasogastric tube. Okay for oral meds. Keep n.p.o. otherwise and will evaluate with upper GI in a few days for any leak. Continue epidural and Salgado catheter. Appreciate medical recommendations. Case discussed with patient's mother at bedside.
[2025-02-08] MEDS: ONDANSETRON 4 MG/2 ML VIAL IVP PRN (11:27)
--- NOTE | 2025-02-08 13:06 | P.OP ---
Date of Procedure: 02/07/25 Preoperative Diagnosis: Pneumoperitoneum Postoperative Diagnosis: Gastric perforation Procedure(s) Performed: Exploratory laparotomy Antrectomy Billroth II reconstruction Anesthesia: BAILEY Surgeon: Anaya Grove Pathology: other (Gastric ulcer, cultures of intra-abdominal fluid) Condition: stable Disposition: floor Indications for Procedure: 54-year-old female presented to the emergency department with complaint of severe abdominal and chest pain that began suddenly. On workup she is found to have pneumoperitoneum. Suspicion for ulcer perforation. Patient with history of meloxicam use. Risks, benefits and alternatives were provided to the patient. All questions answered prior to attending the operating suite. Operative Findings: Large gastric perforation in distal gastric, proximal duodenal area, likely measuring approximately 2.5 centimeters. Description of Procedure: Patient was brought to the operating suite and placed in supine position on the operating table. Sedation provided by anesthesia and patient underwent endotracheal intubation. Prior to entering the operating room an epidural catheter was placed by anesthesia. Patient was then prepped and draped in regular sterile fashion. Vertical midline incision was made from xiphoid to just below the umbilicus. This was deepened through the subcutaneous tissues and hemostasis was achieved with electrocautery. The linea alba was identified and incised and the peritoneal cavity entered. Immediate purulent material was noted and cultures were obtained. The distal stomach was examined and at the junction of the distal stomach and first portion of the duodenum, a large perforated ulcer was noted. This ulcer did appear to extend from anterior superior towards the posterior aspect. Based on the extreme size of this ulcer approximating 2.5 cm, decision was made for Billroth II anastomosis and reconstruction. The greater omentum was elevated and mobilized from the transverse colon using cautery. The lesser sac was entered. The posterior aspect of the duodenum was freed and was noted to be significantly adhered to surrounding structures. On dissection, it was clear that the perforation had extended posteriorly against the pancreatic tissue. Once dissection was to a point of healthy appearing duodenum, a linear cutting stapler was then passed taking care not to injure the underlying gastroduodenal artery and biliary tree. This was fired to transect this portion of the duodenum. The stomach was then elevated. Filmy attachments of the pancreas were divided sharply and the antrum was freed. Lesser curvature of the stomach was also freed and points of division were identified both from the lesser and greater curvature. Stapler device was then fired and the specimen was removed. The ligament of Treitz was palpated and mobile loop of jejunum as close as possible to the ligament of Treitz was identified. It was passed antecolic and brought to the light comfortably adjacent to the gastric remnant. The jejunum was approximated to the posterior wall of the stomach. Both a gastrotomy and a jejunotomy were made and a linear cutting stapler was inserted and fired. The staple line was inspected for hemostasis. The resulting enterotomy was closed with a TA 60 blue load stapler. The anastomosis was checked for integrity and patency of both the afferent and E ferret limbs. It was noted to lie comfortably without tension or torsion in the left upper quadrant. Hemostasis was maintained. Nasogastric tube was positioned appropriately. Omentum was brought up and made to lie over the duodenal stump and gastrojejunostomy site. JOHNNIE drain was then placed over this area and secured using a 3-0 nylon suture. The fascia was closed with a running looped PDS suture. Skin was closed with skin wellington. Patient tolerated the procedure well was awakened in the operating suite and taken to postanesthesia care unit in stable condition.
--- NOTE | 2025-02-08 17:37 | P.CONS ---
History of Present Illness - Reason for Consult Consult date: 02/08/25 Postop medical management - Chief Complaint Pneumoperitoneum - History of Present Illness 54-year-old female, history of hypertension, MS, presenting to the emergency department with concern for pain and nausea and vomiting. Patient does have history of severe MS and mother is lawn caretaker. Onset of symptoms was around 12 or 1 AM. Patient has discomfort in her chest and abdomen and left shoulder as well as upper back. Patient had nausea and vomited couple of times. Symptoms have improved with Zofran and fentanyl by EMS. Workup completed in ED reveals WBC of 10.03, hemoglobin of 12.3 and platelet count of 193, sodium 142, potassium 4.2, BUN/creatinine of 28/0.69 and blood glucose of 130 CT of the abdomen and pelvis revealed pneumoperitoneum with unknown site of bowel perforation; patient was seen by general surgery and was taken to the OR for exploratory laparotomy with possible suspicion of upper GI perforation - Exploratory laparotomy revealed gastric perforation and patient underwent antrectomy with Billroth II reconstruction; patient is POD #1 Review of Systems REVIEW OF SYSTEMS: CONSTITUTIONAL: No fever, no malaise, no fatigue. HEENT: No recent visual problems or hearing problems. Denied any sore throat. CARDIOVASCULAR: No chest pain, orthopnea, PND, no palpitations, no syncope. PULMONARY: No shortness of breath, no cough, no hemoptysis. GASTROINTESTINAL: No diarrhea, no nausea, no vomiting, no abdominal pain. NEUROLOGICAL: No headaches, no weakness, no numbness. HEMATOLOGICAL: Denies any bleeding or petechiae. GENITOURINARY: Denies any burning micturition, frequency, or urgency. MUSCULOSKELETAL/RHEUMATOLOGICAL: Denies any joint pain, swelling, or any muscle pain. ENDOCRINE: Denies any polyuria or polydipsia. The rest of the 14-point review of systems is negative. Past Medical History Past Medical History: Eye Disorder, Hypertension, Neurologic Disorder Additional Past Medical History / Comment(s): MS. LESIONS ON CORNEA FROM MS. History of Any Multi-Drug Resistant Organisms: None Reported Past Surgical History: Hysterectomy Additional Past Surgical History / Comment(s): PARTIAL HYSTERECTOMY. Past Anesthesia/Blood Transfusion Reactions: No Reported Reaction Past Psychological History: Anxiety, Depression Smoking Status: Never smoker Past Alcohol Use History: None Reported Past Drug Use History: None Reported - Past Family History Mother Family Medical History: Osteoarthritis (OA) Father Family Medical History: Cancer, Hyperlipidemia Additional Family Medical History / Comment(s): PROSTATE CANCER. Medications and Allergies Home Medications Medication Instructions Recorded Confirmed Type Losartan Potassium [Cozaar] 100 mg PO DAILY 12/19/16 02/07/25 History Escitalopram [Lexapro] 10 mg PO DAILY 02/21/22 02/07/25 History amantadine HCL [Amantadine] 100 mg PO QID 02/21/22 02/07/25 History Baclofen 5 mg PO DAILY 02/07/25 02/07/25 History Baclofen 10 mg PO HS 02/07/25 02/07/25 History Calcium Citrate/Vitamin D3 2 tab PO BID 02/07/25 02/07/25 History [Citracal + D Maximum Caplet] Cholecalciferol (Vitamin D3) 50 mcg PO DAILY 02/07/25 02/07/25 History [Vitamin D3 (50 Mcg = 2000 Iu)] Docusate [Colace] 100 mg PO BID PRN 02/07/25 02/07/25 History Hydroxychloroquine Sulfate 300 mg PO DAILY 02/07/25 02/07/25 History [Plaquenil] Mirabegron [Myrbetriq] 50 mg PO DAILY 02/07/25 02/07/25 History Super B Complex Vitamin 1 cap PO DAILY 02/07/25 02/07/25 History Super K Vitamin 1 tab PO DAILY 02/07/25 02/07/25 History amLODIPine [Norvasc] 10 mg PO DAILY 02/07/25 02/07/25 History methocarbamoL [Robaxin] 125 mg PO TID PRN 02/07/25 02/07/25 History valACYclovir HCL [Valtrex] 2,000 mg PO BID PRN 02/07/25 02/07/25 History Allergies Allergy/AdvReac Type Severity Reaction Status Date / Time gadobenate dimeglumine Allergy Mild Rash/Hives Verified 02/07/25 18:45 [From Multihance] diazepam [From Valium] Allergy Unknown Verified 02/07/25 18:45 Physical Exam Vitals: Vital Signs Temp Pulse Pulse Resp BP BP Pulse Ox 02/08/25 10:05 100.2 F H 02/08/25 08:35 100.9 F H 120 H 18 141/70 98 02/08/25 01:40 98.9 F 120 H 17 124/72 98 02/07/25 19:30 97.5 F L 02/07/25 19:27 76 122/73 100 02/07/25 19:12 81 127/76 100 02/07/25 18:57 82 129/76 100 02/07/25 18:42 73 121/73 100 02/07/25 18:27 78 126/76 100 02/07/25 18:12 74 119/72 100 02/07/25 17:57 72 118/72 100 02/07/25 17:42 76 120/75 100 02/07/25 17:27 71 16 109/68 100 02/07/25 17:15 74 15 108/66 100 02/07/25 17:00 72 18 103/61 100 02/07/25 16:45 75 18 96/55 100 02/07/25 16:32 97.4 F L 81 20 99/58 99 02/07/25 14:01 109 H 18 96 02/07/25 13:45 74 15 108/66 100 02/07/25 13:31 85 16 131/79 98 Intake and Output 02/07/25 02/08/25 02/08/25 22:59 06:59 14:59 Intake Total 200 Output Total 1641 1200 460 Balance -1441 -1200 -460 Intake: IV 200 Output: Gastric Drainage 350 Drainage 70 110 Abdomen 70 110 Urine 1550 1200 Estimated Blood Loss 21 Other: Voiding Method Indwelling Catheter # Voids 0 General appearance: alert, in no apparent distress Head exam: Present: atraumatic Eye exam: Present: normal appearance ENT exam: Present: normal oropharynx Neck exam: Present: normal inspection Respiratory exam: Present: normal lung sounds bilaterally. Absent: chest wall tenderness Cardiovascular Exam: Present: regular rate, normal rhythm, normal heart sounds Expanded Peripheral pulses: 2+: Radial (R), Radial (L), Dorsalis Pedis (R), Dorsalis Pedis (L) GI/Abdominal exam: Present: soft, tenderness (Moderate diffuse tenderness, mostly epigastric), normal bowel sounds. Absent: distended, guarding, rebound, rigid, pulsatile mass Extremities exam: Present: pedal edema, other (Appearance of muscle wasting of the legs) Neurological exam: Present: alert Psychiatric exam: Present: normal affect, normal mood Skin exam: Present: normal color Results CBC & Chem 7: 02/08/25 08:29 02/08/25 08:29 Labs: Abnormal Lab Results - Last 24 Hours (Table) 02/08/25 02/08/25 Range/Units 08:29 08:29 RBC 3.09 L (4.10-5.20) 10*6/uL Hgb 10.0 L D (12.0-15.0) g/dL Hct 29.8 L (37.2-46.3) % MCH 32.4 H (27.0-32.0) pg MPV 9.4 L (9.5-12.2) fL Neutrophils # 8.01 H (1.80-7.70) 10*3/uL Lymphocytes # 0.38 L (0.90-5.00) 10*3/uL Eosinophils # 0.00 L (0.04-0.35) 10*3/uL Chloride 111 H (98-107) mmol/L BUN 25 H (7-17) mg/dL Glucose 60 L (74-99) mg/dL AST 37 H (14-36) U/L ALT 59 H (4-34) U/L Total Protein 5.1 L (6.3-8.2) g/dL Albumin 3.0 L (3.5-5.0) g/dL Amylase 237 H (30-110) U/L Microbiology - Last 24 Hours (Table) 02/07/25 16:16 Gram Stain - Preliminary Abdomen Assessment and Plan Assessment: Pneumoperitoneum; patient is status post exploratory laparotomy which revealed gastric perforation; patient is status post Billroth II reconstruction, POD # 1 - Patient is currently on IV Zosyn and Flagyl - Protonix 40 mg IV daily Mild MELL; BUN elevated at 28 with creatinine within normal limit; patient remains on IV fluid; monitor HAO's, daily weights, renal function electrolytes; avoid nephrotoxins and hypotension Acute anemia, postop.; Hemoglobin down to 10 from 12.3 yesterday; will monitor CBC; transfuse if hemoglobin is less than 7 Mild transaminitis; likely postsurgical; will monitor liver enzyme Hypertension; patient takes amlodipine 10 mg daily with losartan 100 mg daily; patient has pulled out NG tube and is recommended to be strictly n.p.o. by surgery - We will hold off on oral antihypertensive therapy and add hydralazine 10 mg IV every 4 hours for systolic blood pressure greater than 160 Depression; Lexapro 10 mg daily resume once oral intake is established; History of MS; patient takes amantadine 100 mg 4 times daily, Plaquenil 300 mg daily, mirabegron 50 mg daily; resume home medications once oral intake is established DVT prophylaxis; SCDs only CODE STATUS; code
[2025-02-08] MEDS ORDERED: hydrALAZINE HCL 20 MG/ML 1 ML VIAL IVP PRN (17:38)
--- NOTE | 2025-02-08 23:08 | P.CONS ---
History of Present Illness - Reason for Consult Consult date: 02/08/25 Gastric perforation, culture pending Requesting physician: Anaya Grove - Chief Complaint Abdominal pain vomiting x 1 day - History of Present Illness Patient is a 55-year-old female with a past medical history taken for hypertension MS was brought into the hospital yesterday morning concerning for abdominal pain nausea and vomiting apparently the patient did have problem with abdominal pain off and on however noticed to have more severe abdominal pain ar ound midnight/1 AM patient pain was severe with associated pain to the left shoulder and upper back area and did have multiple episode of nausea and vomiting with the symptoms the patient was brought to the hospital on arrival to the patient was afebrile however he did have a fever of 100.19 followed by this morning patient was tachycardic but not hypotensive mildly hypoxic currently on 2 L nasal cannula oxygen and did have a white count 10.03 with a left shift creatinine has been normal amylase lipase mildly elevated patient did have a CT angiogram of the chest lung windows were clear pneumoperitoneum no acute pulmonary embolism process subsequently has CT abdominal pelvis June the patient was taken to the OR and noticed to have a perforated gastric ulcer patient is status post laparotomy antrectomy and Billroth II resection along with abdominal culture patient was started on Zosyn and Diflucan infectious he was consulted for further management of antibiotic therapy Review of Systems Positive point and negatives has been mentioned in the HPI, complete review of systems was performed and all other systems are negative Past Medical History Past Medical History: Eye Disorder, Hypertension, Neurologic Disorder Additional Past Medical History / Comment(s): MS. LESIONS ON CORNEA FROM MS. History of Any Multi-Drug Resistant Organisms: None Reported Past Surgical History: Hysterectomy Additional Past Surgical History / Comment(s): PARTIAL HYSTERECTOMY. Past Anesthesia/Blood Transfusion Reactions: No Reported Reaction Past Psychological History: Anxiety, Depression Smoking Status: Never smoker Past Alcohol Use History: None Reported Past Drug Use History: None Reported - Past Family History Mother Family Medical History: Osteoarthritis (OA) Father Family Medical History: Cancer, Hyperlipidemia Additional Family Medical History / Comment(s): PROSTATE CANCER. Medications and Allergies Home Medications Medication Instructions Recorded Confirmed Type Losartan Potassium [Cozaar] 100 mg PO DAILY 12/19/16 02/07/25 History Escitalopram [Lexapro] 10 mg PO DAILY 02/21/22 02/07/25 History amantadine HCL [Amantadine] 100 mg PO QID 02/21/22 02/07/25 History Baclofen 5 mg PO DAILY 02/07/25 02/07/25 History Baclofen 10 mg PO HS 02/07/25 02/07/25 History Calcium Citrate/Vitamin D3 2 tab PO BID 02/07/25 02/07/25 History [Citracal + D Maximum Caplet] Cholecalciferol (Vitamin D3) 50 mcg PO DAILY 02/07/25 02/07/25 History [Vitamin D3 (50 Mcg = 2000 Iu)] Docusate [Colace] 100 mg PO BID PRN 02/07/25 02/07/25 History Hydroxychloroquine Sulfate 300 mg PO DAILY 02/07/25 02/07/25 History [Plaquenil] Mirabegron [Myrbetriq] 50 mg PO DAILY 02/07/25 02/07/25 History Super B Complex Vitamin 1 cap PO DAILY 02/07/25 02/07/25 History Super K Vitamin 1 tab PO DAILY 02/07/25 02/07/25 History amLODIPine [Norvasc] 10 mg PO DAILY 02/07/25 02/07/25 History methocarbamoL [Robaxin] 125 mg PO TID PRN 02/07/25 02/07/25 History valACYclovir HCL [Valtrex] 2,000 mg PO BID PRN 02/07/25 02/07/25 History Allergies Allergy/AdvReac Type Severity Reaction Status Date / Time gadobenate dimeglumine Allergy Mild Rash/Hives Verified 02/07/25 18:45 [From Multihance] diazepam [From Valium] Allergy Unknown Verified 02/07/25 18:45 Physical Exam Vitals: Vital Signs Temp Pulse Resp BP Pulse Ox 02/08/25 14:05 98.9 F 70 16 138/73 96 02/08/25 10:05 100.2 F H 02/08/25 08:35 100.9 F H 120 H 18 141/70 98 02/08/25 01:40 98.9 F 120 H 17 124/72 98 02/07/25 19:30 97.5 F L 02/07/25 19:27 76 122/73 100 02/07/25 19:12 81 127/76 100 02/07/25 18:57 82 129/76 100 02/07/25 18:42 73 121/73 100 02/07/25 18:27 78 126/76 100 02/07/25 18:12 74 119/72 100 02/07/25 17:57 72 118/72 100 02/07/25 17:42 76 120/75 100 02/07/25 17:27 71 16 109/68 100 02/07/25 17:15 74 15 108/66 100 02/07/25 17:00 72 18 103/61 100 02/07/25 16:45 75 18 96/55 02/07/25 16:32 97.4 F L 81 20 99/58 99 Intake and Output 02/07/25 02/08/25 02/08/25 22:59 06:59 14:59 Intake Total 200 Output Total 1641 1200 460 Balance -1441 -1200 -460 Intake: IV 200 Output: Gastric Drainage 350 Drainage 70 110 Abdomen 70 110 Urine 1550 1200 Estimated Blood Loss 21 Other: Voiding Method Indwelling Catheter # Voids 0 GENERAL DESCRIPTION: Middle-age female lying in bed, no distress. No tachypnea or accessory muscle of respiration use. HEENT: Shows Pallor , no scleral icterus. Oral mucous membrane is dry. NECK: Trachea central, no thyromegaly. LUNGS: Unlabored breathing. Clear to auscultation anteriorly. No wheeze or crackle. HEART: S1, S2, regular rate and rhythm. No loud murmur ABDOMEN: Soft, mild distention and tenderness EXTREMITIES: No edema of feet. SKIN: No rash, no masses palpable. NEUROLOGICAL: The patient is sleepy though arousable , mood and affect normal. Results CBC & Chem 7: 02/08/25 08:29 02/08/25 08:29 Labs: Abnormal Lab Results - Last 24 Hours (Table) 02/08/25 02/08/25 Range/Units 08:29 08:29 RBC 3.09 L (4.10-5.20) 10*6/uL Hgb 10.0 L D (12.0-15.0) g/dL Hct 29.8 L (37.2-46.3) % MCH 32.4 H (27.0-32.0) pg MPV 9.4 L (9.5-12.2) fL Neutrophils # 8.01 H (1.80-7.70) 10*3/uL Lymphocytes # 0.38 L (0.90-5.00) 10*3/uL Eosinophils # 0.00 L (0.04-0.35) 10*3/uL Chloride 111 H (98-107) mmol/L BUN 25 H (7-17) mg/dL Glucose 60 L (74-99) mg/dL AST 37 H (14-36) U/L ALT 59 H (4-34) U/L Total Protein 5.1 L (6.3-8.2) g/dL Albumin 3.0 L (3.5-5.0) g/dL Amylase 237 H (30-110) U/L Microbiology - Last 24 Hours (Table) 02/07/25 16:16 Gram Stain - Preliminary Abdomen Assessment and Plan (1) Sepsis Current Visit: Yes Status: Acute Code(s): A41.9 - SEPSIS, UNSPECIFIED ORGANISM SNOMED Code(s): 71278619 (2) Perforated gastric ulcer Current Visit: Yes Status: Acute Code(s): K25.5 - CHRONIC OR UNSPECIFIED GASTRIC ULCER WITH PERFORATION SNOMED Code(s): 8965405 (3) Peritonitis Current Visit: Yes Status: Acute Code(s): K65.9 - PERITONITIS, UNSPECIFIED SNOMED Code(s): 88059121 Plan: 1patient presented hospital with sepsis in this patient who did have fever tachycardia elevated white count medically for SIRS/sepsis source is perforated gastric ulcer and concerning for peritonitis likely organism need to cover will be enteric gram-negative and Terri 2-patient has been appropriately started on Zosyn and Diflucan to continue while waiting for the culture to finalize, blood cultures are pending Question concern answered We will follow on clinical condition and cultures to further adjust medication if needed Thank you for this consultation we will follow the patient along with you Dictation was produced using [employer] dictation software. please excuse any grammatical, word or spelling errors. Time with Patient: Greater than 30
--- NOTE | 2025-02-09 06:04 | P.PN ---
Progress Note - Text Progress Note Date: 02/09/25 Patient states she is comfortable. BP stable. Pain 3/10 mostly in the lower abdomen. Epidural @ 8 ml/hr. Nonambulatory at baseline. Epidural site w/ small amount of dry serosang at insertion A/P POD#2 s/p Exlap, Bilroth - Maintain epidural at 8 ml/hr - May increase to 10 ml/hr if pain level changes - continue multimodal analgesia - avoid elevated temperature -> exacerbation MS utilize acetaminophen and NSAIDS as able
[2025-02-09 07:57] LABS: HCT 32.7 % (37.2-46.3); HGB 10.4 g/dL (12.0-15.0); MCH 31.9 pg (27.0-32.0); MCHC 31.8 g/dL (32.0-37.0); MCV 100.3 FL (80.0-97.0); Mean Platelet Volume 9.6 FL (9.5-12.2); NRBC Per 100 WBC 0 X 10*3/uL (0.00-0.01); Platelet Count 166 X 10*3/uL (140-440); RBC 3.26 X 10*6/uL (4.10-5.20); RDW 14.1 % (11.5-14.5); WBC 9.47 X 10*3/uL (4.50-10.00)
[2025-02-09] MEDS: LOSARTAN 50 MG TAB PO SCH (08:09)
[2025-02-09] MEDS: HYDROXYCHLOROQUINE SULFATE 200 MG TAB PO SCH (08:09)
[2025-02-09] MEDS: amLODIPine 10 MG TAB PO SCH (08:09)
[2025-02-09] MEDS: NON FORMULARY DRUG (Mirabegron [Myrbetriq] 50 MG Tab.Er.24h) PO SCH (08:09)
[2025-02-09] MEDS: ESCITALOPRAM 10 MG TAB PO SCH (08:09)
[2025-02-09 08:15] LABS: Albumin 3.4 g/dL (3.8-4.9); Blood Urea Nitrogen 23.8 mg/dL (9.0-27.0); Calcium 9.1 mg/dL (8.7-10.3); Carbon Dioxide 22.9 mmol/L (21.6-31.8); Chloride 113 mmol/L (96-109); Globulin 1.9 g/dL (1.6-3.3); Glucose 70 mg/dL (70-110); Sodium 150 mmol/L (135-145); Total Protein 5.3 g/dL (6.2-8.2)
[2025-02-09 08:16] LABS: ALT 59 U/L (8-44); AST 37 U/L (13-35); Albumin/Globulin Ratio 1.79 Ratio (1.60-3.17); Alkaline Phosphatase 129 U/L (41-126); Total Bilirubin 0.4 mg/dL (0.3-1.2)
[2025-02-09 09:37] LABS: Basophils # (A) 0.04 X 10*3/uL (0.00-0.10); Basophils % (A) 0.4 %; Eosinophils # (A) 0.03 X 10*3/uL (0.04-0.35); Eosinophils % (A) 0.3 %; Lymphocytes # (A) 0.45 X 10*3/uL (0.90-5.00); Lymphocytes % (A) 4.8 %; Monocytes # (A) 0.63 X 10*3/uL (0.20-1.00); Monocytes % (A) 6.7 %; Neutrophils # (A) 8.29 X 10*3/uL (1.80-7.70); Neutrophils % (A) 87.5 %
[2025-02-09] MEDS: DEXTROSE 5% IN WATER 1,000 ML IV SCH (10:21)
[2025-02-09] MEDS: ACETAMINOPHEN IV (For NPO) 1,000 MG in EMPTY BAG 1 BAG IVPB SCH (11:31)
--- NOTE | 2025-02-09 11:47 | P.PN ---
Subjective Progress Note Date: 02/09/25 SURGICAL PROGRESS NOTE CHIEF COMPLAINT: Gastric perforation HISTORY OF PRESENT ILLNESS: Postop day #2 status post exploratory laparotomy, antrectomy, Billroth II reconstruction. Patient does report abdominal pain. She she reports her pain is a little worse today. Currently rating her pain about a 5 and yesterday the pain had been about a 3. She does have epidural in place. She denies any flatus. She did pull out her NG tube accidentally during the night. Surgeon has given the okay to leave NG tube out with strict n.p.o. orders. She denies any nausea or vomiting. Mildly tachycardic improved. WBC 9.47 Hgb 10.4 sodium is 150. JOHNNIE drain 240 mL output through the night and 20 mL output this morning. PHYSICAL EXAM: VITAL SIGNS: Reviewed. GENERAL: Well-developed in no acute distress. HEENT: No sclera icterus. Extraocular movements grossly intact. Moist buccal mucosa. Head is atraumatic, normocephalic. ABDOMEN: Soft. Mildly distended. Prevena wound VAC intact. JOHNNIE drain serosang uineous NEUROLOGIC: Alert and oriented. Cranial nerves II through XII grossly intact. ASSESSMENT: 1. Gastric perforation with history of meloxicam use 2. History of MS and bedbound PLAN: - Keep patient strict NPO - Continue IV fluids. Fluids adjusted per medicine service for hypernatremia - Continue epidural and Salgado catheter - Epidural and Salgado catheter to be discontinued tomorrow - IV Tylenol added for pain management - Ice packs as needed for pain - Plan for upper GI to be completed on Sunday - Continue antibiotics - Continue IV Protonix - Incentive spirometer ordered - GI prophylaxis subcu heparin Physician Projection Printer note has been reviewed by physician. Signing provider agrees with the documented findings, assessment, and plan of care. Objective - Vital Signs Vital signs: Vital Signs Temp 96.1 F L 02/09/25 07:15 Pulse 94 02/09/25 07:15 Resp 20 02/09/25 07:15 BP 145/79 02/09/25 07:15 Pulse Ox 99 02/09/25 07:15 FiO2 Intake & Output 02/08/25 02/09/25 02/09/25 18:59 06:59 18:59 Intake Total 127.867 Output Total 1060 1680 20 Balance -1060 -1552.133 -20 Intake: Intake, IV Titration 127.867 Amount Ropivacaine 400 mg 127.867 Hydromorphone (Pf) 5 mg In Sodium Chloride 0.9% 170 ml @ Per Protocol EPIDURAL .Q0M PRN Rx#: [id number] Output: Gastric Drainage 350 Drainage 110 330 20 Abdomen 110 330 20 Urine 600 1350 Other: Voiding Method Indwelling Catheter Indwelling Catheter Indwelling Catheter # Voids 1 - Labs CBC & Chem 7: 02/09/25 02:38 02/09/25 02:38 Labs: Abnormal Lab Results - Last 24 Hours (Table) 02/09/25 02/09/25 Range/Units 02:38 02:38 RBC 3.26 L (4.10-5.20) X 10*6/uL Hgb 10.4 L (12.0-15.0) g/dL Hct 32.7 L (37.2-46.3) % MCV 100.3 H (80.0-97.0) FL MCHC 31.8 L (32.0-37.0) g/dL Neutrophils # 8.29 H (1.80-7.70) X 10*3/uL Lymphocytes # 0.45 L (0.90-5.00) X 10*3/uL Eosinophils # 0.03 L (0.04-0.35) X 10*3/uL Sodium 150 H (135-145) mmol/L Chloride 113 H (96-109) mmol/L Anion Gap 14.10 H (4.00-12.00) mmol/L BUN/Creatinine Ratio 34.00 H (12.00-20.00) Ratio AST 37 H (13-35) U/L ALT 59 H (8-44) U/L Alkaline Phosphatase 129 H (41-126) U/L Total Protein 5.3 L (6.2-8.2) g/dL Albumin 3.4 L (3.8-4.9) g/dL Microbiology - Last 24 Hours (Table) 02/07/25 12:58 Blood Culture - Preliminary Blood 02/07/25 16:16 Gram Stain - Preliminary Abdomen Wound Culture - Preliminary Terri albicans Streptococcus mitis oralis Strep salivarius/vestibularis
--- NOTE | 2025-02-09 12:35 | XR ---
EXAMINATION TYPE: XR chest 1V portable DATE OF EXAM: 02/09/2025 12:30 PM COMPARISON: Chest radiographs from 02/22/2022, CTA chest 02/07/2025 TECHNIQUE: XR chest 1V portable Portable AP radiograph of the chest. CLINICAL INDICATION:Female, 55 years old with history of atelectasis; FINDINGS: Patient is rotated which limits evaluation. Lungs/Pleura: There is no evidence of pleural effusion, focal consolidation, or pneumothorax. Pulmonary vascularity: Unremarkable. Heart/mediastinum: Cardiomediastinal silhouette is unremarkable. Musculoskeletal: No acute osseous pathology. IMPRESSION: No acute cardiopulmonary disease/process. [facility], , 02/09/2025 12:33 PM
--- NOTE | 2025-02-09 13:47 | PN ---
PROGRESS NOTE DATE OF SERVICE: 02/09/2025 SUBJECTIVE: This is a 55-year-old woman, was admitted after possible gastric perfusion and Billroth II surgery. The patient also had an MS and other multiple medical issues prior to admission. The patient is on broad-spectrum IV antibiotics. White count is normal at this time. Hemoglobin is 10.4, sodium is 150. IV fluid drip changed to D5 water. PAST MEDICAL HISTORY: Reviewed. REVIEW OF SYSTEMS: A 14-point review of systems is negative except as mentioned earlier. CURRENT MEDICATIONS: Reviewed. PHYSICAL EXAMINATION: VITAL SIGNS: Pulse is 94, blood pressure 145/70, and respirations 20. CHEST: Few scattered rhonchi. ABDOMEN: Soft status post surgery. Mildly tender. NERVOUS SYSTEM: Nonfocal. CARDIOVASCULAR: S1, S2 normal. LABORATORY DATA: Reviewed. ASSESSMENT: 1. Gastric perforations status post exploratory laparotomy, antrectomy and Billroth II reconstruction. 2. Hypernatremia. 3. Multiple sclerosis. 4. Hypertension. 5. Anemia. 6. Elevated amylase and lipase, present on admission. RECOMMENDATIONS: Recommend to continue current management and continue symptomatic treatment. Otherwise incentive spirometry. I would recommend a chest x-ray to rule out the possibility of an atelectasis. Continue to monitor. Change the fluids to D5 water. Monitor lytes closely. DVT prophylaxis. We will follow the patient closely. Further recommendations to follow. MMODL / IJN: [id number] /
[2025-02-09] MEDS: HEPARIN SODIUM,PORCINE 5,000 UNIT/ML 1 ML VIAL SQ SCH (21:30)
[2025-02-10 08:10] LABS: Basophils # (A) 0.05 X 10*3/uL (0.00-0.10); Basophils % (A) 0.4 %; Eosinophils # (A) 0.19 X 10*3/uL (0.04-0.35); Eosinophils % (A) 1.5 %; HCT 30.6 % (37.2-46.3); HGB 9.9 g/dL (12.0-15.0); Lymphocytes # (A) 0.49 X 10*3/uL (0.90-5.00); Lymphocytes % (A) 3.9 %; MCH 31.9 pg (27.0-32.0); MCHC 32.4 g/dL (32.0-37.0); MCV 98.7 FL (80.0-97.0); Mean Platelet Volume 9.4 FL (9.5-12.2); Monocytes # (A) 0.81 X 10*3/uL (0.20-1.00); Monocytes % (A) 6.5 %; NRBC Per 100 WBC 0 X 10*3/uL (0.00-0.01); Neutrophils # (A) 10.87 X 10*3/uL (1.80-7.70); Neutrophils % (A) 87.2 %; Platelet Count 179 X 10*3/uL (140-440); RDW 13.9 % (11.5-14.5); WBC 12.47 X 10*3/uL (4.50-10.00)
[2025-02-10 09:05] LABS: Blood Urea Nitrogen 13.7 mg/dL (9.0-27.0); Carbon Dioxide 24.6 mmol/L (21.6-31.8); Chloride 111 mmol/L (96-109); Glucose 140 mg/dL (70-110); Potassium 3.2 mmol/L (3.5-5.5); Sodium 148 mmol/L (135-145)
[2025-02-10 09:06] LABS: ALT 58 U/L (8-44); AST 31 U/L (13-35); Albumin 3.1 g/dL (3.8-4.9); Albumin/Globulin Ratio 1.63 Ratio (1.60-3.17); Alkaline Phosphatase 124 U/L (41-126); Calcium 8.8 mg/dL (8.7-10.3); Globulin 1.9 g/dL (1.6-3.3); Total Bilirubin 0.4 mg/dL (0.3-1.2)
[2025-02-10] MEDS ORDERED: Potassium Replacement Protocol 1 EACH MISC MISCELLANE PRN (09:19)
[2025-02-10] MEDS: POTASSIUM CHLORIDE 10 MEQ in WATER FOR INJECTION 1 100ML.BAG IVPB SCH (10:12)
[2025-02-10] MEDS: ACETAMINOPHEN IV (For NPO) 1,000 MG in EMPTY BAG 1 BAG IVPB SCH (10:16)
--- NOTE | 2025-02-10 11:24 | P.PN ---
Progress Note - Text 02/10/25 645 55-year-old female status post explore lap she has an epidural for postop pain control with a solution has been paused as she is confused. Plan is to DC the epidural
[2025-02-10] MEDS: HYDROmorphone 1 MG/ML 1 ML SYRINGE IVP PRN (12:09)
--- NOTE | 2025-02-10 12:44 | CDI ---
Documentation Clarification Form Date: 02/10/2025 12:18:30 PM From: Kita Lui RN CCDS Phone: [phone] Admit Date: 02/07/2025 01:22:00 PM Patient Name: Saima Swann Visit Number: [id number] Discharge Date: ATTENTION: The Clinical Documentation Specialists (CDI) and [facility] Coding Staff appreciate your assistance in clarifying documentation. Please respond to the clarification below the line at the bottom and electronically sign. The CDI & [facility] Coding staff will review the response and follow-up if needed. Please note: Queries are made part of the Legal Health Record. If you have any questions, please contact the author of this message via ITS. Doctor: Anaya Grove Sepsis is documented 02/08, ID Consult, which may lack sufficient clinical evidence/support in the medical record. Additional clarification is requested. History/Risk Factors: 54 year old female presents to the ED for severe upper abdominal pain and pain to her shoulder, back and chest. Medical history: MS, HTN. Clinical Indicators: 02/07, VSS: B/P 142/75, HR 98, Temp 97.4 F Oral, RR 18, SpO2 99% ra 02/07, Labs: Wbc 10.3, Neutrophils 9.33 02/07, Procedure: Exploratory laparotomy, Antrectomy, Biliroth II reconstruction, Post-operative diagnosis Gastric perforation. 02/08, ID Consult: Patient presented hospital with sepsis in this patient who did have fever tachycardia elevated white count medically for SIRS/sepsis source perforated gastric ulcer and concerning for peritonitis likely organism need to cover will be enteric gram negative and carlos. Treatment: 02/07 Acetaminophen IVPB X 1; 02/07 Fluconazole IVPB X 1; 02/07 Fluconazole IVPB Daily; 02/09 Acetaminophen IVPB Q6H x 4 bags Fluids: 02/07 02/08 0.9NS 75cc/hr; Antibiotics: 02/07 Piperacillin IVPB X 1; 02/07 Metronidazole IVPB X 1; 02/07 - Piperacillin Sod/Tazobactam IVPB Q8H; ID Consult 02/08 above After work up and study, please clarify which diagnosis is most appropriate? [ ] Sepsis ruled out [ X ] Sepsis treated prophylactically [ ] Sepsis is a valid diagnosis as evidence by the following: (Please add rationale): [ ] Other, please specify [ ] Unable to determine SIRS Criteria: 2 or more of the following may indicate SIRS Temperature < 96.8F (36C) or > 101.0F (38.3C) Heart Rate > 90 bpm Respiratory Rate > 20 breaths/min or PaCO2 < 32 mmHg White Blood Cell Count > 12,000 or < 4,000 cells/mm3 or > 10% bands (Template Last Reviewed: September 2023) LORETOD
--- NOTE | 2025-02-10 13:42 | P.PN ---
Subjective Progress Note Date: 02/10/25 SURGICAL PROGRESS NOTE CHIEF COMPLAINT: Gastric perforation HISTORY OF PRESENT ILLNESS: Postop day #3 status post exploratory laparotomy, antrectomy, Billroth II reconstruction. Patient sitting at bedside chair. She is also having some confusion and hallucinations. Epidural was placed on pause. Patient does report abdominal pain. Denies any flatus. Denies any nausea or vomiting. JOHNNIE drain 30 mL serosanguineous output. Epidural and Salgado catheter to be discontinued today. Afebrile. WBC is up 12.47 Hgb 9.9 sodium 148 potassium is 3.2 PHYSICAL EXAM: VITAL SIGNS: Reviewed. GENERAL: Well-developed in no acute distress. HEENT: No sclera icterus. Extraocular movements grossly intact. Moist buccal mucosa. Head is atraumatic, normocephalic. ABDOMEN: Soft. Mildly distended. Prevena wound VAC intact. JOHNNIE drain serosanguineous NEUROLOGIC: Alert and oriented. Cranial nerves II through XII grossly intact. ASSESSMENT: 1. Gastric perforation with history of meloxicam use 2. History of MS and bedbound PLAN: -Keep patient strict NPO -Continue IV fluids -Continue antibiotics per ID -resume IV Tylenol for pain management -Continue IV Dilaudid for breakthrough pain -Discontinue epidural and Salgado catheter today -Plan for upper GI tomorrow -Continue IV Protonix -Incentive spirometer ordered -Potassium being replaced -GI prophylaxis subcu heparin Physician Research Agricultural Engineer note has been reviewed by physician. Signing provider agrees with the documented findings, assessment, and plan of care. Objective - Vital Signs Vital signs: Vital Signs Temp 98.3 F 02/10/25 08:00 Pulse 84 02/10/25 08:00 Resp 18 02/10/25 08:00 BP 142/68 02/10/25 08:00 Pulse Ox 94 L 02/10/25 08:00 FiO2 Intake & Output 02/09/25 02/10/25 02/10/25 18:59 06:59 18:59 Intake Total 1000 229.6 Output Total 1050 730 275 Balance -50 -500.4 -275 Intake: Intake, IV Titration 1000 229.6 Amount ACETAMINOPHEN IV (For NPO 200 ) 1,000 mg In Empty Bag 1 bag @ 400 mls/hr IVPB Q6HR [facility] Rx#:[id number] Dextrose 5% in Water 1, 600 000 ml @ 75 mls/hr IV . [id number] [facility] Rx#:[id number] Piperacillin-Tazobactam 3 200 .375 gm In Sodium Chloride 0.9% 100 ml @ 25 mls/hr IVPB Q8HR [facility] Rx# :[id number] Ropivacaine 400 mg 229.6 Hydromorphone (Pf) 5 mg In Sodium Chloride 0.9% 170 ml @ Per Protocol EPIDURAL .Q0M PRN Rx#: [id number] Output: Drainage 50 30 Abdomen 50 30 Urine 1000 700 275 Other: Voiding Method Indwelling Catheter Indwelling Catheter Indwelling Catheter - Labs CBC & Chem 7: 02/10/25 02:46 02/10/25 02:46 Labs: Abnormal Lab Results - Last 24 Hours (Table) 02/10/25 02/10/25 Range/Units 02:46 02:46 WBC 12.47 H (4.50-10.00) X 10*3/uL RBC 3.10 L (4.10-5.20) X 10*6/uL Hgb 9.9 L (12.0-15.0) g/dL Hct 30.6 L (37.2-46.3) % MCV 98.7 H (80.0-97.0) FL MPV 9.4 L (9.5-12.2) FL Immature Gran # 0.06 H (0.00-0.04) X 10*3/uL Neutrophils # 10.87 H (1.80-7.70) X 10*3/uL Lymphocytes # 0.49 L (0.90-5.00) X 10*3/uL Sodium 148 H (135-145) mmol/L Potassium 3.2 L (3.5-5.5) mmol/L Chloride 111 H (96-109) mmol/L Anion Gap 12.40 H (4.00-12.00) mmol/L Creatinine 0.5 L (0.6-1.5) mg/dL BUN/Creatinine Ratio 27.40 H (12.00-20.00) Ratio Glucose 140 H (70-110) mg/dL ALT 58 H (8-44) U/L Total Protein 5.0 L (6.2-8.2) g/dL Albumin 3.1 L (3.8-4.9) g/dL Microbiology - Last 24 Hours (Table) 02/07/25 12:58 Blood Culture - Preliminary Blood 02/07/25 16:16 Anaerobic Culture - Preliminary Abdominal Fluid Assessment and Plan Assessment: swallow study on sunday Time with Patient: Less than 30
--- NOTE | 2025-02-10 13:42 | PN ---
PROGRESS NOTE DATE OF SERVICE: 02/10/2025 SUBJECTIVE: This is a 55-year-old woman who was admitted with a gastric perforation, had Billroth II surgery. The patient is confused yesterday. The pain medication has been adjusted. Chest x-ray done yesterday, which I reviewed personally did not show acute abnormality. The patient is also complaining of anxiety. PAST MEDICAL HISTORY: Reviewed. REVIEW OF SYSTEMS: A 14-point review of systems negative except as mentioned earlier. CURRENT MEDICATIONS: Reviewed. PHYSICAL EXAMINATION: VITAL SIGNS: Pulse is 84, blood pressure 120/60, and respirations 18. HEENT: Conjunctivae normal. NECK: No jugular venous distention. CARDIOVASCULAR: S1, S2. RESPIRATIONS: Breath sounds diminished at the bases. ABDOMEN: Soft status post surgery. Mild diffuse distention present. LEGS: No edema. NERVOUS SYSTEM: No focal deficit. LABORATORY DATA: WBC 12.47, hemoglobin 9.9, rest of the labs are noted. ASSESSMENT: 1. Gastric perforations status post exploratory laparotomy, antrectomy and Billroth II reconstruction. 2. Hypernatremia. 3. Possible acute delirium. 4. Multiple sclerosis. 5. Hypertension. 6. Anemia. 7. Elevated amylase, lipase, present on admission. 8. Elevated WBC. RECOMMENDATIONS: Recommend to continue current management and continue symptomatic treatment. Otherwise, chest x-ray showed no acute abnormality. I would recommend to continue with incentive spirometry and also monitor sodium closely. Continue with D5 water for now. Ativan IV for anxiety. Closely follow with Surgery. Pain management. Prognosis guarded, because of multiple complex medical issues and further recommendations to follow. Pulse ox 94% on room air. MMODL / IJN: [id number] /
[2025-02-10] MEDS: LORazepam 1 MG/0.5 ML VIAL IV PRN (14:27)
--- NOTE | 2025-02-10 15:41 | P.PN ---
Subjective Progress Note Date: 02/09/25 Principal diagnosis: Reason for follow-up is perforated peptic ulcer disease and peritonitis Patient is a 55-year-old female with a past medical history taken for hypertension MS was brought into the hospital for abdominal pain nausea vomiting has been diagnosed with perforated peptic ulcer disease status post laparotomy antrectomy and Billroth II resection. On today's evaluation that is 02/09/2025, patient did have resolution of her fever and has been afebrile this morning, patient is breathing comfortably and is currently on 2 L nasal cannula oxygen, patient denies having any chest pain and cough, patient did have some nausea and abdominal pain but no vomiting. Patient white count is 9.47 creatinine 0.7 Objective - Vital Signs Vital signs: Vital Signs Temp 96.1 F L 02/09/25 07:15 Pulse 94 02/09/25 07:15 Resp 20 02/09/25 07:15 BP 145/79 02/09/25 07:15 Pulse Ox 99 02/09/25 07:15 FiO2 Intake & Output 02/08/25 02/09/25 02/09/25 18:59 06:59 18:59 Intake Total 127.867 Output Total 1060 1680 20 Balance -1060 -1552.133 -20 Intake: Intake, IV Titration 127.867 Amount Ropivacaine 400 mg 127.867 Hydromorphone (Pf) 5 mg In Sodium Chloride 0.9% 170 ml @ Per Protocol EPIDURAL .Q0M PRN Rx#: [id number] Output: Gastric Drainage 350 Drainage 110 330 20 Abdomen 110 330 20 Urine 600 1350 Other: Voiding Method Indwelling Catheter Indwelling Catheter Indwelling Catheter # Voids 1 - Exam GENERAL DESCRIPTION: Middle-age female lying in bed in no distress RESPIRATORY SYSTEM: Unlabored breathing , decreased breath sounds at bases HEART: S1 S2 regular rate and rhythm , ABDOMEN: Soft , mild tenderness EXTREMITIES: No edema feet - Labs CBC & Chem 7: 02/10/25 02:46 02/10/25 02:46 Labs: Abnormal Lab Results - Last 24 Hours (Table) 02/09/25 02/09/25 Range/Units 02:38 02:38 RBC 3.26 L (4.10-5.20) X 10*6/uL Hgb 10.4 L (12.0-15.0) g/dL Hct 32.7 L (37.2-46.3) % MCV 100.3 H (80.0-97.0) FL MCHC 31.8 L (32.0-37.0) g/dL Neutrophils # 8.29 H (1.80-7.70) X 10*3/uL Lymphocytes # 0.45 L (0.90-5.00) X 10*3/uL Eosinophils # 0.03 L (0.04-0.35) X 10*3/uL Sodium 150 H (135-145) mmol/L Chloride 113 H (96-109) mmol/L Anion Gap 14.10 H (4.00-12.00) mmol/L BUN/Creatinine Ratio 34.00 H (12.00-20.00) Ratio AST 37 H (13-35) U/L ALT 59 H (8-44) U/L Alkaline Phosphatase 129 H (41-126) U/L Total Protein 5.3 L (6.2-8.2) g/dL Albumin 3.4 L (3.8-4.9) g/dL Microbiology - Last 24 Hours (Table) 02/07/25 12:58 Blood Culture - Preliminary Blood 02/07/25 16:16 Gram Stain - Preliminary Abdomen Wound Culture - Preliminary Terri albicans Streptococcus mitis oralis Strep salivarius/vestibularis Assessment and Plan (1) Sepsis Current Visit: Yes Status: Acute Code(s): A41.9 - SEPSIS, UNSPECIFIED ORGANISM SNOMED Code(s): 36754404 (2) Perforated gastric ulcer Current Visit: Yes Status: Acute Code(s): K25.5 - CHRONIC OR UNSPECIFIED GASTRIC ULCER WITH PERFORATION SNOMED Code(s): 2191547 (3) Peritonitis Current Visit: Yes Status: Acute Code(s): K65.9 - PERITONITIS, UNSPECIFIED SNOMED Code(s): 62362816 Plan: 1patient presented hospital with sepsis in this patient who did have fever tachycardia elevated white count medically for SIRS/sepsis source is perforated gastric ulcer and concerning for peritonitis likely organism need to cover will be enteric gram-negative and Terri 2-patient is afebrile white count has been normal, patient will be treated Zosyn and Diflucan to continue while waiting for the culture to finalize, Sister at the bedside question concern answered Dictation was produced using dragon dictation software. please excuse any grammatical, word or spelling errors. Time with Patient: Less than 30
--- NOTE | 2025-02-10 15:42 | P.PN ---
Subjective Progress Note Date: 02/10/25 Principal diagnosis: Reason for follow-up is perforated peptic ulcer disease and peritonitis Patient is a 55-year-old female with a past medical history taken for hypertension MS was brought into the hospital for abdominal pain nausea vomiting has been diagnosed with perforated peptic ulcer disease status post laparotomy antrectomy and Billroth II resection. On today's evaluation that is 02/10/2025, Patient is afebrile this morning patient denies having any chest pain shortness of breath or cough, the patient is currently on room air, patient still complaining of abdominal discomfort and nausea but no vomiting. Patient white count is slightly up to 12.47 creatinine 0.5, abdominal culture with Terri and Streptococcus Objective - Vital Signs Vital signs: Vital Signs Temp 97.4 F L 02/10/25 14:00 Pulse 74 02/10/25 14:00 Resp 18 02/10/25 14:00 BP 158/75 02/10/25 14:00 Pulse Ox 97 02/10/25 14:00 FiO2 Intake & Output 02/09/25 02/10/25 02/10/25 18:59 06:59 18:59 Intake Total 1000 229.6 27.067 Output Total 1050 730 875 Balance -50 -500.4 -847.933 Intake: Intake, IV Titration 1000 229.6 27.067 Amount ACETAMINOPHEN IV (For NPO 200 ) 1,000 mg In Empty Bag 1 bag @ 400 mls/hr IVPB Q6HR [facility] Rx#:[id number] Dextrose 5% in Water 1, 600 000 ml @ 75 mls/hr IV . [id number] [facility] Rx#:[id number] Piperacillin-Tazobactam 3 200 .375 gm In Sodium Chloride 0.9% 100 ml @ 25 mls/hr IVPB Q8HR [facility] Rx# :[id number] Ropivacaine 400 mg 229.6 27.067 Hydromorphone (Pf) 5 mg In Sodium Chloride 0.9% 170 ml @ Per Protocol EPIDURAL .Q0M [facility] Rx#: [id number] Output: Drainage 50 30 Abdomen 50 30 Urine 1000 700 875 Uretheral (Salg[place]) 600 Other: Voiding Method Indwelling Catheter Indwelling Catheter Indwelling Catheter - Exam GENERAL DESCRIPTION: Middle-age female lying in bed in no distress RESPIRATORY SYSTEM: Unlabored breathing , decreased breath sounds at bases HEART: S1 S2 regular rate and rhythm , ABDOMEN: Soft , mild tenderness EXTREMITIES: No edema feet - Labs CBC & Chem 7: 02/10/25 02:46 02/10/25 02:46 Labs: Abnormal Lab Results - Last 24 Hours (Table) 02/10/25 02/10/25 Range/Units 02:46 02:46 WBC 12.47 H (4.50-10.00) X 10*3/uL RBC 3.10 L (4.10-5.20) X 10*6/uL Hgb 9.9 L (12.0-15.0) g/dL Hct 30.6 L (37.2-46.3) % MCV 98.7 H (80.0-97.0) FL MPV 9.4 L (9.5-12.2) FL Immature Gran # 0.06 H (0.00-0.04) X 10*3/uL Neutrophils # 10.87 H (1.80-7.70) X 10*3/uL Lymphocytes # 0.49 L (0.90-5.00) X 10*3/uL Sodium 148 H (135-145) mmol/L Potassium 3.2 L (3.5-5.5) mmol/L Chloride 111 H (96-109) mmol/L Anion Gap 12.40 H (4.00-12.00) mmol/L Creatinine 0.5 L (0.6-1.5) mg/dL BUN/Creatinine Ratio 27.40 H (12.00-20.00) Ratio Glucose 140 H (70-110) mg/dL ALT 58 H (8-44) U/L Total Protein 5.0 L (6.2-8.2) g/dL Albumin 3.1 L (3.8-4.9) g/dL Microbiology - Last 24 Hours (Table) 02/07/25 12:58 Blood Culture - Preliminary Blood 02/07/25 16:16 Anaerobic Culture - Preliminary Abdominal Fluid Assessment and Plan (1) Sepsis Current Visit: Yes Status: Acute Code(s): A41.9 - SEPSIS, UNSPECIFIED ORGANISM SNOMED Code(s): 63080158 (2) Perforated gastric ulcer Current Visit: Yes Status: Acute Code(s): K25.5 - CHRONIC OR UNSPECIFIED GASTRIC ULCER WITH PERFORATION SNOMED Code(s): 7478895 (3) Peritonitis Current Visit: Yes Status: Acute Code(s): K65.9 - PERITONITIS, UNSPECIFIED SNOMED Code(s): 24555249 Plan: 1patient presented hospital with sepsis in this patient who did have fever tachycardia elevated white count medically for SIRS/sepsis source is perforated gastric ulcer and concerning for peritonitis likely organism need to cover will be enteric gram-negative and Terri 2-patient is afebrile white count slightly up today abdominal culture with Terri and mostly Streptococcus oralis I will discontinue Zosyn start the patient on Unasyn continue with the Diflucan Sister at the bedside question concern answered Dictation was produced using [employer] dictation software. please excuse any gramm atical, word or spelling errors. Time with Patient: Less than 30
[2025-02-11] MEDS: AMPICILLIN-SULBACTAM 3 GM in SODIUM CHLORIDE 0.9% 100 ML IVPB SCH (00:13)
[2025-02-11 04:10] LABS: Basophils # (A) 0.04 10*3/uL (0.00-0.10); Basophils % (A) 0.4 %; Eosinophils # (A) 0.19 10*3/uL (0.04-0.35); Eosinophils % (A) 1.9 %; HCT 30.6 % (37.2-46.3); HGB 10.4 g/dL (12.0-15.0); Lymphocytes # (A) 0.54 10*3/uL (0.90-5.00); Lymphocytes % (A) 5.3 %; MCH 32.5 pg (27.0-32.0); MCV 95.6 fL (80.0-97.0); Mean Platelet Volume 9.3 fL (9.5-12.2); Monocytes # (A) 0.58 10*3/uL (0.20-1.00); Monocytes % (A) 5.7 %; Neutrophils # (A) 8.72 10*3/uL (1.80-7.70); Platelet Count 160 10*3/uL (140-440); RDW 13.4 % (11.5-14.5); WBC 10.14 10*3/uL (4.50-10.00)
[2025-02-11 04:36] LABS: African American GFR (CKD) >90 (>60 ml/min/1.73 sqM); Anion Gap 8 mmol/L; Blood Urea Nitrogen 9 mg/dL (7-17); Calcium 8.4 mg/dL (8.4-10.2); Carbon Dioxide 26 mmol/L (22-30); Chloride 104 mmol/L (98-107); Glucose 92 mg/dL (74-99); Non-African American GFR(CKD) >90 (>60 ml/min/1.73 sqM); Potassium 2.9 mmol/L (3.5-5.1); Sodium 138 mmol/L (137-145)
[2025-02-11] MEDS: POTASSIUM CHLORIDE 10 MEQ in WATER FOR INJECTION 1 100ML.BAG IVPB SCH (09:34)
--- NOTE | 2025-02-11 09:53 | FL ---
EXAMINATION TYPE: FL UGI air w esophagus DATE OF EXAM: 02/11/2025 COMPARISON: CT abdomen and pelvis 4 days ago CLINICAL INDICATION: Female, 55 years old with history of check for leak status post gastric surgery; [facility], abnormal CT TECHNIQUE: A single contrast UGI study is performed utilizing Isovue 370. A total of 78 seconds of fluoroscopic time was utilized during procedure. Total dose area product (DAP) in uGy*m?, mGy*cm? (or similar): 472.70. FINDINGS: Patient strength contrast through a straw. The esophagus shows adequate motility and emptying into the stomach. Overlying vertical oriented skin [place] are present. There are surgical sutures in the epigastric region. There is percutaneous drai nage catheter. Contrast poles and stomach without passage into the duodenal sweep. No contrast extrav asation to suggest leak is identified. After over 10 minutes no contrast has passed past stomach leve l. IMPRESSION: Suboptimal study but no gastric leak identified. [facility], , 02/11/2025 9:51 AM
[2025-02-11] MEDS: MAGNESIUM SULFATE-D5W PMX 1 GM in DEXTROSE/WATER 1 100ML.BAG IVPB ONE (12:02)
[2025-02-11] MEDS ORDERED: Magnesium Replacement Protocol 1 EACH MISC MISCELLANE PRN (12:39)
[2025-02-11] MEDS ORDERED: Potassium Replacement Protocol 1 EACH MISC MISCELLANE PRN (12:39)
[2025-02-11] MEDS: 0.9% NACL WITH KCL 20 MEQ/L 1,000 ML IV SCH (13:32)
--- NOTE | 2025-02-11 13:57 | P.PN ---
Subjective Progress Note Date: 02/11/25 SURGICAL PROGRESS NOTE CHIEF COMPLAINT: Gastric perforation HISTORY OF PRESENT ILLNESS: Postop day #4 status post exploratory laparotomy, antrectomy, Billroth II reconstruction. Patient is lying in bed comfortably. She reports her pain is controlled. She denies any nausea or vomiting. Upper GI completed today it was suboptimal but no evidence of leak. Afebrile. Epidural and Salgado catheter removed yesterday. WBC is down from 12.4-10.14 Hgb 10.4 potassium 2.9 magnesium 1.6. JOHNNIE drain 20 mL output through the night PHYSICAL EXAM: VITAL SIGNS: Reviewed. GENERAL: Well-developed in no acute distress. HEENT: No sclera icterus. Extraocular movements grossly intact. Moist buccal mucosa. Head is atraumatic, normocephalic. ABDOMEN: distended. Prevena wound VAC intact. JOHNNIE drain serosanguineous NEUROLOGIC: Alert and oriented. Cranial nerves II through XII grossly intact. ASSESSMENT: 1. Gastric perforation with history of meloxicam use 2. History of MS and bedbound 3. Hypokalemia and hypomagnesemia PLAN: -Keep patient strict NPO -Continue IV fluids -Continue antibiotics per ID -resume IV Tylenol for pain management -Continue IV Dilaudid for breakthrough pain -Continue IV Protonix -Incentive spirometer ordered -Replace potassium and magnesium -GI prophylaxis subcu heparin Physician Sales Contract Administrator note has been reviewed by physician. Signing provider agrees with the documented findings, assessment, and plan of care. Objective - Vital Signs Vital signs: Vital Signs Temp 97.1 F L 02/11/25 08:00 Pulse 87 02/11/25 08:00 Resp 16 02/11/25 08:00 BP 164/86 02/11/25 08:00 Pulse Ox 99 02/11/25 08:00 FiO2 Intake & Output 02/10/25 02/11/25 02/11/25 18:59 06:59 18:59 Intake Total 27.067 Output Total 1475 1610 Balance -1447.933 -1610 Intake: Intake, IV Titration 27.067 Amount Ropivacaine 400 mg 27.067 Hydromorphone (Pf) 5 mg In Sodium Chloride 0.9% 170 ml @ Per Protocol EPIDURAL .Q0M PRN Rx#: [id number] Output: Drainage 60 Abdomen 60 Urine 1475 1550 Uretheral (Salgado) 600 Other: Voiding Method Indwelling Catheter Indwelling Catheter # Voids 2 # Bowel Movements 0 - Labs CBC & Chem 7: 02/11/25 02:53 02/11/25 02:53 Labs: Abnormal Lab Results - Last 24 Hours (Table) 02/11/25 02/11/25 Range/Units 02:53 02:53 WBC 10.14 H (4.50-10.00) 10*3/uL RBC 3.20 L (4.10-5.20) 10*6/uL Hgb 10.4 L (12.0-15.0) g/dL Hct 30.6 L (37.2-46.3) % MCH 32.5 H (27.0-32.0) pg MPV 9.3 L (9.5-12.2) fL Immature Gran # 0.07 H (0.00-0.04) 10*3/uL Neutrophils # 8.72 H (1.80-7.70) 10*3/uL Lymphocytes # 0.54 L (0.90-5.00) 10*3/uL Potassium 2.9 L (3.5-5.1) mmol/L Creatinine 0.39 L (0.52-1.04) mg/dL Microbiology - Last 24 Hours (Table) 02/07/25 12:58 Blood Culture - Preliminary Blood 02/07/25 16:16 Gram Stain - Final Abdomen Wound Culture - Final Terri albicans Streptococcus mitis oralis Strep salivarius/vestibularis
[2025-02-11] MEDS: ACETAMINOPHEN IV (For NPO) 1,000 MG in EMPTY BAG 1 BAG IVPB SCH (14:47)
--- NOTE | 2025-02-11 15:24 | PN ---
PROGRESS NOTE DATE OF SERVICE: 02/11/2025 SUBJECTIVE: This is a 55-year-old woman who was admitted with gastric perforation and Billroth II surgery. The patient is still n.p.o., upper GI barium study was suboptimal. No chest pain. No palpitation. REVIEW OF SYSTEMS: Negative except mentioned earlier. PHYSICAL EXAMINATION: VITAL SIGNS: Pulse is 87, blood pressure 160/80, and respirations 16. HEENT: Conjunctivae normal. NECK: No jugular venous distention. CARDIOVASCULAR: S1, S2. RESPIRATIONS: Breath sounds diminished at the bases. ABDOMEN: Soft, nontender. LABORATORY DATA: Potassium is 2.9. ASSESSMENT: 1. Gastric perforation, status post exploratory laparotomy, antrectomy, Billroth II reconstruction. 2. Hypernatremia. 3. Severe hypokalemia. 4. Possible acute delirium. 5. Multiple sclerosis. 6. Hypertension. 7. Anemia. 8. Elevated amylase, lipase, present on admission. 9. Elevated WBC. RECOMMENDATIONS AND DISCUSSION: I recommend to continue current management and continue symptomatic treatment. Wound culture showed Terri albicans, Streptococcus mitis and Streptococcus salivarius. Add antifungal to the current regimen and continue with antifungals and continue with the IV fluids, potassium supplementation. Repeat labs. Pain management. DVT prophylaxis. The patient is still n.p.o. noted. Prognosis guarded. Further recommendations to follow. MMODL / IJN: [id number] / MTDD
[2025-02-12] MEDS ORDERED: HYDROcodone/APAP 5-325MG 1 EACH TAB PO PRN (08:04)
[2025-02-12 08:18] LABS: Basophils # (A) 0.07 X 10*3/uL (0.00-0.10); Basophils % (A) 0.7 %; Eosinophils # (A) 0.11 X 10*3/uL (0.04-0.35); Eosinophils % (A) 1.1 %; HCT 31.4 % (37.2-46.3); HGB 10.2 g/dL (12.0-15.0); Lymphocytes # (A) 0.61 X 10*3/uL (0.90-5.00); Lymphocytes % (A) 5.9 %; MCH 31.2 pg (27.0-32.0); MCHC 32.5 g/dL (32.0-37.0); Magnesium 1.9 mg/dL (1.5-2.4); Mean Platelet Volume 9.4 FL (9.5-12.2); Monocytes % (A) 5.8 %; NRBC Per 100 WBC 0 X 10*3/uL (0.00-0.01); Neutrophils # (A) 8.77 X 10*3/uL (1.80-7.70); Neutrophils % (A) 84.1 %; Platelet Count 218 X 10*3/uL (140-440); RBC 3.27 X 10*6/uL (4.10-5.20); RDW 13.4 % (11.5-14.5); WBC 10.41 X 10*3/uL (4.50-10.00)
[2025-02-12 08:39] LABS: Blood Urea Nitrogen 9.2 mg/dL (9.0-27.0); Calcium 8.1 mg/dL (8.7-10.3); Carbon Dioxide 20.9 mmol/L (21.6-31.8); Chloride 107 mmol/L (96-109); Glucose 51 mg/dL (70-110); Potassium 3.8 mmol/L (3.5-5.5); Sodium 142 mmol/L (135-145)
--- NOTE | 2025-02-12 10:29 | P.PN ---
Subjective Progress Note Date: 02/12/25 SURGICAL PROGRESS NOTE CHIEF COMPLAINT: Gastric perforation HISTORY OF PRESENT ILLNESS: Postop day #5 status post exploratory laparotomy, antrectomy, Billroth II reconstruction. Patient sitting up in bedside chair comfortably. Her pain is controlled. She did have a bowel movement and is having flatus. Denies any nausea or vomiting. Afebrile. WBC 10.41 Hgb 10.2 platelets 218 creatinine 0.4 potassium 3.8 magnesium 1.9. JOHNNIE drain 20 mL output PHYSICAL EXAM: VITAL SIGNS: Reviewed. GENERAL: Well-developed in no acute distress. HEENT: No sclera icterus. Extraocular movements grossly intact. Moist buccal mucosa. Head is atraumatic, normocephalic. ABDOMEN: distended. Prevena wound VAC intact. JOHNNIE drain serosanguineous NEUROLOGIC: Alert and oriented. Cranial nerves II through XII grossly intact. ASSESSMENT: 1. Gastric perforation with history of meloxicam use 2. History of MS and bedbound 3. Hypokalemia and hypomagnesemia improved PLAN: -Advance diet to clear liquids -Okay for oral medications -Discontinue IV fluids -[place] and Tylenol added for pain management -Continue to work with PT OT -revenue cycle manager arranging ECF placement for rehab -Continue antibiotics -Continue IV Protonix -Incentive spirometer ordered -GI prophylaxis subcu heparin Physician Seafood Processor note has been reviewed by physician. Signing provider agrees with the documented findings, assessment, and plan of care. Objective - Vital Signs Vital signs: Vital Signs Temp 98.6 F 02/12/25 00:40 Pulse 89 02/12/25 00:40 Resp 15 02/12/25 00:40 BP 143/70 02/12/25 00:40 Pulse Ox 98 02/12/25 00:40 FiO2 Intake & Output 02/11/25 02/12/25 02/12/25 18:59 06:59 18:59 Intake Total 920 Output Total 700 920 Balance -700 0 Intake: Intake, IV Titration 920 Amount 0.9% NaCl with KCl 20 Meq 720 /l 1,000 ml @ 60 mls/hr IV .[id number] FLIP Rx#: [id number] Ampicillin-Sulbactam 3 gm 100 In Sodium Chloride 0.9% 100 ml @ 200 mls/hr IVPB Q6HR FLIP Rx#:[id number] Fluconazole in NaCl,Iso- 100 Osm 200 mg In Saline 1 100ml.bag @ 100 mls/hr IVPB DAILY@1999 [facility] Rx#: [id number] Output: Drainage 20 Abdomen 20 Urine 700 900 Other: Voiding Method Indwelling Catheter Indwelling Catheter # Bowel Movements 1 - Labs CBC & Chem 7: 02/12/25 02:51 02/12/25 02:51 Labs: Microbiology - Last 24 Hours (Table) 02/07/25 16:16 Anaerobic Culture - Final Abdominal Fluid Assessment and Plan Assessment: start clear liquid diet physical therapy
[2025-02-12] MEDS: ONDANSETRON 4 MG/2 ML VIAL IVP PRN (13:15)
[2025-02-12 14:59] VITALS: BMI 20.7
--- NOTE | 2025-02-12 15:17 | P.PN ---
Subjective Progress Note Date: 02/11/25 Principal diagnosis: Reason for follow-up is perforated peptic ulcer disease and peritonitis Patient is a 55-year-old female with a past medical history taken for hypertension MS was brought into the hospital for abdominal pain nausea vomiting has been diagnosed with perforated peptic ulcer disease status post laparotomy antrectomy and Billroth II resection. On today's evaluation that is 02/11/2025,the patient denies any fever or any chills, patient is breathing comfortably on room air, the patient denies chest pain shortness of breath and no significant cough, patient abdominal pain has decreased in intensity some nausea but no vomiting no BM. Patient white count is down to 10.14 creatinine 0.39 Objective - Vital Signs Vital signs: Vital Signs Temp 97.1 F L 02/11/25 08:00 Pulse 87 02/11/25 08:00 Resp 16 02/11/25 08:00 BP 164/86 02/11/25 08:00 Pulse Ox 99 02/11/25 08:00 FiO2 Intake & Output 02/10/25 02/11/25 02/11/25 18:59 06:59 18:59 Intake Total 27.067 Output Total 1475 1610 Balance -1447.933 -1610 Intake: Intake, IV Titration 27.067 Amount Ropivacaine 400 mg 27.067 Hydromorphone (Pf) 5 mg In Sodium Chloride 0.9% 170 ml @ Per Protocol EPIDURAL .Q0M PRN Rx#: [id number] Output: Drainage 60 Abdomen 60 Urine 1475 1550 Uretheral (Salgado) 600 Other: Voiding Method Indwelling Catheter Indwelling Catheter # Voids 2 # Bowel Movements 0 - Exam GENERAL DESCRIPTION: Middle-age female lying in bed in no distress RESPIRATORY SYSTEM: Unlabored breathing , decreased breath sounds at bases HEART: S1 S2 regular rate and rhythm , ABDOMEN: Soft , mild tenderness EXTREMITIES: No edema feet - Labs CBC & Chem 7: 02/12/25 02:51 02/12/25 02:51 Labs: Abnormal Lab Results - Last 24 Hours (Table) 02/11/25 02/11/25 Range/Units 02:53 02:53 WBC 10.14 H (4.50-10.00) 10*3/uL RBC 3.20 L (4.10-5.20) 10*6/uL Hgb 10.4 L (12.0-15.0) g/dL Hct 30.6 L (37.2-46.3) % MCH 32.5 H (27.0-32.0) pg MPV 9.3 L (9.5-12.2) fL Immature Gran # 0.07 H (0.00-0.04) 10*3/uL Neutrophils # 8.72 H (1.80-7.70) 10*3/uL Lymphocytes # 0.54 L (0.90-5.00) 10*3/uL Potassium 2.9 L (3.5-5.1) mmol/L Creatinine 0.39 L (0.52-1.04) mg/dL Microbiology - Last 24 Hours (Table) 02/07/25 12:58 Blood Culture - Preliminary Blood 02/07/25 16:16 Gram Stain - Final Abdomen Wound Culture - Final Terri albicans Streptococcus mitis oralis Strep salivarius/vestibularis Assessment and Plan (1) Sepsis Current Visit: Yes Status: Acute Code(s): A41.9 - SEPSIS, UNSPECIFIED ORGANISM SNOMED Code(s): 39418216 (2) Perforated gastric ulcer Current Visit: Yes Status: Acute Code(s): K25.5 - CHRONIC OR UNSPECIFIED GASTRIC ULCER WITH PERFORATION SNOMED Code(s): 5583892 (3) Peritonitis Current Visit: Yes Status: Acute Code(s): K65.9 - PERITONITIS, UNSPECIFIED SNOMED Code(s): 41919653 Plan: 1patient presented hospital with sepsis in this patient who did have fever tachycardia elevated white count medically for SIRS/sepsis source is perforated gastric ulcer and concerning for peritonitis likely organism need to cover will be enteric gram-negative and Terri 2-patient is afebrile white count, almost normalized abdominal culture with Terri and mostly Streptococcus oralis 3for which the patient is covered with Unasyn and Diflucan to continue Mother at the bedside question concern answered Dictation was produced using [employer] dictation software. please excuse any grammatical, word or spelling errors. Time with Patient: Less than 30
--- NOTE | 2025-02-12 15:18 | P.PN ---
Subjective Progress Note Date: 02/12/25 Principal diagnosis: Reason for follow-up is perforated peptic ulcer disease and peritonitis Patient is a 55-year-old female with a past medical history taken for hypertension MS was brought into the hospital for abdominal pain nausea vomiting has been diagnosed with perforated peptic ulcer disease status post laparotomy antrectomy and Billroth II resection. On today's evaluation that is 02/12/2025,the patient remains to be afebrile, patient is on room air not requiring supplemental oxygen and denies any shortness of breath no chest pain or cough.Patient denies having any nausea or vomiting, and did have improvement in abdominal pain, no bowel movement. Patient white count is 10.41 creatinine 0.4, abdominal culture with Streptococcus mitis oralis strep salivarius and Terri Objective - Vital Signs Vital signs: Vital Signs Temp 98.1 F 02/12/25 07:45 Pulse 95 02/12/25 07:45 Resp 16 02/12/25 07:45 BP 151/72 02/12/25 07:45 Pulse Ox 98 02/12/25 07:45 FiO2 Intake & Output 02/11/25 02/12/25 02/12/25 18:59 06:59 18:59 Intake Total 920 Output Total 700 920 700 Balance -700 0 -700 Weight 56.699 kg Intake: Intake, IV Titration 920 Amount 0.9% NaCl with KCl 20 Meq 720 /l 1,000 ml @ 60 mls/hr IV .[id number] FLIP Rx#: [id number] Ampicillin-Sulbactam 3 gm 100 In Sodium Chloride 0.9% 100 ml @ 200 mls/hr IVPB Q6HR FLIP Rx#:[id number] Fluconazole in NaCl,Iso- 100 Osm 200 mg In Saline 1 100ml.bag @ 100 mls/hr IVPB DAILY@2000 FL[facility] Rx#: [id number] Output: Drainage 20 Abdomen 20 Urine 700 900 700 Other: Voiding Method Indwelling Catheter Indwelling Catheter Indwelling Catheter # Bowel Movements 1 1 - Exam GENERAL DESCRIPTION: Middle-age female lying in bed in no distress RESPIRATORY SYSTEM: Unlabored breathing , decreased breath sounds at bases HEART: S1 S2 regular rate and rhythm , ABDOMEN: Soft , mild tenderness EXTREMITIES: No edema feet - Labs CBC & Chem 7: 02/12/25 02:51 02/12/25 02:51 Labs: Abnormal Lab Results - Last 24 Hours (Table) 02/12/25 02/12/25 Range/Units 02:51 02:51 WBC 10.41 H (4.50-10.00) X 10*3/uL RBC 3.27 L (4.10-5.20) X 10*6/uL Hgb 10.2 L (12.0-15.0) g/dL Hct 31.4 L (37.2-46.3) % MPV 9.4 L (9.5-12.2) FL Immature Gran # 0.25 H (0.00-0.04) X 10*3/uL Neutrophils # 8.77 H (1.80-7.70) X 10*3/uL Lymphocytes # 0.61 L (0.90-5.00) X 10*3/uL Carbon Dioxide 20.9 L (21.6-31.8) mmol/L Anion Gap 14.10 H (4.00-12.00) mmol/L Creatinine 0.4 L (0.6-1.5) mg/dL BUN/Creatinine Ratio 23.00 H (12.00-20.00) Ratio Glucose 51 L (70-110) mg/dL Calcium 8.1 L (8.7-10.3) mg/dL Microbiology - Last 24 Hours (Table) 02/07/25 16:16 Anaerobic Culture - Final Abdominal Fluid Assessment and Plan (1) Sepsis Current Visit: Yes Status: Acute Code(s): A41.9 - SEPSIS, UNSPECIFIED ORGANISM SNOMED Code(s): 90950845 (2) Perforated gastric ulcer Current Visit: Yes Status: Acute Code(s): K25.5 - CHRONIC OR UNSPECIFIED GASTRIC ULCER WITH PERFORATION SNOMED Code(s): 8572723 (3) Peritonitis Current Visit: Yes Status: Acute Code(s): K65.9 - PERITONITIS, UNSPECIFIED SNOMED Code(s): 18461094 Plan: 1patient presented hospital with sepsis in this patient who did have fever tachycardia elevated white count medically for SIRS/sepsis source is perforated gastric ulcer and concerning for peritonitis likely organism need to cover will be enteric gram-negative and Terri 2-patient is afebrile white count, white count is down to 10,000, abdominal culture with Terri, Streptococcus oralis Streptococcus salivarius 3patient is currently being treated with Unasyn and Diflucan and monitor clinical course closely Sister at the bedside wanted to have her physical therapy for the foot drop to be addressed by admitting team Dictation was produced using [employer] dictation software. please excuse any grammatical, word or spelling errors. Time with Patient: Less than 30
--- NOTE | 2025-02-12 21:27 | PN ---
PROGRESS NOTE DATE OF SERVICE: 02/12/2025 SUBJECTIVE: This 55-year-old woman was admitted after gastric perforation surgery, is improving significantly. No chest pain. No palpitation. PHYSICAL EXAMINATION: VITAL SIGNS: Pulse is 95, blood pressure 150/70, respirations 16. CHEST: Breath sounds diminished at the bases. ABDOMEN: Soft status post surgery. CARDIOVASCULAR: S1, S2 normal. LABORATORY DATA: Reviewed. ASSESSMENT: 1. Gastric perforations status post exploratory laparotomy, antrectomy and Billroth II reconstruction. 2. Hyponatremia. 3. Severe hypokalemia. 4. Possible acute delirium. 5. Multiple sclerosis. 6. Hypertension. 7. Anemia. 8. Increased amylase and lipase, present on admission. 9. Elevated WBC. RECOMMENDATIONS: Recommend to continue current management and continue symptomatic treatment. Incentive spirometry. To continue with the proton pump inhibitors closely per Surgery. Diet per Surgery. Further recommendations to follow. MMODL / IJN: [id number] /
[2025-02-13] MEDS: ACETAMINOPHEN TAB 325 MG TAB PO PRN (06:33)
--- NOTE | 2025-02-13 10:52 | P.PN ---
Subjective Progress Note Date: 02/13/25 SURGICAL PROGRESS NOTE CHIEF COMPLAINT: Gastric perforation HISTORY OF PRESENT ILLNESS: Postop day #6 status post exploratory laparotomy, antrectomy, Billroth II reconstruction. Pain controlled. Having bowel movements. Denies any nausea or vomiting. Afebrile. WBC 10.4 Hgb 10.2. JOHNNIE drain 20 mL serosanguineous output PHYSICAL EXAM: VITAL SIGNS: Reviewed. GENERAL: Well-developed in no acute distress. HEENT: No sclera icterus. Extraocular movements grossly intact. Moist buccal mucosa. Head is atraumatic, normocephalic. ABDOMEN: mildly distended. Prevena wound VAC intact. JOHNNIE drain serosanguineous NEUROLOGIC: Alert and oriented. Cranial nerves II through XII grossly intact. ASSESSMENT: 1. Gastric perforation with history of meloxicam use 2. History of MS and bedbound 3. Hypokalemia and hypomagnesemia improved PLAN: -Continue clear liquid diet -Continue pain management -Continue to work with PT OT -sales manager prearranged funerals arranging ECF placement for rehab -Continue antibiotics -Continue IV Protonix -Incentive spirometer ordered -GI prophylaxis subcu heparin Physician Cutter Grinder note has been reviewed by physician. Signing provider agrees with the documented findings, assessment, and plan of care. Attestation Patient seen and examined at bedside on 02/13/2025. Status post exploratory laparotomy, antrectomy and Billroth II reconstruction. Patient is doing well. She has just started clear liquid diet and is tolerating. Awaiting further bowel function. Activity to be increased with physical and Occupational Therapy. Likely ECF for rehab when stable for discharge. Continue IV antibiotics per infectious disease. Anaya Grove DO Objective - Vital Signs Vital signs: Vital Signs Temp 99.3 F 02/13/25 07:04 Pulse 92 02/13/25 07:04 Resp 17 02/13/25 07:04 BP 121/67 02/13/25 07:04 Pulse Ox 97 02/13/25 07:04 FiO2 Intake & Output 02/12/25 02/13/25 02/13/25 18:59 06:59 18:59 Output Total 935 700 420 Balance -935 -700 -420 Weight 56.699 kg Output: Drainage 10 20 Abdomen 10 20 Urine 925 700 400 Other: Voiding Method Indwelling Catheter Indwelling Catheter Indwelling Catheter # Bowel Movements 2 1 1 - Labs CBC & Chem 7: 02/15/25 03:04 02/14/25 03:45 Labs: Microbiology - Last 24 Hours (Table) 02/07/25 12:58 Blood Culture - Final Blood
--- NOTE | 2025-02-13 14:33 | CDI ---
Documentation Clarification Form Date: 02/13/2025 01:47:11 PM From: Kita Lui RN CCDS Phone: [phone] Admit Date: 02/07/2025 01:22:00 PM Patient Name: Saima Swann Visit Number: [id number] Discharge Date: ATTENTION: The Clinical Documentation Specialists (CDI) and [facility] Coding Staff appreciate your assistance in clarifying documentation. Please respond to the clarification below the line at the bottom and electronically sign. The CDI & [facility] Coding staff will review the response and follow-up if needed. Please note: Queries are made part of the Legal Health Record. If you have any questions, please contact the author of this message via ITS. Doctor: Cara Paniagua There is documentation of Acute Delirium 02/10, Medicine note. Additional clarification is requested. History/Risk Factors: 55 year old female presents to the ED with abdominal pain, admitted with a gastric perforation and had Billroth II surgery. Medical History: HTN, Anxiety, Depression and Neurologic disorder. Medicine consult, 02/08. Clinical Indicators: Medicine note 02/10, This is a 55-year-old woman who was admitted with a gastric perforation, had Billroth II surgery.The patient is confused yesterday.The pain medication has been adjusted. Treatment: 02/10 Adjusted pain medications. 02/07 - 02/10: Ropivacaine epidural; Can you please clarify Delirium further? [ ] Toxic Encephalopathy secondary to pain medications. [ ] Other, please specify [ ] Unable to determine (Template Last Revised: November 2020) none MTDD
--- NOTE | 2025-02-13 15:12 | P.PN ---
Subjective Progress Note Date: 02/13/25 Patient is evaluated for medical care. Multiple sclerosis family is concerned with worsening foot drop on the right side. PT is a following this patient and she will require subacute rehab on discharge. Patient does need to be able to transfer in order to discharge home. She is postoperative day #6 exploratory laparotomy, antrectomy, Bilroth II reconstruction. No reporting any significant pain today. JOHNNIE drain in place. Abdominal binder in place. Having bowel movements and tolerating clear liquid diet. Patient remains on IV Protonix. She continues on IV ampicillin and IV fluconazole. Biopsy revealed white blood cell count 10.41, hemoglobin 10.2, sodium of 142 potassium 3.8, BUN of 9.2 creatinine of 0.4. Magnesium 1.9. Review of Systems Constitutional: Denied any fatigue denied any fever. Cardio vascular: denied any chest pain, palpitations Gastrointestinal: denied any nausea, vomiting, diarrhea Pulmonary: Denied any shortness of breath cough Neurologic denied any new focal deficits All inpatient medications were reviewed and appropriate changes in these medications as dictated in the interval history and assessment and plan. PHYSICAL EXAMINATION: GENERAL: The patient is alert and oriented x3, not in any acute distress. Well developed, well nourished. HEENT: Pupils are round and equally reacting to light. EOMI. No scleral icterus. No conjunctival pallor. Normocephalic, atraumatic. No pharyngeal erythema. No thyromegaly. CARDIOVASCULAR: S1 and S2 present. No murmurs, rubs, or gallops. PULMONARY: Chest is clear to auscultation, no wheezing or crackles. ABDOMEN: Soft, nontender, nondistended, normoactive bowel sounds. No palpable organomegaly. MUSCULOSKELETAL: No joint swelling or deformity. EXTREMITIES: No cyanosis, clubbing, or pedal edema. NEUROLOGICAL: Gross neurological examination did not reveal any focal deficits. SKIN: No rashes. Assessment Gastric perforation s/p exploratory laparatomy antrectomy and Bilroth II reconstruction Leukocytosis Hyponatremia from poor oral intake Hypokalemia, hypomagnesemia Hypernatremia from free water deficit, improved Multiple sclerosis and medical debility Hypertension Anemia Anxiety/Depression GI prophylaxis DVT prophylaxis Plan PT evaluation recommending JEFFY on discharge and authorization has been started for [facility] Continue IV diflucan and IV unasyn per ID Continue clear liquid diet per general surgery Continue IV protonix Continue to encourage IS 10 x an hour Continue pain management Monitor renal function and electrolytes The impression and plan of care has been dictated by Maria Luisa Marino, Nurse Practitioner as directed. Dr. Tj MD I have performed a history and physical examination and medical decision making of this patient, discussed the same with the dictator, and agree with the dictators assessment and plan as written, documented as a scribe. Based on total visit time, I have performed more than 50% of this visit. Objective - Vital Signs Vital signs: Vital Signs Temp 99.3 F 02/13/25 07:04 Pulse 92 02/13/25 07:04 Resp 17 02/13/25 07:04 BP 121/67 02/13/25 07:04 Pulse Ox 97 02/13/25 07:04 FiO2 Intake & Output 02/12/25 02/13/25 02/13/25 18:59 06:59 18:59 Output Total 935 700 400 Balance -935 -700 -400 Weight 56.699 kg Output: Drainage 10 Abdomen 10 Urine 925 700 400 Other: Voiding Method Indwelling Catheter Indwelling Catheter # Bowel Movements 2 1 1 - Labs CBC & Chem 7: 02/12/25 02:51 02/12/25 02:51 Labs: Microbiology - Last 24 Hours (Table) 02/07/25 12:58 Blood Culture - Final Blood Assessment and Plan Time with Patient: Less than 30
--- NOTE | 2025-02-13 19:48 | P.PN ---
Subjective Progress Note Date: 02/13/25 Principal diagnosis: Reason for follow-up is perforated peptic ulcer disease and peritonitis Patient is a 55-year-old female with a past medical history taken for hypertension MS was brought into the hospital for abdominal pain nausea vomiting has been diagnosed with perforated peptic ulcer disease status post laparotomy antrectomy and Billroth II resection. On today's evaluation that is 02/13/2025, the patient continues to be afebrile, the patient is on room air and breathing comfortably, the Pt denies having any chest pain or cough, the patient abdominal pain has decreased in intensity no nausea vomiting has been tolerating her diet did have a bowel movement. Patient did not have any lab draw today Objective - Vital Signs Vital signs: Vital Signs Temp 99.4 F 02/13/25 14:40 Pulse 94 02/13/25 14:40 Resp 17 02/13/25 14:40 BP 100/58 02/13/25 14:40 Pulse Ox 100 02/13/25 14:40 FiO2 Intake & Output 02/13/25 02/13/25 02/14/25 06:59 18:59 06:59 Output Total 700 970 Balance -700 -970 Output: Drainage 20 Abdomen 20 Urine 700 950 Other: Voiding Method Indwelling Catheter Indwelling Catheter # Bowel Movements 1 1 - Exam GENERAL DESCRIPTION: Middle-age female lying in bed in no distress RESPIRATORY SYSTEM: Unlabored breathing , decreased breath sounds at bases HEART: S1 S2 regular rate and rhythm , ABDOMEN: Soft , mild tenderness EXTREMITIES: No edema feet - Labs CBC & Chem 7: 02/12/25 02:51 02/12/25 02:51 Labs: Microbiology - Last 24 Hours (Table) 02/07/25 12:58 Blood Culture - Final Blood Assessment and Plan (1) Sepsis Current Visit: Yes Status: Acute Code(s): A41.9 - SEPSIS, UNSPECIFIED ORGANISM SNOMED Code(s): 58871636 (2) Perforated gastric ulcer Current Visit: Yes Status: Acute Code(s): K25.5 - CHRONIC OR UNSPECIFIED GASTRIC ULCER WITH PERFORATION SNOMED Code(s): 6192608 (3) Peritonitis Current Visit: Yes Status: Acute Code(s): K65.9 - PERITONITIS, UNSPECIFIED SNOMED Code(s): 13341142 Plan: 1patient presented hospital with sepsis in this patient who did have fever tachycardia elevated white count medically for SIRS/sepsis source is perforated gastric ulcer and concerning for peritonitis likely organism need to cover will be enteric gram-negative and Terri 2-patient is afebrile, white count is down to 10,000 as of yesterday no CBC was done today, abdominal culture with Terri, Streptococcus oralis Streptococcus salivarius 3patient to continue with Unasyn and Diflucan while inpatient hopefully will transition to oral antibiotic on discharge if continue to improve Dictation was produced using [employer] dictation software. please excuse any gramma tical, word or spelling errors. Time with Patient: Less than 30
[2025-02-14 09:41] LABS: HCT 14.8 % (37.2-46.3); MCH 31.1 pg (27.0-32.0); MCHC 31.8 g/dL (32.0-37.0); Mean Platelet Volume 9.5 FL (9.5-12.2); NRBC Per 100 WBC 0 X 10*3/uL (0.00-0.01); Platelet Count 243 X 10*3/uL (140-440); RBC 1.51 X 10*6/uL (4.10-5.20); RDW 13.9 % (11.5-14.5); WBC 10.45 X 10*3/uL (4.50-10.00)
[2025-02-14 09:44] LABS: Magnesium 1.7 mg/dL (1.5-2.4)
[2025-02-14 10:29] LABS: BUN/Creat Ratio 45.25 Ratio (12.00-20.00); Blood Urea Nitrogen 18.1 mg/dL (9.0-27.0); Calcium 7.9 mg/dL (8.7-10.3); Carbon Dioxide 24.4 mmol/L (21.6-31.8); Chloride 111 mmol/L (96-109); Glucose 116 mg/dL (70-110); Sodium 143 mmol/L (135-145)
[2025-02-14 10:52] LABS: Basophils # (M) 0 X 10*3/uL (0.00-0.10); Eosinophils # (M) 0 X 10*3/uL (0.04-0.35); HGB 4.7 g/dL (12.0-15.0); Lymphocytes # (M) 2.09 X 10*3/uL (0.90-5.00); Monocytes # (M) 0.63 X 10*3/uL (0.20-1.00); Neutrophils # (M) 7.73 X 10*3/uL (1.80-7.70); Neutrophils % (M) 74 %
--- NOTE | 2025-02-14 11:09 | P.PN ---
Progress Note - Text Progress Note Date: 02/14/25 CHIEF COMPLAINT: Gastric perforation HISTORY OF PRESENT ILLNESS: Postop day #7 status post exploratory laparotomy, antrectomy, Billroth II reconstruction. Pain controlled. Having bowel movements. Denies any nausea or vomiting. Afebrile. JOHNNIE drain serosanguineous output. PHYSICAL EXAM: VITAL SIGNS: Reviewed. Stable GENERAL: Well-developed in no acute distress. HEENT: No sclera icterus. Extraocular movements grossly intact. Moist buccal mucosa. Head is atraumatic, normocephalic. ABDOMEN: mildly distended. Prevena wound VAC intact. JOHNNIE drain serosanguineous NEUROLOGIC: Alert and oriented. Cranial nerves II through XII grossly intact. ASSESSMENT: 1. Gastric perforation with history of meloxicam use 2. History of MS and bedbound 3. Hypokalemia and hypomagnesemia improved PLAN: -Advanced to Full Liquid Diet -Ok to discontinue avendano catheter -Hgb reviewed. Appears to be lab error. Will repeat CBC -Continue pain management -Continue to work with PT/OT -condominium association manager arranging ECF placement for rehab -Continue antibiotics -Continue IV Protonix -Incentive spirometer ordered -GI prophylaxis subcu heparin Norbert Berry DO [facility] [phone]
[2025-02-14 11:51] LABS: MCH 32.3 pg (27.0-32.0); MCHC 33.3 g/dL (32.0-37.0); MCV 96.8 fL (80.0-97.0); Mean Platelet Volume 9.3 fL (9.5-12.2); Platelet Count 223 10*3/uL (140-440); RBC 1.58 10*6/uL (4.10-5.20); RDW 13.9 % (11.5-14.5); WBC 8.46 10*3/uL (4.50-10.00)
[2025-02-14 12:01] LABS: HCT 15.3 % (37.2-46.3); HGB 5.1 g/dL (12.0-15.0)
--- NOTE | 2025-02-14 18:01 | P.PN ---
Subjective Progress Note Date: 02/14/25 Patient is evaluated for medical care. Multiple sclerosis family is concerned with worsening foot drop on the right side. PT is a following this patient and she will require subacute rehab on discharge. Patient does need to be able to transfer in order to discharge home. She is postoperative day #6 exploratory laparotomy, antrectomy, Bilroth II reconstruction. No reporting any significant pain today. JOHNNIE drain in place. Abdominal binder in place. Having bowel movements and tolerating clear liquid diet. Patient remains on IV Protonix. She continues on IV ampicillin and IV fluconazole. Biopsy revealed white blood cell count 10.41, hemoglobin 10.2, sodium of 142 potassium 3.8, BUN of 9.2 creatinine of 0.4. Magnesium 1.9. 02/14/2025 Patient evaluated today in follow up on the medical floor. No acute complaints overnight. Hemoglobin did drop to 5.1 today from 10.2 No acute signs of active bleeding. JOHNNIE drain with serosanguineous drainage. Patient currently tolerating a full liquid diet. Review of Systems Constitutional: Denied any fatigue denied any fever. Cardio vascular: denied any chest pain, palpitations Gastrointestinal: denied any nausea, vomiting, diarrhea Pulmonary: Denied any shortness of breath cough Neurologic denied any new focal deficits All inpatient medications were reviewed and appropriate changes in these medications as dictated in the interval history and assessment and plan. PHYSICAL EXAMINATION: GENERAL: The patient is alert and oriented x3, not in any acute distress. Well developed, well nourished. HEENT: Pupils are round and equally reacting to light. EOMI. No scleral icterus. No conjunctival pallor. Normocephalic, atraumatic. No pharyngeal erythema. No thyromegaly. CARDIOVASCULAR: S1 and S2 present. No murmurs, rubs, or gallops. PULMONARY: Chest is clear to auscultation, no wheezing or crackles. ABDOMEN: Soft, nontender, nondistended, normoactive bowel sounds. No palpable organomegaly. MUSCULOSKELETAL: No joint swelling or deformity. EXTREMITIES: No cyanosis, clubbing, or pedal edema. NEUROLOGICAL: Gross neurological examination did not reveal any focal deficits. SKIN: No rashes. Assessment Gastric perforation s/p exploratory laparatomy antrectomy and Bilroth II reconstruction Anemia likely acute blood loss from surgery; no signs of active bleeding currently Leukocytosis Hyponatremia from poor oral intake Hypokalemia, hypomagnesemia Hypernatremia from free water deficit, improved Multiple sclerosis and medical debility Hypertension Anemia Anxiety/Depression GI prophylaxis DVT prophylaxis Plan Patient to receive 2 units of PRBC today PT evaluation recommending JEFFY on discharge and authorization has been started for [facility] Continue IV diflucan and IV unasyn per ID Continue full liquid diet per general surgery Continue IV protonix Continue to encourage IS 10 x an hour Continue pain management Monitor renal function and electrolytes Monitor hemoglobin and transfuse for hemoglobin less than 7 The impression and plan of care has been dictated by Maria Luisa Marino, Nurse Practitioner as directed. Dr. Tj MD I have performed a history and physical examination and medical decision making of this patient, discussed the same with the dictator, and agree with the dictators assessment and plan as written, documented as a scribe. Based on total visit time, I have performed more than 50% of this visit. Objective - Vital Signs Vital signs: Vital Signs Temp 98.0 F 02/14/25 07:13 Pulse 90 02/14/25 07:13 Resp 18 02/14/25 07:13 BP 117/65 02/14/25 07:13 Pulse Ox 96 02/14/25 07:13 FiO2 Intake & Output 02/13/25 02/14/25 02/14/25 18:59 06:59 18:59 Intake Total 300 Output Total 970 1420 Balance -970 -1120 Intake: Intake, IV Titration 300 Amount Ampicillin-Sulbactam 3 gm 200 In Sodium Chloride 0.9% 100 ml @ 200 mls/hr IVPB Q6HR FLIP Rx#:[id number] Fluconazole in NaCl,Iso- 100 Osm 200 mg In Saline 1 100ml.bag @ 100 mls/hr IVPB DAILY@2000 FLIP Rx#: [id number] Output: Drainage 20 20 Abdomen 20 20 Urine 950 1400 Other: Voiding Method Indwelling Catheter Indwelling Catheter # Bowel Movements 1 1 - Labs CBC & Chem 7: 02/14/25 11:04 02/14/25 03:45 Labs: Abnormal Lab Results - Last 24 Hours (Table) 02/14/25 Range/Units 03:45 WBC 10.45 H (4.50-10.00) X 10*3/uL RBC 1.51 L (4.10-5.20) X 10*6/uL Hgb 4.7 A* (12.0-15.0) g/dL Hct 14.8 A* (37.2-46.3) % MCV 98.0 H (80.0-97.0) FL MCHC 31.8 L (32.0-37.0) g/dL Assessment and Plan Time with Patient: Less than 30
[2025-02-14] MEDS: MAGNESIUM SULFATE-D5W PMX 1 GM in DEXTROSE/WATER 1 100ML.BAG IVPB ONE (19:56)
--- NOTE | 2025-02-14 20:24 | P.PN ---
Subjective Progress Note Date: 02/14/25 Principal diagnosis: Reason for follow-up is perforated peptic ulcer disease and peritonitis Patient is a 55-year-old female with a past medical history taken for hypertension MS was brought into the hospital for abdominal pain nausea vomiting has been diagnosed with perforated peptic ulcer disease status post laparotomy antrectomy and Billroth II resection. On today's evaluation that is 02/15/2024, patient did have a temperature of 98 F this morning and denies having any chills, patient is on room air and breathing comfortably no chest pain or cough, the patient did not have any nausea vomiting abdominal pain is currently controlled. Patient white count normalized to 8.46 did have drop in hemoglobin to 5.1 creatinine 0.4 Objective - Vital Signs Vital signs: Vital Signs Temp 97.4 F L 02/14/25 17:37 Pulse 89 02/14/25 17:37 Resp 16 02/14/25 17:37 BP 130/68 02/14/25 17:37 Pulse Ox 99 02/14/25 17:37 FiO2 Intake & Output 02/13/25 02/14/25 02/14/25 18:59 06:59 18:59 Intake Total 300 0 Output Total 970 1420 1100 Balance -970 -1120 -1100 Intake: Intake, IV Titration 300 Amount Ampicillin-Sulbactam 3 gm 200 In Sodium Chloride 0.9% 100 ml @ 200 mls/hr IVPB Q6HR FLIP Rx#:[id number] Fluconazole in NaCl,Iso- 100 Osm 200 mg In Saline 1 100ml.bag @ 100 mls/hr IVPB DAILY@2000 FLIP Rx#: [id number] Blood Product 0 Unit 0 Output: Drainage 20 20 Abdomen 20 20 Urine 950 1400 1100 Other: Voiding Method Indwelling Catheter Indwelling Catheter Indwelling Catheter # Bowel Movements 1 1 - Exam GENERAL DESCRIPTION: Middle-age female lying in bed in no distress RESPIRATORY SYSTEM: Unlabored breathing , decreased breath sounds at bases HEART: S1 S2 regular rate and rhythm , ABDOMEN: Soft , mild tenderness EXTREMITIES: No edema feet - Labs CBC & Chem 7: 02/14/25 11:04 02/14/25 03:45 Labs: Abnormal Lab Results - Last 24 Hours (Table) 02/14/25 02/14/25 02/14/25 Range/Units 03:45 03:45 11:04 WBC 10.45 H (4.50-10.00) X 10*3/uL RBC 1.51 L 1.58 L (4.10-5.20) X 10*6/uL Hgb 4.7 A* 5.1 L* D (12.0-15.0) g/dL Hct 14.8 A* 15.3 L* (37.2-46.3) % MCV 98.0 H (80.0-97.0) FL MCH 32.3 H (27.0-32.0) pg MCHC 31.8 L (32.0-37.0) g/dL MPV 9.3 L (9.5-12.2) fL Immature Gran # 0.59 H (0.00-0.04) 10*3/uL Neutrophils # (Manual) 7.73 H (1.80-7.70) X 10*3/uL Eosinophils # (Manual) 0 L (0.04-0.35) X 10*3/uL Chloride 111 H (96-109) mmol/L Creatinine 0.4 L (0.6-1.5) mg/dL BUN/Creatinine Ratio 45.25 H (12.00-20.00) Ratio Glucose 116 H (70-110) mg/dL Calcium 7.9 L (8.7-10.3) mg/dL Crossmatch 02/14/25 Range/Units 14:13 WBC (4.50-10.00) X 10*3/uL RBC (4.10-5.20) X 10*6/uL Hgb (12.0-15.0) g/dL Hct (37.2-46.3) % MCV (80.0-97.0) FL MCH (27.0-32.0) pg MCHC (32.0-37.0) g/dL MPV (9.5-12.2) fL Immature Gran # (0.00-0.04) 10*3/uL Neutrophils # (Manual) (1.80-7.70) X 10*3/uL Eosinophils # (Manual) (0.04-0.35) X 10*3/uL Chloride (96-109) mmol/L Creatinine (0.6-1.5) mg/dL BUN/Creatinine Ratio (12.00-20.00) Ratio Glucose (70-110) mg/dL Calcium (8.7-10.3) mg/dL Crossmatch See Detail Assessment and Plan (1) Sepsis Current Visit: Yes Status: Acute Code(s): A41.9 - SEPSIS, UNSPECIFIED ORGANISM SNOMED Code(s): 02660510 (2) Perforated gastric ulcer Current Visit: Yes Status: Acute Code(s): K25.5 - CHRONIC OR UNSPECIFIED GASTRIC ULCER WITH PERFORATION SNOMED Code(s): 6324766 (3) Peritonitis Current Visit: Yes Status: Acute Code(s): K65.9 - PERITONITIS, UNSPECIFIED SNOMED Code(s): 65855846 Plan: 1patient presented hospital with sepsis in this patient who did have fever tachycardia elevated white count medically for SIRS/sepsis source is perforated gastric ulcer and concerning for peritonitis likely organism need to cover will be enteric gram-negative and Terri 2-patient is afebrile, white count i normalized y, abdominal culture with Terri, Streptococcus oralis Streptococcus salivarius 3patient to continue with Unasyn and Diflucan, he did have a drop in the hemoglobin being monitored by surgical team Dictation was produced using [employer] dictation software. please excuse any grammatical, word or spelling errors. Time with Patient: Less than 30
[2025-02-14] MEDS: MELATONIN 3 MG TABLET PO PRN (22:24)
[2025-02-15 03:19] LABS: Basophils # (A) 0.05 10*3/uL (0.00-0.10); Basophils % (A) 0.6 %; Eosinophils % (A) 2.4 %; HCT 24.3 % (37.2-46.3); Lymphocytes # (A) 0.79 10*3/uL (0.90-5.00); Lymphocytes % (A) 9.4 %; MCH 30.9 pg (27.0-32.0); MCHC 33.7 g/dL (32.0-37.0); Mean Platelet Volume 8.7 fL (9.5-12.2); Monocytes # (A) 0.75 10*3/uL (0.20-1.00); Monocytes % (A) 8.9 %; Neutrophils # (A) 5.95 10*3/uL (1.80-7.70); Platelet Count 238 10*3/uL (140-440); RBC 2.65 10*6/uL (4.10-5.20); RDW 14.5 % (11.5-14.5); WBC 8.39 10*3/uL (4.50-10.00)
[2025-02-15 03:28] LABS: INR 0.9 (<1.2); Partial Thromboplastin Time 22.4 sec (22.0-30.0); Prothrombin Time 9.9 sec (10.0-12.5)
[2025-02-15 04:32] LABS: HGB 8.2 g/dL (12.0-15.0); MCV 91.7 fL (80.0-97.0)
--- NOTE | 2025-02-15 08:56 | P.PN ---
Subjective Progress Note Date: 02/15/25 Patient seen and examined at bedside. No acute events. Tolerating diet. No signs of hemorrhage. Objective - Vital Signs Vital signs: Vital Signs Temp 98.0 F 02/15/25 07:13 Pulse 89 02/15/25 07:13 Resp 17 02/15/25 07:13 BP 124/74 02/15/25 07:13 Pulse Ox 98 02/15/25 07:13 FiO2 Intake & Output 02/14/25 02/15/25 02/15/25 18:59 06:59 18:59 Intake Total 0 620 Output Total 1100 15 Balance -1100 605 Intake: Blood Product 0 620 Rc As-1 Unit 310 [id number] Rc As-1 Unit 0 310 [id number] Output: Drainage 15 Abdomen 15 Urine 1100 Other: Voiding Method Indwelling Catheter Indwelling Catheter # Voids 1,700 - Constitutional General appearance: Present: cooperative, no acute distress - Gastrointestinal Gastrointestinal Comment(s): Soft, nontender, mild distention, no rebound or guarding, incision site with Prevena dressing in place - Psychiatric Psychiatric: Present: A&O x's 3 - Labs CBC & Chem 7: 02/15/25 03:04 02/14/25 03:45 Labs: Abnormal Lab Results - Last 24 Hours (Table) 02/14/25 02/14/25 02/14/25 Range/Units 03:45 03:45 11:04 WBC 10.45 H (4.50-10.00) X 10*3/uL RBC 1.51 L 1.58 L (4.10-5.20) X 10*6/uL Hgb 4.7 A* 5.1 L* D (12.0-15.0) g/dL Hct 14.8 A* 15.3 L* (37.2-46.3) % MCV 98.0 H (80.0-97.0) FL MCH 32.3 H (27.0-32.0) pg MCHC 31.8 L (32.0-37.0) g/dL MPV 9.3 L (9.5-12.2) fL Immature Gran # 0.59 H (0.00-0.04) 10*3/uL Neutrophils # (Manual) 7.73 H (1.80-7.70) X 10*3/uL Lymphocytes # (0.90-5.00) 10*3/uL Eosinophils # (Manual) 0 L (0.04-0.35) X 10*3/uL PT (10.0-12.5) sec Chloride 111 H (96-109) mmol/L Creatinine 0.4 L (0.6-1.5) mg/dL BUN/Creatinine Ratio 45.25 H (12.00-20.00) Ratio Glucose 116 H (70-110) mg/dL Calcium 7.9 L (8.7-10.3) mg/dL Crossmatch 02/14/25 02/15/25 02/15/25 Range/Units 14:13 03:04 03:04 WBC (4.50-10.00) X 10*3/uL RBC 2.65 L (4.10-5.20) X 10*6/uL Hgb 8.2 L D (12.0-15.0) g/dL Hct 24.3 L (37.2-46.3) % MCV (80.0-97.0) FL MCH (27.0-32.0) pg MCHC (32.0-37.0) g/dL MPV 8.7 L (9.5-12.2) fL Immature Gran # 0.65 H (0.00-0.04) 10*3/uL Neutrophils # (Manual) (1.80-7.70) X 10*3/uL Lymphocytes # 0.79 L (0.90-5.00) 10*3/uL Eosinophils # (Manual) (0.04-0.35) X 10*3/uL PT 9.9 L (10.0-12.5) sec Chloride (96-109) mmol/L Creatinine (0.6-1.5) mg/dL BUN/Creatinine Ratio (12.00-20.00) Ratio Glucose (70-110) mg/dL Calcium (8.7-10.3) mg/dL Crossmatch See Detail Assessment and Plan Plan: Postoperative, exploratory laparotomy, antrectomy and Billroth II reconstruction secondary to large perforated ulcer. Patient with hemoglobin drop yesterday and is status post 2 units of packed red blood cell, currently hemoglobin 8.2. Vital signs have been stable no evidence of tachycardia or hypotension with hemoglobin drop. No active signs of bleeding. No bloody bowel function. No ecchymosis noted on physical exam, JOHNNIE drain with minimal serosanguineous output. Unclear source of hemoglobin drop. I did discuss case with patient. At this point, hemoglobin appears stabilized and we will redraw hemoglobin this afternoon. If any further consideration of bleeding, we we will perform further workup. At this time, patient is stable and states she would not like further workup unless she worsens. Continue with full liquid diet. Plan for ECF for up on discharge.
[2025-02-15 09:26] LABS: Blood Urea Nitrogen 9.1 mg/dL (9.0-27.0); Glucose 121 mg/dL (70-110)
[2025-02-15 09:27] LABS: Calcium 7.9 mg/dL (8.7-10.3); Carbon Dioxide 23.6 mmol/L (21.6-31.8); Chloride 107 mmol/L (96-109); Potassium 4.1 mmol/L (3.5-5.5); Sodium 140 mmol/L (135-145)
[2025-02-15 11:19] LABS: Basophils # (A) 0.05 10*3/uL (0.00-0.10); Basophils % (A) 0.6 %; Eosinophils # (A) 0.16 10*3/uL (0.04-0.35); Eosinophils % (A) 1.9 %; HCT 23.9 % (37.2-46.3); HGB 8.1 g/dL (12.0-15.0); Lymphocytes # (A) 0.75 10*3/uL (0.90-5.00); Lymphocytes % (A) 9.1 %; MCH 31.2 pg (27.0-32.0); MCHC 33.9 g/dL (32.0-37.0); MCV 91.9 fL (80.0-97.0); Mean Platelet Volume 9.4 fL (9.5-12.2); Monocytes # (A) 0.66 10*3/uL (0.20-1.00); Neutrophils # (A) 6.05 10*3/uL (1.80-7.70); Platelet Count 264 10*3/uL (140-440); RDW 15.2 % (11.5-14.5); WBC 8.28 10*3/uL (4.50-10.00)
[2025-02-15] MEDS: LOSARTAN 25 MG TAB PO SCH (12:59)
--- NOTE | 2025-02-15 14:17 | P.PN ---
Subjective Progress Note Date: 02/15/25 Patient is evaluated for medical care. Multiple sclerosis family is concerned with worsening foot drop on the right side. PT is a following this patient and she will require subacute rehab on discharge. Patient does need to be able to transfer in order to discharge home. She is postoperative day #6 exploratory laparotomy, antrectomy, Bilroth II reconstruction. No reporting any significant pain today. JOHNNIE drain in place. Abdominal binder in place. Having bowel movements and tolerating clear liquid diet. Patient remains on IV Protonix. She continues on IV ampicillin and IV fluconazole. Biopsy revealed white blood cell count 10.41, hemoglobin 10.2, sodium of 142 potassium 3.8, BUN of 9.2 creatinine of 0.4. Magnesium 1.9. 02/14/2025 Patient evaluated today in follow up on the medical floor. No acute complaints overnight. Hemoglobin did drop to 5.1 today from 10.2 No acute signs of active bleeding. JOHNNIE drain with serosanguineous drainage. Patient currently tolerating a full liquid diet. 02/15/2025 Patient is eval today in follow-up in medical floor. Patient is no acute complaints overnight. She does state that she has some abdominal discomfort especially when she is sitting up and moving to the side and coughing. We will add an abdominal binder for support. Her wound VAC is in place midline incision and JOHNNIE drain is in place. She continues on IV fluconazole and IV Unasyn. Hem oglobin today 8.1. Bowels are moving and she is currently on a full liquid diet. Review of Systems Constitutional: Denied any fatigue denied any fever. Cardio vascular: denied any chest pain, palpitations Gastrointestinal: denied any nausea, vomiting, diarrhea Pulmonary: Denied any shortness of breath cough Neurologic denied any new focal deficits All inpatient medications were reviewed and appropriate changes in these medications as dictated in the interval history and assessment and plan. PHYSICAL EXAMINATION: GENERAL: The patient is alert and oriented x3, not in any acute distress. Well developed, well nourished. HEENT: Pupils are round and equally reacting to light. EOMI. No scleral icterus. No conjunctival pallor. Normocephalic, atraumatic. No pharyngeal erythema. No thyromegaly. CARDIOVASCULAR: S1 and S2 present. No murmurs, rubs, or gallops. PULMONARY: Chest is clear to auscultation, no wheezing or crackles. ABDOMEN: Soft, nontender, nondistended, normoactive bowel sounds. No palpable organomegaly. MUSCULOSKELETAL: No joint swelling or deformity. EXTREMITIES: No cyanosis, clubbing, or pedal edema. NEUROLOGICAL: Gross neurological examination did not reveal any focal deficits. SKIN: No rashes. Assessment Gastric perforation s/p exploratory laparatomy antrectomy and Bilroth II reconstruction Anemia likely acute blood loss from surgery; no signs of active bleeding currently Leukocytosis Hyponatremia from poor oral intake Hypokalemia, hypomagnesemia Hypernatremia from free water deficit, improved Multiple sclerosis and medical debility Hypertension Anemia Anxiety/Depression GI prophylaxis DVT prophylaxis Plan Status post 2 units of PRBCs and hemoglobin is better at 8.1 with no signs of active bleeding. PT evaluation recommending JEFFY on discharge and authorization has been started for [facility] Continue IV diflucan and IV unasyn per ID Continue full liquid diet per general surgery Continue IV protonix Continue to encourage IS 10 x an hour Continue pain management Monitor renal function and electrolytes Monitor hemoglobin and transfuse for hemoglobin less than 7 The impression and plan of care has been dictated by Maria Luisa Marino, Nurse Practitioner as directed. Dr. Tj MD I have performed a history and physical examination and medical decision making of this patient, discussed the same with the dictator, and agree with the dictators assessment and plan as written, documented as a scribe. Based on total visit time, I have performed more than 50% of this visit. Objective - Vital Signs Vital signs: Vital Signs Temp 98.0 F 02/15/25 07:13 Pulse 89 02/15/25 07:13 Resp 17 02/15/25 07:13 BP 124/74 02/15/25 07:13 Pulse Ox 98 02/15/25 07:13 FiO2 Intake & Output 02/14/25 02/15/25 02/15/25 18:59 06:59 18:59 Intake Total 0 620 Output Total 1100 15 Balance -1100 605 Intake: Blood Product 0 620 Rc As-1 Unit 310 [id number] Rc As-1 Unit 0 310 [id number] Output: Drainage 15 Abdomen 15 Urine 1100 Other: Voiding Method Indwelling Catheter Indwelling Catheter # Voids 1,700 - Labs CBC & Chem 7: 02/15/25 10:52 02/15/25 03:04 Labs: Abnormal Lab Results - Last 24 Hours (Table) 02/14/25 02/15/25 02/15/25 Range/Units 14:13 03:04 03:04 RBC 2.65 L (4.10-5.20) 10*6/uL Hgb 8.2 L D (12.0-15.0) g/dL Hct 24.3 L (37.2-46.3) % RDW (11.5-14.5) % MPV 8.7 L (9.5-12.2) fL Immature Gran # 0.65 H (0.00-0.04) 10*3/uL Lymphocytes # 0.79 L (0.90-5.00) 10*3/uL PT 9.9 L (10.0-12.5) sec Creatinine (0.6-1.5) mg/dL Glucose (70-110) mg/dL Calcium (8.7-10.3) mg/dL Crossmatch See Detail 02/15/25 02/15/25 Range/Units 03:04 10:52 RBC 2.60 L (4.10-5.20) 10*6/uL Hgb 8.1 L (12.0-15.0) g/dL Hct 23.9 L (37.2-46.3) % RDW 15.2 H (11.5-14.5) % MPV 9.4 L (9.5-12.2) fL Immature Gran # 0.61 H (0.00-0.04) 10*3/uL Lymphocytes # 0.75 L (0.90-5.00) 10*3/uL PT (10.0-12.5) sec Creatinine 0.5 L (0.6-1.5) mg/dL Glucose 121 H (70-110) mg/dL Calcium 7.9 L (8.7-10.3) mg/dL Crossmatch Assessment and Plan Time with Patient: Less than 30
[2025-02-16 07:51] VITALS: RESP 16
[2025-02-16 08:26] LABS: Blood Urea Nitrogen 8.8 mg/dL (9.0-27.0); Calcium 8.3 mg/dL (8.7-10.3); Carbon Dioxide 24.5 mmol/L (21.6-31.8); Chloride 107 mmol/L (96-109); Glucose 99 mg/dL (70-110); Potassium 4.1 mmol/L (3.5-5.5); Sodium 142 mmol/L (135-145)
[2025-02-16 09:21] LABS: Basophils # (M) 0.09 X 10*3/uL (0.00-0.10); Crenated RBC 2+ (None Seen); Eosinophils # (M) 0.18 X 10*3/uL (0.04-0.35); HCT 25.2 % (37.2-46.3); HGB 8.3 g/dL (12.0-15.0); Lymphocytes # (M) 0.46 X 10*3/uL (0.90-5.00); MCH 31.4 pg (27.0-32.0); MCHC 32.9 g/dL (32.0-37.0); MCV 95.5 FL (80.0-97.0); Mean Platelet Volume 9.6 FL (9.5-12.2); Monocytes # (M) 0.27 X 10*3/uL (0.20-1.00); Myelocytes % 2 % (0-0); NRBC Per 100 WBC 0.02 X 10*3/uL (0.00-0.01); Neutrophils # (M) 7.92 X 10*3/uL (1.80-7.70); Neutrophils % (M) 87 %; Platelet Count 306 X 10*3/uL (140-440); RBC 2.64 X 10*6/uL (4.10-5.20); RDW 15.7 % (11.5-14.5)
[2025-02-16] MEDS: SENNOSIDES 8.6 MG TAB PO SCH (10:32)
--- NOTE | 2025-02-16 14:11 | P.DS ---
Providers Date of admission: 02/07/25 13:22 Expected date of discharge: 02/16/25 Attending physician: Anaya Grove DO Consults: 02/07/25 13:22 Consult Physician Urgent Consulting Provider: Lexa Louis Consult Reason/Comments: medical care Do you want consulting provider notified?: Yes 02/07/25 16:42 Consult Physician Routine Consulting Provider: Paul Bruno Consult Reason/Comments: gastric perforation, cultures pending Do you want consulting provider notified?: Yes Primary care physician: [facility] Course: Discharge diagnosis 1. Gastric perforation with history of meloxicam use 2. History of MS and bedbound 3. Hypokalemia and hypomagnesemia improved 4. Anemia status post blood transfusion. No active signs of bleeding. Patient responded to blood transfusion. Hemoglobin at discharge stable at 8.3. Patient had declined imaging or further workup unless she worsened. Hospital course This is a 55-year-old female who presented to the ER with severe upper abdominal pain that went to her shoulder, back and chest. She complained of nausea and vomiting. CT scan abdomen pelvis concerning for pneumoperitoneum. Patient takes meloxicam at home. Patient taken to the OR for pneumoperitoneum by Dr. Grove. She is status post exploratory laparotomy, antrectomy and Billroth II reconstruction for a gastric perforation. Patient tolerating diet. She has had bowel movements and flatus after surgery. Patient is stable for discharge. She is cleared by consultants for discharge. Dr. Bruno is recommending Augmentin and Diflucan for 10 more days. Patient also given prescription for Protonix. Patient stable for discharge. Please refer to chart for any further details. Physician Tuft Machine Operator note has been reviewed by physician. Signing provider agrees with the documented findings, assessment, and plan of care. Attestation Patient seen and examined at bedside on 02/17/2025. Presented with chief complaint of pneumoperitoneum and did undergo antrectomy with Billroth II reconstruction. She has been advanced to full liquid diet and has been tolerating the diet. She is been stable and currently hemoglobin is 8.3. JOHNNIE drain to be removed. ID recommendations on oral antibiotics. Patient stable for discharge to [facility]. Anaya Grove DO Patient Condition at Discharge: Stable Plan - Discharge Summary Discharge Rx Participant: Yes New Discharge Prescriptions: New Acetaminophen Tab [Tylenol Tab] 650 mg PO Q4H PRN #30 tablet PRN Reason: Pain Pantoprazole [Protonix] 40 mg PO DAILY 30 Days #30 tab Sennosides [Senokot] 8.6 mg PO BID PRN #14 tablet PRN Reason: Constipation Amoxic-Pot Clav 875-125Mg [Augmentin 875-125] 1 tab PO Q12HR 10 Days #20 tab Fluconazole [Diflucan] 200 mg PO DAILY 10 Days #10 tablet Losartan [Cozaar] 25 mg PO DAILY tab Continue Super B Complex Vitamin 1 cap PO DAILY Super K Vitamin 1 tab PO DAILY Baclofen 10 mg PO HS Escitalopram [Lexapro] 10 mg PO DAILY amantadine HCL [Amantadine] 100 mg PO QID methocarbamoL [Robaxin] 125 mg PO TID PRN PRN Reason: Muscle Spasm Docusate [Colace] 100 mg PO BID PRN PRN Reason: Constipation Cholecalciferol (Vitamin D3) [Vitamin D3 (50 Mcg = 2000 Iu)] 50 mcg PO DAILY Mirabegron [Myrbetriq] 50 mg PO DAILY Hydroxychloroquine Sulfate [Plaquenil] 300 mg PO DAILY valACYclovir HCL [Valtrex] 2,000 mg PO BID PRN PRN Reason: Cold Sores Baclofen 5 mg PO DAILY Calcium Citrate/Vitamin D3 [Citracal + D Maximum Caplet] 2 tab PO BID Discontinued Losartan Potassium [Cozaar] 100 mg PO DAILY amLODIPine [Norvasc] 10 mg PO DAILY Discharge Medication List Escitalopram [Lexapro] 10 mg PO DAILY 02/21/22 [History] amantadine HCL [Amantadine] 100 mg PO QID 02/21/22 [History] Baclofen 5 mg PO DAILY 02/07/25 [History] Baclofen 10 mg PO HS 02/07/25 [History] Calcium Citrate/Vitamin D3 [Citracal + D Maximum Caplet] 2 tab PO BID 02/07/25 [History] Cholecalciferol (Vitamin D3) [Vitamin D3 (50 Mcg = 2000 Iu)] 50 mcg PO DAILY 02/07/25 [History] Docusate [Colace] 100 mg PO BID PRN 02/07/25 [History] Hydroxychloroquine Sulfate [Plaquenil] 300 mg PO DAILY 02/07/25 [History] Mirabegron [Myrbetriq] 50 mg PO DAILY 02/07/25 [History] Super B Complex Vitamin 1 cap PO DAILY 02/07/25 [History] Super K Vitamin 1 tab PO DAILY 02/07/25 [History] methocarbamoL [Robaxin] 125 mg PO TID PRN 02/07/25 [History] valACYclovir HCL [Valtrex] 2,000 mg PO BID PRN 02/07/25 [History] Acetaminophen Tab [Tylenol Tab] 650 mg PO Q4H PRN #30 tablet 02/16/25 [Rx] Amoxic-Pot Clav 875-125Mg [Augmentin 875-125] 1 tab PO Q12HR 10 Days #20 tab 02/16/25 [Rx] Fluconazole [Diflucan] 200 mg PO DAILY 10 Days #10 tablet 02/16/25 [Rx] Losartan [Cozaar] 25 mg PO DAILY tab 02/16/25 [Rx] Pantoprazole [Protonix] 40 mg PO DAILY 30 Days #30 tab 02/16/25 [Rx] Sennosides [Senokot] 8.6 mg PO BID PRN #14 tablet 02/16/25 [Rx] Follow up Appointment(s)/Referral(s): [facility] [place], [NON-STAFF] - As Needed Josesito Taylor MD [Primary Care Provider] - 1-2 days Anaya Grove DO [Doctor of Osteopathic Medicine] - 02/24/25 Activity/Diet/Wound Care/Special Instructions: No lifting over 10 pounds You may shower. No soaking or tub baths for 2 weeks Stay on a full liquid diet until seen by surgeon at follow up visit Discharge Disposition: TRANSFER TO SNF/ECF
[2025-02-16 14:56] VITALS: BP 117/70; PULSE 91; TEMP 97.6
--- NOTE | 2025-02-16 23:26 | P.PN ---
Subjective Progress Note Date: 02/16/25 Patient is evaluated for medical care. Multiple sclerosis family is concerned with worsening foot drop on the right side. PT is a following this patient and she will require subacute rehab on discharge. Patient does need to be able to transfer in order to discharge home. She is postoperative day #6 exploratory laparotomy, antrectomy, Bilroth II reconstruction. No reporting any significant pain today. JOHNNIE drain in place. Abdominal binder in place. Having bowel movements and tolerating clear liquid diet. Patient remains on IV Protonix. She continues on IV ampicillin and IV fluconazole. Biopsy revealed white blood cell count 10.41, hemoglobin 10.2, sodium of 142 potassium 3.8, BUN of 9.2 creatinine of 0.4. Magnesium 1.9. 02/14/2025 Patient evaluated today in follow up on the medical floor. No acute complaints overnight. Hemoglobin did drop to 5.1 today from 10.2 No acute signs of active bleeding. JOHNNIE drain with serosanguineous drainage. Patient currently tolerating a full liquid diet. 02/15/2025 Patient is eval today in follow-up in medical floor. Patient is no acute complaints overnight. She does state that she has some abdominal discomfort especially when she is sitting up and moving to the side and coughing. We will add an abdominal binder for support. Her wound VAC is in place midline incision and JOHNNIE drain is in place. She continues on IV fluconazole and IV Unasyn. Hem oglobin today 8.1. Bowels are moving and she is currently on a full liquid diet. 02/16/2025 Patient evaluated in follow-up in the medical floor. The Ximena pump was taken off of her midline incision and [place] are healing well. JOHNNIE drain remains in place. She has had a bowel movement 2 days ago. She is passing gas her abdomen is soft with mild tenderness around the surgical incision. Her lungs are clear she is alert oriented x 3. Hemoglobin remained stable at 8.3 white blood cell count 9.10. Sodium of 142 BUN of 8.8 creatinine 0.5. Patient has been afebrile heart rate of 91 normal sinus rhythm blood pressure 117/70 and she is 98% on room air. Review of Systems Constitutional: Denied any fatigue denied any fever. Cardio vascular: denied any chest pain, palpitations Gastrointestinal: denied any nausea, vomiting, diarrhea Pulmonary: Denied any shortness of breath cough Neurologic denied any new focal deficits All inpatient medications were reviewed and appropriate changes in these medications as dictated in the interval history and assessment and plan. PHYSICAL EXAMINATION: GENERAL: The patient is alert and oriented x3, not in any acute distress. Well developed, well nourished. HEENT: Pupils are round and equally reacting to light. EOMI. No scleral icterus. No conjunctival pallor. Normocephalic, atraumatic. No pharyngeal erythema. No thyromegaly. CARDIOVASCULAR: S1 and S2 present. No murmurs, rubs, or gallops. PULMONARY: Chest is clear to auscultation, no wheezing or crackles. ABDOMEN: Soft, nontender, nondistended, normoactive bowel sounds. No palpable o rganomegaly. MUSCULOSKELETAL: No joint swelling or deformity. EXTREMITIES: No cyanosis, clubbing, or pedal edema. NEUROLOGICAL: Gross neurological examination did not reveal any focal deficits. SKIN: No rashes. Assessment Gastric perforation s/p exploratory laparatomy antrectomy and Bilroth II reconstruction Anemia likely acute blood loss from surgery; no signs of active bleeding currently Leukocytosis Hyponatremia from poor oral intake Hypokalemia, hypomagnesemia Hypernatremia from free water deficit, improved Multiple sclerosis and medical debility Hypertension Anemia Anxiety/Depression GI prophylaxis DVT prophylaxis Plan Status post 2 units of PRBCs and hemoglobin is better at 8.1 with no signs of active bleeding. PT evaluation recommending JEFFY on discharge and authorization has been obtained for [facility] and patient will discharge today Patient to discharge on a course of antibiotic therapy with 10 days of oral Augmentin 10 days of oral Diflucan Continue full liquid diet per general surgery Continue to encourage IS 10 x an hour Continue pain management Monitor renal function and electrolytes The impression and plan of care has been dictated by Maria Luisa Marino, Nurse Practitioner as directed. Dr. Tj MD I have performed a history and physical examination and medical decision making of this patient, discussed the same with the dictator, and agree with the dictators assessment and plan as written, documented as a scribe. Based on total visit time, I have performed more than 50% of this visit. Objective - Vital Signs Vital signs: Vital Signs Temp 97.9 F 02/16/25 07:50 Pulse 83 02/16/25 07:50 Resp 16 02/16/25 07:50 BP 107/61 02/16/25 07:50 Pulse Ox 97 02/16/25 07:50 FiO2 Intake & Output 02/15/25 02/16/25 02/16/25 18:59 06:59 18:59 Output Total 1100 700 Balance -1100 -700 Output: Urine 1100 700 Other: Voiding Method Indwelling Catheter External Catheter - Labs CBC & Chem 7: 02/16/25 02:46 02/16/25 02:46 Labs: Abnormal Lab Results - Last 24 Hours (Table) 02/15/25 02/16/25 02/16/25 Range/Units 10:52 02:46 02:46 RBC 2.60 L 2.64 L (4.10-5.20) 10*6/uL Hgb 8.1 L 8.3 L (12.0-15.0) g/dL Hct 23.9 L 25.2 L (37.2-46.3) % RDW 15.2 H 15.7 H (11.5-14.5) % MPV 9.4 L (9.5-12.2) fL Immature Gran # 0.61 H (0.00-0.04) 10*3/uL Neutrophils # (Manual) 7.92 H (1.80-7.70) X 10*3/uL Lymphocytes # 0.75 L (0.90-5.00) 10*3/uL Lymphocytes # (Manual) 0.46 L (0.90-5.00) X 10*3/uL NRBC/100 WBC Diff 0.02 H (0.00-0.01) X 10*3/uL Crenated Cell 2+ A (None Seen) BUN 8.8 L (9.0-27.0) mg/dL Creatinine 0.5 L (0.6-1.5) mg/dL Calcium 8.3 L (8.7-10.3) mg/dL Assessment and Plan Time with Patient: Less than 30
--- NOTE | 2025-02-17 14:39 | P.PN ---
Subjective Progress Note Date: 02/15/25 Principal diagnosis: Reason for follow-up is perforated peptic ulcer disease and peritonitis Patient is a 55-year-old female with a past medical history taken for hypertension MS was brought into the hospital for abdominal pain nausea vomiting has been diagnosed with perforated peptic ulcer disease status post laparotomy antrectomy and Billroth II resection. On today's evaluation that is 02/15/2025, patient has been afebrile, patient is breathing comfortably and is currently on room air, patient denies having any chest pain and cough, patient denies nausea vomiting or diarrhea and improvement in her abdominal pain. Patient white count is 8.28 Objective - Vital Signs Vital signs: Vital Signs Temp 98.4 F 02/15/25 14:00 Pulse 81 02/15/25 14:00 Resp 17 02/15/25 14:00 BP 110/71 02/15/25 14:00 Pulse Ox 98 02/15/25 14:00 FiO2 Intake & Output 02/14/25 02/15/25 02/15/25 18:59 06:59 18:59 Intake Total 0 620 Output Total 1100 15 1100 Balance -1100 605 -1100 Intake: Blood Product 0 620 Rc As-1 Unit 310 [id number] Rc As-1 Unit 0 310 [id number] Output: Drainage 15 Abdomen 15 Urine 1100 1100 Other: Voiding Method Indwelling Catheter Indwelling Catheter # Voids 1,700 - Exam GENERAL DESCRIPTION: Middle-age female lying in bed in no distress RESPIRATORY SYSTEM: Unlabored breathing , decreased breath sounds at bases HEART: S1 S2 regular rate and rhythm , ABDOMEN: Soft , mild tenderness EXTREMITIES: No edema feet - Labs CBC & Chem 7: 02/16/25 02:46 02/16/25 02:46 Labs: Abnormal Lab Results - Last 24 Hours (Table) 02/14/25 02/15/25 02/15/25 Range/Units 14:13 03:04 03:04 RBC 2.65 L (4.10-5.20) 10*6/uL Hgb 8.2 L D (12.0-15.0) g/dL Hct 24.3 L (37.2-46.3) % RDW (11.5-14.5) % MPV 8.7 L (9.5-12.2) fL Immature Gran # 0.65 H (0.00-0.04) 10*3/uL Lymphocytes # 0.79 L (0.90-5.00) 10*3/uL PT 9.9 L (10.0-12.5) sec Creatinine (0.6-1.5) mg/dL Glucose (70-110) mg/dL Calcium (8.7-10.3) mg/dL Crossmatch See Detail 02/15/25 02/15/25 Range/Units 03:04 10:52 RBC 2.60 L (4.10-5.20) 10*6/uL Hgb 8.1 L (12.0-15.0) g/dL Hct 23.9 L (37.2-46.3) % RDW 15.2 H (11.5-14.5) % MPV 9.4 L (9.5-12.2) fL Immature Gran # 0.61 H (0.00-0.04) 10*3/uL Lymphocytes # 0.75 L (0.90-5.00) 10*3/uL PT (10.0-12.5) sec Creatinine 0.5 L (0.6-1.5) mg/dL Glucose 121 H (70-110) mg/dL Calcium 7.9 L (8.7-10.3) mg/dL Crossmatch Assessment and Plan (1) Sepsis Status: Acute Code(s): A41.9 - SEPSIS, UNSPECIFIED ORGANISM SNOMED Code(s): 11826853 (2) Perforated gastric ulcer Status: Acute Code(s): K25.5 - CHRONIC OR UNSPECIFIED GASTRIC ULCER WITH PERFORATION SNOMED Code(s): 0742951 (3) Peritonitis Status: Acute Code(s): K65.9 - PERITONITIS, UNSPECIFIED SNOMED Code(s): 41739692 Plan: 1patient presented hospital with sepsis in this patient who did have fever tachycardia elevated white count medically for SIRS/sepsis source is perforated gastric ulcer and concerning for peritonitis likely organism need to cover will be enteric gram-negative and Terri 2-patient is afebrile, white count i normalized, abdominal culture with Terri, Streptococcus oralis Streptococcus salivarius 3patient will be treated with Unasyn and Diflucan while inpatient transition to oral antibiotic on discharge Dictation was produced using dragon dictation software. please excuse any grammatical, word or spelling errors. Time with Patient: Less than 30
--- NOTE | 2025-02-17 14:40 | P.PN ---
Subjective Progress Note Date: 02/16/25 Principal diagnosis: Reason for follow-up is perforated peptic ulcer disease and peritonitis Patient is a 55-year-old female with a past medical history taken for hypertension MS was brought into the hospital for abdominal pain nausea vomiting has been diagnosed with perforated peptic ulcer disease status post laparotomy antrectomy and Billroth II resection. On today's evaluation that is 02/16/2025, patient has been afebrile, patient is breathing comfortably and is currently on room air, patient denies having any chest pain and cough, patient denies nausea vomiting or diarrhea and mention abdominal pain as significantly improved. Patient white count is 9.10, creatinine 0.5 Objective - Vital Signs Vital signs: Vital Signs Temp 97.9 F 02/16/25 07:50 Pulse 83 02/16/25 07:50 Resp 16 02/16/25 07:50 BP 107/61 02/16/25 07:50 Pulse Ox 97 02/16/25 07:50 FiO2 Intake & Output 02/15/25 02/16/25 02/16/25 18:59 06:59 18:59 Output Total 1100 700 Balance -1100 -700 Output: Urine 1100 700 Other: Voiding Method Indwelling Catheter External Catheter External Catheter - Exam GENERAL DESCRIPTION: Middle-age female lying in bed in no distress RESPIRATORY SYSTEM: Unlabored breathing , decreased breath sounds at bases HEART: S1 S2 regular rate and rhythm , ABDOMEN: Soft , mild tenderness EXTREMITIES: No edema feet - Labs CBC & Chem 7: 02/16/25 02:46 02/16/25 02:46 Labs: Abnormal Lab Results - Last 24 Hours (Table) 02/16/25 02/16/25 Range/Units 02:46 02:46 RBC 2.64 L (4.10-5.20) X 10*6/uL Hgb 8.3 L (12.0-15.0) g/dL Hct 25.2 L (37.2-46.3) % RDW 15.7 H (11.5-14.5) % Neutrophils # (Manual) 7.92 H (1.80-7.70) X 10*3/uL Lymphocytes # (Manual) 0.46 L (0.90-5.00) X 10*3/uL NRBC/100 WBC Diff 0.02 H (0.00-0.01) X 10*3/uL Crenated Cell 2+ A (None Seen) BUN 8.8 L (9.0-27.0) mg/dL Creatinine 0.5 L (0.6-1.5) mg/dL Calcium 8.3 L (8.7-10.3) mg/dL Assessment and Plan (1) Sepsis Status: Acute Code(s): A41.9 - SEPSIS, UNSPECIFIED ORGANISM SNOMED Code(s): 03121961 (2) Perforated gastric ulcer Status: Acute Code(s): K25.5 - CHRONIC OR UNSPECIFIED GASTRIC ULCER WITH PERFORATION SNOMED Code(s): 8731913 (3) Peritonitis Status: Acute Code(s): K65.9 - PERITONITIS, UNSPECIFIED SNOMED Code(s): 31599648 Plan: 1patient presented hospital with sepsis in this patient who did have fever tachycardia elevated white count medically for SIRS/sepsis source is perforated gastric ulcer and concerning for peritonitis likely organism need to cover will be enteric gram-negative and Terri 2-patient is afebrile, white count i normalized, abdominal culture with Terri, Streptococcus oralis Streptococcus salivarius 3patient has shown clinical improvement with Unasyn and Diflucan will finish therapy with oral Augmentin and Diflucan discussed with the surgical CORRECTIONS UNIT SUPERVISOR working on discharge Dictation was produced using [employer] dictation software. please excuse any grammatical, word or spelling errors. Time with Patient: Less than 30
== END 2025-02-16 18:54 | DRG 326 ==
LOC: EC 10:14 → 4SSUR 13:22
PROVIDERS: ADMIT Surgery; ATTEND Surgery
PROC: 0DB70ZZ Excision of Stomach, Pylorus, Open Approach (ICD-10-PCS; 2025-02-07)
PROC: 0D160ZA Bypass Stomach to Jejunum, Open Approach (ICD-10-PCS; principal; 2025-02-07 13:16)
DX: K25.5 Chronic or unspecified gastric ulcer with perforation (principal); K65.8 Other peritonitis; B37.89 Other sites of candidiasis; E87.0 Hyperosmolality and hypernatremia; E87.1 Hypo-osmolality and hyponatremia; K66.8 Other specified disorders of peritoneum; G35 Multiple sclerosis; I10 Essential (primary) hypertension; F32.A Depression, unspecified; N17.9 Acute kidney failure, unspecified; D62 Acute posthemorrhagic anemia; R44.3 Hallucinations, unspecified; B95.4 Other streptococcus as the cause of diseases classified elsewhere; E87.6 Hypokalemia; E83.42 Hypomagnesemia; R74.01 Elevation of levels of liver transaminase levels; F41.9 Anxiety disorder, unspecified; R53.81 Other malaise; M21.371 Foot drop, right foot; Z79.1 Long term (current) use of non-steroidal anti-inflammatories (NSAID); Z79.899 Other long term (current) drug therapy; Z74.01 Bed confinement status
CPT/HCPCS: 36415; 71045; 71275; 74177; 74246; 80048; 80051; 80053; 82150; 83605; 83690; 83735; 85025; 85610; 85730; 86850; 86900; 86901; 86920; 87040; 87070; 87075; 87077; 87186; 87205; 88305; 88342; 96361; 96365; 96375; 99285

== ENCOUNTER 2025-02-27 11:13 | Inpatient (IN) | payer MEDICARE ==
--- NOTE | 2025-02-27 12:22 | CT ---
EXAMINATION TYPE: CT brain maddyine wo con DATE OF EXAM: 02/27/2025 12:09 PM COMPARISON: None. CLINICAL INDICATION: Female, 55 years old with history of fall/ head injury, AMS. Fall, hit head., pa in TECHNIQUE: CT of the brain is performed utilizing 3 mm thick sections through the posterior fossa and 3 mm thick sections through the remaining calvarium. Study is performed within 24 hours of arrival to the hospital. Contrast used: mL of , (none if empty) CT DLP: 1391.8 mGycm, Automated exposure control for dose reduction was used. FINDINGS: No abnormal hyperdensity is present to suggest an acute intracranial hemorrhage. No mass lesion is evident. No acute infarcts are evident. There are focal hypodensities measuring 0.6 on the left and 1.0 cm on the right within the centrum semiovale. These have an atypical appearance for microvascular ischemic change. Subcortical infarct or underlying vasogenic edema should be considered. Follow-up with contr asted MRI. Ventricles and sulci are appropriate for the patient age. Paranasal sinuses and mastoid air cells within the [id number] are clear. IMPRESSIONS: 1. Atypical focal hypodensity within the centrum semiovale bilaterally. Subcortical infarcts, vasogen ic edema, multiple sclerosis in addition to microvascular ischemic change could be within the differe ntial. Contrast-enhanced MRI recommended for additional evaluation. CT cervical spine. COMPARISON: None TECHNIQUE: CT of the cervical spine is performed in the axial plane at 2 mm thick sections. Reconstr ucted images in the coronal, and sagittal plane are reviewed on the computer. FINDINGS: No acute fractures are evident. Vertebral body alignment is normal. Prevertebral space and posterior spinal lamellar line appear inta ct. Disc space narrowing is present, greatest at the C4-5 and C5-6 levels. Vertebral body heights are preserved. No spinal canal stenosis is evident. Uncovertebral joint hypertrophy contributing to foraminal narrowing within the cervical spine. IMPRESSION: 1. Degenerative disc changes mid cervical spine. 2. Foraminal narrowing. 3. No acute osseous abnormality radiographically apparent. [facility], , 02/27/2025 12:20 PM
[2025-02-27 13:28] LABS: Basophils # (A) 0.07 10*3/uL (0.00-0.10); Basophils % (A) 0.8 %; Eosinophils # (A) 0.10 10*3/uL (0.04-0.35); Eosinophils % (A) 1.1 %; HCT 27.8 % (37.2-46.3); HGB 9.3 g/dL (12.0-15.0); Lymphocytes # (A) 0.82 10*3/uL (0.90-5.00); Lymphocytes % (A) 9.1 %; MCH 31.1 pg (27.0-32.0); MCHC 33.5 g/dL (32.0-37.0); MCV 93.0 fL (80.0-97.0); Monocytes # (A) 0.66 10*3/uL (0.20-1.00); Monocytes % (A) 7.4 %; Neutrophils # (A) 7.28 10*3/uL (1.80-7.70); Neutrophils % (A) 81.2 %; Platelet Count 504 10*3/uL (140-440); RBC 2.99 10*6/uL (4.10-5.20); RDW 14.5 % (11.5-14.5); WBC 8.97 10*3/uL (4.50-10.00)
[2025-02-27 13:39] LABS: ALT 38 U/L (4-34); AST 31 U/L (14-36); African American GFR (CKD) >90 (>60 ml/min/1.73 sqM); Albumin 3.8 g/dL (3.5-5.0); Alkaline Phosphatase 146 U/L (38-126); Anion Gap 12 mmol/L; Blood Urea Nitrogen 13 mg/dL (7-17); Calcium 9.9 mg/dL (8.4-10.2); Carbon Dioxide 22 mmol/L (22-30); Chloride 103 mmol/L (98-107); Glucose 94 mg/dL (74-99); Non-African American GFR(CKD) >90 (>60 ml/min/1.73 sqM); Potassium 4.0 mmol/L (3.5-5.1); Sodium 137 mmol/L (137-145); Total Protein 6.1 g/dL (6.3-8.2)
[2025-02-27 13:56] LABS: Bilirubin,Urine Negative (Negative); Blood,Urine Negative (Negative); Color,Urine Colorless; Glucose,Urine (UA) Negative (Negative); Ketones,Urine Negative (Negative); Leukocyte Esterase,Urine Negative (Negative); Nitrite,Urine Negative (Negative); PH, Urine 6.5 (5.0-8.0); Protein,Urine Negative (Negative); Specific Gravity,Urine 1.004 (1.001-1.035); Urobilinogen,Urine <2.0 mg/dL (<2.0)
[2025-02-27] MEDS: SODIUM CHLORIDE 0.9% 1,000 ML IV ONE (14:33)
[2025-02-27] MEDS ORDERED: NALOXONE 0.4 MG/ML 1 ML VIAL IV PRN (14:44)
--- NOTE | 2025-02-27 14:59 | ED ---
General Adult HPI - General Chief complaint: Fall Stated complaint: AMS Time Seen by Provider: 02/27/25 11:14 Source: patient, family, EMS, RN notes reviewed, old records reviewed Mode of arrival: EMS Limitations: altered mental status - History of Present Illness Initial comments: 55-year-old female history of MS presents with altered mental status and fall. The change in mental status has occurred over the past 4 days. Family members had noted this change with confusion and hallucination. Patient had an outpatient urinalysis test performed yesterday and family is not aware of the results but there was concern for UTI. There is been no fever or vomiting. Patient is nonambulatory at baseline and apparently fell from her bed reaching for something. There was head injury without loss consciousness. - Related Data Home Medications Medication Instructions Recorded Confirmed Escitalopram [Lexapro] 10 mg PO DAILY 02/21/22 02/07/25 amantadine HCL [Amantadine] 100 mg PO QID 02/21/22 02/07/25 Baclofen 5 mg PO DAILY 02/07/25 02/07/25 Baclofen 10 mg PO HS 02/07/25 02/07/25 Calcium Citrate/Vitamin D3 2 tab PO BID 02/07/25 02/07/25 [Citracal + D Maximum Caplet] Cholecalciferol (Vitamin D3) 50 mcg PO DAILY 02/07/25 02/07/25 [Vitamin D3 (50 Mcg = 2000 Iu)] Docusate [Colace] 100 mg PO BID PRN 02/07/25 02/07/25 Hydroxychloroquine Sulfate 300 mg PO DAILY 02/07/25 02/07/25 [Plaquenil] Mirabegron [Myrbetriq] 50 mg PO DAILY 02/07/25 02/07/25 Super B Complex Vitamin 1 cap PO DAILY 02/07/25 02/07/25 Super K Vitamin 1 tab PO DAILY 02/07/25 02/07/25 methocarbamoL [Robaxin] 125 mg PO TID PRN 02/07/25 02/07/25 valACYclovir HCL [Valtrex] 2,000 mg PO BID PRN 02/07/25 02/07/25 Previous Rx's Medication Instructions Recorded Acetaminophen Tab [Tylenol Tab] 650 mg PO Q4H PRN #30 tablet 02/16/25 Amoxic-Pot Clav 875-125Mg 1 tab PO Q12HR 10 Days #20 tab 02/16/25 [Augmentin 875-125] Fluconazole [Diflucan] 200 mg PO DAILY 10 Days #10 tablet 02/16/25 Losartan [Cozaar] 25 mg PO DAILY tab 02/16/25 Pantoprazole [Protonix] 40 mg PO DAILY 30 Days #30 tab 02/16/25 Sennosides [Senokot] 8.6 mg PO BID PRN #14 tablet 02/16/25 Allergies Allergy/AdvReac Type Severity Reaction Status Date / Time gadobenate dimeglumine Allergy Mild Rash/Hives Verified 02/27/25 14:51 [From Multihance] diazepam [From Valium] Allergy Unknown Verified 02/27/25 14:51 Review of Systems ROS Statement: Those systems with pertinent positive or pertinent negative responses have been documented in the HPI. ROS Other: All systems not noted in ROS Statement are negative. Past Medical History Past Medical History: Eye Disorder, Hypertension, Neurologic Disorder Additional Past Medical History / Comment(s): MS. LESIONS ON CORNEA FROM MS. History of Any Multi-Drug Resistant Organisms: None Reported Past Surgical History: Hysterectomy Additional Past Surgical History / Comment(s): PARTIAL HYSTERECTOMY. Past Anesthesia/Blood Transfusion Reactions: No Reported Reaction Past Psychological History: Anxiety, Depression Smoking Status: Never smoker Past Alcohol Use History: None Reported Past Drug Use History: None Reported - Past Family History Mother Family Medical History: Osteoarthritis (OA) Father Family Medical History: Cancer, Hyperlipidemia Additional Family Medical History / Comment(s): PROSTATE CANCER. General Exam Limitations: altered mental status General appearance: alert, in no apparent distress Head exam: Present: normocephalic Eye exam: Present: normal appearance, PERRL ENT exam: Present: mucous membranes dry Neck exam: Present: normal inspection. Absent: tenderness, meningismus Respiratory exam: Present: normal lung sounds bilaterally. Absent: respiratory distress, wheezes Cardiovascular Exam: Present: regular rate, normal rhythm GI/Abdominal exam: Present: soft, other (Surgical bandages clean dry and intact) Neurological exam: Present: alert, oriented X3 (Slow respond but able to answer questions). Absent: motor sensory deficit Skin exam: Present: warm, dry, intact Course Vital Signs 02/27/25 11:15 Temperature 98.6 F Pulse Rate 88 Respiratory 18 Rate Blood Pressure 119/69 O2 Sat by Pulse 100 Oximetry Medical Decision Making - Medical Decision Making Was pt. sent in by a medical professional or institution ([facility]ANCHITO Polanco, [employer], urgent care, hospital, or shelter...) When possible be specific @ -No Did you speak to anyone other than the patient for history (EMS, parent, family, police, friend...)? What history was obtained from this source @ -No Did you review nursing and triage notes (agree or disagree)? Why? @ -I reviewed and agree with nursing and triage notes Were old charts reviewed (outside hosp., previous admission, EMS record, old EKG, old radiological studies, urgent care reports/EKG's, shelter records)? Report findings @ -No old charts were reviewed Differential Altered Mental Status: Hypoglycemia, DKA, hypercapnia, ETOH, overdose, CO poisoning, trauma, myxedema coma, HTN encephalopathy, infection, encephalitis, psychosis, intercranial hemorrhage, hepatic encephalopathy, meningitis, CVA, this is not meant to be an all-inclusive list EKG interpreted by me (3pts min.). @ -As above X-rays interpreted by me (1pt min.). @2 view chest x-ray negative for consolidative pneumonia or pneumothorax CT interpreted by me (1pt min.). @ -CT is negative for intracranial hemorrhage, showing atypical hypodensities possibly MS U/S interpreted by me (1pt. min.). @ -None done What testing was considered but not performed or refused? (CT, X-rays, U/S, labs)? Why? @ -None What meds were considered but not given or refused? Why? @ -None Did you discuss the management of the patient with other professionals (professionals i.e. PANCHITO Polanco, [employer], lab, RT, psych nurse, social media content specialist, senior ui designer, teacher, air defence officer, home health care case manager)? Give summary @Patient admitted to Dr. Cool who is aware the patient Was smoking cessation discussed for >3mins.? @ -No Was critical care preformed (if so, how long)? @ -No Were there social determinants of health that impacted care today? How? (Homelessness, low income, unemployed, alcoholism, drug addiction, transportation, low edu. Level, literacy, decrease access to med. care, prison, rehab)? @ -No Was there de-escalation of care discussed even if they declined (Discuss DNR or withdrawal of care, Hospice)? DNR status @ -No What co-morbidities impacted this encounter? (DM, HTN, Smoking, COPD, CAD, Cancer, CVA, ARF, Chemo, Hep., AIDS, mental health diagnosis, sleep apnea, morbid obesity)? @ -MS Was patient admitted / discharged? Hospital course, mention meds given and route, prescriptions, significant lab abnormalities, going to OR and other pertinent info. @ -[55-year-old with altered mental status confusion, fall. Fall occurred after the change in mental status. Head CT is negative for intracranial hemorrhage, showing hypodensities which are atypical but likely on the basis of MS in this patient. Patient has anemia which is improved from prior no leukocytosis, normal electrolytes, negative urinalysis. Patient will be admitte d to internal medicine with neurology on consult for this acute change in mental status. Undiagnosed new problem with uncertain prognosis? @ -No Drug Therapy requiring intensive monitoring for toxicity (Heparin, Nitro, Insulin, Cardizem)? @ -No Were any procedures done? @ -No Diagnosis/symptom? @Altered mental status, history of MS Acute, or Chronic, or Acute on Chronic? @Acute Uncomplicated (without systemic symptoms) or Complicated (systemic symptoms)? @Complicated Side effects of treatment? @ -No Exacerbation, Progression, or Severe Exacerbation? @ -No Poses a threat to life or bodily function? How? (Chest pain, [place], [place], pneumonia, PE, COPD, DKA, ARF, appy, cholecystitis, CVA, Diverticulitis, Homicidal, Suicidal, threat to staff... and all critical care pts) @ -Yes, delirium - Lab Data Result diagrams: 02/27/25 13:22 02/27/25 13:22 Lab Results 02/27/25 02/27/25 02/27/25 Range/Units 13:22 13:22 13:46 WBC 8.97 (4.50-10.00) 10*3/uL RBC 2.99 L (4.10-5.20) 10*6/uL Hgb 9.3 L (12.0-15.0) g/dL Hct 27.8 L (37.2-46.3) % MCV 93.0 (80.0-97.0) fL MCH 31.1 (27.0-32.0) pg MCHC 33.5 (32.0-37.0) g/dL Plt Count 504 H (140-440) 10*3/uL MPV 8.4 L (9.5-12.2) fL Immature Gran % (Auto) 0.4 % Neutrophils % 81.2 % Lymphocytes % 9.1 % Monocytes % 7.4 % Eosinophils % 1.1 % Basophils % 0.8 % Immature Gran # 0.04 (0.00-0.04) 10*3/uL Neutrophils # 7.28 (1.80-7.70) 10*3/uL Lymphocytes # 0.82 L (0.90-5.00) 10*3/uL Monocytes # 0.66 (0.20-1.00) 10*3/uL Eosinophils # 0.10 (0.04-0.35) 10*3/uL Basophils # 0.07 (0.00-0.10) 10*3/uL Sodium 137 (137-145) mmol/L Potassium 4.0 (3.5-5.1) mmol/L Chloride 103 (98-107) mmol/L Carbon Dioxide 22 (22-30) mmol/L Anion Gap 12 mmol/L BUN 13 (7-17) mg/dL Creatinine 0.64 (0.52-1.04) mg/dL Est GFR (CKD-EPI)AfAm >90 (>60 ml/min/1.73 sqM) Est GFR (CKD-EPI)NonAf >90 (>60 ml/min/1.73 sqM) Glucose 94 (74-99) mg/dL Calcium 9.9 (8.4-10.2) mg/dL Total Bilirubin 0.6 (0.2-1.3) mg/dL AST 31 (14-36) U/L ALT 38 H (4-34) U/L Alkaline Phosphatase 146 H (38-126) U/L Total Protein 6.1 L (6.3-8.2) g/dL Albumin 3.8 (3.5-5.0) g/dL Urine Color Colorless Urine Appearance Clear (Clear) Urine pH 6.5 (5.0-8.0) Ur Specific [place] 1.004 (1.001-1.035) Urine Protein Negative (Negative) Urine Glucose (UA) Negative (Negative) Urine Ketones Negative (Negative) Urine Blood Negative (Negative) Urine Nitrite Negative (Negative) Urine Bilirubin Negative (Negative) Urine Urobilinogen <2.0 (<2.0) mg/dL Ur Leukocyte Esterase Negative (Negative) Disposition Clinical Impression: Fall, AMS (altered mental status) Disposition: ADMITTED IP TO THIS HOSP Condition: Stable Is patient prescribed a controlled substance at d/c from ED?: No Referrals: Josesito Taylor MD [Primary Care Provider] - 1-2 days Time of Disposition: 14:58
--- NOTE | 2025-02-27 15:03 | XR ---
EXAMINATION TYPE: XR chest 2V DATE OF EXAM: 02/27/2025 2:57 PM COMPARISON: 02/09/2025 CLINICAL INDICATION: Female, 55 years old with history of STACIE, TECHNIQUE: XR chest 2V view(s) obtained. FINDINGS: The heart size is normal. The pulmonary vasculature is normal. The lungs are clear. IMPRESSION: 1. No acute pulmonary process. [facility], , 02/27/2025 3:01 PM
[2025-02-27] MEDS: SODIUM CHLORIDE 0.9% 1,000 ML IV SCH (16:17)
[2025-02-27] MEDS ORDERED: DOCUSATE 100 MG CAP PO PRN (21:43)
[2025-02-27] MEDS ORDERED: ONDANSETRON ODT 4 MG TAB PO PRN (21:43)
[2025-02-27] MEDS ORDERED: SENNOSIDES 8.6 MG TAB PO PRN (21:43)
[2025-02-27] MEDS ORDERED: HALOPERIDOL LACTATE 5 MG/ML 1 ML VIAL IVP PRN (21:45)
--- NOTE | 2025-02-27 22:38 | HP ---
HISTORY AND PHYSICAL CHIEF COMPLAINT: Change in mental status and fall. HISTORY OF PRESENT ILLNESS: This 55-year-old woman with a past medical history of multiple complex medical issues, recently admitted with gastric perforation and the patient underwent exploratory laparotomy, antrectomy, and Billroth II reconstruction. The patient also had history of multiple sclerosis. The patient had acute delirium while in the hospital, but currently the patient is in the rehab. In the rehab, the patient had progressively confused. The patient had a fall and the patient also had spasms and hallucinations. The patient was taken to [facility], admitted for evaluation and treatment. There is no history of any fever, rigors, or chills. The patient is concerned about PML because of her medications taking for MS. The CAT scan showed possibly subcortical infarcts and hypodense areas. PAST MEDICAL HISTORY: Reviewed include MS, recent surgery. Rest of the chart is also reviewed. HOME MEDICATIONS: Reviewed. Zofran. Dose and rest of medications reviewed. ALLERGIES: Valium. Rest of allergies reviewed. FAMILY HISTORY: History of prostate cancer. SOCIAL HISTORY: No history of smoking or alcohol. REVIEW OF SYSTEMS: The patient is mildly confused. PHYSICAL EXAMINATION: VITAL SIGNS: Pulse 98, blood pressure 120/70, and respirations 17. HEENT: Conjunctivae normal. NECK: No jugular venous distention. No neck stiffness. CARDIOVASCULAR: S1, S2. RESPIRATION: Clear to auscultation. ABDOMEN: Soft. Status post recent surgery. EXTREMITIES: Legs, no edema, no cyanosis. NERVOUS SYSTEM: Nonfocal. LABORATORY DATA: Reviewed. ASSESSMENT: 1. Change in mental status, possible acute delirium and metabolic encephalopathy. 2. Rule out acute stroke. 3. Anemia. 4. Rule out sepsis. 5. History of recent gastric perforation, exploratory laparotomy, antrectomy, and Billroth II reconstruction. 6. History of electrolyte abnormality. 7. History of multiple sclerosis. 8. History of fall. RECOMMENDATION: This 55-year-old woman who presented with multiple complex medical issues. We will monitor the patient closely. Continue the current medications and symptomatic treatment. I would treat the patient empirically. Obtain cultures. Surgical consultation. Neurology consultation. Antiplatelet agents. Complete neurovascular workup. Prognosis extremely guarded because of multiple complex medical issues which I discussed at length with the family at the bedside. The patient will require more than 2 midnights stay in the hospital as a full admit for evaluation and treatment of the above-mentioned multiple medical issues. MMODL / IJN: [id number] /
[2025-02-28] MEDS: ACETAMINOPHEN TAB 325 MG TAB PO PRN (00:19)
--- NOTE | 2025-02-28 01:10 | CT ---
EXAM: CT Abdomen and Pelvis Without Intravenous Contrast CLINICAL HISTORY: ITS.REASON CT Reason: sepsis, recent surgery TECHNIQUE: Axial computed tomography images of the abdomen and pelvis without intravenous contrast. CTDI is 6.5 mGy and DLP is 349.8 mGy-cm. This CT exam was performed using one or more of the following dose reduction techniques: automated exposure control, adjustment of the mA and/or kV according to patient size, and/or use of iterative reconstruction technique. COMPARISON: No relevant prior studies available. FINDINGS: Lung bases: Unremarkable. No mass. No consolidation. ABDOMEN: Liver: Unremarkable. Gallbladder and bile ducts: Unremarkable. No calcified stones. No ductal dilation. Pancreas: Unremarkable. No ductal dilation. Spleen: Unremarkable. No splenomegaly. Adrenals: Unremarkable. No mass. Kidneys and ureters: Nonobstructing left-sided renal stones, measuring up to 6 mm in the left upper pole. Stomach and bowel: Wall thickening of small bowel, concerning for enteritis. Recent laparotomy with Billroth reconstruction. No bowel obstruction. No free air. Oral contrast is present within the colon. PELVIS: Appendix: No findings to suggest acute appendicitis. Bladder: Unremarkable. No stones. Reproductive: Unremarkable as visualized. ABDOMEN and PELVIS: Intraperitoneal space: See above. Bones/joints: No acute fracture. No dislocation. Soft tissues: Unremarkable. Vasculature: Unremarkable. No abdominal aortic aneurysm. Lymph nodes: Unremarkable. No enlarged lymph nodes. IMPRESSION: 1. Wall thickening of small bowel, concerning for enteritis. 2. Nonobstructing left-sided renal stones, measuring up to 6 mm in the left upper pole. 3. Recent laparotomy with Billroth reconstruction. No bowel obstruction. No free air.
[2025-02-28 09:28] LABS: Basophils # (A) 0.07 X 10*3/uL (0.00-0.10); Basophils % (A) 1.0 %; Eosinophils # (A) 0.14 X 10*3/uL (0.04-0.35); Eosinophils % (A) 2.0 %; HCT 29.0 % (37.2-46.3); HGB 8.9 g/dL (12.0-15.0); Immature Grans, Automated 0.30 %; Lymphocytes # (A) 0.65 X 10*3/uL (0.90-5.00); Lymphocytes % (A) 9.5 %; MCH 30.3 pg (27.0-32.0); MCHC 30.7 g/dL (32.0-37.0); MCV 98.6 FL (80.0-97.0); Monocytes # (A) 0.54 X 10*3/uL (0.20-1.00); Monocytes % (A) 7.9 %; NRBC Per 100 WBC 0 X 10*3/uL (0.00-0.01); Neutrophils # (A) 5.44 X 10*3/uL (1.80-7.70); Neutrophils % (A) 79.3 %; Platelet Count 453 X 10*3/uL (140-440); RBC 2.94 X 10*6/uL (4.10-5.20); RDW 14.7 % (11.5-14.5); WBC 6.86 X 10*3/uL (4.50-10.00)
[2025-02-28] MEDS: HYDROXYCHLOROQUINE SULFATE 200 MG TAB PO SCH (10:33)
[2025-02-28] MEDS: PANTOPRAZOLE 40 MG TABLET PO SCH (10:35)
[2025-02-28] MEDS: LOSARTAN 50 MG TAB PO SCH (10:35)
[2025-02-28] MEDS: LACTULOSE 20 GM/30 ML CUP PO SCH (10:50)
[2025-02-28] MEDS: LOSARTAN 25 MG TAB PO SCH (10:50)
[2025-02-28] MEDS: ESCITALOPRAM 10 MG TAB PO SCH (10:50)
[2025-02-28] MEDS: CALCIUM CARB-VIT D 500 MG-5 MCG TAB PO SCH (10:50)
[2025-02-28] MEDS: CYANOCOBALAMIN 500 MCG TAB PO SCH (10:50)
[2025-02-28] MEDS: CHOLECALCIFEROL 25 MCG (1000 IU) TABLET PO SCH (10:57)
--- NOTE | 2025-02-28 12:03 | P.GSCN ---
History of Present Illness History of present illness: Patient is a 55-year-old female presenting to [facility] secondary to altered mental status and weakness she reportedly having a witnessed fall out of the bed. General surgery was consulted secondary to recent surgery/hospitalization. Patient is altered currently denies abdominal pain nausea vomiting fevers chills shortness of breath or chest pain. Review of Systems - Constitutional Reports as per HPI Past Medical History Past Medical History: Eye Disorder, Hypertension, Neurologic Disorder Additional Past Medical History / Comment(s): MS. LESIONS ON CORNEA FROM MS. History of Any Multi-Drug Resistant Organisms: None Reported Past Surgical History: Hysterectomy Additional Past Surgical History / Comment(s): PARTIAL HYSTERECTOMY. Billroth II 02/07 Past Anesthesia/Blood Transfusion Reactions: No Reported Reaction Past Psychological History: Anxiety, Depression Smoking Status: Never smoker Past Alcohol Use History: None Reported Past Drug Use History: None Reported - Past Family History Mother Family Medical History: Osteoarthritis (OA) Father Family Medical History: Cancer, Hyperlipidemia Additional Family Medical History / Comment(s): PROSTATE CANCER. Medications and Allergies Home Medications Medication Instructions Recorded Confirmed Type Escitalopram [Lexapro] 10 mg PO DAILY 02/21/22 02/27/25 History amantadine HCL [Amantadine] 100 mg PO QID 02/21/22 02/27/25 History Calcium Citrate/Vitamin D3 2 tab PO BID 02/07/25 02/27/25 History [Citracal + D Maximum Caplet] Docusate [Colace] 100 mg PO BID PRN 02/07/25 02/27/25 History Hydroxychloroquine Sulfate 300 mg PO DAILY 02/07/25 02/27/25 History [Plaquenil] Mirabegron [Myrbetriq] 50 mg PO DAILY 02/07/25 02/27/25 History methocarbamoL [Robaxin] 125 mg PO TID PRN 02/07/25 02/27/25 History valACYclovir HCL [Valtrex] 2,000 mg PO BID PRN 02/07/25 02/27/25 History Acetaminophen Tab [Tylenol Tab] 650 mg PO Q4H PRN #30 tablet 02/16/25 02/27/25 Rx Losartan [Cozaar] 25 mg PO DAILY tab 02/16/25 02/27/25 Rx Pantoprazole [Protonix] 40 mg PO DAILY 30 Days #30 tab 02/16/25 02/27/25 Rx Sennosides [Senokot] 8.6 mg PO BID PRN #14 tablet 02/16/25 02/27/25 Rx Acetaminophen Tab [Tylenol] 650 mg PO BID 02/27/25 02/27/25 History Cefuroxime [Ceftin] 250 mg PO BID 02/27/25 02/27/25 History Cholecalciferol [Vitamin D3 (25 50 mcg PO DAILY 02/27/25 02/27/25 History Mcg = 1000 Iu)] Cyanocobalamin [Vitamin B-12] 500 mcg PO DAILY 02/27/25 02/27/25 History Lactulose [Cephulac] 10 gm PO DAILY 02/27/25 02/27/25 History Losartan Potassium [Cozaar] 100 mg PO DAILY 02/27/25 02/27/25 History Ondansetron [Zofran] 4 mg PO Q6H PRN 02/27/25 02/27/25 History amLODIPine [Norvasc] 5 mg PO HS 02/27/25 02/27/25 History traMADol HCL 50 mg PO Q6H PRN 02/27/25 02/27/25 History Allergies Allergy/AdvReac Type Severity Reaction Status Date / Time gadobenate dimeglumine Allergy Mild Rash/Hives Verified 02/27/25 14:51 [From Multihance] diazepam [From Valium] Allergy Unknown Verified 02/27/25 14:51 Surgical - Exam Osteopathic Statement: *. No significant issues noted on an osteopathic structural exam other than those noted in the History and Physical/Consult. Vital Signs Temp Pulse Resp BP Pulse Ox 98.6 F 88 18 119/69 100 02/27/25 11:15 02/27/25 11:15 02/27/25 11:15 02/27/25 11:15 02/27/25 11:15 General No acute distress ANO x 1 HEENT small bruise size swelling in the frontal portion of head normocephalic eyes PERRLA oral mucosa moist no neck masses appreciated Cardiovascular regular rhythm Pulmonary nonlabored breathing Abdomen soft nontender nondistended no guarding rebound tenderness surgical incisions clean dry and intact Results - Labs 02/28/25 04:59 02/27/25 13:22 Abnormal Lab Results - Last 24 Hours (Table) 02/27/25 02/27/25 02/28/25 Range/Units 13:22 13:22 04:59 RBC 2.99 L 2.94 L (4.10-5.20) 10*6/uL Hgb 9.3 L 8.9 L (12.0-15.0) g/dL Hct 27.8 L 29.0 L (37.2-46.3) % MCV 98.6 H (80.0-97.0) FL MCHC 30.7 L (32.0-37.0) g/dL RDW 14.7 H (11.5-14.5) % Plt Count 504 H 453 H (140-440) 10*3/uL MPV 8.4 L 8.7 L (9.5-12.2) fL Lymphocytes # 0.82 L 0.65 L (0.90-5.00) 10*3/uL ALT 38 H (4-34) U/L Alkaline Phosphatase 146 H (38-126) U/L Total Protein 6.1 L (6.3-8.2) g/dL Diabetes panel 02/27/25 Range/Units 13:22 Sodium 137 (137-145) mmol/L Potassium 4.0 (3.5-5.1) mmol/L Chloride 103 (98-107) mmol/L Carbon Dioxide 22 (22-30) mmol/L BUN 13 (7-17) mg/dL Creatinine 0.64 (0.52-1.04) mg/dL Glucose 94 (74-99) mg/dL Calcium 9.9 (8.4-10.2) mg/dL AST 31 (14-36) U/L ALT 38 H (4-34) U/L Alkaline Phosphatase 146 H (38-126) U/L Total Protein 6.1 L (6.3-8.2) g/dL Albumin 3.8 (3.5-5.0) g/dL Calcium panel 02/27/25 Range/Units 13:22 Calcium 9.9 (8.4-10.2) mg/dL Albumin 3.8 (3.5-5.0) g/dL Pituitary panel 02/27/25 Range/Units 13:22 Sodium 137 (137-145) mmol/L Potassium 4.0 (3.5-5.1) mmol/L Chloride 103 (98-107) mmol/L Carbon Dioxide 22 (22-30) mmol/L BUN 13 (7-17) mg/dL Creatinine 0.64 (0.52-1.04) mg/dL Glucose 94 (74-99) mg/dL Calcium 9.9 (8.4-10.2) mg/dL Adrenal panel 02/27/25 Range/Units 13:22 Sodium 137 (137-145) mmol/L Potassium 4.0 (3.5-5.1) mmol/L Chloride 103 (98-107) mmol/L Carbon Dioxide 22 (22-30) mmol/L BUN 13 (7-17) mg/dL Creatinine 0.64 (0.52-1.04) mg/dL Glucose 94 (74-99) mg/dL Calcium 9.9 (8.4-10.2) mg/dL Total Bilirubin 0.6 (0.2-1.3) mg/dL AST 31 (14-36) U/L ALT 38 H (4-34) U/L Alkaline Phosphatase 146 H (38-126) U/L Total Protein 6.1 L (6.3-8.2) g/dL Albumin 3.8 (3.5-5.0) g/dL Assessment and Plan Assessment: 55-year-old female status post Billroth II secondary to gastric perforation Okay for regular diet Pain management as tolerated Repeat CT head for altered mental status, added ammonia level, review chest x- ray, reviewed UA, awaiting blood cultures Time with Patient: Less than 30
[2025-02-28 13:02] LABS: ALT 35 U/L (8-44); AST 22 U/L (13-35); Albumin 3.6 g/dL (3.8-4.9); Albumin/Globulin Ratio 1.89 Ratio (1.60-3.17); Alkaline Phosphatase 133 U/L (41-126); Anion Gap 10.70 mmol/L (4.00-12.00); BUN/Creat Ratio 8.71 Ratio (12.00-20.00); Blood Urea Nitrogen 6.1 mg/dL (9.0-27.0); Calcium 8.7 mg/dL (8.7-10.3); Carbon Dioxide 21.3 mmol/L (21.6-31.8); Chloride 112 mmol/L (96-109); Globulin 1.9 g/dL (1.6-3.3); Glucose 86 mg/dL (70-110); Potassium 3.8 mmol/L (3.5-5.5); Sodium 144 mmol/L (135-145); Total Protein 5.5 g/dL (6.2-8.2)
[2025-02-28 13:25] VITALS: BMI 18.6
--- NOTE | 2025-02-28 14:06 | CT ---
EXAMINATION TYPE: CT brain cspine wo con DATE OF EXAM: 02/28/2025 1:27 PM COMPARISON: 02/27/2025 MRI 02/22/2022 CLINICAL INDICATION: Female, 55 years old with history of AMS and fall; , pain TECHNIQUE: Brain: Multiple axial CT images of the brain were obtained without IV contrast. Cspine: Axial CT images from the skull base to the inferior aspect of T2 we obtained without intraven ous contrast. Coronal and sagittal reformatted images were also reviewed. . CT DLP: 1274 mGycm, Automated exposure control for dose reduction was used. FINDINGS: Brain: Extra-axial spaces: No abnormal extra-axial fluid collections. Ventricular system: Within normal limits Cerebral parenchyma: Scattered low-density areas in the deep white matter no significant change from multiple priors. No acute intraparenchymal hemorrhage or mass effect. The marques-white junction is wel l differentiated. Cerebellum: Unremarkable. Mass effect: No evidence of midline shift. Intracranial vasculature: unremarkable Soft tissues: Normal. Calvarium/osseous structures: No depressed skull fracture. Paranasal sinuses and mastoid air cells: Clear. Visualized orbits: Orbital contents are intact. Cervical spine: Fracture: None. Osseous structures: Multilevel degenerative disc disease changes with endplate spurring and disc oste ophyte complex's. Vertebral alignment: Within normal limits. Spinal canal/Neural Foramina: No evidence of significant spinal canal narrowing. No evidence for sign ificant neural foraminal stenosis. Neck soft tissues: Prevertebral soft tissues are within normal limits. Other: The airway is patent. The lung apices are clear. IMPRESSION: 1. No acute intracranial process. 2. Nonspecific low-density areas within the centrum semiovale and deep white matter which could be c ompatible with multiple sclerosis. Findings not all that different from 02/22/2022 MRI. 3. No evidence of cervical spine fracture. 4. Mild multilevel degenerative disc disease. [facility], , 02/28/2025 2:03 PM
[2025-02-28] MEDS: ZINC OXIDE PASTE (Z-GUARD) 1 APPLIC TOPICAL PRN (14:09)
[2025-02-28] MEDS ORDERED: QUEtiapine 25 MG TAB PO STA (14:58)
--- NOTE | 2025-02-28 15:10 | P.CNNES ---
History of Present Illness Consult date: 02/28/25 Requesting physician: Chris Chapa Reason for Consult: AMS, hx of MS History of Present Illness: Patient is a 55-year-old female with history of multiple sclerosis, came to the hospital by ambulance yesterday at 11:13 AM for altered mental status. Patient's mother is also present at the bedside and both of them provided with a history. Patient developed acute perforated peptic ulcer for which she u ndernt Billrot surgery on 02/07/2025. She was discharged to [facility] on 02/16/2025. She was recovering well. On 02/24/2025 she saw surgeon for a follow-up at 9 AM, complaining, just not feeling well, not like herself. Otherwise she was fine. However in the evening same day, she started having hallucinations but in the beginning was not too bad. night, the night prior to arrival at 11 PM patient fell out of bed. She apparently was reaching for something, saw imaginary object, reaching over and she fell off the bed, as there is no bed rails in the care home, just the U bar. She had a abrasion on the head. The staff put her back on the bed. However Sunday 3 AM, on the day of admission, she was found laying across the bed. She was placed in the geriatric chair all night long and the hallucinations got worse therefore she was brought to the hospital at 11:13 AM. Per patient's mother, patient has not slept since Sunday. Patient's mother also mentioned that she had transient hallucinations right after surgery on 02/07/2025, and she was given some IV minerals, vitamins electrolytes and the hallucinations resolved in 2 days but have reappeared as mentioned. She is not eating, has no appetite. As per EMS flowsheet when they arrived, found patient sitting in a chair in the [facility] at [facility]. Staff on the scene mentioned that patient has a history of MS and has become altered. Staff mentioned that patient fell last night but she did not hit her head. Patient was alert and orient x 2 at that time. Patient denies any chest pain or difficulty breathing. Patient states she has neck and jaw pain but that is due to her current MS flareup. Patient states she did hit her head when she fell and there was minor bruising to the left cheek. Also bruising to the left top of the head. Patient's vitals at the scene was blood pressure 106/64, pulse rate 88 respiration 18 saturation 89% temperature 98.2. Blood sugar 128. Patient has been afebrile. Blood test showed normal WBC hemoglobin 9.3. Platelet 504. Basic metabolic panel normal, AST is normal, ALT 38. UA negative. CT head showed atypical focal hypodensity within the centrum semiovale bilaterally. Subcortical infarcts, vasogenic edema, multiple sclerosis in addition to microvascular ischemic change could be within the differential. Contrast enhanced MRI recommended. I personally reviewed CT head, and in my review it appears more like probable previous MS plaques. These plaques were present in the previous MRI from 02/22/2022. CT of the cervical spine showed degenerative disc changes mid cervical spine. Foraminal narrowing. No acute osseous abnormality. CT of abdomen pelvis showed wall thickening of small bowel, concerning for enteritis. Nonobstructing left-sided renal stones, measuring up to 6 mm in left upper pole. Recent laparotomy with Billroth andrew nstruction. No bowel obstruction or free air. At present patient is actively hallucinating, trying to grab objects from air. She is saying that she is seeing her sister and egghicz-pi-hry on the ceiling. Then she started making some random movements of the hands stating that she is "going into a capsule". She is randomly moving her arms up in the air trying to grab something, then brings them up behind her. She is acutely delirious. Patient tells me that she was sleeping well after her surgery because of pain medications. She has not slept since Sunday because they stopped her pain me dication. However patient denies any abdominal pain at this time. She does have some neck pain which she attributes to her rheumatoid arthritis. Patient has been refusing her baclofen. Patient was diagnosed with MS at age 18 when she was 37 years old. Patient has been seen by Dr. Frazier on 02/22/2022 for MS exacerbation. Patient was on Ocrevus at that time she has buttock and coccyx ulcers and hypertension. Patient stopped taking Ocrevus because of presence of some freckle in her eye, and c ancer risk. She was placed on Mavenclad about a year ago. 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 She has been very pleasant, memory functions perfectly fine despite her disability. She has been on scooter for last 10 years. She can only walk with physical therapist, with 2 assist, leg brace and a walker and can only make 15 steps with this full assist. Mentally she is fully capable, solves puzzles. She tutors. She is involved with family and anabaptism. Current medications include amantadine 100 mg 4 times daily, Lexapro 10 mg, Robaxin, Myrbetriq, Plaquenil 300 mg daily, Valtrex, losartan, amlodipine, B12, vitamin D and lactulose. No history of tobacco or alcohol use. Patient lives with her sister and broth er-in-law. She has a stair chair, power chair. She even drives with a hand controlled when. She was functioning very well just, up until just before her stomach surgery. She follows up with Dr. Olivas in [place], but half the year she lives in [place] and follows up with Dr. Quinteros at [facility]. Review of Systems All pertinent positive and negative review of systems mentioned in the HPI, otherwise unremarkable. Past Medical History Past Medical History: Eye Disorder, Hypertension, Neurologic Disorder Additional Past Medical History / Comment(s): MS. LESIONS ON CORNEA FROM MS. History of Any Multi-Drug Resistant Organisms: None Reported Past Surgical History: Hysterectomy Additional Past Surgical History / Comment(s): PARTIAL HYSTERECTOMY. Billroth II 02/07 Past Anesthesia/Blood Transfusion Reactions: No Reported Reaction Past Psychological History: Anxiety, Depression Smoking Status: Never smoker Past Alcohol Use History: None Reported Past Drug Use History: None Reported - Past Family History Mother Family Medical History: Osteoarthritis (OA) Father Family Medical History: Cancer, Hyperlipidemia Additional Family Medical History / Comment(s): PROSTATE CANCER. Medications and Allergies Home Medications Medication Instructions Recorded Confirmed Type Escitalopram [Lexapro] 10 mg PO DAILY 02/21/22 02/27/25 History amantadine HCL [Amantadine] 100 mg PO QID 02/21/22 02/27/25 History Calcium Citrate/Vitamin D3 2 tab PO BID 02/07/25 02/27/25 History [Citracal + D Maximum Caplet] Docusate [Colace] 100 mg PO BID PRN 02/07/25 02/27/25 History Hydroxychloroquine Sulfate 300 mg PO DAILY 02/07/25 02/27/25 History [Plaquenil] Mirabegron [Myrbetriq] 50 mg PO DAILY 02/07/25 02/27/25 History methocarbamoL [Robaxin] 125 mg PO TID PRN 02/07/25 02/27/25 History valACYclovir HCL [Valtrex] 2,000 mg PO BID PRN 02/07/25 02/27/25 History Acetaminophen Tab [Tylenol Tab] 650 mg PO Q4H PRN #30 tablet 02/16/25 02/27/25 Rx Losartan [Cozaar] 25 mg PO DAILY tab 02/16/25 02/27/25 Rx Pantoprazole [Protonix] 40 mg PO DAILY 30 Days #30 tab 02/16/25 02/27/25 Rx Sennosides [Senokot] 8.6 mg PO BID PRN #14 tablet 02/16/25 02/27/25 Rx Acetaminophen Tab [Tylenol] 650 mg PO BID 02/27/25 02/27/25 History Cefuroxime [Ceftin] 250 mg PO BID 02/27/25 02/27/25 History Cholecalciferol [Vitamin D3 (25 50 mcg PO DAILY 02/27/25 02/27/25 History Mcg = 1000 Iu)] Cyanocobalamin [Vitamin B-12] 500 mcg PO DAILY 02/27/25 02/27/25 History Lactulose [Cephulac] 10 gm PO DAILY 02/27/25 02/27/25 History Losartan Potassium [Cozaar] 100 mg PO DAILY 02/27/25 02/27/25 History Ondansetron [Zofran] 4 mg PO Q6H PRN 02/27/25 02/27/25 History amLODIPine [Norvasc] 5 mg PO HS 02/27/25 02/27/25 History traMADol HCL 50 mg PO Q6H PRN 02/27/25 02/27/25 History Allergies Allergy/AdvReac Type Severity Reaction Status Date / Time gadobenate dimeglumine Allergy Mild Rash/Hives Verified 02/27/25 14:51 [From Multihance] diazepam [From Valium] Allergy Unknown Verified 02/27/25 14:51 Physical Examination - Vital Signs Vital Signs: Vital Signs Temp Pulse Pulse Resp BP BP Pulse Ox 02/28/25 07:56 98.0 F 84 16 125/47 100 02/28/25 01:08 98.7 F 84 120/65 99 02/27/25 20:20 98.1 F 98 17 120/70 97 02/27/25 18:00 82 18 119/68 100 02/27/25 15:39 72 18 115/70 99 Intake and Output 02/27/25 02/28/25 02/28/25 22:59 06:59 14:59 Other: Voiding Method Incontinent # Voids 1 1 # Bowel Movements 1 1 Weight 50.802 kg Patient is a middle aged female, who appears acutely delirious, hallucinating, moving her arms randomly in front of her, then above her head tr elinor to catch something from air. She is seeing her sister and rrixbwm-mx-[id number] on the ceiling. At one time she was thinking that she is going into a capsule. Patient is alert awake oriented to time place and person. She knows it is February 2025 and that it is Sunday. She knows she is in [facility] imported on [place] in [facility] and name of the current president Mr. Masterson. Speech and language functions are normal. Patient can name and repeat very well. No aphasia or dysarthria. Attention, concentration is slightly decreased and fund of knowledge is adequate. Her speech is sometimes halted because of delirium. She tries to take deep breaths at times. On cranial nerve examination, pupils are equal, round and reacting to light, visual jones are full on confrontation, with no neglect on double simultaneous stimulation. Extraocular muscles are intact with no nystagmus. Face is symmetric, tongue protrudes to the midline. Tongue is slightly dry. Palatal elevation and sensation normal, hearing and shoulder shrug normal, facial sensation normal. Sometimes she brings her gaze upwards. On muscle strength testing, there is no pronator drift and the strength is normal in arms distally and proximally. In the lower limbs, hip flexion is 0, she can wiggle her ankles and toes slightly. Deep tendon reflexes are absent, and plantars are probably upgoing bilaterally. Sensory to touch is equal with no neglect on double simultaneous stimulation. Cerebellar function showed tremors and mild ataxia for [id number] testing. Cannot perform [id number] testing on either side. Tone is increased and bulk of muscles overall decreased. Gait patient not ambulatory. On general examination, there is no carotid bruit or murmur, S1-S2 audible. Chest is clear on consultation. Abdomen is soft nontender. No organomegaly, bowel sounds present. Peripheral pulses are present. No peripheral edema. Results - Laboratory Findings CBC and BMP: 02/28/25 04:59 02/28/25 04:59 Abnormal Lab Findings: Abnormal Labs 02/27/25 02/27/25 02/28/25 13:22 13:22 04:59 RBC 2.99 L 2.94 L Hgb 9.3 L 8.9 L Hct 27.8 L 29.0 L MCV 98.6 H MCHC 30.7 L RDW 14.7 H Plt Count 504 H 453 H MPV 8.4 L 8.7 L Lymphocytes # 0.82 L 0.65 L ALT 38 H Alkaline Phosphatase 146 H Total Protein 6.1 L Assessment and Plan Assessment: * Acute delirium with confusional state, active hallucinations delusions. This is multifactorial. Patient has not slept for last 3-4 nights, which may be co ntributing. Postoperative status, pain medications and other metabolic problems may be contributing. 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 * Multiple sclerosis with paraplegia. At baseline, mentation is intact. * Hypertension * Anxiety and depression Plan: * Patient has not slept for last 3 nights. This may be the cause of acute delirium. * I was considering Seroquel, but it has interaction with Plaquenil, Lexapro for possible QT prolongation. * We will try melatonin and see if it helps. * If no improvement, we will stop Plaquenil and start Seroquel. * Avoid opiates, anticholinergics, hypnotics/sedatives. * Check B12, folate, TSH. * Await blood cultures. UA and other blood tests are benign. Liver functions improving. * We will follow clinically. * Thank you for the consult. Time with Patient: Greater than 30
[2025-02-28] MEDS: amLODIPine 5 MG TAB PO SCH (20:32)
[2025-02-28] MEDS: QUEtiapine 25 MG TAB PO SCH (20:32)
[2025-02-28] MEDS ORDERED: QUEtiapine 25 MG TAB PO SCH (21:00)
[2025-02-28] MEDS ORDERED: MELATONIN 5 MG TABLET PO SCH (21:00)
--- NOTE | 2025-02-28 22:28 | P.CONS ---
History of Present Illness - Reason for Consult Consult date: 02/28/25 Sepsis Requesting physician: Cara Paniagua - Chief Complaint Fall and weakness x 1 day - History of Present Illness Patient is a 55-year-old female with a past medical history significant for MS hypertension who was recently admitted at this facility with a perforated peptic ulcer disease status post surgical repair abdominal culture positive for Terri Streptococcus mitis oralis patient was treated with IV Unasyn and Diflucan [facility] on oral Augmentin and Diflucan with the patient has completed patient has not been brought back to the hospital after apparently the patient did have a fall patient mention she was trying to grab something and reached out leading to fall forward hitting her head patient family apparently has noticed confusion and sedation and apparently the patient was noticed to have an abnormal UA done by the jail and there was concern for UTI patient subsequently has been brought in to [facility] for further evaluation on presentation to the hospital the patient was afebrile and no fever have recorded subsequently patient was mildly tachycardic but not hypotensive or hypoxic no need for supplemental oxygen patient did have a white count of 8.97 creatinine 0.7 electrolytes has been normal liver enzymes mildly elevated urine has been negative patient did have head and cervical spine CT that was negative for any bleed chest x-ray no acute cardiopulmonary process abdominal pelvis CT wall thickening of the small bowel concerning for enteritis nonobstructing left-sided renal stone recent laparotomy with Billroth II reconstruction no bowel obstruction no free patient has been started on ceftriaxone infectious disease was consulted for possible sepsis patient currently denies having any headache or URI symptoms no chest pain shortness of breath or cough patient denies any nausea vomiting tolerating her food no abdominal pain no diarrhea or constipation no urinary symptoms Review of Systems Positive point and negatives has been mentioned in the HPI, complete review of systems was performed and all other systems are negative Past Medical History Past Medical History: Eye Disorder, Hypertension, Neurologic Disorder Additional Past Medical History / Comment(s): MS. LESIONS ON CORNEA FROM MS. History of Any Multi-Drug Resistant Organisms: None Reported Past Surgical History: Hysterectomy Additional Past Surgical History / Comment(s): PARTIAL HYSTERECTOMY. Billroth II 02/07 Past Anesthesia/Blood Transfusion Reactions: No Reported Reaction Past Psychological History: Anxiety, Depression Smoking Status: Never smoker Past Alcohol Use History: None Reported Past Drug Use History: None Reported - Past Family History Mother Family Medical History: Osteoarthritis (OA) Father Family Medical History: Cancer, Hyperlipidemia Additional Family Medical History / Comment(s): PROSTATE CANCER. Medications and Allergies Home Medications Medication Instructions Recorded Confirmed Type Escitalopram [Lexapro] 10 mg PO DAILY 02/21/22 02/27/25 History amantadine HCL [Amantadine] 100 mg PO QID 02/21/22 02/27/25 History Calcium Citrate/Vitamin D3 2 tab PO BID 02/07/25 02/27/25 History [Citracal + D Maximum Caplet] Docusate [Colace] 100 mg PO BID PRN 02/07/25 02/27/25 History Hydroxychloroquine Sulfate 300 mg PO DAILY 02/07/25 02/27/25 History [Plaquenil] Mirabegron [Myrbetriq] 50 mg PO DAILY 02/07/25 02/27/25 History methocarbamoL [Robaxin] 125 mg PO TID PRN 02/07/25 02/27/25 History valACYclovir HCL [Valtrex] 2,000 mg PO BID PRN 02/07/25 02/27/25 History Acetaminophen Tab [Tylenol Tab] 650 mg PO Q4H PRN #30 tablet 02/16/25 02/27/25 Rx Losartan [Cozaar] 25 mg PO DAILY tab 02/16/25 02/27/25 Rx Pantoprazole [Protonix] 40 mg PO DAILY 30 Days #30 tab 02/16/25 02/27/25 Rx Sennosides [Senokot] 8.6 mg PO BID PRN #14 tablet 02/16/25 02/27/25 Rx Acetaminophen Tab [Tylenol] 650 mg PO BID 02/27/25 02/27/25 History Cefuroxime [Ceftin] 250 mg PO BID 02/27/25 02/27/25 History Cholecalciferol [Vitamin D3 (25 50 mcg PO DAILY 02/27/25 02/27/25 History Mcg = 1000 Iu)] Cyanocobalamin [Vitamin B-12] 500 mcg PO DAILY 02/27/25 02/27/25 History Lactulose [Cephulac] 10 gm PO DAILY 02/27/25 02/27/25 History Losartan Potassium [Cozaar] 100 mg PO DAILY 02/27/25 02/27/25 History Ondansetron [Zofran] 4 mg PO Q6H PRN 02/27/25 02/27/25 History amLODIPine [Norvasc] 5 mg PO HS 02/27/25 02/27/25 History traMADol HCL 50 mg PO Q6H PRN 02/27/25 02/27/25 History Allergies Allergy/AdvReac Type Severity Reaction Status Date / Time gadobenate dimeglumine Allergy Mild Rash/Hives Verified 02/27/25 14:51 [From Multihance] diazepam [From Valium] Allergy Unknown Verified 02/27/25 14:51 Physical Exam Vitals: Vital Signs Temp Pulse Pulse Resp BP BP Pulse Ox 02/28/25 07:56 98.0 F 84 16 125/47 100 02/28/25 01:08 98.7 F 84 120/65 99 02/27/25 20:20 98.1 F 98 17 120/70 97 02/27/25 18:00 82 18 119/68 100 02/27/25 15:39 72 18 115/70 99 Intake and Output 02/27/25 02/28/25 02/28/25 22:59 06:59 14:59 Other: Voiding Method Incontinent # Voids 1 1 # Bowel Movements 1 1 Weight 50.802 kg GENERAL DESCRIPTION: Middle-age female lying in bed, no distress. No tachypnea or accessory muscle of respiration use. HEENT: Shows Pallor , no scleral icterus. Oral mucous membrane is dry. No pharyngeal erythema or thrush NECK: Trachea central, no thyromegaly. LUNGS: Unlabored breathing. Clear to auscultation anteriorly. No wheeze or crackle. HEART: S1, S2, regular rate and rhythm. No loud murmur ABDOMEN: Soft, no tenderness , guarding or rigidity, no organomegaly EXTREMITIES: No edema of feet. SKIN: No rash, no masses palpable. NEUROLOGICAL: The patient is awake, alert, oriented x3, mood and affect normal. Results CBC & Chem 7: 02/28/25 04:59 02/28/25 04:59 Labs: Abnormal Lab Results - Last 24 Hours (Table) 02/27/25 02/27/25 02/28/25 Range/Units 13:22 13:22 04:59 RBC 2.99 L 2.94 L (4.10-5.20) 10*6/uL Hgb 9.3 L 8.9 L (12.0-15.0) g/dL Hct 27.8 L 29.0 L (37.2-46.3) % MCV 98.6 H (80.0-97.0) FL MCHC 30.7 L (32.0-37.0) g/dL RDW 14.7 H (11.5-14.5) % Plt Count 504 H 453 H (140-440) 10*3/uL MPV 8.4 L 8.7 L (9.5-12.2) fL Lymphocytes # 0.82 L 0.65 L (0.90-5.00) 10*3/uL ALT 38 H (4-34) U/L Alkaline Phosphatase 146 H (38-126) U/L Total Protein 6.1 L (6.3-8.2) g/dL Assessment and Plan (1) Enteritis Current Visit: Yes Status: Acute Code(s): K52.9 - NONINFECTIVE GASTROENTERITIS AND COLITIS, UNSPECIFIED SNOMED Code(s): 70898475 Plan: 1patient with a history of MS with recent admission to hospital with perforated peptic ulcer disease and intra-abdominal abscess culture positive for Terri and Streptococcus patient has received adequate antibiotic therapy she did have a CT abdominal pelvis this admission did not mention any abscess or any leakage, there was comment for possible small bowel wall thickening enteritis the patient has no abdominal pain nausea vomiting or diarrhea patient did have a negative UA white count has been normal mild leukocytosis clinically no features suggestive of sepsis or any focus for infection 2-antibiotics can be safely discontinued Family at the bedside multiple question answered We will follow on clinical condition and cultures to further adjust medication if needed Thank you for this consultation we will follow the patient along with you Dictation was produced using [employer] dictation software. please excuse any grammatical, word or spelling errors. Time with Patient: Greater than 30
[2025-03-01] MEDS: OLANZapine 2.5 MG TAB PO ONE (00:26)
[2025-03-01] MEDS: OLANZapine 2.5 MG TAB PO STA (06:04)
[2025-03-01 10:10] LABS: Basophils # (A) 0.09 X 10*3/uL (0.00-0.10); Basophils % (A) 0.9 %; Eosinophils # (A) 0.13 X 10*3/uL (0.04-0.35); Eosinophils % (A) 1.4 %; HCT 29.9 % (37.2-46.3); HGB 9.2 g/dL (12.0-15.0); Immature Grans, Automated 0.50 %; Lymphocytes # (A) 0.81 X 10*3/uL (0.90-5.00); Lymphocytes % (A) 8.5 %; MCH 30.3 pg (27.0-32.0); MCHC 30.8 g/dL (32.0-37.0); MCV 98.4 FL (80.0-97.0); Monocytes # (A) 0.73 X 10*3/uL (0.20-1.00); Monocytes % (A) 7.7 %; NRBC Per 100 WBC 0 X 10*3/uL (0.00-0.01); Neutrophils # (A) 7.70 X 10*3/uL (1.80-7.70); Neutrophils % (A) 81.0 %; Platelet Count 430 X 10*3/uL (140-440); RBC 3.04 X 10*6/uL (4.10-5.20); RDW 14.6 % (11.5-14.5); WBC 9.51 X 10*3/uL (4.50-10.00)
--- NOTE | 2025-03-01 10:35 | PN ---
PROGRESS NOTE DATE OF SERVICE: 02/28/2025 SUBJECTIVE: This is a 55-year-old woman, who was admitted with change in mental status and fall, and also was confused. The patient had recent complicated abdominal surgery with gastric perforation. The CT scan of the abdomen showed wall thickening of small bowel, possible and nonobstructing calculus. Multiple consultants are following the patient closely. Neurology has also seen the patient. PAST MEDICAL HISTORY: Reviewed. REVIEW OF SYSTEMS: A 14-point review of systems negative except as mentioned earlier CURRENT MEDICATIONS: Reviewed. PHYSICAL EXAMINATION: VITAL SIGNS: Pulse is 102, blood pressure n, respirations 16. CHEST: Clear to auscultation. CARDIOVASCULAR: S1, S2. ABDOMEN: Soft. Status post recent surgery. NERVOUS SYSTEM: Nonfocal LABORATORY DATA: Reviewed. ASSESSMENT: 1. Change in mental status, possible acute delirium and metabolic encephalopathy, multifactorial. 2. Possible multi-infarcts, subacute infarcts. 3. Anemia. 4. Rule out sepsis. 5. History of recent gastric perforation, exploratory laparotomy, antrectomy, and Billroth II reconstruction. 6. History of electrolyte abnormality. 7. History of multiple sclerosis. 8. History of fall. RECOMMENDATIONS: Recommended to continue current management and continue symptomatic treatment. Continue with antiplatelet agents. Check lipids. Continue rest of medications. Empiric antibiotics. Multiple consultants are following the patient closely. Specifically, neurologist recommended to avoid opiates, anticholinergics, hypnotics, and sedatives. Guarded prognosis. Further recommendations to follow. MMODL / IJN: [id number] / MTDD
[2025-03-01] MEDS: QUEtiapine 25 MG TAB PO SCH (12:09)
[2025-03-01] MEDS ORDERED: HALOPERIDOL LACTATE 5 MG/ML 1 ML VIAL IM PRN (12:32)
[2025-03-01] MEDS: LORazepam 1 MG/0.5 ML VIAL IV STA (13:00)
[2025-03-01 14:24] LABS: Triglycerides 78.00 mg/dL (0.00-149.00); VLDL Calculation 15.60 mg/dL (5.00-40.00)
[2025-03-01 14:43] LABS: ALT 36 U/L (8-44); AST 24 U/L (13-35); Albumin 3.7 g/dL (3.8-4.9); Albumin/Globulin Ratio 2.18 Ratio (1.60-3.17); Alkaline Phosphatase 138 U/L (41-126); Anion Gap 16.00 mmol/L (4.00-12.00); BUN/Creat Ratio 12.17 Ratio (12.00-20.00); Blood Urea Nitrogen 7.3 mg/dL (9.0-27.0); Calcium 8.8 mg/dL (8.7-10.3); Carbon Dioxide 17.0 mmol/L (21.6-31.8); Chloride 110 mmol/L (96-109); Cholesterol 163.00 mg/dL (0.00-200.00); Globulin 1.7 g/dL (1.6-3.3); Glucose 107 mg/dL (70-110); HDL Cholesterol 65.20 mg/dL (40.00-60.00); LDL Cholesterol,Calculated 82.2 mg/dL (0.0-131.0); Potassium 4.1 mmol/L (3.5-5.5); Sodium 143 mmol/L (135-145); Total Protein 5.4 g/dL (6.2-8.2)
[2025-03-01] MEDS: HALOPERIDOL LACTATE 5 MG/ML 1 ML VIAL IM STA (15:28)
[2025-03-01] MEDS ORDERED: LORazepam 1 MG/0.5 ML VIAL IV PRN ×2 (15:29→16:31)
--- NOTE | 2025-03-01 16:05 | P.PN ---
Subjective Progress Note Date: 03/01/25 Principal diagnosis: Reason for follow-up is possible enteritis Patient is a 55-year-old female with a past medical history significant for MS hypertension who was recently admitted at this facility with a perforated peptic ulcer disease status post surgical repair now presented the hospital after repeated have a fall concern for possible hallucination she did have CT abdominal pelvis thickening of the small bowel but no fluid collection or any drainage. On today's evaluation that is 03/01/2025, Patient is afebrile patient is currently on room air and breathing comfortably patient apparently seem to have problem with upper extremity spasm and has received Ativan currently sleepy no vomiting or diarrhea reported by the family the bedside. Patient white count is 9.5 point creatinine 0.6, urine is growing gram-negative blood cultures are pending, UA was negative Objective - Vital Signs Vital signs: Vital Signs Temp 98.4 F 03/01/25 14:21 Pulse 80 03/01/25 14:21 Resp 17 03/01/25 14:21 BP 115/71 03/01/25 14:21 Pulse Ox 98 03/01/25 14:21 FiO2 Intake & Output 02/28/25 03/01/25 03/01/25 18:59 06:59 18:59 Intake Total 750 100 Balance 750 100 Weight 50.802 kg Intake: Oral 750 100 Other: Voiding Method Incontinent Incontinent Diaper Incontinent # Voids 3 # Bowel Movements 1 - Labs CBC & Chem 7: 03/01/25 02:57 03/01/25 02:57 Labs: Abnormal Lab Results - Last 24 Hours (Table) 02/28/25 03/01/25 03/01/25 Range/Units 04:49 02:57 02:57 RBC 3.04 L (4.10-5.20) X 10*6/uL Hgb 9.2 L (12.0-15.0) g/dL Hct 29.9 L (37.2-46.3) % MCV 98.4 H (80.0-97.0) FL MCHC 30.8 L (32.0-37.0) g/dL RDW 14.6 H (11.5-14.5) % MPV 9.0 L (9.5-12.2) FL Immature Gran # 0.05 H (0.00-0.04) X 10*3/uL Lymphocytes # 0.81 L (0.90-5.00) X 10*3/uL Chloride 110 H (96-109) mmol/L Carbon Dioxide 17.0 L (21.6-31.8) mmol/L Anion Gap 16.00 H (4.00-12.00) mmol/L BUN 7.3 L (9.0-27.0) mg/dL Total Bilirubin <0.2 L (0.3-1.2) mg/dL Alkaline Phosphatase 138 H (41-126) U/L Total Protein 5.4 L (6.2-8.2) g/dL Albumin 3.7 L (3.8-4.9) g/dL HDL Cholesterol 65.20 H (40.00-60.00) mg/dL Vitamin B12 1570.0 H (200.0-944.0) pg/mL Microbiology - Last 24 Hours (Table) 02/27/25 23:44 Blood Culture - Preliminary Blood 02/27/25 23:00 Urine Culture - Preliminary Urine,Catheterized Gram Neg Bacilli Assessment and Plan (1) Enteritis Current Visit: Yes Status: Acute Code(s): K52.9 - NONINFECTIVE GASTROENTERITIS AND COLITIS, UNSPECIFIED SNOMED Code(s): 32742475 Plan: 1patient with a history of MS with recent admission to hospital with perforated peptic ulcer disease and intra-abdominal abscess culture positive for Terri and Streptococcus patient has received adequate antibiotic therapy she did have a CT abdominal pelvis this admission did not mention any abscess or any leakage, there was comment for possible small bowel wall thickening enteritis the patient has no abdominal pain nausea vomiting or diarrhea patient did have a negative UA white count has been normal mild leukocytosis clinically no features suggestive of sepsis or any focus for infection 2-urine is growing gram-negative however the UA was negative more likely asymptomatic bacteriuria Family at the bedside multiple question answered Dictation was produced using [employer] dictation software. please excuse any grammatical, word or spelling errors. Time with Patient: Less than 30
[2025-03-01] MEDS: MULTIVITAMINS, THERA 1 EACH TAB PO SCH (18:43)
[2025-03-01] MEDS: FOLIC ACID 1 MG TAB PO SCH (18:43)
[2025-03-01] MEDS: THIAMINE 100 MG TAB PO SCH (18:43)
--- NOTE | 2025-03-01 19:01 | P.PN ---
Subjective Patient seen and evaluated at bedside delirium has worsened Objective - Vital Signs Vital signs: Vital Signs Temp 98.0 F 03/01/25 18:49 Pulse 91 03/01/25 18:49 Resp 13 03/01/25 18:49 BP 132/71 03/01/25 18:49 Pulse Ox 98 03/01/25 18:49 FiO2 Intake & Output 03/01/25 03/01/25 03/02/25 06:59 18:59 06:59 Intake Total 100 Balance 100 Intake: Oral 100 Other: Voiding Method Incontinent Diaper Incontinent - Exam General No acute distress Cardiovascular regular rate and rhythm Pulmonary nonlabored breathing Abdomen soft nondistended no guarding or rebound tenderness surgical sites clean dry and intact no signs of infection - Labs CBC & Chem 7: 03/01/25 02:57 03/01/25 02:57 Labs: Abnormal Lab Results - Last 24 Hours (Table) 02/28/25 03/01/25 03/01/25 Range/Units 04:49 02:57 02:57 RBC 3.04 L (4.10-5.20) X 10*6/uL Hgb 9.2 L (12.0-15.0) g/dL Hct 29.9 L (37.2-46.3) % MCV 98.4 H (80.0-97.0) FL MCHC 30.8 L (32.0-37.0) g/dL RDW 14.6 H (11.5-14.5) % MPV 9.0 L (9.5-12.2) FL Immature Gran # 0.05 H (0.00-0.04) X 10*3/uL Lymphocytes # 0.81 L (0.90-5.00) X 10*3/uL Chloride 110 H (96-109) mmol/L Carbon Dioxide 17.0 L (21.6-31.8) mmol/L Anion Gap 16.00 H (4.00-12.00) mmol/L BUN 7.3 L (9.0-27.0) mg/dL Total Bilirubin <0.2 L (0.3-1.2) mg/dL Alkaline Phosphatase 138 H (41-126) U/L Total Protein 5.4 L (6.2-8.2) g/dL Albumin 3.7 L (3.8-4.9) g/dL HDL Cholesterol 65.20 H (40.00-60.00) mg/dL Vitamin B12 1570.0 H (200.0-944.0) pg/mL Microbiology - Last 24 Hours (Table) 02/27/25 23:44 Blood Culture - Preliminary Blood 02/27/25 23:00 Urine Culture - Preliminary Urine,Catheterized Gram Neg Bacilli Assessment and Plan Assessment: 55-year-old female status post Billroth II secondary to gastric perforation CT negative for acute process Patient afebrile Ammonia level normal blood culture still pending chest x-ray negative UA negative Appreciate neurology recommendations agree with Seroquel Time with Patient: Less than 30
--- NOTE | 2025-03-01 23:15 | PN ---
PROGRESS NOTE DATE OF SERVICE: 03/01/2025 SUBJECTIVE: This is a 55-year-old woman, who was admitted with change in mental status and acute delirium and acute metabolic encephalopathy, also had possible multi-infarcts also. The patient is being closely monitored at this time. Medications will be adjusted. The culture showed gram-negative bacilli in the urine. PAST MEDICAL HISTORY: Reviewed. REVIEW OF SYSTEMS: Could not be taken. CURRENT MEDICATIONS: Reviewed. PHYSICAL EXAMINATION: VITAL SIGNS: Pulse 80, blood pressure 115/70, respirations 17. HEENT: Conjunctivae normal. NECK: No JVD. CARDIOVASCULAR: S1, S2. RESPIRATIONS: Breath sounds diminished at the bases. ABDOMEN: Soft. NERVOUS SYSTEM: Nonfocal. LABORATORY DATA: CO2 of 17. Rest of the labs are noted. ASSESSMENT: 1. Change in mental status, possible acute delirium and metabolic encephalopathy, multifactorial. 2. Possible multi-infarcts and subacute infarcts. 3. Anemia. 4. Rule out sepsis. 5. Acute urinary tract infection. 6. History of recent gastric perforation, exploratory laparotomy, antrectomy and as well as Billroth II reconstruction. 7. History of electrolyte abnormalities. 8. History of multiple sclerosis. 9. History of fall. RECOMMENDATIONS: Recommended to continue current management and continue symptomatic treatment. Otherwise, continue with empiric antibiotics. Closely follow with Infectious Disease and multiple consultants. Prognosis extremely guarded. Yariel carrillo. Guarded prognosis. Further recommendations to follow. See orders for further details. MMODL / IJN: [id number] /
--- NOTE | 2025-03-02 01:59 | P.PN ---
Subjective Progress Note Date: 03/01/25 patient was seen for a follow-up. Patient's mother and sister were both present by the bedside. I had multiple conversations with the nursing staff today. It was told by the nursing staff, the patient had a rough night. Patient was screaming out, hallucinating and very agitated. This morning she is doing the same. Patient was given Zyprexa, which helped but she only received one time dose. Melatonin and Seroquel did not work. Patient's mother was reluctant to give her Haldol which was prescribed by the primary physician. Instead I prescribed Ativan 1 mg and patient responded very well, and went to sleep after long period of insomnia. She had not slept for several days. At present patien t is asleep. Objective - Vital Signs Vital signs: Vital Signs Temp 98.4 F 03/01/25 14:21 Pulse 80 03/01/25 14:21 Resp 17 03/01/25 14:21 BP 115/71 03/01/25 14:21 Pulse Ox 98 03/01/25 14:21 FiO2 Intake & Output 02/28/25 03/01/25 03/01/25 18:59 06:59 18:59 Intake Total 750 100 Balance 750 100 Weight 50.802 kg Intake: Oral 750 100 Other: Voiding Method Incontinent Incontinent Diaper Incontinent # Voids 3 # Bowel Movements 1 - Exam Patient asleep at this time. Detailed examination deferred. Did not wake her up. - Labs CBC & Chem 7: 03/01/25 02:57 03/01/25 02:57 Labs: Abnormal Lab Results - Last 24 Hours (Table) 02/28/25 03/01/25 03/01/25 Range/Units 04:49 02:57 02:57 RBC 3.04 L (4.10-5.20) X 10*6/uL Hgb 9.2 L (12.0-15.0) g/dL Hct 29.9 L (37.2-46.3) % MCV 98.4 H (80.0-97.0) FL MCHC 30.8 L (32.0-37.0) g/dL RDW 14.6 H (11.5-14.5) % MPV 9.0 L (9.5-12.2) FL Immature Gran # 0.05 H (0.00-0.04) X 10*3/uL Lymphocytes # 0.81 L (0.90-5.00) X 10*3/uL Chloride 110 H (96-109) mmol/L Carbon Dioxide 17.0 L (21.6-31.8) mmol/L Anion Gap 16.00 H (4.00-12.00) mmol/L BUN 7.3 L (9.0-27.0) mg/dL Total Bilirubin <0.2 L (0.3-1.2) mg/dL Alkaline Phosphatase 138 H (41-126) U/L Total Protein 5.4 L (6.2-8.2) g/dL Albumin 3.7 L (3.8-4.9) g/dL HDL Cholesterol 65.20 H (40.00-60.00) mg/dL Vitamin B12 1570.0 H (200.0-944.0) pg/mL Microbiology - Last 24 Hours (Table) 02/27/25 23:44 Blood Culture - Preliminary Blood 02/27/25 23:00 Urine Culture - Preliminary Urine,Catheterized Gram Neg Bacilli Assessment and Plan Assessment: * Acute delirium with confusional state, active hallucinations delusions. This is multifactorial. Patient has not slept for last 3-4 nights, which may be contributing. Postoperative status, pain medications and other metabolic problems/infectious source are probably contributing. 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 * Gastric perforation status post Billroth II. * Rule out UTI * Multiple sclerosis with paraplegia. At baseline, mentation is intact. * Hypertension * Anxiety and depression Plan: * patient did not respond to melatonin or Seroquel. However she has responded well to Ativan. She will be continued on Ativan 0.5-1 mg every 6 hours when necessary. Family wants to give Ativan 0.5 mg in the daytime if needed, but 1 mg at night. * patient on Seroquel 25 mg twice a day. Stop Plaqunil, due to concern of daily prolongation. Start Telemetry. * Avoid opiates, anticholinergics. * B12 1570, folate 22.0, TSH 2.7, all normal. * Blood cultures are negative, but urine cultures have grown > 100,000 E. coli and 10,000-49,000 Pseudomonas Aeroginosa. Patient on ceftriaxone. ID following. Patient also has enteritis. patient also has intra-abdominal abscess positive for carlos and streptococcus. * Dr. Alex Frazier to start neurology service in the morning. * Discussed with family members in detail.
[2025-03-02 07:57] LABS: Basophils # (A) 0.07 X 10*3/uL (0.00-0.10); Basophils % (A) 1.2 %; Eosinophils # (A) 0.18 X 10*3/uL (0.04-0.35); Eosinophils % (A) 3.1 %; HCT 31.8 % (37.2-46.3); HGB 9.9 g/dL (12.0-15.0); Immature Grans, Automated 0.50 %; Lymphocytes # (A) 0.77 X 10*3/uL (0.90-5.00); Lymphocytes % (A) 13.4 %; MCH 30.3 pg (27.0-32.0); MCHC 31.1 g/dL (32.0-37.0); MCV 97.2 FL (80.0-97.0); Monocytes # (A) 0.56 X 10*3/uL (0.20-1.00); Monocytes % (A) 9.8 %; NRBC Per 100 WBC 0 X 10*3/uL (0.00-0.01); Neutrophils # (A) 4.12 X 10*3/uL (1.80-7.70); Neutrophils % (A) 72.0 %; Platelet Count 395 X 10*3/uL (140-440); RBC 3.27 X 10*6/uL (4.10-5.20); RDW 14.5 % (11.5-14.5); WBC 5.73 X 10*3/uL (4.50-10.00)
[2025-03-02 08:01] LABS: Magnesium 1.9 mg/dL (1.5-2.4)
[2025-03-02 08:06] LABS: Anion Gap 11.40 mmol/L (4.00-12.00); BUN/Creat Ratio 26.80 Ratio (12.00-20.00); Blood Urea Nitrogen 13.4 mg/dL (9.0-27.0); Calcium 9.2 mg/dL (8.7-10.3); Carbon Dioxide 22.6 mmol/L (21.6-31.8); Chloride 108 mmol/L (96-109); Glucose 108 mg/dL (70-110); Potassium 4.5 mmol/L (3.5-5.5); Sodium 142 mmol/L (135-145)
--- NOTE | 2025-03-02 12:13 | P.PN ---
Subjective Progress Note Date: 03/02/25 Patient seen and examined at bedside. Mentation significantly improved per family. No abdominal pain. Objective - Vital Signs Vital signs: Vital Signs Temp 98.8 F 03/02/25 07:35 Pulse 93 03/02/25 07:35 Resp 18 03/02/25 07:35 BP 136/77 03/02/25 07:35 Pulse Ox 98 03/02/25 07:35 FiO2 Intake & Output 03/01/25 03/02/25 03/02/25 18:59 06:59 18:59 Intake Total 100 Balance 100 Intake: Oral 100 Other: Voiding Method Diaper Incontinent Diaper Incontinent - Constitutional General appearance: Present: cooperative - Gastrointestinal Gastrointestinal Comment(s): Soft, nontender - Labs CBC & Chem 7: 03/02/25 03:15 03/02/25 03:15 Labs: Abnormal Lab Results - Last 24 Hours (Table) 03/01/25 03/02/25 03/02/25 Range/Units 02:57 03:15 03:15 RBC 3.27 L (4.10-5.20) X 10*6/uL Hgb 9.9 L (12.0-15.0) g/dL Hct 31.8 L (37.2-46.3) % MCV 97.2 H (80.0-97.0) FL MCHC 31.1 L (32.0-37.0) g/dL MPV 8.9 L (9.5-12.2) FL Lymphocytes # 0.77 L (0.90-5.00) X 10*3/uL Chloride 110 H (96-109) mmol/L Carbon Dioxide 17.0 L (21.6-31.8) mmol/L Anion Gap 16.00 H (4.00-12.00) mmol/L BUN 7.3 L (9.0-27.0) mg/dL Creatinine 0.5 L (0.6-1.5) mg/dL BUN/Creatinine Ratio 26.80 H (12.00-20.00) Ratio Total Bilirubin <0.2 L (0.3-1.2) mg/dL Alkaline Phosphatase 138 H (41-126) U/L Total Protein 5.4 L (6.2-8.2) g/dL Albumin 3.7 L (3.8-4.9) g/dL HDL Cholesterol 65.20 H (40.00-60.00) mg/dL Microbiology - Last 24 Hours (Table) 02/27/25 23:44 Blood Culture - Preliminary Blood 02/27/25 23:00 Urine Culture - Final Urine,Catheterized Escherichia coli Pseudomonas aeruginosa Assessment and Plan Plan: Patient known to service and is status post antrectomy with Billroth II reconstruction secondary to large gastric ulcer perforation. She did come in with altered mental status with lack of sleep for few days. She is started on Seroquel and her mentation has completely improved today. No abdominal pain. Continue diet. No plan for any acute surgical intervention
[2025-03-02] MEDS: BENZOCAINE SPRAY 1 EACH MUCOUS MEM PRN (13:43)
[2025-03-02] MEDS: NYSTATIN 100,000 UNIT/ML SUSP 500,000 UNIT/5 ML CUP PO SCH (15:19)
--- NOTE | 2025-03-02 16:24 | P.PN ---
Subjective Progress Note Date: 03/02/25 I am seeing the patient for the first time during this hospital admission. Please refer to Dr. Encarnacion's notes for further details. Patient mother is at bedside. It seems that the patient was confused during this hospital visit after having surgery for her gastric perforation. Patient is on Seroquel and received Ativan because of her severe agitation. According to mother she has been having lack of sleep but after the Ativan she slept. According to the mother was at bedside she is drastically better today compared to yesterday. Does acknowledge that she is drastically better today. Denies any new neurological issues Objective - Vital Signs Vital signs: Vital Signs Temp 98.3 F 03/02/25 14:00 Pulse 94 03/02/25 14:00 Resp 18 03/02/25 14:00 BP 109/67 03/02/25 14:00 Pulse Ox 99 03/02/25 14:00 FiO2 Intake & Output 03/01/25 03/02/25 03/02/25 18:59 06:59 18:59 Intake Total 100 Balance 100 Weight 50.802 kg Intake: Oral 100 Other: Voiding Method Diaper Incontinent Diaper Incontinent - Exam General: Sitting in a recliner chair and is not in acute distress. Neuro: Patient is awake alert oriented to self place and time. Is following simple problems. No aphasia. Round equal reactive to light. Visual jones are full to confrontation. Extraocular movements intact no nystagmus. No facial weakness. Motor: Strength in the upper extremity is able to lift bilateral upper extremity above gravity and appears symmetrical. In the lowers it was able to wiggle her toes. Unable to assess individual muscle strength because of her cooperation. - Labs CBC & Chem 7: 03/02/25 03:15 03/02/25 03:15 Labs: Abnormal Lab Results - Last 24 Hours (Table) 03/02/25 03/02/25 Range/Units 03:15 03:15 RBC 3.27 L (4.10-5.20) X 10*6/uL Hgb 9.9 L (12.0-15.0) g/dL Hct 31.8 L (37.2-46.3) % MCV 97.2 H (80.0-97.0) FL MCHC 31.1 L (32.0-37.0) g/dL MPV 8.9 L (9.5-12.2) FL Lymphocytes # 0.77 L (0.90-5.00) X 10*3/uL Creatinine 0.5 L (0.6-1.5) mg/dL BUN/Creatinine Ratio 26.80 H (12.00-20.00) Ratio Microbiology - Last 24 Hours (Table) 02/27/25 23:44 Blood Culture - Preliminary Blood 02/27/25 23:00 Urine Culture - Final Urine,Catheterized Escherichia coli Pseudomonas aeruginosa Assessment and Plan Assessment: * Acute delirium with confusional state, active hallucinations delusions. This is multifactorial. Patient has not slept for last 3-4 nights, which may be contributing. Postoperative status, pain medications and other metabolic problems/infectious source are probably contributing--today is drastically better and slept overnight. 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 * Gastric perforation status post Billroth II. * Rule out UTI * Multiple sclerosis with paraplegia. At baseline, mentation is intact. * Hypertension * Anxiety and depression-- Plan: * patient did not respond to melatonin or Seroquel. However she has responded well to Ativan. She will be continued on Ativan 0.5-1 mg every 6 hours when necessary. * patient on Seroquel 25 mg twice a day. Recommend within a week to stop the daytime Seroquel and only to be on night Seroquel. Then if continues to be doing well, a week later (which is two weeks from today to discontinue also the night Seroquel). * Stop Plaqunil, due to concern of daily prolongation. Start Telemetry. * Avoid opiates, anticholinergics. * B12 1570, folate 22.0, TSH 2.7, all normal. * Blood cultures are negative, but urine cultures have grown > 100,000 E. coli and 10,000-49,000 Pseudomonas Aeroginosa. Patient on ceftriaxone. ID following. Patient also has enteritis. patient also has intra-abdominal abscess positive for carlos and streptococcus. I.D. is on board. There is no further neurological workup. Will sign off. Please reconsult if needed. Time with Patient: Less than 30
[2025-03-02 17:45] LABS: Bacteria,Urine Few /hpf; Bilirubin,Urine Negative (Negative); Blood,Urine Negative (Negative); Color,Urine Colorless; Glucose,Urine (UA) Negative (Negative); Ketones,Urine Negative (Negative); Leukocyte Esterase,Urine Large (Negative); Mucus,Urine Rare /hpf; Nitrite,Urine Negative (Negative); PH, Urine 6.0 (5.0-8.0); Protein,Urine Negative (Negative); RBC,Urine 3 /hpf (0-5); Specific Gravity,Urine 1.006 (1.001-1.035); Squamous Epithelial Cell,Urine <1 /hpf (0-4); Urobilinogen,Urine <2.0 mg/dL (<2.0); WBC,Urine 7 /hpf (0-5)
--- NOTE | 2025-03-03 01:56 | PN ---
PROGRESS NOTE DATE OF SERVICE: 03/02/2025 SUBJECTIVE: This is a 55-year-old woman who was admitted with change in mental status, acute delirium, metabolic encephalopathy, multifactorial, also had possible multi- infarct state also. The patient was confused yesterday. Today, the sensorium is slightly better. PAST MEDICAL HISTORY: Reviewed. REVIEW OF SYSTEMS: A 14-point review of systems negative except as mentioned earlier. CURRENT MEDICATIONS: Reviewed. PHYSICAL EXAMINATION: VITAL SIGNS: Pulse 94, blood pressure n, respirations 18. HEENT: Conjunctivae normal. NECK: No JVD. CARDIOVASCULAR: S1, S2. RESPIRATIONS: Breath sounds diminished at the bases. ABDOMEN: Soft, status post surgery. NERVOUS SYSTEM: Nonfocal. LABORATORY DATA: Hemoglobin 8.9. The rest of the labs are noted. ASSESSMENT: 1. Change in mental status, possible acute delirium and acute metabolic encephalopathy, multifactorial. 2. Possible multi-infarct state and subacute infarct. 3. Anemia. 4. Rule out sepsis. 5. Acute urinary tract infection with Escherichia coli and Pseudomonas aeruginosa. 6. Acute recent gastric perforation, exploratory laparotomy, antrectomy as well as Billroth II reconstruction. 7. History of electrolyte abnormality. 8. History of multiple sclerosis. 9. History of fall. RECOMMENDATIONS: Recommended to continue current management and continue symptomatic treatment. Cultures are showing E coli and Pseudomonas aeruginosa. Continue the current medications. Continue the recommended empiric antibiotics. Guarded prognosis. Further recommendations to follow. See orders for further details. MMODL / IJN: [id number] / MTDD
[2025-03-03 07:15] LABS: ALT 34 U/L (8-44); AST 18 U/L (13-35); Albumin 3.6 g/dL (3.8-4.9); Albumin/Globulin Ratio 1.71 Ratio (1.60-3.17); Alkaline Phosphatase 129 U/L (41-126); Anion Gap 11.00 mmol/L (4.00-12.00); BUN/Creat Ratio 26.20 Ratio (12.00-20.00); Blood Urea Nitrogen 13.1 mg/dL (9.0-27.0); Calcium 9.0 mg/dL (8.7-10.3); Carbon Dioxide 25.0 mmol/L (21.6-31.8); Chloride 105 mmol/L (96-109); Globulin 2.1 g/dL (1.6-3.3); Glucose 130 mg/dL (70-110); Potassium 4.2 mmol/L (3.5-5.5); Sodium 141 mmol/L (135-145); Total Protein 5.7 g/dL (6.2-8.2)
[2025-03-03 07:16] LABS: HCT 31.9 % (37.2-46.3); HGB 9.9 g/dL (12.0-15.0); MCH 30.1 pg (27.0-32.0); MCHC 31.0 g/dL (32.0-37.0); MCV 97.0 FL (80.0-97.0); Platelet Count 338 X 10*3/uL (140-440); RBC 3.29 X 10*6/uL (4.10-5.20); RDW 14.6 % (11.5-14.5); WBC 3.93 X 10*3/uL (4.50-10.00)
[2025-03-03 07:17] LABS: Basophils # (A) 0.10 X 10*3/uL (0.00-0.10); Basophils % (A) 2.5 %; Eosinophils # (A) 0.14 X 10*3/uL (0.04-0.35); Eosinophils % (A) 3.6 %; Immature Grans, Automated 0.30 %; Lymphocytes # (A) 0.77 X 10*3/uL (0.90-5.00); Lymphocytes % (A) 19.6 %; Monocytes # (A) 0.46 X 10*3/uL (0.20-1.00); Monocytes % (A) 11.7 %; NRBC Per 100 WBC 0 X 10*3/uL (0.00-0.01); Neutrophils # (A) 2.45 X 10*3/uL (1.80-7.70); Neutrophils % (A) 62.3 %
--- NOTE | 2025-03-03 14:12 | P.PN ---
Subjective Progress Note Date: 03/03/25 SURGICAL PROGRESS NOTE CHIEF COMPLAINT: Altered mental status HISTORY OF PRESENT ILLNESS: Patient with history of large gastric ulcer perforation status post antrectomy with Billroth II reconstruction. Patient sitting in bed comfortably. She reports no abdominal pain. She does feel little bloated. Denies any nausea or vomiting. Afebrile. WBC 3.93 Hgb 9.9 PHYSICAL EXAM: VITAL SIGNS: Reviewed. GENERAL: Well-developed in no acute distress. ABDOMEN: Mildly distended. Nontender. NEUROLOGIC: Alert and oriented. Cranial nerves II through XII grossly intact. ASSESSMENT: 1. History of large gastric ulcer perforation status post antrectomy with Billroth II reconstruction 2. Altered mental status with lack of sleep. Now improved PLAN: - Continue low fiber diet - No surgical intervention planned - Continue lactulose and stool softener - Encourage patient to increase activity level Physician Clinical Psychology Professor note has been reviewed by physician. Signing provider agrees with the documented findings, assessment, and plan of care. Objective - Vital Signs Vital signs: Vital Signs Temp 98.0 F 03/03/25 13:24 Pulse 86 03/03/25 13:24 Resp 16 03/03/25 13:24 BP 138/79 03/03/25 13:24 Pulse Ox 99 03/03/25 13:24 FiO2 Intake & Output 03/02/25 03/03/25 03/03/25 18:59 06:59 18:59 Output Total 1300 900 Balance -1300 -900 Weight 50.802 kg Output: Urine 400 900 Stool 900 Other: Voiding Method Diaper External Catheter External Catheter # Voids 3 - Labs CBC & Chem 7: 03/03/25 03:28 03/03/25 03:28 Labs: Abnormal Lab Results - Last 24 Hours (Table) 03/02/25 03/03/25 03/03/25 Range/Units 16:45 03:28 03:28 WBC 3.93 L (4.50-10.00) X 10*3/uL RBC 3.29 L (4.10-5.20) X 10*6/uL Hgb 9.9 L (12.0-15.0) g/dL Hct 31.9 L (37.2-46.3) % MCHC 31.0 L (32.0-37.0) g/dL RDW 14.6 H (11.5-14.5) % MPV 9.3 L (9.5-12.2) FL Lymphocytes # 0.77 L (0.90-5.00) X 10*3/uL Creatinine 0.5 L (0.6-1.5) mg/dL BUN/Creatinine Ratio 26.20 H (12.00-20.00) Ratio Glucose 130 H (70-110) mg/dL Total Bilirubin <0.2 L (0.3-1.2) mg/dL Alkaline Phosphatase 129 H (41-126) U/L Total Protein 5.7 L (6.2-8.2) g/dL Albumin 3.6 L (3.8-4.9) g/dL Ur Leukocyte Esterase Large H (Negative) Urine WBC 7 H (0-5) /hpf Urine Bacteria Few H (None) /hpf Urine Mucus Rare H (None) /hpf Microbiology - Last 24 Hours (Table) 02/27/25 23:44 Blood Culture - Preliminary Blood
--- NOTE | 2025-03-03 15:35 | P.PN ---
Subjective Progress Note Date: 03/02/25 Principal diagnosis: Reason for follow-up is possible enteritis Patient is a 55-year-old female with a past medical history significant for MS hypertension who was recently admitted at this facility with a perforated peptic ulcer disease status post surgical repair now presented the hospital after repeated have a fall concern for possible hallucination she did have CT abdominal pelvis thickening of the small bowel but no fluid collection or any drainage. On today's evaluation that is 03/02/2025, patient has been afebrile, patient is breathing comfortably and is currently on room air, patient denies having any chest pain and cough, patient denies nausea vomiting or diarrhea and no abdominal pain. The patient did have a white count of 5.73, creatinine 0.5 urine is growing E. coli and Pseudomonas Objective - Vital Signs Vital signs: Vital Signs Temp 98.8 F 03/02/25 07:35 Pulse 93 03/02/25 07:35 Resp 18 03/02/25 07:35 BP 136/77 03/02/25 07:35 Pulse Ox 98 03/02/25 07:35 FiO2 Intake & Output 03/01/25 03/02/25 03/02/25 18:59 06:59 18:59 Intake Total 100 Balance 100 Intake: Oral 100 Other: Voiding Method Diaper Incontinent Diaper Incontinent - Exam GENERAL DESCRIPTION: Middle-age female lying in bed in no distress RESPIRATORY SYSTEM: Unlabored breathing , decreased breath sounds at bases HEART: S1 S2 regular rate and rhythm , ABDOMEN: Soft , no tenderness EXTREMITIES: No edema feet - Labs CBC & Chem 7: 03/03/25 03:28 03/03/25 03:28 Labs: Abnormal Lab Results - Last 24 Hours (Table) 03/01/25 03/02/25 03/02/25 Range/Units 02:57 03:15 03:15 RBC 3.27 L (4.10-5.20) X 10*6/uL Hgb 9.9 L (12.0-15.0) g/dL Hct 31.8 L (37.2-46.3) % MCV 97.2 H (80.0-97.0) FL MCHC 31.1 L (32.0-37.0) g/dL MPV 8.9 L (9.5-12.2) FL Lymphocytes # 0.77 L (0.90-5.00) X 10*3/uL Chloride 110 H (96-109) mmol/L Carbon Dioxide 17.0 L (21.6-31.8) mmol/L Anion Gap 16.00 H (4.00-12.00) mmol/L BUN 7.3 L (9.0-27.0) mg/dL Creatinine 0.5 L (0.6-1.5) mg/dL BUN/Creatinine Ratio 26.80 H (12.00-20.00) Ratio Total Bilirubin <0.2 L (0.3-1.2) mg/dL Alkaline Phosphatase 138 H (41-126) U/L Total Protein 5.4 L (6.2-8.2) g/dL Albumin 3.7 L (3.8-4.9) g/dL HDL Cholesterol 65.20 H (40.00-60.00) mg/dL Microbiology - Last 24 Hours (Table) 02/27/25 23:44 Blood Culture - Preliminary Blood 02/27/25 23:00 Urine Culture - Final Urine,Catheterized Escherichia coli Pseudomonas aeruginosa Assessment and Plan (1) Enteritis Current Visit: Yes Status: Acute Code(s): K52.9 - NONINFECTIVE GASTROENTERITIS AND COLITIS, UNSPECIFIED SNOMED Code(s): 99099256 Plan: 1patient with a history of MS with recent admission to hospital with perforated peptic ulcer disease and intra-abdominal abscess culture positive for Terri and Streptococcus patient has received adequate antibiotic therapy she did have a CT abdominal pelvis this admission did not mention any abscess or any leakage, there was comment for possible small bowel wall thickening enteritis the patient has no abdominal pain nausea vomiting or diarrhea patient did have a negative UA white count has been normal mild leukocytosis clinically no features suggestive of sepsis or any focus for infection 2-urine is growing E. coli and Pseudomonas however the UA was negative more likely asymptomatic bacteriuria and no need for antibiotic therapy Rocephin to be discontinued Family at the bedside multiple question answered Dictation was produced using [employer] dictation software. please excuse any grammatical, word or spelling errors. Time with Patient: Less than 30
--- NOTE | 2025-03-03 15:36 | P.PN ---
Subjective Progress Note Date: 03/03/25 Principal diagnosis: Reason for follow-up is possible enteritis Patient is a 55-year-old female with a past medical history significant for MS hypertension who was recently admitted at this facility with a perforated peptic ulcer disease status post surgical repair now presented the hospital after repeated have a fall concern for possible hallucination she did have CT abdominal pelvis thickening of the small bowel but no fluid collection or any drainage. On today's evaluation that is 03/03/2025, Patient is afebrile this morning patient denies having any chest pain shortness of breath or cough, the patient is currently on room air, patient denies any abdominal pain no diarrhea no nausea no vomiting. The patient white count is 3.93, creatinine 0.5 Objective - Vital Signs Vital signs: Vital Signs Temp 98.0 F 03/03/25 07:14 Pulse 88 03/03/25 08:00 Resp 16 03/03/25 08:00 BP 125/71 03/03/25 07:14 Pulse Ox 99 03/03/25 07:14 FiO2 Intake & Output 03/02/25 03/03/25 03/03/25 18:59 06:59 18:59 Output Total 1300 900 Balance -1300 -900 Weight 50.802 kg Output: Urine 400 900 Stool 900 Other: Voiding Method Diaper External Catheter External Catheter # Voids 3 - Exam GENERAL DESCRIPTION: Middle-age female lying in bed in no distress RESPIRATORY SYSTEM: Unlabored breathing , decreased breath sounds at bases HEART: S1 S2 regular rate and rhythm , ABDOMEN: Soft , no tenderness EXTREMITIES: No edema feet - Labs CBC & Chem 7: 03/03/25 03:28 03/03/25 03:28 Labs: Abnormal Lab Results - Last 24 Hours (Table) 03/02/25 03/03/25 03/03/25 Range/Units 16:45 03:28 03:28 WBC 3.93 L (4.50-10.00) X 10*3/uL RBC 3.29 L (4.10-5.20) X 10*6/uL Hgb 9.9 L (12.0-15.0) g/dL Hct 31.9 L (37.2-46.3) % MCHC 31.0 L (32.0-37.0) g/dL RDW 14.6 H (11.5-14.5) % MPV 9.3 L (9.5-12.2) FL Lymphocytes # 0.77 L (0.90-5.00) X 10*3/uL Creatinine 0.5 L (0.6-1.5) mg/dL BUN/Creatinine Ratio 26.20 H (12.00-20.00) Ratio Glucose 130 H (70-110) mg/dL Total Bilirubin <0.2 L (0.3-1.2) mg/dL Alkaline Phosphatase 129 H (41-126) U/L Total Protein 5.7 L (6.2-8.2) g/dL Albumin 3.6 L (3.8-4.9) g/dL Ur Leukocyte Esterase Large H (Negative) Urine WBC 7 H (0-5) /hpf Urine Bacteria Few H (None) /hpf Urine Mucus Rare H (None) /hpf Microbiology - Last 24 Hours (Table) 02/27/25 23:44 Blood Culture - Preliminary Blood Assessment and Plan (1) Enteritis Current Visit: Yes Status: Acute Code(s): K52.9 - NONINFECTIVE GASTROENTERITIS AND COLITIS, UNSPECIFIED SNOMED Code(s): 22438888 (2) Asymptomatic bacteriuria Current Visit: Yes Status: Acute Code(s): R82.71 - BACTERIURIA SNOMED Code(s): 346546761 Plan: 1patient with a history of MS with recent admission to hospital with perforated peptic ulcer disease and intra-abdominal abscess culture positive for Terri and Streptococcus patient has received adequate antibiotic therapy she did have a CT abdominal pelvis this admission did not mention any abscess or any leakage, there was comment for possible small bowel wall thickening enteritis the patient has no abdominal pain nausea vomiting or diarrhea patient did have a negative UA white count has been normal mild leukocytosis clinically no features suggestive of sepsis or any focus for infection 2-urine is growing E. coli and Pseudomonas however the UA was negative more likely asymptomatic bacteriuria Rocephin was discontinued yesterday and will monitor the patient closely off antibiotic therapy Family at the bedside multiple question answered Dictation was produced using [employer] dictation software. please excuse any grammatical, word or spelling errors. Time with Patient: Less than 30
--- NOTE | 2025-03-04 00:03 | PN ---
PROGRESS NOTE DATE OF SERVICE: 03/03/2025 HISTORY OF PRESENT ILLNESS: This is a 55-year-old woman who was admitted with change in mental status possible acute delirium and metabolic encephalopathy. Sensorium is fluctuating at this time. The patient is feeling much better. PAST MEDICAL HISTORY: Reviewed. REVIEW OF SYSTEMS: Fourteen-point review is negative except as mentioned earlier. CURRENT MEDICATIONS: Reviewed. PHYSICAL EXAMINATION: VITAL SIGNS: Pulse is 86, blood pressure 130/87, respirations 16. HEENT: Conjunctivae normal. NECK: No JVD. CARDIOVASCULAR: S1 and S2. ABDOMEN: Soft. NERVOUS SYSTEM: Nonfocal. LABORATORY DATA: WBC 3.9. Other labs are noted. ASSESSMENT: 1. Change in mental status, acute delirium and acute metabolic encephalopathy multifactorial. 2. Possible multi-infarct state and subacute infarct. 3. Anemia. 4. Rule out sepsis. 5. Acute urinary tract infection with E coli and Pseudomonas aeruginosa. 6. Recent acute urinary tract infection, Escherichia coli and Pseudomonas aeruginosa in the urine. 7. Acute recent gastric perforation, exploratory laparotomy, antrectomy as well as Billroth II reconstruction. 8. History of electrolyte abnormality. 9. History of multiple sclerosis. 10.History of fall. RECOMMENDATIONS AND DISCUSSION: Recommend to continue current management and symptomatic treatment. Closely monitor treatment with delirium. Once the patient is stable, possible ECF rehab. Guarded prognosis. Further recommendations to follow. MMODL / IJN: [id number] /
[2025-03-04 08:20] LABS: Basophils # (A) 0.07 X 10*3/uL (0.00-0.10); Basophils % (A) 1.0 %; Eosinophils # (A) 0.11 X 10*3/uL (0.04-0.35); Eosinophils % (A) 1.6 %; HCT 30.4 % (37.2-46.3); HGB 9.6 g/dL (12.0-15.0); Immature Grans, Automated 0.30 %; Lymphocytes # (A) 0.92 X 10*3/uL (0.90-5.00); Lymphocytes % (A) 13.4 %; MCH 30.3 pg (27.0-32.0); MCHC 31.6 g/dL (32.0-37.0); MCV 95.9 FL (80.0-97.0); Monocytes # (A) 0.63 X 10*3/uL (0.20-1.00); Monocytes % (A) 9.2 %; NRBC Per 100 WBC 0 X 10*3/uL (0.00-0.01); Neutrophils # (A) 5.11 X 10*3/uL (1.80-7.70); Neutrophils % (A) 74.5 %; Platelet Count 316 X 10*3/uL (140-440); RBC 3.17 X 10*6/uL (4.10-5.20); RDW 14.6 % (11.5-14.5); WBC 6.86 X 10*3/uL (4.50-10.00)
[2025-03-04 08:36] LABS: Anion Gap 10.60 mmol/L (4.00-12.00); BUN/Creat Ratio 34.20 Ratio (12.00-20.00); Blood Urea Nitrogen 17.1 mg/dL (9.0-27.0); Calcium 9.1 mg/dL (8.7-10.3); Carbon Dioxide 26.4 mmol/L (21.6-31.8); Chloride 104 mmol/L (96-109); Glucose 114 mg/dL (70-110); Potassium 4.2 mmol/L (3.5-5.5); Sodium 141 mmol/L (135-145)
--- NOTE | 2025-03-04 13:06 | P.PN ---
Subjective Progress Note Date: 03/04/25 SURGICAL PROGRESS NOTE CHIEF COMPLAINT: Altered mental status HISTORY OF PRESENT ILLNESS: Patient with history of large gastric ulcer perforation status post antrectomy with Billroth II reconstruction. Patient sitting in bed comfortably. She reports no abdominal pain. Denies any nausea or vomiting. Afebrile. WWBC 6.86 PHYSICAL EXAM: VITAL SIGNS: Reviewed. GENERAL: Well-developed in no acute distress. ABDOMEN: nondistended. Nontender. Resting pullback incision is clean dry and intact. NEUROLOGIC: Alert and oriented. Cranial nerves II through XII grossly intact. ASSESSMENT: 1. History of large gastric ulcer perforation status post antrectomy with Billroth II reconstruction 2. Altered mental status with lack of sleep. Now improved PLAN: -Will have nursing staff remove the first 6 wellington of midline incision. Then cover with Steri-Strips - Continue low fiber diet - No surgical intervention planned - Continue lactulose and stool softener - Encourage patient to increase activity level Physician Energy Scheduler note has been reviewed by physician. Signing provider agrees with the documented findings, assessment, and plan of care. Attestation Patient seen and examined at bedside on 03/04/2025. Altered mental status appears to be improving. Continue diet. No abdominal pain. Okay to remove partial wellington. Encourage increasing activity. Continue medical care. Anaya Grove, DO Objective - Vital Signs Vital signs: Vital Signs Temp 98.6 F 03/04/25 07:22 Pulse 84 03/04/25 08:00 Resp 17 03/04/25 08:00 BP 122/72 03/04/25 07:22 Pulse Ox 98 03/04/25 07:22 FiO2 Intake & Output 03/03/25 03/04/25 03/04/25 18:59 06:59 18:59 Intake Total 650 500 Output Total 1500 1100 1550 Balance -850 -600 -1550 Intake: Oral 650 500 Output: Urine 1500 1100 650 Stool 900 Other: Voiding Method External Catheter External Catheter External Catheter - Labs CBC & Chem 7: 03/04/25 03:18 03/04/25 03:18 Labs: Abnormal Lab Results - Last 24 Hours (Table) 03/04/25 03/04/25 Range/Units 03:18 03:18 RBC 3.17 L (4.10-5.20) X 10*6/uL Hgb 9.6 L (12.0-15.0) g/dL Hct 30.4 L (37.2-46.3) % MCHC 31.6 L (32.0-37.0) g/dL RDW 14.6 H (11.5-14.5) % MPV 9.3 L (9.5-12.2) FL Creatinine 0.5 L (0.6-1.5) mg/dL BUN/Creatinine Ratio 34.20 H (12.00-20.00) Ratio Glucose 114 H (70-110) mg/dL Microbiology - Last 24 Hours (Table) 03/02/25 15:46 Blood Culture - Preliminary Blood
--- NOTE | 2025-03-04 19:34 | CDI ---
Documentation Clarification Form Date: 03/04/2025 07:31:06 PM From: Cheri Vick RN, CCDS Phone: [phone] Admit Date: 02/27/2025 02:45:00 PM Patient Name: Saima Swann Visit Number: [id number] Discharge Date: ATTENTION: The Clinical Documentation Specialists (CDI) and [facility] Coding Staff appreciate your assistance in clarifying documentation. Please respond to the clarification below the line at the bottom and electronically sign. The CDI & [facility] Coding staff will review the response and follow-up if needed. Please note: Queries are made part of the Legal Health Record. If you have any questions, please contact the author of this message via ITS. DoctorNacho Yo Coccyx stage II pressure ulcer is documented by Nursing Wound Care Assessment starting on 02/27/25.Based on this information and the findings below, is there an additional diagnosis that is clinically appropriate for this patient? History/Risk Factors: Multiple Sclerosis, Gastric perforation Clinical Indicators: 55-year-old female present with altered mental status, history of multiple sclerosis. She has 2-3 weeks poor intake per dietary assessment. Location: Coccyx Wound description: Length/cm 4, Width/cm 2; Erythema Treatment: Check Hourly Turn Q2 HRS, Bilateral sides Foam w/Border Change as needed Is there an additional diagnosis that is clinically appropriate f or this patient? [ ] Coccyx pressure ulcer stage 2, POA [ ] Other condition, please specify [ ] Unable to determine Clinical Definitions: Stage 1 Pressure Ulcer: intact skin, non-blanching redness of local area Stage 2 Pressure Ulcer: Partial thickness, loss of dermis, pink wound bed Stage 3 Pressure Ulcer: Full thickness tissue loss Stage 4 Pressure Ulcer: Full thickness tissue loss with exposed bone, tendon, or muscle. Unstageable pressure ulcer: Full thickness tissue loss in which the base of the ulcer is covered by slough (yellow, pineda, marques, green or brown) and/or eschar (pineda, brown or black) in the wound bed. (Template Last Revised: November 2020) Edytayx pressure ulcer stage 2, ИВАН LEARY
--- NOTE | 2025-03-05 07:03 | CDI ---
Documentation Clarification Form Date: 03/05/2025 06:36:00 AM From: Cheri Vick RN, CCDS Phone: [phone] Admit Date: 02/27/2025 02:45:00 PM Patient Name: Saima Swann Visit Number: [id number] Discharge Date: ATTENTION: The Clinical Documentation Specialists (CDI) and [facility] Coding Staff appreciate your assistance in clarifying documentation. Please respond to the clarification below the line at the bottom and electronically sign. The CDI & [facility] Coding staff will review the response and follow-up if needed. Please note: Queries are made part of the Legal Health Record. If you have any questions, please contact the author of this message via ITS. Doctor. Cara Paniagua The Registered Dietitian assessment on 02/28/25 indicates this patient meets criteria for Malnutrition, acute severe. Based on this information and the findings below, is there an additional diagnosis that is clinically appropriate for this patient? History/Risk Factors: Multiple Sclerosis, Gastric perforation Clinical Indicators: 55-year-old female with 2-3 weeks poor intakes. 0-25% Current BMI: 18.6 Physical Appearance: Underweight Stage 2 Coccyx pressure ulcer. Mild to moderate muscle fat loss noted NFPE moderate muscle/fat losses: temporal, buccal, orbital, deltoid, trapezius, interosseous decreased ability to consume sufficient energy, increased needs intakes </=50% of est needs for >/=5 days, moderate muscle/fat losses, RD Consult Assessment: Malnutrition, acute, severe Treatment: Ensure plus high protein TID vanilla Monitor PO General healthful diet Low fiber diet Is there an additional diagnosis that is clinically appropriate for this patient? [ ] Severe Protein-Calorie Malnutrition [ ] Other condition, please specify [ ] Unable to Determine (Template Last Revised: March 2023) Severe Protein-Calorie Malnutrition MTDD
--- NOTE | 2025-03-05 09:19 | CDI ---
Documentation Clarification Form Date: 03/05/2025 07:52:00 AM From: Cheri Vick RN, CCDS Phone: [phone] Admit Date: 02/27/2025 02:45:00 PM Patient Name: Saima Swann Visit Number: [id number] Discharge Date: ATTENTION: The Clinical Documentation Specialists (CDI) and [facility] Coding Staff appreciate your assistance in clarifying documentation. Please respond to the clarification below the line at the bottom and electronically sign. The CDI & [facility] Coding staff will review the response and follow-up if needed. Please note: Queries are made part of the Legal Health Record. If you have any questions, please contact the author of this message via ITS. Doctor. Cara Paniagua There is documentation of Acute Urinary tract infection in progress note on 03/02/25. Additional clarification is requested. History/Risk Factors: Multiple Sclerosis, gastric perforation Clinical Indicators: 55 year-old female present after a fall and also had spasm and hallucinations. 02/27 VS (11:25) 119/69 88 18 98.6 100% NC 02/27 Labs: WBC 8.97, ALT 38, ALK Phos 146, 02/27 UA: Leukocyte Esterase Negative 02/27 Urine Culture Final: Escherichia coli, Pseudomonas aeruginosa 02/27 Blood Culture Finale: No growth after 5 days 03/03 ID Progress note: (1) Enteritis (2) Asymptomatic bacteriuria "The patient has no abdominal pain nausea vomiting or diarrhea patient did have a negative UA white count has been normal mild leukocytosis clinically no features suggestive of sepsis or any focus for infection." "2-urine is growing E. coli and Pseudomonas however the UA was negative more likely asymptomatic bacteriuria Rocephin was discontinued." Treatment: Rocephin 1 GM IVPB HS 02/27-03/01 .09 NS 1,000 ML Bolus 02/27 Can you please further clarify the diagnosis of Urinary Tract Infection? [ ] Urinary Tract Infection ruled out [ ] Urinary Tract Infection is clinically supported as evidenced by these additional clinical indicators: [ ] Other, please specify [ ] Unable to determine (Template Last Revised: November 2020) Urinary Tract Infection ruled out MTDD
[2025-03-05 09:22] VITALS: BP 116/71; RESP 16; TEMP 98.5
--- NOTE | 2025-03-05 09:58 | P.PN ---
Subjective Progress Note Date: 03/04/25 This is a pleasant 55-year-old female who was recently admitted with change in mental status, possibly acute delirium and metabolic encephalopathy. Patient's mentation is improved on adjusted medications and will continue this regimen. Patient with significant weakness and was at [facility] for continued strength and mobility and will be returning to [facility]. Patient did have a urinalysis that was performed which was negative. Will follow-up in the a.m. and discuss discharge planning to [facility] in the next 24 hours Review of systems: Constitutional: No reports of fatigue, fever, or chills Cardiovascular: No reports of chest pain or palpitations Respiratory: No reports of shortness of breath or cough GI: reports of nausea, no reports of of vomiting, : No reports of dysuria or retention Neurovascular: reports of generalized weakness All medications have been reviewed PHYSICAL EXAMINATION: GENERAL: The patient is alert and oriented x4, Well developed, well nourished. Thin built HEENT: Pupils are round and equally reacting to light. EOMI. no scleral icterus. No conjunctival pallor. Normocephalic, atraumatic. No pharyngeal erythema. No thyromegaly. CARDIOVASCULAR: S1 and S2 muffled PULMONARY: diminished breath sounds bilaterally with no wheezing or rhonchi noted. ABDOMEN: soft. Nontender on exam. Thin. non-distended, normoactive bowel sounds. No palpable organomegaly. MUSCULOSKELETAL: No joint swelling or deformity. EXTREMITIES: No cyanosis, clubbing, or pedal edema. NEUROLOGICAL: Gross neurological examination did not reveal any focal deficits. Diffuse weakness SKIN: No rashes. Assessment: Change in mental status, acute delirium and acute metabolic encephalopathy with medication effect, improved and at baseline Anemia Acute urinary tract infection with E. coli and Pseudomonas Recent acute urinary tract infection with E. coli and Pseudomonas in the urine previously Acute recent gastric perforation status post exploratory laparotomy and antrectomy as well as Billroth II reconstruction History of multiple sclerosis History of falls GI prophylaxis DVT prophylaxis Full code Plan: Recommend to continue with current medications and management with surgery following as well with no plans of further intervention recommending outpatient follow-up. Patient has been evaluated by neurology recommending outpatient follow-up as needed and continue to follow with her primary neurologist Dr. Olivas in the outpatient setting Recommend updated PT/OT therapy notes as patient will be returning to [facility] for continued strength and mobility, patient will require insurance authorization Will plan for discharge planning to [facility] once authorization is obtained. Possible discharge planning in 24 hours The impression and plan of care has been dictated by Tahira Syed, nurse practitioner as directed. Dr. Siva MD I have performed a history and examination and MDM of this patient, discussed the same with the dictator, and agree with the dictator's assessment and plan as written ,documented as a scribe. Based on total visit time, I have performed more than 50% of the visit. Any additional findings or plans will be noted. Objective - Vital Signs Vital signs: Vital Signs Temp 98.5 F 03/05/25 08:07 Pulse 87 03/05/25 08:07 Resp 16 03/05/25 08:07 BP 116/71 03/05/25 08:07 Pulse Ox 98 03/05/25 08:07 FiO2 Intake & Output 03/04/25 03/05/25 03/05/25 18:59 06:59 18:59 Output Total 1850 400 Balance -1850 -400 Output: Urine 950 400 Stool 900 Other: Voiding Method External Catheter External Catheter # Bowel Movements 1 - Labs CBC & Chem 7: 03/04/25 03:18 03/04/25 03:18 Labs: Microbiology - Last 24 Hours (Table) 02/27/25 23:44 Blood Culture - Final Blood 03/02/25 15:46 Blood Culture - Preliminary Blood
--- NOTE | 2025-03-05 10:21 | CDI ---
Documentation Clarification Form Date: 03/05/2025 09:44:06 AM From: Cheri Vick RN, CCDS Phone: [phone] Admit Date: 02/27/2025 02:45:00 PM Patient Name: Saima Swann Visit Number: [id number] Discharge Date: ATTENTION: The Clinical Documentation Specialists (CDI) and [facility] Coding Staff appreciate your assistance in clarifying documentation. Please respond to the clarification below the line at the bottom and electronically sign. The CDI & [facility] Coding staff will review the response and follow-up if needed. Please note: Queries are made part of the Legal Health Record. If you have any questions, please contact the author of this message via ITS. Doctor.. Cara Paniagua Rule out Sepsis is documented in the medicine H/P and subsequent progress notes which may lack sufficient clinical evidence/support in the medical record. Additional clarification is requested. History/Risk Factors: Multiple Sclerosis, Gastric perforation Clinical Indicators: 55 year-old female present after a fall and also had spasm and hallucinations. 02/27 VS (11:25) 119/69 88 18 98.6 100% NC 02/27 Labs: WBC 8.97, ALT 38, ALK Phos. 146, 02/27 UA: Leukocyte Esterase Negative 02/27 Urine Culture Final: Escherichia coli, Pseudomonas aeruginosa 02/27 Blood Culture Finale: No growth after 5 days 03/03 VS (07:14) 125/71 88 16 98.0 99% RA 03/03 Labs: WBC 3.93, BUN 13.1, CR 0.5 03/03 ID Progress note: (1) Enteritis (2) Asymptomatic bacteriuria "The patient has no abdominal pain nausea vomiting or diarrhea patient did have a negative UA white count has been normal mild leukocytosis clinically no features suggestive of sepsis or any focus for infection." "2-urine is growing E. coli and Pseudomonas however the UA was negative more likely asymptomatic bacteriuria, Rocephin was discontinued." Treatment: Rocephin 1 GM IVPB HS 02/27-03/01 .09 NS 1,000 ML Bolus 02/27 After work up and study, please clarify which diagnosis is most appropriate? [ ] Sepsis is ruled out. The patient had a localized infection without systemic response or organ dysfunction. [ ] Sepsis was initially suspected, but subsequent clinical findings did not support the diagnosis, and it has been ruled out. [ ] Sepsis is clinically supported as evidenced by these additional clinical indicators: [ ] Other, please specify [ ] Unable to determine (Template Last Reviewed: September 2023) Sepsis is ruled out MTDD
--- NOTE | 2025-03-05 10:24 | P.DS ---
Providers Date of admission: 02/27/25 14:45 Expected date of discharge: 03/05/25 Attending physician: Cara Paniagua Consults: 02/27/25 14:44 Consult Physician Routine Consulting Provider: Tristin Encarnacion Consult Reason/Comments: AMS, hx of MS Do you want consulting provider notified?: Yes 02/27/25 21:43 Consult Physician Routine Consulting Provider: Anaya Grove Consult Reason/Comments: recent surgery Do you want consulting provider notified?: Yes Consult Physician Routine Consulting Provider: Paul Bruno Consult Reason/Comments: sepsis Do you want consulting provider notified?: Yes Primary care physician: Josesito Taylor Hospital Course: Final diagnosis Change in mental status, acute delirium and acute metabolic/toxic encephalopathy with medication effect, improved and at baseline Anemia history Recent urinary tract infection with previous E. coli and Pseudomonas recently, present UTI, ruled out Recent acute urinary tract infection with E. coli and Pseudomonas in the urine previously and had been maintained on Ceftin Acute recent gastric perforation status post exploratory laparotomy and antrectomy as well as Billroth II reconstruction Stage II pressure ulcer, coccyx, present on admission Severe protein calorie malnutrition with a BMI of 18.6 History of multiple sclerosis History of falls GI prophylaxis DVT prophylaxis Full code Discharge disposition Patient is being discharged in a stable condition with guarded prognosis to [facility]. Patient will follow-up with Dr. Josesito Taylor in the outpatient setting upon discharge. Patient is to continue with current medications and outpatient follow-up with her neurologist as well as general surgery Dr. Grove as scheduled. Total time taken is greater than 35 minutes. Hospital course This is a 55-year-old female who was recently admitted with change in mental status with acute metabolic/toxic encephalopathy possibly secondary to medication effect being closely monitored with general surgery following. Patient recently underwent gastric perforation repair with exploratory laparotomy and antrectomy as well as Billroth II reconstruction. Patient incision is healing well and surgery with no plans of further surgical intervention at this time recommending outpatient follow-up. Patient did have repeat urinalysis which continues to show E. coli with Pseudomonas and has completed antibiotic course. Patient denies any pain, burning, frequency with urination. Patient also with stage II pressure ulcer of the coccyx, present on admission recommend offloading and frequent position changes every 2 hours and using zinc barrier paste and Optifoam as needed. Patient is maintained on a low fiber diet with low fat and will continue recommend supplements in between high- protein vanilla. Patient evaluated by physical therapy and will be returning to [facility] on discharge for continued strength and mobility and insurance authorization was obtained and patient has been accepted and will be discharged today. Patient has been instructed to follow-up with her primary neurologist outpatient as well. Please refer to other consultation notes for further HPI. Mentation is baseline and improved and would recommend monitoring closely on Seroquel, hold and/or adjust accordingly if patient is more lethargic. Currently no reports of chest pain, shortness of breath, or palpitations. Patient is afebrile. No reports of nausea or vomiting and patient is tolerating diet. Patient will be going to [facility] on the cm today. guarded prognosis and high risk for readmissions Given significant comorbidities Physical exam: Gen: This is a 55-year-old female who is awake, alert and oriented x 3, well- developed, appears older than stated age, cachectic HEENT: Head is atraumatic, normocephalic. Pupils equal, round. Sclerae is anicteric. NECK: Supple. No JVD. No lymphadenopathy. No thyromegaly. LUNGS: Diminished breath sounds bilaterally otherwise clear to auscultation. No wheezes or rhonchi. No intercostal retractions. HEART: Regular rate and rhythm. No murmur. ABDOMEN: Soft. Thin. Bowel sounds are present. No masses. No tenderness. EXTREMITIES: No pedal edema. No calf tenderness. NEUROLOGICAL: Patient is awake, alert and oriented x3. Cranial nerves 2 through 12 are grossly intact. Diffusely weak Please refer to medication reconciliation sheet for a list of medications. The impression and plan of care has been dictated by Tahira Syed, Nurse Practitioner as directed. Dr. Siva MD I have performed a history and examination and MDM of this patient, discussed the same with the dictator, and agree with the dictator's assessment and plan as written ,documented as a scribe. Based on total visit time, I have performed more than 50% of the visit. Patient Condition at Discharge: Fair Plan - Discharge Summary Discharge Rx Participant: Yes New Discharge Prescriptions: New Multivitamins, Thera [Multivitamin (formulary)] 1 each PO DAILY@1200 tab QUEtiapine [SEROquel] 25 mg PO BID tab Folic Acid 1 mg PO DAILY@1200 tab Nystatin 100,000 Unit/ml Susp [Mycostatin Oral Susp] 500,000 unit PO QID ml Thiamine [Vitamin B-1] 100 mg PO BID-W/MEALS tab Continue Acetaminophen Tab [Tylenol] 650 mg PO Q4H PRN #30 tablet PRN Reason: Pain Pantoprazole [Protonix] 40 mg PO DAILY 30 Days #30 tab Ondansetron [Zofran] 4 mg PO Q6H PRN PRN Reason: Nausea And Vomiting Acetaminophen Tab [Tylenol] 650 mg PO BID Losartan Potassium [Cozaar] 100 mg PO DAILY amLODIPine [Norvasc] 5 mg PO HS Escitalopram [Lexapro] 10 mg PO DAILY amantadine HCL [Amantadine] 100 mg PO QID methocarbamoL [Robaxin] 125 mg PO TID PRN PRN Reason: Muscle Spasm Docusate [Colace] 100 mg PO BID PRN PRN Reason: Constipation Mirabegron [Myrbetriq] 50 mg PO DAILY Hydroxychloroquine Sulfate [Plaquenil] 300 mg PO DAILY valACYclovir HCL [Valtrex] 2,000 mg PO BID PRN PRN Reason: Cold Sores Calcium Citrate/Vitamin D3 [Citracal + D Maximum Caplet] 2 tab PO BID Sennosides [Senokot] 8.6 mg PO BID PRN #14 tablet PRN Reason: Constipation Losartan [Cozaar] 25 mg PO DAILY tab Cyanocobalamin [Vitamin B-12] 500 mcg PO DAILY Lactulose [Cephulac] 10 gm PO DAILY Cholecalciferol [Vitamin D3 (25 Mcg = 1000 Iu)] 50 mcg PO DAILY Discontinued traMADol HCL 50 mg PO Q6H PRN PRN Reason: Pain Cefuroxime [Ceftin] 250 mg PO BID Discharge Medication List Escitalopram [Lexapro] 10 mg PO DAILY 02/21/22 [History] amantadine HCL [Amantadine] 100 mg PO QID 02/21/22 [History] Calcium Citrate/Vitamin D3 [Citracal + D Maximum Caplet] 2 tab PO BID 02/07/25 [History] Docusate [Colace] 100 mg PO BID PRN 02/07/25 [History] Hydroxychloroquine Sulfate [Plaquenil] 300 mg PO DAILY 02/07/25 [History] Mirabegron [Myrbetriq] 50 mg PO DAILY 02/07/25 [History] methocarbamoL [Robaxin] 125 mg PO TID PRN 02/07/25 [History] valACYclovir HCL [Valtrex] 2,000 mg PO BID PRN 02/07/25 [History] Acetaminophen Tab [Tylenol] 650 mg PO Q4H PRN #30 tablet 02/16/25 [Rx] Losartan [Cozaar] 25 mg PO DAILY tab 02/16/25 [Rx] Pantoprazole [Protonix] 40 mg PO DAILY 30 Days #30 tab 02/16/25 [Rx] Sennosides [Senokot] 8.6 mg PO BID PRN #14 tablet 02/16/25 [Rx] Acetaminophen Tab [Tylenol] 650 mg PO BID 02/27/25 [History] Cholecalciferol [Vitamin D3 (25 Mcg = 1000 Iu)] 50 mcg PO DAILY 02/27/25 [History] Cyanocobalamin [Vitamin B-12] 500 mcg PO DAILY 02/27/25 [History] Lactulose [Cephulac] 10 gm PO DAILY 02/27/25 [History] Losartan Potassium [Cozaar] 100 mg PO DAILY 02/27/25 [History] Ondansetron [Zofran] 4 mg PO Q6H PRN 02/27/25 [History] amLODIPine [Norvasc] 5 mg PO HS 02/27/25 [History] Folic Acid 1 mg PO DAILY@1200 tab 03/05/25 [Rx] Multivitamins, Thera [Multivitamin (formulary)] 1 each PO DAILY@1200 tab 03/05/25 [Rx] Nystatin 100,000 Unit/ml Susp [Mycostatin Oral Susp] 500,000 unit PO QID ml 03/05/25 [Rx] QUEtiapine [SEROquel] 25 mg PO BID tab 03/05/25 [Rx] Thiamine [Vitamin B-1] 100 mg PO BID-W/MEALS tab 03/05/25 [Rx] Follow up Appointment(s)/Referral(s): Josesito Taylor MD [Primary Care Provider] - 1-2 days Activity/Diet/Wound Care/Special Instructions: [facility] tolerated Follow-up with general surgery Continue with local wound care and zinc paste to the coccyx region with frequent offloading and position changes every 2 hours Follow-up with primary care provider on discharge Discharge Disposition: TRANSFER TO SNF/ECF
[2025-03-05 11:43] VITALS: PULSE 94
--- NOTE | 2025-03-05 12:31 | P.PN ---
Subjective Progress Note Date: 03/05/25 SURGICAL PROGRESS NOTE CHIEF COMPLAINT: Altered mental status HISTORY OF PRESENT ILLNESS: Patient with history of large gastric ulcer perforation status post antrectomy with Billroth II reconstruction. Patient had the first 6 wellington removed from her abdominal incision yesterday. Steri-Strips were applied by nursing staff. Patient denies abdominal pain. She is tolerating diet. She did have bowel movement. They are planning discharge to [facility] today. Afebrile. PHYSICAL EXAM: VITAL SIGNS: Reviewed. GENERAL: Well-developed in no acute distress. ABDOMEN: nondistended. Nontender. Resting pullback incision is clean dry and intact. NEUROLOGIC: Alert and oriented. Cranial nerves II through XII grossly intact. ASSESSMENT: 1. History of large gastric ulcer perforation status post antrectomy with Billroth II reconstruction 2. Altered mental status with lack of sleep. Now improved PLAN: -Patient can be discharged from surgical standpoint -Okay to shower - Continue low fiber diet - No surgical intervention planned - Continue lactulose and stool softener - Encourage patient to increase activity level Physician Supervisor Screen Making note has been reviewed by physician. Signing provider agrees with the documented findings, assessment, and plan of care. Objective - Vital Signs Vital signs: Vital Signs Temp 98.5 F 03/05/25 08:07 Pulse 87 03/05/25 08:07 Resp 16 03/05/25 08:07 BP 116/71 03/05/25 08:07 Pulse Ox 98 03/05/25 08:07 FiO2 Intake & Output 03/04/25 03/05/25 03/05/25 18:59 06:59 18:59 Output Total 1850 400 900 Balance -1850 -400 -900 Output: Urine 950 400 Stool 900 900 Other: Voiding Method External Catheter External Catheter External Catheter # Bowel Movements 1 - Labs CBC & Chem 7: 03/04/25 03:18 03/04/25 03:18 Labs: Microbiology - Last 24 Hours (Table) 02/27/25 23:44 Blood Culture - Final Blood 03/02/25 15:46 Blood Culture - Preliminary Blood
--- NOTE | 2025-03-08 15:04 | P.PN ---
Subjective Progress Note Date: 03/04/25 Principal diagnosis: Reason for follow-up is possible enteritis Patient is a 55-year-old female with a past medical history significant for MS hypertension who was recently admitted at this facility with a perforated peptic ulcer disease status post surgical repair now presented the hospital after repeated have a fall concern for possible hallucination she did have CT abdominal pelvis thickening of the small bowel but no fluid collection or any drainage. On today's evaluation that is 03/04/2025, Patient is afebrile patient is currently on room air and denies having any shortness of breath, the patient denies any chest pain or cough, the patient denies any nausea vomiting did not have any abdominal pain and no diarrhea. Patient white count 6.86, creatinine 0.5 Objective - Vital Signs Vital signs: Vital Signs Temp 98.6 F 03/04/25 07:22 Pulse 84 03/04/25 08:00 Resp 17 03/04/25 08:00 BP 122/72 03/04/25 07:22 Pulse Ox 98 03/04/25 07:22 FiO2 Intake & Output 03/03/25 03/04/25 03/04/25 18:59 06:59 18:59 Intake Total 650 500 Output Total 1500 1100 1550 Balance -850 -600 -1550 Intake: Oral 650 500 Output: Urine 1500 1100 650 Stool 900 Other: Voiding Method External Catheter External Catheter External Catheter - Exam GENERAL DESCRIPTION: Middle-age female lying in bed in no distress RESPIRATORY SYSTEM: Unlabored breathing , decreased breath sounds at bases HEART: S1 S2 regular rate and rhythm , ABDOMEN: Soft , no tenderness EXTREMITIES: No edema feet - Labs CBC & Chem 7: 03/04/25 03:18 03/04/25 03:18 Labs: Abnormal Lab Results - Last 24 Hours (Table) 03/04/25 03/04/25 Range/Units 03:18 03:18 RBC 3.17 L (4.10-5.20) X 10*6/uL Hgb 9.6 L (12.0-15.0) g/dL Hct 30.4 L (37.2-46.3) % MCHC 31.6 L (32.0-37.0) g/dL RDW 14.6 H (11.5-14.5) % MPV 9.3 L (9.5-12.2) FL Creatinine 0.5 L (0.6-1.5) mg/dL BUN/Creatinine Ratio 34.20 H (12.00-20.00) Ratio Glucose 114 H (70-110) mg/dL Microbiology - Last 24 Hours (Table) 03/02/25 15:46 Blood Culture - Preliminary Blood Assessment and Plan (1) Enteritis Status: Acute Code(s): K52.9 - NONINFECTIVE GASTROENTERITIS AND COLITIS, UNSPECIFIED SNOMED Code(s): 57024660 (2) Asymptomatic bacteriuria Status: Acute Code(s): R82.71 - BACTERIURIA SNOMED Code(s): 093961393 Plan: 1patient with a history of MS with recent admission to hospital with perforated peptic ulcer disease and intra-abdominal abscess culture positive for Terri and Streptococcus patient has received adequate antibiotic therapy she did have a CT abdominal pelvis this admission did not mention any abscess or any leakage, there was comment for possible small bowel wall thickening enteritis the patient has no abdominal pain nausea vomiting or diarrhea patient did have a negative UA white count has been normal mild leukocytosis clinically no features suggestive of sepsis or any focus for infection 2-urine is growing E. coli and Pseudomonas however the UA was negative and the patient is asymptomatic more likely asymptomatic bacteriuria Rocephin has been discontinued the patient is currently being monitored closely off antibiotic therapy Dictation was produced using [employer] dictation software. please excuse any grammatical, word or spelling errors. Time with Patient: Less than 30
--- NOTE | 2025-03-08 15:05 | P.PN ---
Subjective Progress Note Date: 03/05/25 Principal diagnosis: Reason for follow-up is possible enteritis Patient is a 55-year-old female with a past medical history significant for MS hypertension who was recently admitted at this facility with a perforated peptic ulcer disease status post surgical repair now presented the hospital after repeated have a fall concern for possible hallucination she did have CT abdominal pelvis thickening of the small bowel but no fluid collection or any drainage. On today's evaluation that is 03/05/2025,the patient remains to be afebrile, patient is on room air not requiring supplemental oxygen and denies any shortness of breath no chest pain or cough.Patient denies having any nausea or vomiting, no abdominal pain and no diarrhea has been reported. No new lab has been obtained today blood culture has been negative Objective - Vital Signs Vital signs: Vital Signs Temp 98.5 F 03/05/25 08:07 Pulse 87 03/05/25 08:07 Resp 16 03/05/25 08:07 BP 116/71 03/05/25 08:07 Pulse Ox 98 03/05/25 08:07 FiO2 Intake & Output 03/04/25 03/05/25 03/05/25 18:59 06:59 18:59 Output Total 1850 400 900 Balance -1850 -400 -900 Output: Urine 950 400 Stool 900 900 Other: Voiding Method External Catheter External Catheter External Catheter # Bowel Movements 1 - Exam GENERAL DESCRIPTION: Middle-age female lying in bed in no distress RESPIRATORY SYSTEM: Unlabored breathing , decreased breath sounds at bases HEART: S1 S2 regular rate and rhythm , ABDOMEN: Soft , no tenderness EXTREMITIES: No edema feet - Labs CBC & Chem 7: 03/04/25 03:18 03/04/25 03:18 Labs: Microbiology - Last 24 Hours (Table) 02/27/25 23:44 Blood Culture - Final Blood 03/02/25 15:46 Blood Culture - Preliminary Blood Assessment and Plan (1) Enteritis Status: Acute Code(s): K52.9 - NONINFECTIVE GASTROENTERITIS AND COLITIS, UNSPECIFIED SNOMED Code(s): 93646243 (2) Asymptomatic bacteriuria Status: Acute Code(s): R82.71 - BACTERIURIA SNOMED Code(s): 499382077 Plan: 1patient with a history of MS with recent admission to hospital with perforated peptic ulcer disease and intra-abdominal abscess culture positive for Terri and Streptococcus patient has received adequate antibiotic therapy she did have a CT abdominal pelvis this admission did not mention any abscess or any leakage, there was comment for possible small bowel wall thickening enteritis the patient has no abdominal pain nausea vomiting or diarrhea patient did have a negative UA white count has been normal mild leukocytosis clinically no features suggestive of sepsis or any focus for infection 2-urine is growing E. coli and Pseudomonas however the UA was negative and the patient is asymptomatic more likely asymptomatic bacteriuria patient has been doing well off antibiotic therapy and recommend no antibiotics on discharge Dictation was produced using [employer] software. please excuse any grammatical, word or spelling errors. Time with Patient: Less than 30
== END 2025-03-05 13:20 | DRG 91 ==
LOC: EC 11:13 → 5NMEDONC 14:45 → 4SSUR 17:36
PROVIDERS: ADMIT Hospitalist; ATTEND Hospitalist
DX: G92.8 Other toxic encephalopathy (principal); E43 Unspecified severe protein-calorie malnutrition; G93.6 Cerebral edema; L89.152 Pressure ulcer of sacral region, stage 2; S09.90XA Unspecified injury of head, initial encounter; G82.20 Paraplegia, unspecified; M06.9 Rheumatoid arthritis, unspecified; F32.A Depression, unspecified; I10 Essential (primary) hypertension; D64.9 Anemia, unspecified; Z68.1 Body mass index [BMI] 19.9 or less, adult; G35 Multiple sclerosis; T50.905A Adverse effect of unspecified drugs, medicaments and biological substances, initial encounter; G47.00 Insomnia, unspecified; F41.9 Anxiety disorder, unspecified; K52.9 Noninfective gastroenteritis and colitis, unspecified; N20.0 Calculus of kidney; W06.XXXA Fall from bed, initial encounter; Y92.003 Bedroom of unspecified non-institutional (private) residence as the place of occurrence of the external cause; Z87.11 Personal history of peptic ulcer disease; Z79.899 Other long term (current) drug therapy; Z91.81 History of falling; Z87.440 Personal history of urinary (tract) infections
CPT/HCPCS: 36415; 70450; 71046; 72125; 74176; 80048; 80053; 80061; 81001; 81003; 82140; 82607; 82746; 83735; 84145; 84443; 85025; 87040; 87077; 87086; 87186; 93005; 96360; 96361; 99285